=== PATIENT | male | born 1955 | race Caucasian/White ===

== ENCOUNTER 2020-09-12 15:51 | Inpatient (IN) | payer MEDICARE, MEDICAID, SELFPAY ==
[2020-09-12 15:53] VITALS: BP 122/75; PULSE 89; RESP 16; TEMP 36.1; BMI 25.0
--- NOTE | 2020-09-12 16:20 | CT_ITS ---
STUDY: CT ABDOMEN AND PELVIS WITHOUT CONTRAST REASON FOR EXAM: Male, 65 years old. ABD MASS RADIATION DOSAGE (If Supplied By Facility): CTDIvol = ( 10.78 ) mGy, DLP = ( 562.64 ) mGycm TECHNIQUE: Transaxial images were obtained from the dome of the diaphragm to the symphysis pubis without oral contrast, and without intravenous contrast. Sagittal and coronal images were reconstructed. Individualized dose optimization techniques were used for this CT. COMPARISON: None. FINDINGS: There is a partially imaged anterior pleural or chest wall mass within the right hemithorax. Bilateral infiltrates at the lung bases. The visualized portions of the heart are within normal limits. Normal liver. Possible cholelithiasis. No significant dilatation of the extrahepatic biliary system. Normal spleen. Normal pancreas. Mild ascites. Normal bilateral adrenal glands. 2.6 cm cyst in the right kidney with a ureteral stent in place. Cysts in the left kidney. Left hydronephrosis and hydroureter. Possible small calcifications within the distal left ureter. Normal visualized stomach. Normal small intestine. Normal colon. The appendix is not visualized. Normal abdominal aorta. Normal inferior vena cava. Mild adenopathy in the retroperitoneum. Large abdominal mass is noted estimated at 16.5 cm in size extending into an umbilical hernia. The mass likely encasing bowel loops. There is soft tissue density extending along the lateral aspect of the liver and along the right paracolic gutter. There is omental thickening and nodularity. Left paracolic gutter soft tissue density and fluid. 2 mm obstructive stone at the left UVJ of the urinary bladder. Mild wall thickening of the bladder. Bilateral inguinal adenopathy, right significantly more than left. There is fluid in the pelvis. Normal osseous structures. CT/Abdomen/Pelvis without Cont IMPRESSION: Partially imaged right anterior chest wall/pleural based mass. Large abdominal mass with omental thickening and nodularity. Soft tissue densities along the paracolic gutters is noted. Bilateral renal cysts. Obstructive calculi within the distal left ureter and left UVJ. Free fluid in the pelvis. Retroperitoneal and inguinal adenopathy. Mild ascites. Mild wall thickening of the bladder. Electronically Signed: Lebron Ibarra DO at 18:51 EDT Tel [phone], Service support ,
--- NOTE | 2020-09-12 16:20 | EKG12_ITS ---
Test Reason : Blood Pressure : / mmHG Vent. Rate : 080 BPM Atrial Rate : 080 BPM P-R Int : 146 ms QRS Dur : 102 ms QT Int : 414 ms P-R-T Axes : 030 -01 020 degrees QTc Int : 477 ms Normal sinus rhythm Normal ECG Confirmed by MARTHA AGUIRRE, LIZ ([id number]), supervising film or videotape editor LAURENCE BHANDARI ([id number]) on 09/23/2020 9:35:12 A M Referred By: ION Confirmed By:NADIA THOMAS MD
--- NOTE | 2020-09-12 16:22 | ED.VIS.GEN ---
History of Present Illness Chief Complaint: Complaint Narrative: This patient is a 65-year-old male who presents with multiple complaints. He was diagnosed with lymphoma 2 years ago. He has not followed up. He has no family physician. He otherwise has no known medical history and takes no daily medications. He complains of constipation for months. He has had diarrhea for about 1 to 2 weeks. He had a small bowel movement this morning which was normal. He complains of difficulty urinary and urinary retention. He complains of dark urine and burning with urination. He also noticed a mass on the front of his abdomen also for a couple of months. He complains of shortness of breath and cough as well. No fevers. No vomiting. Past Medical History - Allergies and Home Meds Allergies/Adverse Reactions: Allergies No Known Allergies Allergy (Verified 09/12/20 15:57) Past Medical History: - - Lymphoma Review of Systems All systems negative except as indicated General: Denies: Fever Eyes: Denies: Visual changes - bilaterally ENT: Denies: Bilateral ear pain Cardiovascular: Denies: Chest pain Respiratory: Reports: Dyspnea, Cough. Denies: Sputum Gastrointestinal: Reports: Abdominal pain, Diarrhea, Constipation. Denies: Nausea, Vomiting Genitourinary: Reports: Dysuria Musculoskeletal: Denies: Myalgias, Arthralgias Skin: Denies: Rash Neurological: Denies: Headache Hematologic: Denies: Easy bruising Allergy: Denies: Uticaria Physical Exam Vital Signs/Narrative: Vital Signs Temp Pulse Resp BP 09/12/20 15:53 96.9 F L 89 16 122/75 H Inital Vital Signs reviewed: Yes General: Well nourished, Well developed Head: Normocephalic Eyes: EOMI ENT: Moist mucous membranes Neck: Supple Cardiovascular: Regular rate, Regular rhythm Respiratory: - - Patient appears tachypneic and is speaking in short sentences he has good air exchange without rales or wheezing Abdomen: Soft, Nontender, Nondistended, - - There is a 6 x 5 cm anterior abdominal wall mass that appears well-circumscribed with some overlying superficial skin breakdown Skin: Normal color Neurological: Alert Psychological: Normal affect Diagnostic/Tx/Re-eval Impressions Abdomen/Pelvis CT 09/12/20 16:20 IMPRESSION: Partially imaged right anterior chest wall/pleural based mass. Large abdominal mass with omental thickening and nodularity. Soft tissue densities along the paracolic gutters is noted. Bilateral renal cysts. Obstructive calculi within the distal left ureter and left UVJ. Free fluid in the pelvis. Retroperitoneal and inguinal adenopathy. Mild ascites. Mild wall thickening of the bladder. Electronically Signed: Lebron Ibarra at 18:51 EDT Tel [phone], Service support , Chest X-Ray 09/12/20 18:00 IMPRESSION: Bilateral interstitial densities with possible bilateral perihilar infiltrates. Pulmonary vascular prominence. Electronically Signed: Lebronrayna Ibarra DO at 18:29 EDT Tel [phone], Service support , 09/12/20 16:20 Abdomen/Pelvis without Cont [CT] Stat 09/12/20 18:00 Chest 1 View (Portable) [RAD] Stat Laboratory Results 09/12/20 09/12/20 09/12/20 16:27 16:49 17:05 WBC 18.6 H RBC 3.54 L Hgb 9.1 L Hct 29.2 L MCV 82.5 MCH 25.7 L MCHC 31.2 L RDW Std Deviation 46.5 H RDW Coeff of Ashok 15.4 H Plt Count 469 H MPV 10.5 Immature Gran % (Auto) 1.100 H Neut % (Auto) 89.9 H Lymph % (Auto) 5.5 L [place] % (Auto) 3.0 Eos % (Auto) 0.2 Baso % (Auto) 0.3 Absolute Neuts (auto) 16.7 H Absolute Lymphs (auto) 1.02 Nucleated RBC % 0 Sodium Potassium Chloride Carbon Dioxide Anion Gap BUN Creatinine Estim Creat Clear Calc Est GFR (MDRD) Af Amer Est GFR (MDRD) Non-Af BUN/Creatinine Ratio Glucose Calcium Total Bilirubin AST ALT Alkaline Phosphatase Troponin I Total Protein Albumin Globulin Albumin/Globulin Ratio Urine Color Brown Urine Clarity Cloudy Urine pH 5.0 Ur Specific [place] 1.020 Urine Protein 100 H Urine Glucose (UA) Normal Urine Ketones 15 H Urine Occult Blood 250 H Urine Nitrite Positive H Urine Bilirubin Negative Urine Urobilinogen Normal Ur Leukocyte Esterase 500 H Urine RBC > 100 SEEN Urine WBC >100 SEEN Ur Squamous Epith Cells 0-5 SEEN Amorphous Sediment 1+ URATE Urine Bacteria 1+ Urine Mucus 0 SEEN COVID-19 (DANAY) Detected 09/12/20 17:05 WBC RBC Hgb Hct MCV MCH MCHC RDW Std Deviation RDW Coeff of Ashok Plt Count MPV Immature Gran % (Auto) Neut % (Auto) Lymph % (Auto) [place] % (Auto) Eos % (Auto) Baso % (Auto) Absolute Neuts (auto) Absolute Lymphs (auto) Nucleated RBC % Sodium 132 L Potassium 4.4 Chloride 103 Carbon Dioxide 14.0 L Anion Gap 15 BUN 77 H Creatinine 3.16 H Estim Creat Clear Calc 22.25 Est GFR (MDRD) Af Amer 26 L Est GFR (MDRD) Non-Af 21 L BUN/Creatinine Ratio 24.4 H Glucose 81 Calcium 7.9 L Total Bilirubin 0.30 AST 44 H ALT 25 Alkaline Phosphatase 77 Troponin I < 0.015 Total Protein 7.6 Albumin 2.5 L Globulin 5.1 H Albumin/Globulin Ratio 0.5 L Urine Color Urine Clarity Urine pH Ur Specific [place] Urine Protein Urine Glucose (UA) Urine Ketones Urine Occult Blood Urine Nitrite Urine Bilirubin Urine Urobilinogen Ur Leukocyte Esterase Urine RBC Urine WBC Ur Squamous Epith Cells Amorphous Sediment Urine Bacteria Urine Mucus COVID-19 (DANAY) - Medical Decision Making Patient underwent the above diagnostic evaluation. Multiple abnormalities noted. Patient has a significant leukocytosis he has renal failure no old labs to compare to. BUN is 77 with a creatinine of 3.1. CT of the abdomen and pelvis shows an omental mass as well as a left-sided obstructive ureteral calculus. His chest x-ray shows bilateral interstitial infiltrates and COVID-19 was positive. Patient was treated with IV fluids IV Rocephin and azithromycin. He was given morphine and Zofran. Patient will be admitted for further evaluation. ED Disposition - Plan for ED Patient: Disposition: Acute Care Hospital [facility] Diagnosis: Renal failure, Ureteral calculus, Pyelonephritis, Pneumonia due to COVID-19 virus, Omental mass
--- NOTE | 2020-09-12 16:26 | NURSING ---
NO OLD EKGS
[2020-09-12 16:33] LABS: Color, Urine Brown (Yellow); Glucose, Dipstick Normal (Normal); Ketone-Dipstick 15 mg/dl (Negative); Leukocyte Esterase-Dipstick 500 /ul (Negative); Mucous, Urine 0 SEEN /hpf (<or=2+); Nitrite-Dipstick Positive (Negative); Occult Blood-Urine 250 /ul (Negative); Protein-Dipstick 100 mg/dl (Negative); Urine Bilirubin Dipstick Negative (Negative); Urine Clarity Cloudy (Clear); Urine Urobilinogen Normal (Normal)
[2020-09-12] MEDS: 0.9% Normal Saline 1,000 ML 1000 ML IV (17:03)
[2020-09-12 17:23] LABS: Absolute Lymphocyte Count 1.02 X10^3/uL (0.83-4.51); Absolute Neutrophil Count 16.7 X10^3/uL (2.0-7.7); Basophil# 0.05 X10^3/uL; Basophil% 0.3 % (0-1); Eosinophil# 0.04 X10^3/uL; Eosinophils% 0.2 % (0-5); Hematocrit 29.2 % (40-54); Hemoglobin 9.1 g/dL (13.0-16.5); Lymphocyte # 1.02 X10^3/ul (4.0); Lymphocyte % 5.5 % (19-41); Mean Corp Hgb Conc 31.2 g/dL (32-36); Mean Corpuscular Hgb 25.7 pg (27.0-32.0); Mean Corpuscular Volume 82.5 fL (80-94); Mean Platelet Vol. 10.5 fl (6.2-12.0); Monocyte# 0.55 X10^3/uL; NRBC Flagged by Analyzer 0 % (0-5); Neutrophil # 16.69 X10^3/uL (2.7-7.7); Neutrophil % 89.9 % (47-70); Platelet Count 469 K/mm3 (150-450); RBC Distribution Width CV 15.4 % (11.6-14.6); RBC Distribution Width SD 46.5 fl (35.1-43.9); Red Blood Count 3.54 M/mm3 (4.6-6.2); White Blood Count 18.6 K/mm3 (4.4-11.0)
[2020-09-12 17:45] LABS: ALB/GLOB Ratio 0.5 RATIO (0.9-2.4); AST(SGOT) 44 U/L (15-37); Alanine Aminotransfer ALT/SGPT 25 U/L (16-61); Albumin, Serum 2.5 g/dL (3.2-5.0); Alkaline Phosphatase 77 U/L (45-117); Anion Gap 15 (5-15); BUN 77 mg/dL (7-18); BUN/Creat Ratio 24.4 RATIO (10-20); Calcium,Total 7.9 mg/dL (8.5-10.1); Chloride 103 mmol/L (98-107); Creatinine, Serum 3.16 mg/dL (0.70-1.30); EST Glomerular Filtration Rate 21 mL/min (>60); Est Glom Filt Rate - Afr Amer 26 mL/min (>60); Estimated Creatinine Clearance 22.25 ml/min; Globulin 5.1 g/dL (2.2-4.2); Glucose 81 mg/dL (74-106); Potassium 4.4 mmol/L (3.5-5.1); Protein, Total 7.6 g/dL (6.4-8.2); Sodium Level 132 mmol/L (136-145)
--- NOTE | 2020-09-12 18:00 | RAD_ITS ---
STUDY: X-RAY CHEST REASON FOR EXAM: Male, 65 years old. INTERMITTENT GENERAL DISCOMFORT. SOME URINARY RETENTION. CONSTIPATED. DX WITH LYMPHOMA 2 YEARS. TECHNIQUE: Frontal view COMPARISON: None. FINDINGS: The lungs are expanded. Bilateral interstitial densities with possible bilateral perihilar infiltrates. Normal size heart. Normal mediastinum and niko. Prominence of the pulmonary arteries. Normal visualized aortic arch and descending thoracic aorta. Normal visualized thoracic spine. Normal visualized ribs, clavicles, and shoulders. There is no demonstrated abnormality of the visualized soft tissue structures of the upper abdomen. RAD/Chest 1 View (Portable) IMPRESSION: Bilateral interstitial densities with possible bilateral perihilar infiltrates. Pulmonary vascular prominence. Electronically Signed: Lebron Ibarra DO at 18:29 EDT Tel [phone], Service support ,
[2020-09-12 18:04] LABS: Amorphous Sediment 1+ URATE; Bacteria 1+ /hpf (None Seen); Red Blood Cells-Urine > 100 SEEN /hpf (0-5); Squamous Epithelial Cells - UA 0-5 SEEN /hpf (0-5); White Blood Cells >100 SEEN /hpf (0-5)
[2020-09-12] MEDS: Ceftriaxone 1 GM/50 ML BAG IV (18:51)
[2020-09-12 18:52] VITALS: BP 104/71; PULSE 83; RESP 20; O2SAT 94
[2020-09-12 19:26] VITALS: BP 99/68; PULSE 78; RESP 19; TEMP 37; O2SAT 93
[2020-09-12 19:42] LABS: Lactic Acid 0.8 mmol/L (0.4-1.9)
--- NOTE | 2020-09-12 20:31 | HP.PCM_ITS ---
Problem List (1) Renal failure Status: Acute Qualifiers: Renal failure chronicity: acute (2) Ureteral calculus Status: Acute (3) Pyelonephritis Status: Acute (4) Pneumonia due to COVID-19 virus Status: Acute (5) Omental mass Status: Acute History of Present Illness Date of Admission: 09/12/20 Chief Complaint: dysuria The patient is a 65 year old M presents with difficulty urinating today. Patient said that his urine was dark and was also having pain with urination. Patient is also been an issue with his bowels for constipation to diarrhea. Also complaining of abdominal pain and increased abdominal girth. Patient denies any respiratory complaints and denies any contact with anyone with COVID- 19. Patient presented to the emergency room and was found to have what is suspect to be acute kidney injury with a creatinine of 3.16, urinalysis concer jerzy for a UTI with 500 leuk esterase, greater than 100 white blood cells and greater than 100 red blood cells. Patient received ceftriaxone and azithromycin in the emergency room. Patient had a CAT scan that showed a large omental mass approximately 16 cm plus a obstructive calculi within the distal left ureter and left UVJ. Patient has a known history of lymphoma and had received just 2 treat ments of chemotherapy for the lymphoma but patient states that he did not have adequate follow-up and said he reached out the oncology office and never contacted him back. [] Past Medical History Medical History: Medical History (Last Updated 09/12/20 @ 20:[address] Hector De Santiago, DO) Lymphoma C85.90 Allergies No Known Allergies Allergy (Verified 09/12/20 15:57) Home Medications: Ambulatory Orders Medication Instructions Recorded NK 09/12/20 Smoking Status: Never smoker - *Family History Sibling History Items: - - Identical twin with bone cancer. Since . Review of Systems Constitutional: Denies: Anorexia, Chills, Fever, Night Sweats Eyes: Denies: Blurred vision, Double vision HEENT: Reports: - - No anosmia no dysgeusia Cardiovascular: Denies: Chest Pain, Palpitations Respiratory: Denies: Cough, Shortness of breath at rest, Sputum production Gastrointestinal: Reports: Abdominal Pain, Constipation, Diarrhea. Denies: Nausea, Vomiting Genitourinary: Reports: Dysuria Musculoskeletal: Denies: Joint Pain, Joint Tenderness Skin: Denies: Rash, Wounds Neurological: Denies: Numbness, Tingling, Focal weakness Psychiatric: Denies: Anxiety, Depression Endocrine: Reports: Change in Body Habitus - Lost weight Hematologic/ Lymphatic: Denies: Easy Bruising, Easy Bleeding, Hx of blood clot Comment: All review of systems were negative except as mentioned above in the history of present illness and the other review of systems. VTE Information - Inpt Only VTE Present on Admission: No VTE Mechan Device Prophylaxis: None VTE Pharm Prophylaxis ordered?: Yes Patient Problems: Active and Suspected Problems (Last Updated 09/12/20 @ 20:[address] Hector De Santiago, DO) Renal failure (Acute) Ureteral calculus (Acute) Pyelonephritis (Acute) Pneumonia due to COVID-19 virus (Acute) Omental mass (Acute) - Physical Exam Vitals/I&O's: Vital Signs Temp Pulse Resp BP Pulse Ox 37.0 C 78 19 H 99/68 93 09/12/20 19:26 09/12/20 19:26 09/12/20 19:26 09/12/20 19:26 09/12/20 19:26 Oxygen Delivery Method Room Air Weight: 74.843 kg Body Mass Index (BMI) 25.0 Intake and Output for Last 24 Hours 09/10/20 09/11/20 09/12/20 23:59 23:59 23:59 Intake Total 1050 / 1050 Balance 1050 / 1050 General: Alert, Cooperative, No apparent distress, Well developed, Well nourished HEENT: Atraumatic, PERRLA, EOMI, Normocephalic Oral: Moist Mucosa, No Gingival or Mucosal Lesions/ Ulcerations Neck: No Nodes, Thyroid Normal Size and Texture Lungs: Clear to auscultation, Normal air movement, No rhonchi, No wheeze, No rales Cardiovascular: Regular rate, Regular Rhythm, Normal S1, Normal S2, No murmurs Abdomen: Bowel Sounds Present, Non Tender, Distended, - - Umbilical hernia with erythema involving the hernia circumferentially. The hernia is also very firm. Below that is a abdominal mass. Extremities: No clubbing, No edema, Capillary Refill Less than 3 Seconds Skin: No rashes, No breakdown Neurological: Motor Exam 5/5 strength throughout, - - No clonus Psych/Mental Status: Normal Affect, Appropriate Laboratory Results 09/12/20 16:27: Urine Color Brown, Urine Clarity Cloudy, Urine pH 5.0, Ur Specific [place] 1.020, Urine Protein 100 H, Urine Glucose (UA) Normal, Urine Ketones 15 H, Urine Occult Blood 250 H, Urine Nitrite Positive H, Urine Bilirubin Negative, Urine Urobilinogen Normal, Ur Leukocyte Esterase 500 H, Urine RBC > 100 SEEN, Urine WBC >100 SEEN, Ur Squamous Epith Cells 0-5 SEEN, Amorphous Sediment 1+ URATE, Urine Bacteria 1+, Urine Mucus 0 SEEN 09/12/20 16:49: COVID-19 (DANAY) Detected 09/12/20 17:05: WBC 18.6 H, RBC 3.54 L, Hgb 9.1 L, Hct 29.2 L, MCV 82.5, MCH 25.7 L, MCHC 31.2 L, RDW Std Deviation 46.5 H, RDW Coeff of Ashok 15.4 H, Plt Count 469 H, MPV 10.5, Immature Gran % (Auto) 1.100 H, Neut % (Auto) 89.9 H, Lymph % (Auto) 5.5 L, [place] % (Auto) 3.0, Eos % (Auto) 0.2, Baso % (Auto) 0.3, Absolute Neuts (auto) 16.7 H, Absolute Lymphs (auto) 1.02, Nucleated RBC % 0 09/12/20 17:05: Sodium 132 L, Potassium 4.4, Chloride 103, Carbon Dioxide 14.0 L , Anion Gap 15, BUN 77 H, Creatinine 3.16 H, Estim Creat Clear Calc 22.25, Est GFR (MDRD) Af Amer 26 L, Est GFR (MDRD) Non-Af 21 L, BUN/Creatinine Ratio 24.4 H , Glucose 81, Calcium 7.9 L, Total Bilirubin 0.30, AST 44 H, ALT 25, Alkaline Phosphatase 77, Troponin I < 0.015, Total Protein 7.6, Albumin 2.5 L, Globulin 5.1 H, Albumin/Globulin Ratio 0.5 L 09/12/20 18:40: Lactic Acid 0.8 Clinical Impression(s) from Imaging Studies Abdomen/Pelvis CT 09/12/20 16:20 IMPRESSION: Partially imaged right anterior chest wall/pleural based mass. Large abdominal mass with omental thickening and nodularity. Soft tissue densities along the paracolic gutters is noted. Bilateral renal cysts. Obstructive calculi within the distal left ureter and left UVJ. Free fluid in the pelvis. Retroperitoneal and inguinal adenopathy. Mild ascites. Mild wall thickening of the bladder. Electronically Signed: Lebron Ibarra DO at 18:51 EDT Tel [phone], Service support , Chest X-Ray 09/12/20 18:00 IMPRESSION: Bilateral interstitial densities with possible bilateral perihilar infiltrates. Pulmonary vascular prominence. Electronically Signed: Lebron Ibarra DO at 18:29 EDT Tel [phone], Service support , Current Medications Iopamidol (Contrast Allergy Safety Check) 0 ml IV X1 VITO Assessment/Plan All Active Problems (Last Updated 09/12/20 @ 20:[address] Hector De Santiago, ) Renal failure (Acute) Ureteral calculus (Acute) Pyelonephritis (Acute) Pneumonia due to COVID-19 virus (Acute) Omental mass (Acute) 1. Acute kidney injury: Suspect postobstructive due to the ureteral stone: Ston es measuring only 2 mm so we will start patient on tamsulosin and hopefully will pass spontaneously. If not then may consider consultation to urology. 2. COVID-19: Patient denies any symptoms he is unaware of any contacts. He states that he has not attended any Anab[employer]ist gatherings and that he is no longer Anabaptist but former Anabaptist. Being that he seems to be stable at this time will hold off on treatments. Particularly with his abdominal mass if that needs to get biopsied then would want to hold off on steroids. 3. Abdominal mass: Suspect this is the lymphoma that he has. Unclear type. Request records from [facility] oncology. Consult oncology here. Patient is interested in following up with the oncologist at this institution as it is closer to his home. Patient stated that he only received 2 rounds of chemotherapy so did not sound like he had completed his course. 4. Ureteral stone: As above. Tamsulosin. Consider urology consultation if failure to progress. 5. Possible UTI: Start the patient on ceftriaxone. Follow-up urine culture. 6. VTE prophylaxis: Low molecular weight heparin. 7. Advanced care planning: Discussed with the patient. Patient is unsure at this time. Discussed with the patient about CPR. Still unsure. I told him that I would leave him a full CODE STATUS but encouraged him to talk further with his family at a later time and does not necessarily have to be done during this hospitalization. Inpatient E&M: 83788 Init Hosp L3
[2020-09-12 20:43] VITALS: BP 103/66; PULSE 83; RESP 18; O2SAT 92
[2020-09-12 21:00] VITALS: BMI 23.8
[2020-09-12] MEDS: 0.9% Normal Saline 1,000 ML 150 ML IV (21:33)
[2020-09-12 21:36] VITALS: BP 102/59; PULSE 77; RESP 20; TEMP 36.8; O2SAT 92
[2020-09-12] MEDS: Tamsulosin HCl 0.4 MG Capsule PO (22:13)
[2020-09-13] MEDS: 0.9% Normal Saline 1,000 ML 150 ML IV ×4 (01:40→23:07)
[2020-09-13 03:24] VITALS: BP 107/62; PULSE 79; RESP 20; TEMP 37; O2SAT 94
[2020-09-13 06:28] LABS: Absolute Lymphocyte Count 1.44 X10^3/uL (0.83-4.51); Absolute Neutrophil Count 15.1 X10^3/uL (2.0-7.7); Basophil# 0.02 X10^3/uL; Basophil% 0.1 % (0-1); Hematocrit 27.7 % (40-54); Hemoglobin 8.4 g/dL (13.0-16.5); Lymphocyte # 1.44 X10^3/ul (4.0); Lymphocyte % 8.4 % (19-41); Mean Corp Hgb Conc 30.3 g/dL (32-36); Mean Corpuscular Hgb 25.3 pg (27.0-32.0); Mean Corpuscular Volume 83.4 fL (80-94); Mean Platelet Vol. 10.4 fl (6.2-12.0); Monocyte# 0.42 X10^3/uL; Monocyte% 2.4 % (0-10); NRBC Flagged by Analyzer 0 % (0-5); Neutrophil # 15.12 X10^3/uL (2.7-7.7); Neutrophil % 88.1 % (47-70); Platelet Count 440 K/mm3 (150-450); RBC Distribution Width CV 15.6 % (11.6-14.6); RBC Distribution Width SD 47.5 fl (35.1-43.9); Red Blood Count 3.32 M/mm3 (4.6-6.2); White Blood Count 17.2 K/mm3 (4.4-11.0)
[2020-09-13 07:01] LABS: Anion Gap 17 (5-15); BUN 73 mg/dL (7-18); Calcium,Total 7.5 mg/dL (8.5-10.1); Chloride 103 mmol/L (98-107); Creatinine, Serum 2.61 mg/dL (0.70-1.30); EST Glomerular Filtration Rate 26 mL/min (>60); Est Glom Filt Rate - Afr Amer 32 mL/min (>60); Estimated Creatinine Clearance 26.93 ml/min; Glucose 78 mg/dL (74-106); Potassium 4.1 mmol/L (3.5-5.1); Sodium Level 134 mmol/L (136-145)
--- NOTE | 2020-09-13 07:38 | PCM.PN.HOSP ---
Patient Problems: Active and Suspected Problems (Last Updated 09/12/20 @ 20:[address] Hector De Santiago, DO) Renal failure (Acute) Ureteral calculus (Acute) Pyelonephritis (Acute) Pneumonia due to COVID-19 virus (Acute) Omental mass (Acute) Reason for Visit: Lymphoma COVID-19 pneumonia Subjective: Patient is a 65-year-old gentleman with previous history of lymphoma who apparently did not complete treatment presented with lower abdominal discomfort as well as dysuria. Part of his his evaluation in the ED included chest x-ray which demonstrated bilateral interstitial infiltrate. His COVID-19 assay came back positive admitted to regular nursing floor for subsequent management Objective: GENERAL: cooperative but frail looking HEENT: Atraumatic; EYES; Anicteric, Normal Conjunctiva NECK; supple, normal thyroid, RESPIRATORY: Diminished to auscultation CARDIOVASCULAR: Regular S1 S2, GI: soft, normoactive bowel sounds, : No Renal angle tenderness; EXTREMITIES: No edema, no clubbing, MUSCULOSKELETAL: no muscle waisting NEURO: Awake; no lateralizing signs. SKIN: No Rash PSYCH; Flat affect Vitals/I&O's: Vital Signs Temp Pulse Resp BP Pulse Ox 98.6 F 79 20 H 107/62 94 09/13/20 03:24 09/13/20 03:24 09/13/20 03:24 09/13/20 03:24 09/13/20 03:24 Oxygen Flow Rate (L/min) 2 Oxygen Delivery Method Nasal Cannula Weight: 71.123 kg Body Mass Index (BMI) 23.8 Intake and Output for Last 24 Hours 09/11/20 09/12/20 09/13/20 23:59 23:59 23:59 Intake Total 1785 / 1785 740 / 740 Output Total 200 / 200 200 / 200 Balance 1585 / 1585 540 / 540 Laboratory Results 09/12/20 16:27: Urine Color Brown, Urine Clarity Cloudy, Urine pH 5.0, Ur Specific [place] 1.020, Urine Protein 100 H, Urine Glucose (UA) Normal, Urine Ketones 15 H, Urine Occult Blood 250 H, Urine Nitrite Positive H, Urine Bilirubin Negative, Urine Urobilinogen Normal, Ur Leukocyte Esterase 500 H, Urine RBC > 100 SEEN, Urine WBC >100 SEEN, Ur Squamous Epith Cells 0-5 SEEN, Amorphous Sediment 1+ URATE, Urine Bacteria 1+, Urine Mucus 0 SEEN 09/12/20 16:49: COVID-19 (DANAY) Pending 09/12/20 17:05: WBC 18.6 H, RBC 3.54 L, Hgb 9.1 L, Hct 29.2 L, MCV 82.5, MCH 25.7 L, MCHC 31.2 L, RDW Std Deviation 46.5 H, RDW Coeff of Ashok 15.4 H, Plt Count 469 H, MPV 10.5, Immature Gran % (Auto) 1.100 H, Neut % (Auto) 89.9 H, Lymph % (Auto) 5.5 L, Bledsoe % (Auto) 3.0, Eos % (Auto) 0.2, Baso % (Auto) 0.3, Absolute Neuts (auto) 16.7 H, Absolute Lymphs (auto) 1.02, Nucleated RBC % 0 09/12/20 17:05: Sodium 132 L, Potassium 4.4, Chloride 103, Carbon Dioxide 14.0 L, Anion Gap 15, BUN 77 H, Creatinine 3.16 H, Estim Creat Clear Calc 22.25, Est GFR (MDRD) Af Amer 26 L, Est GFR (MDRD) Non-Af 21 L, BUN/Creatinine Ratio 24.4 H, Glucose 81, Calcium 7.9 L, Total Bilirubin 0.30, AST 44 H, ALT 25, Alkaline Phosphatase 77, Troponin I < 0.015, Total Protein 7.6, Albumin 2.5 L, Globulin 5.1 H, Albumin/Globulin Ratio 0.5 L 09/12/20 18:40: Lactic Acid 0.8 09/13/20 06:04: WBC 17.2 H, RBC 3.32 L, Hgb 8.4 L, Hct 27.7 L, MCV 83.4, MCH 25.3 L, MCHC 30.3 L, RDW Std Deviation 47.5 H, RDW Coeff of Ashok 15.6 H, Plt Count 440, MPV 10.4, Immature Gran % (Auto) 1.000 H, Neut % (Auto) 88.1 H, Lymph % (Auto) 8.4 L, Bledsoe % (Auto) 2.4, Eos % (Auto) 0.0, Baso % (Auto) 0.1, Absolute Neuts (auto) 15.1 H, Absolute Lymphs (auto) 1.44, Nucleated RBC % 0 09/13/20 06:04: Sodium 134 L, Potassium 4.1, Chloride 103, Carbon Dioxide 14.0 L, Anion Gap 17 H, BUN 73 H, Creatinine 2.61 H, Estim Creat Clear Calc 26.93, Est GFR (MDRD) Af Amer 32 L, Est GFR (MDRD) Non-Af 26 L, BUN/Creatinine Ratio 28.0 H, Glucose 78, Calcium 7.5 L Current Medications Acetaminophen (Acetaminophen 325 Mg Tablet) 650 mg PO Q6H PRN PRN PRN Reason: Pain Score 1-10/Temp > 100.7 F Enoxaparin Sodium (Enoxaparin 30 Mg/0.3 Ml Syringe) 30 mg SC DAILY [facility] Sodium Chloride () 1,000 mls @ 150 mls/hr IV .Q6H40M [facility] Last Admin: 09/13/20 01:40 Dose: 150 mls/hr Documented by: Ceftriaxone Sodium (Rocephin) 1 gm in 50 mls @ 100 mls/hr IV Q24@2200 [facility] Ibuprofen (Ibuprofen 400 Mg Tablet) 400 mg PO Q4H PRN PRN PRN Reason: Pain Score 1-10/Temp > 100.7 F Nutritional Formula (Lactose Free) (Ensure Clear 120 Ml Liquid) 120 ml PO TIDCM [facility] Ondansetron HCl (Ondansetron 4 Mg/2 Ml Vial) 4 mg IV Q8H PRN PRN PRN Reason: NAUSEA/VOMITING Oxycodone HCl (Oxycodone 5 Mg Tablet) 5 mg PO Q4H PRN PRN PRN Reason: Pain Score 4-5 Oxycodone HCl (Oxycodone 5 Mg Tablet) 10 mg PO Q4H PRN PRN PRN Reason: Pain Score 6-10 Tamsulosin HCl (Tamsulosin Hcl 0.4 Mg Capsule) 0.4 mg PO DAILY@1730 [facility] Last Admin: 09/12/20 22:13 Dose: 0.4 mg Documented by: Medical Necessity - Tobacco Use Smoking Status: Never smoker Assessment/Plan All Active Problems (Last Updated 09/12/20 @ 20:[address] Hector De Santiago, DO) Renal failure (Acute) Ureteral calculus (Acute) Pyelonephritis (Acute) Pneumonia due to COVID-19 virus (Acute) Omental mass (Acute) Patient is a 65-year-old gentleman with previous history of lymphoma who apparently did not complete treatment presented with lower abdominal discomfort as well as dysuria. Part of his his evaluation in the ED included chest x-ray which demonstrated bilateral interstitial infiltrate. His COVID-19 assay came back positive admitted to regular nursing floor for subsequent management 1. Acute kidney injury ?Secondary to obstructive uropathy imaging studies obtained on admission demonstrated Obstructive calculi within the distal left ureter and left UVJ patient was started on Flomax admitted to regular nursing floor with subsequent monitoring of his kidney function 2. COVID-19 pneumonia Chest x-ray demonstrated Bilateral interstitial densities with possible bilateral perihilar infiltrates. Admitted to [facility] floor placed on the contact and droplet precautions. Patient also placed on supplemental oxygen titrated to keep saturation greater than 94. Consult placed to pulmonary medicine 3. History of lymphoma ?Patient apparently did not complete treatment requisition was sent to [facility] for patient's old records. Imaging studies obtained on admission demonstrated Partially imaged right anterior chest wall/pleural based mass. Large abdominal mass with omental thickening and nodularity. Soft tissue densities along the paracolic gutters is noted. Consult placed to oncology 4. Acute cystitis ?Patient started on Rocephin blood and urine culture sent plan is to adjust antibiotic therapy based on culture result 5. DVT prophylaxis ?Lovenox Advance planning; did discuss with the patient and family regarding advanced directives as well as CODE STATUS. Did explain the various scenarios involved ( FULL CODE, DNR CCA, DNR CCA with no intubation, and DNR CC and what each meant) patient elected to be DNR CCA no intubation. Order was placed. Time spent on discussion 18 minutes. Active Medications Acetaminophen (Acetaminophen 325 Mg Tablet) 650 mg PO Q6H PRN PRN PRN Reason: Pain Score 1-10/Temp > 100.7 F Enoxaparin Sodium (Enoxaparin 30 Mg/0.3 Ml Syringe) 30 mg SC DAILY [facility] Sodium Chloride () 1,000 mls @ 150 mls/hr IV .Q6H40M [facility] Last Admin: 09/13/20 01:40 Dose: 150 mls/hr Documented by: Ceftriaxone Sodium (Rocephin) 1 gm in 50 mls @ 100 mls/hr IV Q24@2200 [facility] Ibuprofen (Ibuprofen 400 Mg Tablet) 400 mg PO Q4H PRN PRN PRN Reason: Pain Score 1-10/Temp > 100.7 F Nutritional Formula (Lactose Free) (Ensure Clear 120 Ml Liquid) 120 ml PO TIDCM [facility] Ondansetron HCl (Ondansetron 4 Mg/2 Ml Vial) 4 mg IV Q8H PRN PRN PRN Reason: NAUSEA/VOMITING Oxycodone HCl (Oxycodone 5 Mg Tablet) 5 mg PO Q4H PRN PRN PRN Reason: Pain Score 4-5 Oxycodone HCl (Oxycodone 5 Mg Tablet) 10 mg PO Q4H PRN PRN PRN Reason: Pain Score 6-10 Tamsulosin HCl (Tamsulosin Hcl 0.4 Mg Capsule) 0.4 mg PO DAILY@1730 [facility] Last Admin: 09/12/20 22:13 Dose: 0.4 mg Documented by: Clinical Impression(s) from Imaging Studies Abdomen/Pelvis CT 09/12/20 16:20 IMPRESSION: Partially imaged right anterior chest wall/pleural based mass. Large abdominal mass with omental thickening and nodularity. Soft tissue densities along the paracolic gutters is noted. Bilateral renal cysts. Obstructive calculi within the distal left ureter and left UVJ. Free fluid in the pelvis. Retroperitoneal and inguinal adenopathy. Mild ascites. Mild wall thickening of the bladder. Electronically Signed: Lebron Ibarra DO at 18:51 EDT Tel [phone], Service support , Chest X-Ray 09/12/20 18:00 IMPRESSION: Bilateral interstitial densities with possible bilateral perihilar infiltrates. Pulmonary vascular prominence. Electronically Signed: Lebron Ibarra DO at 18:29 EDT Tel [phone], Service support , Inpatient E&M: 78409 Subs Hosp L3 Procedures: 84602 Advncd Care Plan 30 Min
[2020-09-13 08:20] VITALS: BP 106/61; PULSE 84; RESP 20; TEMP 36.6; O2SAT 92
[2020-09-13] MEDS: Enoxaparin 30 MG/0.3 ML Syringe SC (09:48)
--- NOTE | 2020-09-13 11:59 | CON.PCM_ITS ---
Reason for Consult Date of Consultation: 09/13/20 Reason for Consultation: Acute Hypoxemic Respiratory Insufficiency History of Present Illness: The patient is a 65-year-old male, with a history as outlined below, who presented to the emergency department on September 12 with a myriad of different complaints including constipation, abdominal discomfort, painful urination and shortness of breath. The patient does apparently have a history of non- Hodgkin's lymphoma, diagnosed several years ago through [facility]. On presentation to the emergency department, the patient was noted to be afebrile hemodynamically stable. He was initially documented to be saturating 94% on room air. Laboratory evaluation revealed an elevated white blood cell count to 19,000. Normocytic anemia was also noted. Chemistry profile was notable for a sodium of 132, bicarbonate of 14 and creatinine of 3.16. Lactate was within normal limits. Urine analysis was positive for nitrites and leukocyte esterase. Coronavirus PCR was positive. The patient was placed on antimicrobials and received supplemental IV fluid hydration. He was then admitted to the medical surgical floor for further management. Past Medical History Past Medical History (Chronic Problems): Chronic Problems (Last Updated 09/12/20 @ 20:[address] Hector De Santiago DO) History of non-Hodgkin's lymphoma (Chronic) Medical History: Medical History (Last Updated 09/12/20 @ 20:[address] Hector De Santiago DO) Lymphoma C85.90 Allergies No Known Allergies Allergy (Verified 09/12/20 15:57) Home Medications: Ambulatory Orders Medication Instructions Recorded NK 09/12/20 Smoking Status: Never smoker - *Family History Maternal History Items: - - no cancer Sibling History Items: - - Identical twin with bone cancer. Since . Review of Systems Constitutional: Reports: Malaise, Weakness, Fatigue Eyes: Denies: Blurred vision, Double vision HEENT: Denies: Head Aches, Sinus Congestion, Sinus Drainage Cardiovascular: Denies: Chest Pain, Palpitations Respiratory: Reports: Cough, Shortness of Breath Gastrointestinal: Reports: Abdominal Pain, Constipation Genitourinary: Reports: Dysuria Musculoskeletal: Denies: Joint Pain, Joint Tenderness Skin: Denies: Rash, Wounds Neurological: Denies: Numbness, Tingling, Focal weakness Psychiatric: Denies: Anxiety, Depression, Homicidal Ideations, Suicidal Ideations Hematologic/ Lymphatic: Reports: Anemia Patient Problems: Active and Suspected Problems (Last Updated 09/12/20 @ 20:[address] Hector De Santiago, DO) Renal failure (Acute) Ureteral calculus (Acute) Pyelonephritis (Acute) Pneumonia due to COVID-19 virus (Acute) Omental mass (Acute) Objective: The patient's most recent lab work, culture data and imaging studies have all been personally reviewed. - Physical Exam Vitals/I&O's: Vital Signs Temp Pulse Resp BP Pulse Ox 97.8 F 84 20 H 106/61 92 09/13/20 08:20 09/13/20 08:20 09/13/20 08:20 09/13/20 08:20 09/13/20 08:20 Oxygen Flow Rate (L/min) 2 Oxygen Delivery Method Nasal Cannula Weight: 156 lb 12.8 oz Body Mass Index (BMI) 23.8 Intake and Output for Last 24 Hours 09/11/20 09/12/20 09/13/20 23:59 23:59 23:59 Intake Total 1785 / 1785 1740 / 1740 Output Total 200 / 200 200 / 200 Balance 1585 / 1585 1540 / 1540 General: Alert, Cooperative, No apparent distress HEENT: Atraumatic, Normocephalic Oral: No Gingival or Mucosal Lesions/ Ulcerations Neck: Supple, No Nodes, Trachea Midline Lungs: Diminished Cardiovascular: Regular rate, Regular Rhythm Abdomen: Bowel Sounds Present, Soft, Non Tender Extremities: No clubbing, No cyanosis, No edema Skin: No breakdown Musculoskeletal: No Tenderness to Palpation of Joints or Extremities Neurological: Cranial nerves II-XII grossly intact, Neuro grossly intact Psych/Mental Status: Normal Affect, Appropriate Labs (Last 48 Hours) 09/12/20 09/12/20 09/12/20 16:27 16:49 17:05 WBC 18.6 H RBC 3.54 L Hgb 9.1 L Hct 29.2 L MCV 82.5 MCH 25.7 L MCHC 31.2 L RDW Std Deviation 46.5 H RDW Coeff of Ashok 15.4 H Plt Count 469 H MPV 10.5 Immature Gran % (Auto) 1.100 H Neut % (Auto) 89.9 H Lymph % (Auto) 5.5 L [place] % (Auto) 3.0 Eos % (Auto) 0.2 Baso % (Auto) 0.3 Absolute Neuts (auto) 16.7 H Absolute Lymphs (auto) 1.02 Nucleated RBC % 0 Sodium Potassium Chloride Carbon Dioxide Anion Gap BUN Creatinine Estim Creat Clear Calc Est GFR (MDRD) Af Amer Est GFR (MDRD) Non-Af BUN/Creatinine Ratio Glucose Lactic Acid Calcium Total Bilirubin AST ALT Alkaline Phosphatase Troponin I Total Protein Albumin Globulin Albumin/Globulin Ratio Urine Color Brown Urine Clarity Cloudy Urine pH 5.0 Ur Specific [place] 1.020 Urine Protein 100 H Urine Glucose (UA) Normal Urine Ketones 15 H Urine Occult Blood 250 H Urine Nitrite Positive H Urine Bilirubin Negative Urine Urobilinogen Normal Ur Leukocyte Esterase 500 H Urine RBC > 100 SEEN Urine WBC >100 SEEN Ur Squamous Epith Cells 0-5 SEEN Amorphous Sediment 1+ URATE Urine Bacteria 1+ Urine Mucus 0 SEEN COVID-19 (DANAY) Pending 09/12/20 09/12/20 09/13/20 17:05 18:40 06:04 WBC 17.2 H RBC 3.32 L Hgb 8.4 L Hct 27.7 L MCV 83.4 MCH 25.3 L MCHC 30.3 L RDW Std Deviation 47.5 H RDW Coeff of Ashok 15.6 H Plt Count 440 MPV 10.4 Immature Gran % (Auto) 1.000 H Neut % (Auto) 88.1 H Lymph % (Auto) 8.4 L [place] % (Auto) 2.4 Eos % (Auto) 0.0 Baso % (Auto) 0.1 Absolute Neuts (auto) 15.1 H Absolute Lymphs (auto) 1.44 Nucleated RBC % 0 Sodium 132 L Potassium 4.4 Chloride 103 Carbon Dioxide 14.0 L Anion Gap 15 BUN 77 H Creatinine 3.16 H Estim Creat Clear Calc 22.25 Est GFR (MDRD) Af Amer 26 L Est GFR (MDRD) Non-Af 21 L BUN/Creatinine Ratio 24.4 H Glucose 81 Lactic Acid 0.8 Calcium 7.9 L Total Bilirubin 0.30 AST 44 H ALT 25 Alkaline Phosphatase 77 Troponin I < 0.015 Total Protein 7.6 Albumin 2.5 L Globulin 5.1 H Albumin/Globulin Ratio 0.5 L Urine Color Urine Clarity Urine pH Ur Specific [place] Urine Protein Urine Glucose (UA) Urine Ketones Urine Occult Blood Urine Nitrite Urine Bilirubin Urine Urobilinogen Ur Leukocyte Esterase Urine RBC Urine WBC Ur Squamous Epith Cells Amorphous Sediment Urine Bacteria Urine Mucus COVID-19 (DANAY) 09/13/20 06:04 WBC RBC Hgb Hct MCV MCH MCHC RDW Std Deviation RDW Coeff of Ashok Plt Count MPV Immature Gran % (Auto) Neut % (Auto) Lymph % (Auto) [place] % (Auto) Eos % (Auto) Baso % (Auto) Absolute Neuts (auto) Absolute Lymphs (auto) Nucleated RBC % Sodium 134 L Potassium 4.1 Chloride 103 Carbon Dioxide 14.0 L Anion Gap 17 H BUN 73 H Creatinine 2.61 H Estim Creat Clear Calc 26.93 Est GFR (MDRD) Af Amer 32 L Est GFR (MDRD) Non-Af 26 L BUN/Creatinine Ratio 28.0 H Glucose 78 Lactic Acid Calcium 7.5 L Total Bilirubin AST ALT Alkaline Phosphatase Troponin I Total Protein Albumin Globulin Albumin/Globulin Ratio Urine Color Urine Clarity Urine pH Ur Specific [place] Urine Protein Urine Glucose (UA) Urine Ketones Urine Occult Blood Urine Nitrite Urine Bilirubin Urine Urobilinogen Ur Leukocyte Esterase Urine RBC Urine WBC Ur Squamous Epith Cells Amorphous Sediment Urine Bacteria Urine Mucus COVID-19 (DANAY) Clinical Impression(s) from Imaging Studies Abdomen/Pelvis CT 09/12/20 16:20 IMPRESSION: Partially imaged right anterior chest wall/pleural based mass. Large abdominal mass with omental thickening and nodularity. Soft tissue densities along the paracolic gutters is noted. Bilateral renal cysts. Obstructive calculi within the distal left ureter and left UVJ. Free fluid in the pelvis. Retroperitoneal and inguinal adenopathy. Mild ascites. Mild wall thickening of the bladder. Electronically Signed: Lebron Ibarra DO at 18:51 EDT Tel [phone], Service support , Chest X-Ray 09/12/20 18:00 IMPRESSION: Bilateral interstitial densities with possible bilateral perihilar infiltrates. Pulmonary vascular prominence. Electronically Signed: Lebron Ibarra DO at 18:29 EDT Tel [phone], Service support , Current Medications Acetaminophen (Acetaminophen 325 Mg Tablet) 650 mg PO Q6H PRN PRN PRN Reason: Pain Score 1-10/Temp > 100.7 F Enoxaparin Sodium (Enoxaparin 30 Mg/0.3 Ml Syringe) 30 mg SC DAILY [facility] Last Admin: 09/13/20 09:48 Dose: 30 mg Documented by: Sodium Chloride () 1,000 mls @ 150 mls/hr IV .Q6H40M [facility] Last Admin: 09/13/20 08:34 Dose: 150 mls/hr Documented by: Ceftriaxone Sodium (Rocephin) 1 gm in 50 mls @ 100 mls/hr IV Q24@2200 [facility] Ibuprofen (Ibuprofen 400 Mg Tablet) 400 mg PO Q4H PRN PRN PRN Reason: Pain Score 1-10/Temp > 100.7 F Nutritional Formula (Lactose Free) (Ensure Clear 120 Ml Liquid) 120 ml PO TIDCM [facility] Last Admin: 09/13/20 11:20 Dose: Not Given Documented by: Ondansetron HCl (Ondansetron 4 Mg/2 Ml Vial) 4 mg IV Q8H PRN PRN PRN Reason: NAUSEA/VOMITING Oxycodone HCl (Oxycodone 5 Mg Tablet) 5 mg PO Q4H PRN PRN PRN Reason: Pain Score 4-5 Oxycodone HCl (Oxycodone 5 Mg Tablet) 10 mg PO Q4H PRN PRN PRN Reason: Pain Score 6-10 Sodium Chloride (0.9% Saline Lock 10 Ml Syringe) 10 - 40 ml IV UD PRN PRN Reason: SALINE FLUSH Sodium Chloride (0.9% Saline Lock 10 Ml Syringe) 10 - 40 ml IV UD PRN PRN Reason: Midline Flush Sodium Chloride (0.9 % Nacl (Sterile) Posiflush 10 Ml) 10 - 40 ml IV UD PRN PRN Reason: Port access or dressing change Tamsulosin HCl (Tamsulosin Hcl 0.4 Mg Capsule) 0.4 mg PO DAILY@1730 [facility] Last Admin: 09/12/20 22:13 Dose: 0.4 mg Documented by: Assessment/Plan All Active Problems (Last Updated 09/12/20 @ 20:[address] Hector De Santiago DO) Renal failure (Acute) Ureteral calculus (Acute) Pyelonephritis (Acute) Pneumonia due to COVID-19 virus (Acute) Omental mass (Acute) RECOMMENDATIONS: 1. Continue supplemental oxygen to maintain saturations at or above 90%. 2. Check D-dimer level, and if elevated, begin systemic anticoagulation. 3. Start patient on Decadron 6 mg daily. 4. Will defer need for convalescent plasma and/or remdesivir to infectious diseases. 5. Continue empiric antimicrobials. IMPRESSIONS: 1. Acute hypoxemic respiratory failure secondary to Covid pneumonia Plan to continue current supportive measures including supplemental oxygen to maintain saturations at or above 90%. Obtain D-dimer level, and if elevated, start empiric systemic anticoagulation. Recommend starting the patient on Decadron 6 mg daily. Infectious diseases has been consulted. Therefore, will defer need for convalescent plasma and/or remdesivir to ID. Continue empiric antimicrobials over concerns for urinary tract source of infection. 2. Acute kidney injury Likely multifactorial with prerenal and obstructive uropathy contributing. Plan to continue supplemental IV fluid hydration as tolerated. The patient may eventually require urology consultation. 3. Acute cystitis Agree with continuing empiric antimicrobials, while awaiting culture results. 4. History of non-Hodgkin's lymphoma Complicates care, management, recovery and prognosis. Oncology consultation has been obtained. This note was generated with [employer] dictation software. It may contain incorrect words, spelling, and punctuation that were not noted in checking the note before signing. Inpatient E&M: 44286 Init Hosp L3
[2020-09-13] MEDS: Ensure Clear 120 ML Liquid PO ×2 (12:32→17:07)
--- NOTE | 2020-09-13 13:15 | CON.PCM_ITS ---
Consult Referring Physician: Dr. Jakob De Santiago Consult Results: H/o NHL, did not complete therapy at [facility]. Subjective Date of Service:: 09/13/20 Chief Complaint: Abd. discomfort, H/O NHL. History of Present Illness: 65-year-old man was diagnosed with non-Hodgkin's lymphoma about 2 years ago at [facility] in [place]. He had abdominal masses, so right ureteric stent was placed. He reports receiving 2 cycles of chemotherapy and was lost to follow- up. He presented to [facility] with general weakness and abdominal pain. CT on 09/12/2020 shows large abdominal mass with omental thickening and nodularity, retroperitoneal and inguinal lymph adenopathy, mild ascites and bladder wall thickening. He has also been diagnosed with Covid-19. Asked to see for further management. Past Medical History: Chronic Problems (Last Updated 09/12/20 @ 20:[address] Hector De Santiago, DO) History of non-Hodgkin's lymphoma (Chronic) Past Medical/Surgical History: Past Medical History - Most Recent Inpatient Visit Past Medical History Start: 09/12/20 21:00 Text: Status: Complete Freq: ONCE Protocol: Document 09/12/20 21:00 KK (Rec: 09/12/20 22:04 KK [id number]) BMI Required to complete PMH What is Patient's BMI 23.8 Past Medical History Unable History Recalled Yes Query Text:Pt Unable/Family Not Present Neurologic Medical History Hx Stroke/TIA No Hx Dementia/Alzheimer's No Hx Parkinson's Disease No Hx Seizures No Hx Multiple Sclerosis No Hx Migraines No Cardiac Medical History VTE Present on Admission No Hx of Deep Vein Thrombosis/VTE/PE No Hx Hypertension No Hx Chest Pain/Angina No Hx Heart Attack No Hx Cardiac Surgery/Stents/Etc. No Hx Heart Failure No Hx Pacemaker/AICD No Hx Irregular Heartbeat and/or Afib No Hx Anticoagulant Therapy Yes: ASA Query Text:(Coumadin, Aspirin, Plavix, Xarelto, etc.) Hx Pain in Legs when Walking/Leg Cramps No Respiratory Medical History Hx COPD No Hx Emphysema No Hx Smoking No Smoking Status Never smoker Hx Tobacco Use in last 12 months Yes Sent to [facility] Yes Hx Sleep Apnea No Do you snore loudly (louder than talking No or can be heard through closed doors)? Do you often feel tired/ fatigued/ No sleepy during daytime? Has anyone observed you stop breathing No during sleep? STOP Results Negative GI Medical History Hx Ulcer Yes Hx Hepatitis No Hx Cirrhosis No Hx GI Bleed No Hx Unplanned Weight Loss No Genitourinary Medical History Indwelling Catheter in Place on Arrival/ No Admission Hx Renal Disease Yes Hx Dialysis No Musculoskeletal History Hx Arthritis No Hx Rheumatoid Arthritis No Endocrine Medical History Hx Diabetes No Hx Thyroid Disease No Hematologic Medical History Hx of Blood Transfusion Yes Hx of Transfusion in last 3 Months No Ever experience any problems with No transfusion(s)? Hx of Preganancy in last 3 Months N/A Nurse Filling Out Transfusion & [id number] Questions: Date: 09/12/20 Time: 22:04 Psycho/Social Medical History Hx Depression No Hx Anxiety No Hx Behavior Disorder No Hx Alcohol Use No Hx Substance Use No Other Medical History Hx Blood Disorders No Hx Anemia No Hx Cancer Yes: Lymphoma Hx Drug Resistant Organism No Wound/Pressure Injury Present on Arrival No /Admission Query Text:If yes, chart assessment in Shift/Clinical Findings Central Line/PICC/VAD Present on Arrival No /Admission Antibiotics within last 7 days? No Methicillin Resistant Staphylococcus aureus Screening Active MRSA No Risk for Readmission Number of Risk Factors 4 At Risk for Readmission Patient is At Risk For Readmission Patient is eligible for Call Back Y Past Medical History (Last Updated 09/12/20 @ 20:[address] Hector De Santiago, DO) Lymphoma (Acute) Maternal Family History: - - no cancer Sibling Family History: - - Identical twin with bone cancer. Since . - Social History Smoking Status: Never smoker Allergies/Adverse Reactions: Allergy/AdvReac Type Severity Reaction Status Date / Time No Known Allergies Allergy Verified 09/12/20 15:57 Review of Systems Constitutional:: Reports: Weakness, Fatigue. Denies: Fever, Sweats Cardiovascular:: Denies: Chest pain, Palpitations, Dyspnea on exertion, Orthopnea, PND, Shortness of breath Respiratory: Denies: Cough, Hemoptysis, Shortness of Breath, Wheezing Gastrointestinal:: Reports: Abdominal pain, Diarrhea Genitourinary: Denies: Dysuria, Hematuria, 15, Flank pain Musculoskeletal:: Denies: Back pain, Myalgia, Arthralgia Skin: Denies: Rash, Skin Changes, Wounds Neurological:: Denies: Headache, Dizziness, Visual changes, Tinnitus, Hearing loss Psychiatric: Denies: Anxiety, Depression, Homicidal Ideations, Suicidal Ideations Vital Signs Temperature 97.8 F 09/13/20 08:20 Temperature Source Oral 09/13/20 08:20 Pulse Rate 84 09/13/20 08:20 Pulse Strength Normal (2+) 09/12/20 22:13 Respiratory Rate 20 H 09/13/20 08:20 Respiratory Effort Non-Labored 09/13/20 03:00 Respiratory Depth Shallow 09/13/20 03:00 Respiratory Pattern Tachypnea 09/13/20 03:00 Blood Pressure 106/61 09/13/20 08:20 Blood Pressure Mean 76 09/13/20 08:20 Blood Pressure Source Monitor 09/13/20 08:20 Blood Pressure Position Semi-Fowlers 09/13/20 08:20 Blood Pressure Location Left Arm 09/13/20 08:20 Pulse Ox 92 09/13/20 08:20 Oxygen Delivery Method Nasal Cannula 09/13/20 08:25 Oxygen Flow Rate (L/min) 2 09/13/20 08:25 - Physical Exam General: Alert, Oriented x3, No apparent distress HEENT: Atraumatic, PERRLA, EOMI, Normocephalic Oropharynx:: Poor dentition Neck:: Supple, Trachea midline. Negative for: JVD, bilateral Cardiac:: Regular rate, Regular rhythm, Normal S1, Normal S2. Negative for: Murmur Lungs: Diminished Abdomen:: Distended Extremities:: Negative for: Cyanosis, Edema Neurological: Cranial nerves II-XII grossly intact Skin:: Negative for: Lesions, Rash, Petechiae, Ecchymosis Psychiatric:: Appropriate affect, Euthymic Lymphatics:: Negative for: Cervical lymphadenopathy, Supraclavicular lymphadenopathy, Axillary lymphadenopathy Laboratory Data: Laboratory Tests 09/13/20 09/13/20 09/12/20 Range/Units 06:04 06:04 18:40 WBC 17.2 H (4.4-11.0) K/mm3 RBC 3.32 L (4.6-6.2) M/mm3 Hgb 8.4 L (13.0-16.5) g/dL Hct 27.7 L (40-54) % MCV 83.4 (80-94) fL MCH 25.3 L (27.0-32.0) pg MCHC 30.3 L (32-36) g/dL RDW Std Deviation 47.5 H (35.1-43.9) fl RDW Coeff of Ashok 15.6 H (11.6-14.6) % Plt Count 440 (150-450) K/mm3 MPV 10.4 (6.2-12.0) fl Immature Gran % (Auto) 1.000 H (0.0-0.9) % Neut % (Auto) 88.1 H (47-70) % Lymph % (Auto) 8.4 L (19-41) % Griggs % (Auto) 2.4 (0-10) % Eos % (Auto) 0.0 (0-5) % Baso % (Auto) 0.1 (0-1) % Absolute Neuts (auto) 15.1 H (2.0-7.7) X10^3/uL Absolute Lymphs (auto) 1.44 (0.83-4.51) X10^3/uL Nucleated RBC % 0 (0-5) % Sodium 134 L (136-145) mmol/L Potassium 4.1 (3.5-5.1) mmol/L Chloride 103 (98-107) mmol/L Carbon Dioxide 14.0 L (21.0-32.0) mmol/L Anion Gap 17 H (5-15) BUN 73 H (7-18) mg/dL Creatinine 2.61 H (0.70-1.30) mg/dL Estim Creat Clear Calc 26.93 ml/min Est GFR (MDRD) Af Amer 32 L (>60) mL/min Est GFR (MDRD) Non-Af 26 L (>60) mL/min BUN/Creatinine Ratio 28.0 H (10-20) RATIO Glucose 78 (74-106) mg/dL Lactic Acid 0.8 (0.4-1.9) mmol/L Calcium 7.5 L (8.5-10.1) mg/dL Total Bilirubin (0.20-1.00) mg/dL AST (15-37) U/L ALT (16-61) U/L Alkaline Phosphatase (45-117) U/L Troponin I (<0.045) ng/mL Total Protein (6.4-8.2) g/dL Albumin (3.2-5.0) g/dL Globulin (2.2-4.2) g/dL Albumin/Globulin Ratio (0.9-2.4) RATIO Urine Color (Yellow) Urine Clarity (Clear) Urine pH (5.0 - 8.0) Ur Specific [place] (1.002-1.030) Urine Protein (Negative) mg/dl Urine Glucose (UA) (Normal) mg/dl Urine Ketones (Negative) mg/dl Urine Occult Blood (Negative) /ul Urine Nitrite (Negative) Urine Bilirubin (Negative) mg/dL Urine Urobilinogen (Normal) mg/dl Ur Leukocyte Esterase (Negative) /ul Urine RBC (0-5) /hpf Urine WBC (0-5) /hpf Ur Squamous Epith Cells (0-5) /hpf Amorphous Sediment Urine Bacteria (None Seen) /hpf Urine Mucus (<or=2+) /hpf 09/12/20 09/12/20 09/12/20 Range/Units 17:05 17:05 16:27 WBC 18.6 H (4.4-11.0) K/mm3 RBC 3.54 L (4.6-6.2) M/mm3 Hgb 9.1 L (13.0-16.5) g/dL Hct 29.2 L (40-54) % MCV 82.5 (80-94) fL MCH 25.7 L (27.0-32.0) pg MCHC 31.2 L (32-36) g/dL RDW Std Deviation 46.5 H (35.1-43.9) fl RDW Coeff of Ashok 15.4 H (11.6-14.6) % Plt Count 469 H (150-450) K/mm3 MPV 10.5 (6.2-12.0) fl Immature Gran % (Auto) 1.100 H (0.0-0.9) % Neut % (Auto) 89.9 H (47-70) % Lymph % (Auto) 5.5 L (19-41) % Griggs % (Auto) 3.0 (0-10) % Eos % (Auto) 0.2 (0-5) % Baso % (Auto) 0.3 (0-1) % Absolute Neuts (auto) 16.7 H (2.0-7.7) X10^3/uL Absolute Lymphs (auto) 1.02 (0.83-4.51) X10^3/uL Nucleated RBC % 0 (0-5) % Sodium 132 L (136-145) mmol/L Potassium 4.4 (3.5-5.1) mmol/L Chloride 103 (98-107) mmol/L Carbon Dioxide 14.0 L (21.0-32.0) mmol/L Anion Gap 15 (5-15) BUN 77 H (7-18) mg/dL Creatinine 3.16 H (0.70-1.30) mg/dL Estim Creat Clear Calc 22.25 ml/min Est GFR (MDRD) Af Amer 26 L (>60) mL/min Est GFR (MDRD) Non-Af 21 L (>60) mL/min BUN/Creatinine Ratio 24.4 H (10-20) RATIO Glucose 81 (74-106) mg/dL Lactic Acid (0.4-1.9) mmol/L Calcium 7.9 L (8.5-10.1) mg/dL Total Bilirubin 0.30 (0.20-1.00) mg/dL AST 44 H (15-37) U/L ALT 25 (16-61) U/L Alkaline Phosphatase 77 (45-117) U/L Troponin I < 0.015 (<0.045) ng/mL Total Protein 7.6 (6.4-8.2) g/dL Albumin 2.5 L (3.2-5.0) g/dL Globulin 5.1 H (2.2-4.2) g/dL Albumin/Globulin Ratio 0.5 L (0.9-2.4) RATIO Urine Color Brown (Yellow) Urine Clarity Cloudy (Clear) Urine pH 5.0 (5.0 - 8.0) Ur Specific [place] 1.020 (1.002-1.030) Urine Protein 100 H (Negative) mg/dl Urine Glucose (UA) Normal (Normal) mg/dl Urine Ketones 15 H (Negative) mg/dl Urine Occult Blood 250 H (Negative) /ul Urine Nitrite Positive H (Negative) Urine Bilirubin Negative (Negative) mg/dL Urine Urobilinogen Normal (Normal) mg/dl Ur Leukocyte Esterase 500 H (Negative) /ul Urine RBC > 100 SEEN (0-5) /hpf Urine WBC >100 SEEN (0-5) /hpf Ur Squamous Epith Cells 0-5 SEEN (0-5) /hpf Amorphous Sediment 1+ URATE Urine Bacteria 1+ (None Seen) /hpf Urine Mucus 0 SEEN (<or=2+) /hpf Diagnostic Data: Diagnostic Data Abdomen/Pelvis CT 09/12/20 16:20 IMPRESSION: Partially imaged right anterior chest wall/pleural based mass. Large abdominal mass with omental thickening and nodularity. Soft tissue densities along the paracolic gutters is noted. Bilateral renal cysts. Obstructive calculi within the distal left ureter and left UVJ. Free fluid in the pelvis. Retroperitoneal and inguinal adenopathy. Mild ascites. Mild wall thickening of the bladder. Electronically Signed: Lebron Ibarra DO at 18:51 EDT Tel [phone], Service support , Chest X-Ray 09/12/20 18:00 IMPRESSION: Bilateral interstitial densities with possible bilateral perihilar infiltrates. Pulmonary vascular prominence. Electronically Signed: Lebron Ibarra DO at 18:29 EDT Tel [phone], Service support , Assessment and Plan Abdominal mass, Renal failure S/P R ureteric stent. History of NHL s/P 2 cycles of chemotherapy at [facility]. Covid-19. Discussed further management with Pt, need old records to determine further management. Plan is to continue management for Covid-19. Follow in [facility] on discharge. Will not follow further on this admission. Thanks. Medications: Prescriptions This Visit Medication Instructions Recorded NK 09/12/20 Medications Added to Medication List This Visit Category Date Time Status 0.9 % NaCl (Sterile) Posiflush [0.9% NaCl (Sterile) Med 09/13/20 10:52 Active Posiflush] 10 - 40 ml IV UD PRN 0.9% Saline Lock Med 09/13/20 10:52 Active 10 - 40 ml IV UD PRN 0.9% Saline Lock Med 09/13/20 10:52 Active 10 - 40 ml IV UD PRN Ceftriaxone [Rocephin] Med 09/13/20 22:00 Active 1 gm in 50 ml IV Q24@2200 Enoxaparin [Lovenox] Med 09/13/20 10:00 Active 30 mg SC DAILY Ensure Clear Med 09/13/20 08:00 Active 120 ml PO TIDCM Primary Care Provider: No Primary Care Phys Referring Provider: - Problem List (1) History of non-Hodgkin's lymphoma Status: Chronic Office Visits / Consults: 89580 OP Consult L4
[2020-09-13 15:03] VITALS: BP 126/73; PULSE 101; RESP 18; TEMP 36.6; O2SAT 92
--- NOTE | 2020-09-13 15:25 | CASEMGMT ---
RN CM attempted to call patient in room to complete assessment. No answer, CM will attempt again at a later time.
[2020-09-13] MEDS: Tamsulosin HCl 0.4 MG Capsule PO (17:07)
[2020-09-13 20:57] VITALS: BP 127/72; PULSE 95; RESP 19; TEMP 37.2; O2SAT 94
[2020-09-13] MEDS: Ceftriaxone 1 GM/50 ML BAG IV (21:09)
[2020-09-13 23:13] VITALS: O2SAT 94
[2020-09-13 23:15] VITALS: O2SAT 94
[2020-09-14] VITALS (7 sets, daily range): BP systolic 107–114; BP diastolic 63–67; PULSE 83–88; RESP 18; TEMP 36.6–37.4; O2SAT 93–95
[2020-09-14] MEDS: 0.9% Normal Saline 1,000 ML 150 ML IV ×3 (05:29→19:19)
[2020-09-14 07:31] LABS: Hematocrit 26.4 % (40-54); Hemoglobin 8.1 g/dL (13.0-16.5); Mean Corp Hgb Conc 30.7 g/dL (32-36); Mean Corpuscular Hgb 25.6 pg (27.0-32.0); Mean Corpuscular Volume 83.3 fL (80-94); Mean Platelet Vol. 10.2 fl (6.2-12.0); Platelet Count 414 K/mm3 (150-450); RBC Distribution Width CV 15.8 % (11.6-14.6); RBC Distribution Width SD 48.5 fl (35.1-43.9); Red Blood Count 3.17 M/mm3 (4.6-6.2); White Blood Count 15.3 K/mm3 (4.4-11.0)
--- NOTE | 2020-09-14 07:38 | PN_ITS ---
Patient Problems: Active and Suspected Problems (Last Updated 09/12/20 @ 20:[address] Hector De Santiago, DO) Renal failure (Acute) Ureteral calculus (Acute) Pyelonephritis (Acute) Pneumonia due to COVID-19 virus (Acute) Omental mass (Acute) Reason for Visit: COVID-19 infection Acute cystitis with E. coli Acute kidney injury Subjective: Patient seen complains of lower abdominal discomfort. Urine culture so far positive for E. coli. Final sensitivities pending. Had a discussion with oncology regarding patient's care. Plan will be for patient to follow-up with oncology once he is medically stable. Objective: GENERAL: cooperative but frail looking HEENT: Atraumatic; EYES; Anicteric, Normal Conjunctiva NECK; supple, normal thyroid, RESPIRATORY: Diminished to auscultation CARDIOVASCULAR: Regular S1 S2, GI: soft, normoactive bowel sounds, : No Renal angle tenderness; EXTREMITIES: No edema, no clubbing, MUSCULOSKELETAL: no muscle waisting NEURO: Awake; no lateralizing signs. SKIN: No Rash PSYCH; Flat affect Vitals/I&O's: Vital Signs Temp Pulse Resp BP Pulse Ox 98.0 F 84 18 114/64 94 09/14/20 02:19 09/14/20 02:19 09/14/20 02:19 09/14/20 02:19 09/14/20 02:21 Oxygen Flow Rate (L/min) 7 Oxygen Delivery Method Nasal Cannula Weight: 71.123 kg Body Mass Index (BMI) 23.8 Intake and Output for Last 24 Hours 09/12/20 09/13/20 09/14/20 23:59 23:59 23:59 Intake Total 1785 / 1785 3772.5 / 3772.5 955 / 955 Output Total 200 / 200 775 / 775 Balance 1585 / 1585 2997.5 / 2997.5 955 / 955 Laboratory Results 09/12/20 16:49: COVID-19 (DANAY) Detected 09/14/20 06:46: WBC 15.3 H, RBC 3.17 L, Hgb 8.1 L, Hct 26.4 L, MCV 83.3, MCH 25.6 L, MCHC 30.7 L, RDW Std Deviation 48.5 H, RDW Coeff of Ashok 15.8 H, Plt Count 414, MPV 10.2 09/14/20 06:46: Sodium Pending, Potassium Pending, Chloride Pending, Carbon Dioxide Pending, Anion Gap Pending, BUN Pending, Creatinine Pending, Est GFR (MDRD) Af Amer Pending, Est GFR (MDRD) Non-Af Pending, BUN/Creatinine Ratio Pending, Glucose Pending, Calcium Pending, Magnesium Pending Current Medications Acetaminophen (Acetaminophen 325 Mg Tablet) 650 mg PO Q6H PRN PRN PRN Reason: Pain Score 1-10/Temp > 100.7 F Albuterol Sulfate (Albuterol Sulfate Hfa 6.7 Gm Inhaler (200 Puffs)) 2 puff IH Q4H PRN PRN PRN Reason: COUGH Last Admin: 09/14/20 00:08 Dose: 2 puff Documented by: Enoxaparin Sodium (Enoxaparin 30 Mg/0.3 Ml Syringe) 30 mg SC DAILY [facility] Last Admin: 09/13/20 09:48 Dose: 30 mg Documented by: Sodium Chloride () 1,000 mls @ 150 mls/hr IV .Q6H40M [facility] Last Admin: 09/14/20 05:29 Dose: 150 mls/hr Documented by: Ceftriaxone Sodium (Rocephin) 1 gm in 50 mls @ 100 mls/hr IV Q24@2200 [facility] Last Infusion: 09/13/20 21:39 Dose: Infused Documented by: Ibuprofen (Ibuprofen 400 Mg Tablet) 400 mg PO Q4H PRN PRN PRN Reason: Pain Score 1-10/Temp > 100.7 F Miscellaneous Information (Inhaler, Assist Devices 1 Each Spacer) 1 each INHALATION PRN PRN PRN Reason: WITH ALBUTEROL MDI Nutritional Formula (Lactose Free) (Ensure Clear 120 Ml Liquid) 120 ml PO TIDCM [facility] Last Admin: 09/13/20 17:07 Dose: 120 ml Documented by: Ondansetron HCl (Ondansetron 4 Mg/2 Ml Vial) 4 mg IV Q8H PRN PRN PRN Reason: NAUSEA/VOMITING Oxycodone HCl (Oxycodone 5 Mg Tablet) 5 mg PO Q4H PRN PRN PRN Reason: Pain Score 4-5 Oxycodone HCl (Oxycodone 5 Mg Tablet) 10 mg PO Q4H PRN PRN PRN Reason: Pain Score 6-10 Sodium Chloride (0.9% Saline Lock 10 Ml Syringe) 10 - 40 ml IV UD PRN PRN Reason: SALINE FLUSH Sodium Chloride (0.9% Saline Lock 10 Ml Syringe) 10 - 40 ml IV UD PRN PRN Reason: Midline Flush Sodium Chloride (0.9 % Nacl (Sterile) Posiflush 10 Ml) 10 - 40 ml IV UD PRN PRN Reason: Port access or dressing change Tamsulosin HCl (Tamsulosin Hcl 0.4 Mg Capsule) 0.4 mg PO DAILY@1730 [facility] Last Admin: 09/13/20 17:07 Dose: 0.4 mg Documented by: Medical Necessity - Tobacco Use Smoking Status: Never smoker Assessment/Plan All Active Problems (Last Updated 09/12/20 @ 20:[address] Hector De Santiago, DO) Renal failure (Acute) Ureteral calculus (Acute) Pyelonephritis (Acute) Pneumonia due to COVID-19 virus (Acute) Omental mass (Acute) Patient is a 65-year-old gentleman with previous history of lymphoma who apparently did not complete treatment presented with lower abdominal discomfort as well as dysuria. Part of his his evaluation in the ED included chest x-ray which demonstrated bilateral interstitial infiltrate. His COVID-19 assay came b ack positive admitted to regular nursing floor for subsequent management 1. Acute kidney injury ?Secondary to obstructive uropathy imaging studies obtained on admission demonstrated Obstructive calculi within the distal left ureter and left UVJ patient was started on Flomax admitted to regular nursing floor with subsequent monitoring of his kidney function -09/04/2020 creatinine down to 2.15 from admission level of 3.16 2. COVID-19 pneumonia Chest x-ray demonstrated Bilateral interstitial densities with possible bilateral perihilar infiltrates. Admitted to MedSurg floor placed on the con tact and droplet precautions. Patient also placed on supplemental oxygen titrated to keep saturation greater than 94. Consult placed to pulmonary medicine 3. History of lymphoma ?Patient apparently did not complete treatment requisition was sent to [facility] for patient's old records. Imaging studies obtained on admission demonstrated Partially imaged right anterior chest wall/pleural based mass. Large abdominal mass with omental thickening and nodularity. Soft tissue densities along the paracolic gutters is noted. Consult placed to oncology -09/04/2020; patient was seen in consultation by oncology Dr. Mnechaca, the day prior is for patient to follow-up with oncology as outpatient once medically stable 4. Acute cystitis ?Patient started on Rocephin blood and urine culture sent plan is to adjust antibiotic therapy based on culture result -09/04/2020; urine cultures positive for E. coli final sensitivities and identification is pending 5. DVT [facility] 11711 Subs Hosp L2
[2020-09-14 07:51] LABS: Anion Gap 10 (5-15); BUN 58 mg/dL (7-18); Calcium,Total 7.3 mg/dL (8.5-10.1); Chloride 111 mmol/L (98-107); Creatinine, Serum 2.15 mg/dL (0.70-1.30); EST Glomerular Filtration Rate 33 mL/min (>60); Est Glom Filt Rate - Afr Amer 40 mL/min (>60); Glucose 105 mg/dL (74-106); Magnesium 2.5 mg/dL (1.6-2.6); Potassium 3.8 mmol/L (3.5-5.1); Sodium Level 138 mmol/L (136-145)
[2020-09-14] MEDS: Enoxaparin 30 MG/0.3 ML Syringe SC (09:37)
[2020-09-14] MEDS: oxyCODONE 5 MG Tablet PO (09:56)
[2020-09-14] MEDS: Ensure Clear 120 ML Liquid PO ×3 (09:56→17:24)
--- NOTE | 2020-09-14 10:17 | CASEMGMT ---
DAO PRINGLE Assessment Note Attempted to contact patient in room, however he is on 7L NC but cannot participate at this time. Call to sisterLiliana who states she is also the DPOA. She states the patient is generally independent, does not use home oxygen and no ambulatory DME. -patient will have mask to wear at home. -sister can assist with any meals, shopping that is needed -[facility] will deliver medications if needed -patient can self isolate as he is home alone. -family can provide transportation home per his sister Presentation: difficulty with urination, shortness of breath Diagnosis: Positive SARS COVID-19 PCP: will need to verify with patient- not listed. Insurance: [facility] Preferred Pharmacy: [facility] in [place] Prescription Benefit: unknown LNOK: sisterLiliana, DPOA Living Arrangements: patient lives alone, is generally independent. Per sister, pt has a few steps into home, and has first floor set up. Tranportation: patient drives, and sister states family can pick patient up on discharge. DME: none. HHC: none SNF: none Patient DC Goals: home DC Plan: anticipate home on discharge. RN CM will contact patient re: dc needs once he is able. Will need to follow for home oxygen. CM available for discharge planning coordination. Contact CM for any concerns/needs that may arise. Justice REBOLLAR RN ACM
[2020-09-14 10:31] LABS: LDH 369 U/L (87-241)
[2020-09-14 10:54] LABS: D-Dimer Quantitative (DVT/PE) 1.54 FEU/ug/m (0.27-0.49)
--- NOTE | 2020-09-14 13:29 | PCM.PN.PUL ---
Patient Problems: Active and Suspected Problems (Last Updated 09/12/20 @ 20:[address] Hector De Santiago, DO) Renal failure (Acute) Ureteral calculus (Acute) Pyelonephritis (Acute) Pneumonia due to COVID-19 virus (Acute) Omental mass (Acute) Subjective: The patient was seen and examined at the bedside this morning. Events from the last 24 hours have been reviewed. The patient is currently afebrile, hemodynamically stable and maintaining appropriate oxygen saturations on 7 L/min via nasal cannula. The patient did have an elevated D-dimer this morning noted at 1.54. Creatinine is improving. Objective: The patient's most recent lab work, culture data and imaging studies have all been personally reviewed. Coronavirus PCR was positive on September 12. Preliminary urine culture is positive for E. coli. - Physical Exam Vitals/I&O's: Vital Signs Temp Pulse Resp BP Pulse Ox 97.9 F 83 18 107/63 95 09/14/20 09:40 09/14/20 09:40 09/14/20 09:40 09/14/20 09:40 09/14/20 09:40 Oxygen Flow Rate (L/min) 7 Oxygen Delivery Method Nasal Cannula Weight: 156 lb 12.8 oz Body Mass Index (BMI) 23.8 Intake and Output for Last 24 Hours 09/12/20 09/13/20 09/14/20 23:59 23:59 23:59 Intake Total 1785 / 1785 3772.5 / 3772.5 1954 Output Total 200 / 200 775 / 775 Balance 1585 / 1585 2997.5 / 2997.5 1954 General: Alert, Cooperative HEENT: Atraumatic, Normocephalic Oral: Moist Mucosa Neck: Supple, No Nodes, Trachea Midline Lungs: Diminished Cardiovascular: Regular rate, Regular Rhythm Abdomen: Bowel Sounds Present, Soft, Non Tender Extremities: No clubbing, No cyanosis, No edema Skin: No breakdown Musculoskeletal: No Tenderness to Palpation of Joints or Extremities Neurological: Cranial nerves II-XII grossly intact, Neuro grossly intact Psych/Mental Status: Normal Affect, Appropriate Labs (Last 48 Hours) 09/12/20 09/12/20 09/12/20 16:27 16:49 17:05 WBC 18.6 H RBC 3.54 L Hgb 9.1 L Hct 29.2 L MCV 82.5 MCH 25.7 L MCHC 31.2 L RDW Std Deviation 46.5 H RDW Coeff of Ashok 15.4 H Plt Count 469 H MPV 10.5 Immature Gran % (Auto) 1.100 H Neut % (Auto) 89.9 H Lymph % (Auto) 5.5 L [place] % (Auto) 3.0 Eos % (Auto) 0.2 Baso % (Auto) 0.3 Absolute Neuts (auto) 16.7 H Absolute Lymphs (auto) 1.02 Nucleated RBC % 0 D-Dimer Quant (PE/DVT) Sodium Potassium Chloride Carbon Dioxide Anion Gap BUN Creatinine Estim Creat Clear Calc Est GFR (MDRD) Af Amer Est GFR (MDRD) Non-Af BUN/Creatinine Ratio Glucose Lactic Acid Calcium Magnesium Total Bilirubin AST ALT Alkaline Phosphatase Lactate Dehydrogenase Troponin I Total Protein Albumin Globulin Albumin/Globulin Ratio Urine Color Brown Urine Clarity Cloudy Urine pH 5.0 Ur Specific Epsom 1.020 Urine Protein 100 H Urine Glucose (UA) Normal Urine Ketones 15 H Urine Occult Blood 250 H Urine Nitrite Positive H Urine Bilirubin Negative Urine Urobilinogen Normal Ur Leukocyte Esterase 500 H Urine RBC > 100 SEEN Urine WBC >100 SEEN Ur Squamous Epith Cells 0-5 SEEN Amorphous Sediment 1+ URATE Urine Bacteria 1+ Urine Mucus 0 SEEN COVID-19 (DANAY) Detected Blood Type 09/12/20 09/12/20 09/13/20 17:05 18:40 06:04 WBC 17.2 H RBC 3.32 L Hgb 8.4 L Hct 27.7 L MCV 83.4 MCH 25.3 L MCHC 30.3 L RDW Std Deviation 47.5 H RDW Coeff of Ashok 15.6 H Plt Count 440 MPV 10.4 Immature Gran % (Auto) 1.000 H Neut % (Auto) 88.1 H Lymph % (Auto) 8.4 L [place] % (Auto) 2.4 Eos % (Auto) 0.0 Baso % (Auto) 0.1 Absolute Neuts (auto) 15.1 H Absolute Lymphs (auto) 1.44 Nucleated RBC % 0 D-Dimer Quant (PE/DVT) Sodium 132 L Potassium 4.4 Chloride 103 Carbon Dioxide 14.0 L Anion Gap 15 BUN 77 H Creatinine 3.16 H Estim Creat Clear Calc 22.25 Est GFR (MDRD) Af Amer 26 L Est GFR (MDRD) Non-Af 21 L BUN/Creatinine Ratio 24.4 H Glucose 81 Lactic Acid 0.8 Calcium 7.9 L Magnesium Total Bilirubin 0.30 AST 44 H ALT 25 Alkaline Phosphatase 77 Lactate Dehydrogenase Troponin I < 0.015 Total Protein 7.6 Albumin 2.5 L Globulin 5.1 H Albumin/Globulin Ratio 0.5 L Urine Color Urine Clarity Urine pH Ur Specific [place] Urine Protein Urine Glucose (UA) Urine Ketones Urine Occult Blood Urine Nitrite Urine Bilirubin Urine Urobilinogen Ur Leukocyte Esterase Urine RBC Urine WBC Ur Squamous Epith Cells Amorphous Sediment Urine Bacteria Urine Mucus COVID-19 (DANAY) Blood Type 09/13/20 09/14/20 09/14/20 06:04 06:46 06:46 WBC 15.3 H RBC 3.17 L Hgb 8.1 L Hct 26.4 L MCV 83.3 MCH 25.6 L MCHC 30.7 L RDW Std Deviation 48.5 H RDW Coeff of Ashok 15.8 H Plt Count 414 MPV 10.2 Immature Gran % (Auto) Neut % (Auto) Lymph % (Auto) D[place] % (Auto) Eos % (Auto) Baso % (Auto) Absolute Neuts (auto) Absolute Lymphs (auto) Nucleated RBC % D-Dimer Quant (PE/DVT) Sodium 134 L 138 Potassium 4.1 3.8 Chloride 103 111 H Carbon Dioxide 14.0 L 17.0 L Anion Gap 17 H 10 BUN 73 H 58 H Creatinine 2.61 H 2.15 H Estim Creat Clear Calc 26.93 32.70 Est GFR (MDRD) Af Amer 32 L 40 L Est GFR (MDRD) Non-Af 26 L 33 L BUN/Creatinine Ratio 28.0 H 27.0 H Glucose 78 105 Lactic Acid Calcium 7.5 L 7.3 L Magnesium 2.5 Total Bilirubin AST ALT Alkaline Phosphatase Lactate Dehydrogenase Troponin I Total Protein Albumin Globulin Albumin/Globulin Ratio Urine Color Urine Clarity Urine pH Ur Specific [place]om Urine Protein Urine Glucose (UA) Urine Ketones Urine Occult Blood Urine Nitrite Urine Bilirubin Urine Urobilinogen Ur Leukocyte Esterase Urine RBC Urine WBC Ur Squamous Epith Cells Amorphous Sediment Urine Bacteria Urine Mucus COVID-19 (DANAY) Blood Type 09/14/20 09/14/20 09/14/20 06:46 10:30 10:30 WBC RBC Hgb Hct MCV MCH MCHC RDW Std Deviation RDW Coeff of Ashok Plt Count MPV Immature Gran % (Auto) Neut % (Auto) Lymph % (Auto) [place]enton % (Auto) Eos % (Auto) Baso % (Auto) Absolute Neuts (auto) Absolute Lymphs (auto) Nucleated RBC % D-Dimer Quant (PE/DVT) 1.54 H* Sodium Potassium Chloride Carbon Dioxide Anion Gap BUN Creatinine Estim Creat Clear Calc Est GFR (MDRD) Af Amer Est GFR (MDRD) Non-Af BUN/Creatinine Ratio Glucose Lactic Acid Calcium Magnesium Total Bilirubin AST ALT Alkaline Phosphatase Lactate Dehydrogenase 369 H Troponin I Total Protein Albumin Globulin Albumin/Globulin Ratio Urine Color Urine Clarity Urine pH Ur Specific [place]om Urine Protein Urine Glucose (UA) Urine Ketones Urine Occult Blood Urine Nitrite Urine Bilirubin Urine Urobilinogen Ur Leukocyte Esterase Urine RBC Urine WBC Ur Squamous Epith Cells Amorphous Sediment Urine Bacteria Urine Mucus COVID-19 (DANAY) Blood Type A POSITIVE Microbiology 09/12/20 16:27 Urine, Clean Catch Urine Cultu Clinical Impression(s) from Imaging Studies Abdomen/Pelvis CT 09/12/20 16:20 IMPRESSION: Partially imaged right anterior chest wall/pleural based mass. Large abdominal mass with omental thickening and nodularity. Soft tissue densities along the paracolic gutters is noted. Bilateral renal cysts. Obstructive calculi within the distal left ureter and left UVJ. Free fluid in the pelvis. Retroperitoneal and inguinal adenopathy. Mild ascites. Mild wall thickening of the bladder. Electronically Signed: Lebron Ibarra DO at 18:51 EDT Tel [phone], Service support , Chest X-Ray 09/12/20 18:00 IMPRESSION: Bilateral interstitial densities with possible bilateral perihilar infiltrates. Pulmonary vascular prominence. Electronically Signed: Lebron Ibarra DO at 18:29 EDT Tel [phone], Service support , Current Medications Acetaminophen (Acetaminophen 325 Mg Tablet) 650 mg PO Q6H PRN PRN PRN Reason: Pain Score 1-10/Temp > 100.7 F Albuterol Sulfate (Albuterol Sulfate Hfa 6.7 Gm Inhaler (200 Puffs)) 2 puff IH Q4H PRN PRN PRN Reason: COUGH Last Admin: 09/14/20 00:08 Dose: 2 puff Documented by: Enoxaparin Sodium (Enoxaparin 30 Mg/0.3 Ml Syringe) 30 mg SC DAILY [facility] Last Admin: 09/14/20 09:37 Dose: 30 mg Documented by: Sodium Chloride () 1,000 mls @ 150 mls/hr IV .Q6H40M [facility] Last Admin: 09/14/20 12:59 Dose: 150 mls/hr Documented by: Ceftriaxone Sodium (Rocephin) 1 gm in 50 mls @ 100 mls/hr IV Q24@2200 [facility] Last Infusion: 09/13/20 21:39 Dose: Infused Documented by: Ibuprofen (Ibuprofen 400 Mg Tablet) 400 mg PO Q4H PRN PRN PRN Reason: Pain Score 1-10/Temp > 100.7 F Miscellaneous Information (Inhaler, Assist Devices 1 Each Spacer) 1 each INHALATION PRN PRN PRN Reason: WITH ALBUTEROL MDI Nutritional Formula (Lactose Free) (Ensure Clear 120 Ml Liquid) 120 ml PO TIDCM [facility] Last Admin: 09/14/20 12:59 Dose: 120 ml Documented by: Ondansetron HCl (Ondansetron 4 Mg/2 Ml Vial) 4 mg IV Q8H PRN PRN PRN Reason: NAUSEA/VOMITING Oxycodone HCl (Oxycodone 5 Mg Tablet) 5 mg PO Q4H PRN PRN PRN Reason: Pain Score 4-5 Last Admin: 09/14/20 09:56 Dose: 5 mg Documented by: Oxycodone HCl (Oxycodone 5 Mg Tablet) 10 mg PO Q4H PRN PRN PRN Reason: Pain Score 6-10 Sodium Chloride (0.9% Saline Lock 10 Ml Syringe) 10 - 40 ml IV UD PRN PRN Reason: SALINE FLUSH Sodium Chloride (0.9% Saline Lock 10 Ml Syringe) 10 - 40 ml IV UD PRN PRN Reason: Midline Flush Sodium Chloride (0.9 % Nacl (Sterile) Posiflush 10 Ml) 10 - 40 ml IV UD PRN PRN Reason: Port access or dressing change Tamsulosin HCl (Tamsulosin Hcl 0.4 Mg Capsule) 0.4 mg PO DAILY@1730 [facility] Last Admin: 09/13/20 17:07 Dose: 0.4 mg Documented by: Medical Necessity - Tobacco Use Smoking Status: Never smoker Assessment/Plan All Active Problems (Last Updated 09/12/20 @ 20:[address] Hector De Santiago, DO) Renal failure (Acute) Ureteral calculus (Acute) Pyelonephritis (Acute) Pneumonia due to COVID-19 virus (Acute) Omental mass (Acute) RECOMMENDATIONS: 1. Continue supplemental oxygen to maintain saturations at or above 90%. 2. Check D-dimer level, and if elevated, begin systemic anticoagulation. 3. Start patient on Decadron 6 mg daily. 4. Will defer need for convalescent plasma and/or remdesivir to infectious diseases. 5. Continue antimicrobials. 6. Obtain CT chest to further evaluate chest wall mass noted on CT abdomen. IMPRESSIONS: 1. Acute hypoxemic respiratory failure secondary to Covid pneumonia Plan to continue current supportive measures including supplemental oxygen to maintain saturations at or above 90%. Obtain D-dimer level, and if elevated, start empiric systemic anticoagulation. Recommend starting the patient on Decadron 6 mg daily. Infectious diseases has been consulted. Therefore, will defer need for convalescent plasma and/or remdesivir to ID. Continue empiric antimicrobials over concerns for urinary tract source of infection. 2. Acute kidney injury Improving. Likely multifactorial with prerenal and obstructive uropathy contributing. Plan to continue supplemental IV fluid hydration as tolerated. 3. E. coli cystitis Agree with continuing empiric antimicrobials as ordered. 4. History of non-Hodgkin's lymphoma Complicates care, management, recovery and prognosis. Oncology does not have any additional plans for further inpatient work-up. This note was generated with [employer] dictation software. It may contain incorrect words, spelling, and punctuation that were not noted in checking the note before signing. Inpatient E&M: 95989 Subs Hosp L2
--- NOTE | 2020-09-14 13:30 | CT_ITS ---
STUDY: CT CHEST WITHOUT CONTRAST REASON FOR EXAM: Male, 65 years old. MEDIASTINAL MASS SEEN ON CT ABD, +COVED, HX-LYMPHOMA WITH 2 CHEMO TX''S, HAS URETERAL STENT RADIATION DOSAGE (If Supplied By Facility): CTDIvol = ( 17.44 ) mGy, DLP = ( 502.53 ) mGycm TECHNIQUE: Transaxial imaging was performed without the administration of intravenous contrast material. Individualized dose optimization techniques were used for this CT. COMPARISON: None. FINDINGS: There is a 4.6 cm x 2.3 cm x 5.2 cm soft tissue mass in the anterior medial aspect of the right chest wall. This causes destruction of the rib. This is seen just distal to the right sternomanubrial junction and extends caudally. A similar appearing mass lesion is seen in the right cardiophrenic border measuring 5.47 x 2.3 cm. Consolidation in the left upper lobe. Peripheral infiltrates in the right upper lobe. Infiltration in the right middle lobe as well as in both lower lobes. There is mild cardiac enlargement. There are calcifications of the coronary arteries. Mildly enlarged mediastinal lymph nodes. Normal hilar regions. Normal unenhanced pulmonary arteries. Normal aorta arch and descending thoracic aorta. There are multi-level degenerative changes of the thoracic spine. Perihepatic fluid. Hepatomegaly. CT/Chest without Contrast IMPRESSION: Dense infiltrates in both lungs as described. Anterior chest wall mass as described. Soft tissue mass in the anterior aspect of the lower thorax at the right cardiophrenic junction. Electronically Signed: Ok Solis, at 15:51 EDT , Service support ,
--- NOTE | 2020-09-14 15:18 | CON.PCM_ITS ---
Problem List (1) Pneumonia due to COVID-19 virus Status: Acute Reason for Consult: covid Consulted by: Dr. Kelly History of Present Illness: The patient is a 65 year old M with h/o stage IV mantle cell lymphoma with retroperitoneal lymphadenopathy and obstructive uropathy due to malignancy requiring stent placement 11/29/18 at [facility]. Prior oncologist was Dr. Pacheco. Lymphoma was dx based on RP mass biopsy 10/2018, given one cycle of rituximab and bendamustine 11/29/18, complicated by tumor lysis requiring admit. He was lost to followup after that. Now presented to the hospital in [place] with several months of abd pain, difficulty urinating, fever, mild cough, and dyspnea. No change in taste or smell. No sick contacts. Covid (+). UA with heavy pyuria. Started on ceftriaxone. Feeling better, abd feels improved. Full ROS Performed and neg except as noted above. - Medical History Past Medical History (Chronic Problems): Chronic Problems (Last Updated 09/12/20 @ 20:[address] Hector De Santiago, DO) History of non-Hodgkin's lymphoma (Chronic) Allergies/Adverse Reactions: Allergies No Known Allergies Allergy (Verified 09/12/20 15:57) Home Medications: Ambulatory Orders Medication Instructions Recorded NK 09/12/20 - Social History Tobacco Use: non-smoker Vital Signs Temp Pulse Resp BP Pulse Ox 98.1 F 83 18 114/67 95 09/14/20 14:17 09/14/20 14:17 09/14/20 14:17 09/14/20 14:17 09/14/20 14:17 Oxygen Flow Rate (L/min) 6 Oxygen Delivery Method Nasal Cannula Weight: 71.123 kg Body Mass Index (BMI) 23.8 Microbiology Past 72 Hours 09/12/20 16:27 Urine Culture - Preliminary Urine, Clean Catch Presumptive E. coli Laboratory Tests Past 24 Hrs 09/12/20 09/14/20 09/14/20 16:49 06:46 06:46 WBC 15.3 H RBC 3.17 L Hgb 8.1 L Hct 26.4 L MCV 83.3 MCH 25.6 L MCHC 30.7 L RDW Std Deviation 48.5 H RDW Coeff of Ashok 15.8 H Plt Count 414 MPV 10.2 D-Dimer Quant (PE/DVT) Sodium 138 Potassium 3.8 Chloride 111 H Carbon Dioxide 17.0 L Anion Gap 10 BUN 58 H Creatinine 2.15 H Estim Creat Clear Calc 32.70 Est GFR (MDRD) Af Amer 40 L Est GFR (MDRD) Non-Af 33 L BUN/Creatinine Ratio 27.0 H Glucose 105 Calcium 7.3 L Magnesium 2.5 Lactate Dehydrogenase COVID-19 (DANAY) Detected Blood Type 09/14/20 09/14/20 09/14/20 06:46 10:30 10:30 WBC RBC Hgb Hct MCV MCH MCHC RDW Std Deviation RDW Coeff of Ashok Plt Count MPV D-Dimer Quant (PE/DVT) 1.54 H* Sodium Potassium Chloride Carbon Dioxide Anion Gap BUN Creatinine Estim Creat Clear Calc Est GFR (MDRD) Af Amer Est GFR (MDRD) Non-Af BUN/Creatinine Ratio Glucose Calcium Magnesium Lactate Dehydrogenase 369 H COVID-19 (DANAY) Blood Type A POSITIVE - Other Studies Radiology: [] reviewed Other Studies: [] Route of nutrition/ use of supplements: [] Nutritional Intake: [] IV Site: [] Peoples Catheter: [] - Physical Exam General: Alert, Cooperative, No apparent distress, - - ill appearing HEENT: Atraumatic, PERRLA, EOMI Neck: Supple, No Nodes Lungs: Diminished Cardiovascular: Regular rate, Regular Rhythm Abdomen: Soft, Distended, Hernia, - - mass present Extremities: No edema Skin: No rashes IV Site: Peripheral, without redness Musculoskeletal: No Tenderness to Palpation of Joints or Extremities Neurological: Cranial nerves II-XII grossly intact - Assessment/Plan Antibiotics: [] Assessment/Plan: [] Active and Suspected Problems (Last Updated 09/12/20 @ 20:[address] Hector De Santiago, DO) Renal failure (Acute) Ureteral calculus (Acute) Pyelonephritis (Acute) Pneumonia due to COVID-19 virus (Acute) Omental mass (Acute) covid with hypoxic resp failure - Not candidate for remdesivir due to BELEM. Checking ABO in case he will need plasma. Recommend starting dex, but that will make heme work-up more difficult. Reviewed [facility] records. Will check peripheral flow cytometry, LDH, and chest CT. Recommend biopsy to better identify suspected lymphoma. complicated uti with h/o ureteral stent due to malignancy causing obstructive uropathy - ordered ucx, now showing ecoli, cont ceftriaxone. Will follow, thank you, d/w Dr. Ross.
[2020-09-14] MEDS: Tamsulosin HCl 0.4 MG Capsule PO (17:24)
[2020-09-14] MEDS: Ceftriaxone 1 GM/50 ML BAG IV (21:53)
[2020-09-14] MEDS: INHALER, ASSIST DEVICES 1 EACH SPACER INHALATION (21:58)
[2020-09-15] VITALS (7 sets, daily range): BP systolic 110–120; BP diastolic 63–69; PULSE 67–90; RESP 18–26; TEMP 36.6–36.7; O2SAT 88–96
[2020-09-15] MEDS: 0.9% Normal Saline 1,000 ML 150 ML IV ×2 (02:28→09:22)
[2020-09-15 06:46] LABS: Hematocrit 25.5 % (40-54); Hemoglobin 7.7 g/dL (13.0-16.5); Mean Corp Hgb Conc 30.2 g/dL (32-36); Mean Corpuscular Hgb 25.6 pg (27.0-32.0); Mean Corpuscular Volume 84.7 fL (80-94); Mean Platelet Vol. 10.7 fl (6.2-12.0); Platelet Count 400 K/mm3 (150-450); RBC Distribution Width SD 49.1 fl (35.1-43.9); Red Blood Count 3.01 M/mm3 (4.6-6.2); White Blood Count 14.7 K/mm3 (4.4-11.0)
[2020-09-15 07:05] LABS: Anion Gap 10 (5-15); BUN 52 mg/dL (7-18); BUN/Creat Ratio 26.9 RATIO (10-20); Calcium,Total 7.6 mg/dL (8.5-10.1); Chloride 116 mmol/L (98-107); Creatinine, Serum 1.93 mg/dL (0.70-1.30); EST Glomerular Filtration Rate 37 mL/min (>60); Est Glom Filt Rate - Afr Amer 45 mL/min (>60); Estimated Creatinine Clearance 36.42 ml/min; Glucose 109 mg/dL (74-106); Potassium 3.9 mmol/L (3.5-5.1); Sodium Level 142 mmol/L (136-145)
[2020-09-15] MEDS: Ensure Clear 120 ML Liquid PO ×3 (09:22→15:04)
[2020-09-15] MEDS: Enoxaparin 30 MG/0.3 ML Syringe SC (09:23)
[2020-09-15] MEDS: dexAMETHasone 4 MG Tablet 6 MG PO (10:19)
--- NOTE | 2020-09-15 10:56 | PCM.PN.HOSP ---
Patient Problems: Active and Suspected Problems (Last Updated 09/12/20 @ 20:[address] Hector De Santiago, DO) Renal failure (Acute) Ureteral calculus (Acute) Pyelonephritis (Acute) Pneumonia due to COVID-19 virus (Acute) Omental mass (Acute) Reason for Visit: Covid 19 infection Acute cystitis Subjective: Patient seen. Appears ill looking requiring high flow oxygen as high as 7 L. Urine cultures came back positive for E. coli ESBL negative pansensitive. Objective: GENERAL: cooperative but frail looking HEENT: Atraumatic; EYES; Anicteric, Normal Conjunctiva NECK; supple, normal thyroid, RESPIRATORY: Diminished to auscultation CARDIOVASCULAR: Regular S1 S2, GI: soft, normoactive bowel sounds, : No Renal angle tenderness; EXTREMITIES: No edema, no clubbing, MUSCULOSKELETAL: no muscle waisting NEURO: Awake; no lateralizing signs. SKIN: No Rash PSYCH; Flat affect Vitals/I&O's: Vital Signs Temp Pulse Resp BP Pulse Ox 98.1 F 90 18 112/68 96 09/15/20 10:30 09/15/20 10:30 09/15/20 10:30 09/15/20 10:30 09/15/20 10:30 Oxygen Flow Rate (L/min) 7 Oxygen Delivery Method Nasal Cannula Weight: 71.123 kg Body Mass Index (BMI) 23.8 Intake and Output for Last 24 Hours 09/13/20 09/14/20 09/15/20 23:59 23:59 23:59 Intake Total 3772.5 / 3772.5 3387.5 / 3387.5 1612.5 / 1612.5 Output Total 775 / 775 Balance 2997.5 / 2997.5 3387.5 / 3387.5 1612.5 / 1612.5 Microbiology Past 72 Hours 09/12/20 18:47 Blood Culture (Wb) - Left Hand Blood Culture - Preliminary No growth in 48 hours. 09/12/20 18:40 Blood Culture (Wb) - Anticubital Right Blood Culture - Preliminary No growth in 48 hours. 09/12/20 16:27 Urine, Clean Catch Urine Culture - Final Presumptive E. coli Laboratory Results 09/14/20 10:30: Blood Type A POSITIVE 09/15/20 06:14: WBC 14.7 H, RBC 3.01 L, Hgb 7.7 L, Hct 25.5 L, MCV 84.7, MCH 25.6 L, MCHC 30.2 L, RDW Std Deviation 49.1 H, RDW Coeff of Ashok 16.0 H, Plt Count 400, MPV 10.7 09/15/20 06:14: Sodium 142, Potassium 3.9, Chloride 116 H, Carbon Dioxide 16.0 L, Anion Gap 10, BUN 52 H, Creatinine 1.93 H, Estim Creat Clear Calc 36.42, Est GFR (MDRD) Af Amer 45 L, Est GFR (MDRD) Non-Af 37 L, BUN/Creatinine Ratio 26.9 H, Glucose 109 H, Calcium 7.6 L Current Medications Acetaminophen (Acetaminophen 325 Mg Tablet) 650 mg PO Q6H PRN PRN PRN Reason: Pain Score 1-10/Temp > 100.7 F Albuterol Sulfate (Albuterol Sulfate Hfa 6.7 Gm Inhaler (200 Puffs)) 2 puff IH Q4H PRN PRN PRN Reason: COUGH Last Admin: 09/14/20 21:58 Dose: 2 puff Documented by: Dexamethasone (Dexamethasone 4 Mg Tablet) 6 mg PO DAILY@0800 [facility] Last Admin: 09/15/20 10:19 Dose: 6 mg Documented by: Enoxaparin Sodium (Enoxaparin 30 Mg/0.3 Ml Syringe) 30 mg SC DAILY [facility] Last Admin: 09/15/20 09:23 Dose: 30 mg Documented by: Sodium Chloride () 1,000 mls @ 150 mls/hr IV .Q6H40M [facility] Last Admin: 09/15/20 09:22 Dose: 150 mls/hr Documented by: Ceftriaxone Sodium (Rocephin) 1 gm in 50 mls @ 100 mls/hr IV Q24@2200 [facility] Last Infusion: 09/14/20 22:23 Dose: Infused Documented by: Ibuprofen (Ibuprofen 400 Mg Tablet) 400 mg PO Q4H PRN PRN PRN Reason: Pain Score 1-10/Temp > 100.7 F Miscellaneous Information (Inhaler, Assist Devices 1 Each Spacer) 1 each INHALATION PRN PRN PRN Reason: WITH ALBUTEROL MDI Last Admin: 09/14/20 21:58 Dose: 1 each Documented by: Nutritional Formula (Lactose Free) (Ensure Clear 120 Ml Liquid) 120 ml PO TIDCM [facility] Last Admin: 09/15/20 09:22 Dose: 120 ml Documented by: Ondansetron HCl (Ondansetron 4 Mg/2 Ml Vial) 4 mg IV Q8H PRN PRN PRN Reason: NAUSEA/VOMITING Oxycodone HCl (Oxycodone 5 Mg Tablet) 5 mg PO Q4H PRN PRN PRN Reason: Pain Score 4-5 Last Admin: 09/14/20 09:56 Dose: 5 mg Documented by: Oxycodone HCl (Oxycodone 5 Mg Tablet) 10 mg PO Q4H PRN PRN PRN Reason: Pain Score 6-10 Sodium Chloride (0.9% Saline Lock 10 Ml Syringe) 10 - 40 ml IV UD PRN PRN Reason: SALINE FLUSH Sodium Chloride (0.9% Saline Lock 10 Ml Syringe) 10 - 40 ml IV UD PRN PRN Reason: Midline Flush Sodium Chloride (0.9 % Nacl (Sterile) Posiflush 10 Ml) 10 - 40 ml IV UD PRN PRN Reason: Port access or dressing change Tamsulosin HCl (Tamsulosin Hcl 0.4 Mg Capsule) 0.4 mg PO DAILY@1730 [facility] Last Admin: 09/14/20 17:24 Dose: 0.4 mg Documented by: STROKE Vital Signs/Narrative: Vital Signs Temp Pulse Resp BP Pulse Ox 09/15/20 10:30 98.1 F 90 18 112/68 96 Medical Necessity - Tobacco Use Smoking Status: Never smoker Assessment/Plan All Active Problems (Last Updated 09/12/20 @ 20:[address] Hector De Santiago, DO) Renal failure (Acute) Ureteral calculus (Acute) Pyelonephritis (Acute) Pneumonia due to COVID-19 virus (Acute) Omental mass (Acute) Patient is a 65-year-old gentleman with previous history of lymphoma who apparently did not complete treatment presented with lower abdominal discomfort as well as dysuria. Part of his his evaluation in the ED included chest x-ray which demonstrated bilateral interstitial infiltrate. His COVID-19 assay came back positive admitted to regular nursing floor for subsequent management 1. Acute kidney injury ?Secondary to obstructive uropathy imaging studies obtained on admission demonstrated Obstructive calculi within the distal left ureter and left UVJ patient was started on Flomax admitted to regular nursing floor with subsequent monitoring of his kidney function -09/14/2020 creatinine down to 2.15 from admission level of 3.16 -09/15/2021: Patient kidney function continues to improve. 2. COVID-19 pneumonia Chest x-ray demonstrated Bilateral interstitial densities with possible bilateral perihilar infiltrates. [facility] placed on the contact and droplet precautions. Patient also placed on supplemental oxygen titrated to keep saturation greater than 94. Consult placed to pulmonary medicine -09/15/2020: Patient was started on Decadron 6 mg daily. Still requires high flow oxygen -CT of the chest obtained on 09/14/2020 demonstrated Dense infiltrates in both lungs ;Anterior chest wall mass as described. Soft tissue mass in the anterior aspect of the lower thorax at the right cardiophrenic junction 3. History of lymphoma ?Patient apparently did not complete treatment requisition was sent to [facility] for patient's old records. Imaging studies obtained on admission demonstrated Partially imaged right anterior chest wall/pleural based mass. Large abdominal mass with omental thickening and nodularity. Soft tissue densities along the paracolic gutters is noted. Consult placed to oncology -09/04/2020; patient was seen in consultation by oncology Dr. Menchaca, the day prior is for patient to follow-up with oncology as outpatient once medically stable 4. Acute cystitis E. coli. ?Patient started on Rocephin blood and urine culture sent plan is to adjust antibiotic therapy based on culture result -09/14/2020; urine cultures positive for E. coli final sensitivities and identification is pending ?09/14/2021: Final sensitivities and identification reviewed patient on appropriate antibiotic therapy at this point 5. DVT prophylaxis ?Karynanox Clinical Impression(s) from Imaging Studies Chest CT 09/14/20 13:30 IMPRESSION: Dense infiltrates in both lungs as described. Anterior chest wall mass as described. Soft tissue mass in the anterior aspect of the lower thorax at the right cardiophrenic junction. Electronically Signed: Ok Solis, at 15:51 EDT , Service support , Inpatient E&M: [id number] [facility] Hosp L2
--- NOTE | 2020-09-15 13:26 | PN_ITS ---
Patient Problems: Active and Suspected Problems (Last Updated 09/12/20 @ 20:[address] Hector De Santiago, DO) Renal failure (Acute) Ureteral calculus (Acute) Pyelonephritis (Acute) Pneumonia due to COVID-19 virus (Acute) Omental mass (Acute) Subjective: The patient was seen and examined at the bedside this morning. Events from the last 24 hours have been reviewed. The patient is currently afebrile, hemodynamically stable and maintaining appropriate oxygen saturations on 7 L/min via nasal cannula. The patient remains on Decadron and ceftriaxone. Objective: The patient's most recent lab work, culture data and imaging studies have all been personally reviewed. Coronavirus PCR was positive on September 12. Preliminary urine culture is positive for E. coli. - Physical Exam Vitals/I&O's: Vital Signs Temp Pulse Resp BP Pulse Ox 98.1 F 90 18 112/68 96 09/15/20 10:30 09/15/20 10:30 09/15/20 10:30 09/15/20 10:30 09/15/20 10:30 Oxygen Flow Rate (L/min) 7 Oxygen Delivery Method Nasal Cannula Weight: 156 lb 12.8 oz Body Mass Index (BMI) 23.8 Intake and Output for Last 24 Hours 09/13/20 09/14/20 09/15/20 23:59 23:59 23:59 Intake Total 3772.5 / 3772.5 3387.5 / 3387.5 1612.5 / 1612.5 Output Total 775 / 775 Balance 2997.5 / 2997.5 3387.5 / 3387.5 1612.5 / 1612.5 General: Alert, Cooperative HEENT: Atraumatic, Normocephalic Oral: No Gingival or Mucosal Lesions/ Ulcerations Neck: Supple, No Nodes, Trachea Midline Lungs: No rhonchi, No wheeze, No rales, Diminished Cardiovascular: Regular rate, Regular Rhythm Abdomen: Bowel Sounds Present, Soft, Non Tender Extremities: No clubbing, No cyanosis Skin: No breakdown Musculoskeletal: No Tenderness to Palpation of Joints or Extremities Lymphatic: No Cervical, Supraclavicular, or Inguinal Adenopathy Neurological: Cranial nerves II-XII grossly intact, Neuro grossly intact Psych/Mental Status: Normal Affect, Appropriate Labs (Last 48 Hours) 09/12/20 09/14/20 09/14/20 16:49 06:46 06:46 WBC 15.3 H RBC 3.17 L Hgb 8.1 L Hct 26.4 L MCV 83.3 MCH 25.6 L MCHC 30.7 L RDW Std Deviation 48.5 H RDW Coeff of Ashok 15.8 H Plt Count 414 MPV 10.2 D-Dimer Quant (PE/DVT) Sodium 138 Potassium 3.8 Chloride 111 H Carbon Dioxide 17.0 L Anion Gap 10 BUN 58 H Creatinine 2.15 H Estim Creat Clear Calc 32.70 Est GFR (MDRD) Af Amer 40 L Est GFR (MDRD) Non-Af 33 L BUN/Creatinine Ratio 27.0 H Glucose 105 Calcium 7.3 L Magnesium 2.5 Lactate Dehydrogenase COVID-19 (DANAY) Detected Blood Type 09/14/20 09/14/20 09/14/20 06:46 10:30 10:30 WBC RBC Hgb Hct MCV MCH MCHC RDW Std Deviation RDW Coeff of Ashok Plt Count MPV D-Dimer Quant (PE/DVT) 1.54 H* Sodium Potassium Chloride Carbon Dioxide Anion Gap BUN Creatinine Estim Creat Clear Calc Est GFR (MDRD) Af Amer Est GFR (MDRD) Non-Af BUN/Creatinine Ratio Glucose Calcium Magnesium Lactate Dehydrogenase 369 H COVID-19 (DANAY) Blood Type A POSITIVE 09/15/20 09/15/20 06:14 06:14 WBC 14.7 H RBC 3.01 L Hgb 7.7 L Hct 25.5 L MCV 84.7 MCH 25.6 L MCHC 30.2 L RDW Std Deviation 49.1 H RDW Coeff of Ashok 16.0 H Plt Count 400 MPV 10.7 D-Dimer Quant (PE/DVT) Sodium 142 Potassium 3.9 Chloride 116 H Carbon Dioxide 16.0 L Anion Gap 10 BUN 52 H Creatinine 1.93 H Estim Creat Clear Calc 36.42 Est GFR (MDRD) Af Amer 45 L Est GFR (MDRD) Non-Af 37 L BUN/Creatinine Ratio 26.9 H Glucose 109 H Calcium 7.6 L Magnesium Lactate Dehydrogenase COVID-19 (DANAY) Blood Type Microbiology 09/12/20 18:47 Blood Culture (Wb) - Left Hand Blood Culture - Preliminary No growth in 48 hours. 09/12/20 18:40 Blood Culture (Wb) - Anticubital Right Blood Culture - Preliminary No growth in 48 hours. 09/12/20 16:27 Urine, Clean Catch Urine Culture - Final Presumptive E. coli Clinical Impression(s) from Imaging Studies Abdomen/Pelvis CT 09/12/20 16:20 IMPRESSION: Partially imaged right anterior chest wall/pleural based mass. Large abdominal mass with omental thickening and nodularity. Soft tissue densities along the paracolic gutters is noted. Bilateral renal cysts. Obstructive calculi within the distal left ureter and left UVJ. Free fluid in the pelvis. Retroperitoneal and inguinal adenopathy. Mild ascites. Mild wall thickening of the bladder. Electronically Signed: Lebron Ibarra DO at 18:51 EDT Tel [phone], Service support , Chest X-Ray 09/12/20 18:00 IMPRESSION: Bilateral interstitial densities with possible bilateral perihilar infiltrates. Pulmonary vascular prominence. Electronically Signed: Lebron Ibarra DO at 18:29 EDT Tel [phone], Service support , Chest CT 09/14/20 13:30 IMPRESSION: Dense infiltrates in both lungs as described. Anterior chest wall mass as described. Soft tissue mass in the anterior aspect of the lower thorax at the right cardiophrenic junction. Electronically Signed: Ok Solis, at 15:51 EDT , Service support , ADDENDUM: 09/14/20 1559 Current Medications Acetaminophen (Acetaminophen 325 Mg Tablet) 650 mg PO Q6H PRN PRN PRN Reason: Pain Score 1-10/Temp > 100.7 F Albuterol Sulfate (Albuterol Sulfate Hfa 6.7 Gm Inhaler (200 Puffs)) 2 puff IH Q4H PRN PRN PRN Reason: COUGH Last Admin: 09/14/20 21:58 Dose: 2 puff Documented by: Dexamethasone (Dexamethasone 4 Mg Tablet) 6 mg PO DAILY@0800 [facility] Last Admin: 09/15/20 10:19 Dose: 6 mg Documented by: Enoxaparin Sodium (Enoxaparin 30 Mg/0.3 Ml Syringe) 30 mg SC DAILY [facility] Last Admin: 09/15/20 09:23 Dose: 30 mg Documented by: Sodium Chloride () 1,000 mls @ 150 mls/hr IV .Q6H40M [facility] Last Admin: 09/15/20 09:22 Dose: 150 mls/hr Documented by: Ceftriaxone Sodium (Rocephin) 1 gm in 50 mls @ 100 mls/hr IV Q24@2200 [facility] Last Infusion: 09/14/20 22:23 Dose: Infused Documented by: Ibuprofen (Ibuprofen 400 Mg Tablet) 400 mg PO Q4H PRN PRN PRN Reason: Pain Score 1-10/Temp > 100.7 F Miscellaneous Information (Inhaler, Assist Devices 1 Each Spacer) 1 each INHALATION PRN PRN PRN Reason: WITH ALBUTEROL MDI Last Admin: 09/14/20 21:58 Dose: 1 each Documented by: Nutritional Formula (Lactose Free) (Ensure Clear 120 Ml Liquid) 120 ml PO TIDCM [facility] Last Admin: 09/15/20 09:22 Dose: 120 ml Documented by: Ondansetron HCl (Ondansetron 4 Mg/2 Ml Vial) 4 mg IV Q8H PRN PRN PRN Reason: NAUSEA/VOMITING Oxycodone HCl (Oxycodone 5 Mg Tablet) 5 mg PO Q4H PRN PRN PRN Reason: Pain Score 4-5 Last Admin: 09/14/20 09:56 Dose: 5 mg Documented by: Oxycodone HCl (Oxycodone 5 Mg Tablet) 10 mg PO Q4H PRN PRN PRN Reason: Pain Score 6-10 Sodium Chloride (0.9% Saline Lock 10 Ml Syringe) 10 - 40 ml IV UD PRN PRN Reason: SALINE FLUSH Sodium Chloride (0.9% Saline Lock 10 Ml Syringe) 10 - 40 ml IV UD PRN PRN Reason: Midline Flush Sodium Chloride (0.9 % Nacl (Sterile) Posiflush 10 Ml) 10 - 40 ml IV UD PRN PRN Reason: Port access or dressing change Tamsulosin HCl (Tamsulosin Hcl 0.4 Mg Capsule) 0.4 mg PO DAILY@1730 [facility] Last Admin: 10/20/20 17:24 Dose: 0.4 mg Documented by: Medical Necessity - Tobacco Use Smoking Status: Never smoker Assessment/Plan All Active Problems (Last Updated 09/12/20 @ 20:[address] Hector De Santiago, DO) Renal failure (Acute) Ureteral calculus (Acute) Pyelonephritis (Acute) Pneumonia due to COVID-19 virus (Acute) Omental mass (Acute) RECOMMENDATIONS: 1. Continue supplemental oxygen to maintain saturations at or above 90%. 2. Continue patient on Decadron 6 mg daily. 3. Continue antimicrobials. 4. Stop continuous supplemental IV fluids. 5. The patient will require further outpatient work-up of the mass noted on CT chest along with the findings noted on CT abdomen/pelvis. IMPRESSIONS: 1. Acute hypoxemic respiratory failure secondary to Covid pneumonia Plan to continue current supportive measures including supplemental oxygen to maintain saturations at or above 90%. Continue the patient on Decadron 6 mg daily. Infectious diseases has been consulted. Therefore, will defer need for convalescent plasma and/or remdesivir to ID. Continue empiric antimicrobials. 2. Acute kidney injury Improving. Likely multifactorial with prerenal and obstructive uropathy contributing. Continue to monitor urine output. No current indication for renal replacement therapy. 3. E. coli cystitis Agree with continuing empiric antimicrobials as ordered. 4. History of non-Hodgkin's lymphoma Complicates care, management, recovery and prognosis. Oncology does not have any additional plans for further inpatient work-up. This note was generated with [employer] dictation software. It may contain incorrect words, spelling, and punctuation that were not noted in checking the note before signing. Inpatient E&M: [id number] [facility] Hosp L2
[2020-09-15] MEDS: Tamsulosin HCl 0.4 MG Capsule PO (15:05)
--- NOTE | 2020-09-15 17:07 | PN.ID_ITS ---
Patient Problems: Active and Suspected Problems (Last Updated 09/12/20 @ 20:[address] Hector De Santiago, DO) Renal failure (Acute) Ureteral calculus (Acute) Pyelonephritis (Acute) Pneumonia due to COVID-19 virus (Acute) Omental mass (Acute) Subjective: Feeling about the same, no fever - Physical Exam Vitals/I&O's: Vital Signs Temp Pulse Resp BP Pulse Ox 97.9 F 74 18 112/63 91 09/15/20 15:00 09/15/20 15:00 09/15/20 15:00 09/15/20 15:00 09/15/20 16:21 Oxygen Flow Rate (L/min) 7 Oxygen Delivery Method Nasal Cannula Weight: 71.123 kg Body Mass Index (BMI) 23.8 Intake and Output for Last 24 Hours 09/13/20 09/14/20 09/15/20 23:59 23:59 23:59 Intake Total 3772.5 / 3772.5 3387.5 / 3387.5 2612.5 / 2612.5 Output Total 775 / 775 Balance 2997.5 / 2997.5 3387.5 / 3387.5 2612.5 / 2612.5 General: Alert, Cooperative, No apparent distress Lungs: Diminished Cardiovascular: Regular rate, Regular Rhythm Abdomen: Soft, Non Tender, Distended Skin: No rashes Microbiology Past 72 Hours 09/12/20 18:47 Blood Culture (Wb) - Left Hand Blood Culture - Preliminary No growth in 48 hours. 09/12/20 18:40 Blood Culture (Wb) - Anticubital Right Blood Culture - Preliminary No growth in 48 hours. 09/12/20 16:27 Urine, Clean Catch Urine Culture - Final Presumptive E. coli Laboratory Results 09/15/20 06:14: WBC 14.7 H, RBC 3.01 L, Hgb 7.7 L, Hct 25.5 L, MCV 84.7, MCH 25.6 L, MCHC 30.2 L, RDW Std Deviation 49.1 H, RDW Coeff of Ashok 16.0 H, Plt Count 400, MPV 10.7 09/15/20 06:14: Sodium 142, Potassium 3.9, Chloride 116 H, Carbon Dioxide 16.0 L , Anion Gap 10, BUN 52 H, Creatinine 1.93 H, Estim Creat Clear Calc 36.42, Est GFR (MDRD) Af Amer 45 L, Est GFR (MDRD) Non-Af 37 L, BUN/Creatinine Ratio 26.9 H , Glucose 109 H, Calcium 7.6 L 09/15/20 06:14: Miscellaneous Test Pending Current Medications Acetaminophen (Acetaminophen 325 Mg Tablet) 650 mg PO Q6H PRN PRN PRN Reason: Pain Score 1-10/Temp > 100.7 F Albuterol Sulfate (Albuterol Sulfate Hfa 6.7 Gm Inhaler (200 Puffs)) 2 puff IH Q4H PRN PRN PRN Reason: COUGH Last Admin: 09/14/20 21:58 Dose: 2 puff Documented by: Dexamethasone (Dexamethasone 4 Mg Tablet) 6 mg PO DAILY@0800 [facility] Last Admin: 09/15/20 10:19 Dose: 6 mg Documented by: Enoxaparin Sodium (Enoxaparin 30 Mg/0.3 Ml Syringe) 30 mg SC DAILY [facility] Last Admin: 09/15/20 09:23 Dose: 30 mg Documented by: Ceftriaxone Sodium (Rocephin) 1 gm in 50 mls @ 100 mls/hr IV Q24@2200 [facility] Last Infusion: 09/14/20 22:23 Dose: Infused Documented by: Ibuprofen (Ibuprofen 400 Mg Tablet) 400 mg PO Q4H PRN PRN PRN Reason: Pain Score 1-10/Temp > 100.7 F Miscellaneous Information (Inhaler, Assist Devices 1 Each Spacer) 1 each INHALATION PRN PRN PRN Reason: WITH ALBUTEROL MDI Last Admin: 09/14/20 21:58 Dose: 1 each Documented by: Nutritional Formula (Lactose Free) (Ensure Clear 120 Ml Liquid) 120 ml PO TIDCM [facility] Last Admin: 09/15/20 15:04 Dose: 120 ml Documented by: Ondansetron HCl (Ondansetron 4 Mg/2 Ml Vial) 4 mg IV Q8H PRN PRN PRN Reason: NAUSEA/VOMITING Oxycodone HCl (Oxycodone 5 Mg Tablet) 5 mg PO Q4H PRN PRN PRN Reason: Pain Score 4-5 Last Admin: 09/14/20 09:56 Dose: 5 mg Documented by: Oxycodone HCl (Oxycodone 5 Mg Tablet) 10 mg PO Q4H PRN PRN PRN Reason: Pain Score 6-10 Sodium Chloride (0.9% Saline Lock 10 Ml Syringe) 10 - 40 ml IV UD PRN PRN Reason: SALINE FLUSH Sodium Chloride (0.9% Saline Lock 10 Ml Syringe) 10 - 40 ml IV UD PRN PRN Reason: Midline Flush Sodium Chloride (0.9 % Nacl (Sterile) Posiflush 10 Ml) 10 - 40 ml IV UD PRN PRN Reason: Port access or dressing change Tamsulosin HCl (Tamsulosin Hcl 0.4 Mg Capsule) 0.4 mg PO DAILY@1730 [facility] Last Admin: 09/15/20 15:05 Dose: 0.4 mg Documented by: Medical Necessity - Tobacco Use Smoking Status: Never smoker Route of nutrition/ use of supplements: [] Nutritional Intake: [] IV Site: [] Peoples Catheter: [] - Assessment/Plan Antibiotics: [] Assessment/Plan: [] Active and Suspected Problems (Last Updated 09/12/20 @ 20:[address] Hector De Santiago, DO) Renal failure (Acute) Ureteral calculus (Acute) Pyelonephritis (Acute) Pneumonia due to COVID-19 virus (Acute) Omental mass (Acute) covid with hypoxic resp failure - Not candidate for remdesivir due to BELEM. On dex. Remains on 7L. Pulm following. 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 Will follow
[2020-09-15] MEDS: Ceftriaxone 1 GM/50 ML BAG IV (22:53)
[2020-09-16] VITALS (9 sets, daily range): BP systolic 111–139; BP diastolic 60–76; PULSE 62–74; RESP 18–28; TEMP 36.4–37.1; O2SAT 90–95
[2020-09-16 06:48] LABS: Hematocrit 26.7 % (40-54); Hemoglobin 8.1 g/dL (13.0-16.5); Mean Corp Hgb Conc 30.3 g/dL (32-36); Mean Corpuscular Hgb 25.5 pg (27.0-32.0); Mean Platelet Vol. 10.7 fl (6.2-12.0); Platelet Count 416 K/mm3 (150-450); RBC Distribution Width CV 16.1 % (11.6-14.6); RBC Distribution Width SD 49.7 fl (35.1-43.9); Red Blood Count 3.18 M/mm3 (4.6-6.2); White Blood Count 15.7 K/mm3 (4.4-11.0)
[2020-09-16 07:05] LABS: Anion Gap 10 (5-15); BUN 49 mg/dL (7-18); BUN/Creat Ratio 30.2 RATIO (10-20); Calcium,Total 7.6 mg/dL (8.5-10.1); Chloride 115 mmol/L (98-107); Creatinine, Serum 1.62 mg/dL (0.70-1.30); EST Glomerular Filtration Rate 46 mL/min (>60); Est Glom Filt Rate - Afr Amer 55 mL/min (>60); Glucose 113 mg/dL (74-106); Potassium 4.1 mmol/L (3.5-5.1); Sodium Level 141 mmol/L (136-145)
--- NOTE | 2020-09-16 07:33 | PN_ITS ---
Patient Problems: Active and Suspected Problems (Last Updated 09/12/20 @ 20:[address] Hector De Santiago, DO) Renal failure (Acute) Ureteral calculus (Acute) Pyelonephritis (Acute) Pneumonia due to COVID-19 virus (Acute) Omental mass (Acute) Reason for Visit: COVID-19 infection Subjective: Patient seen clinical condition continues to deteriorate. Patient currently requiring 10 L of oxygen. Kidney function has however improved do suspect fluid overload playing a component in patient high oxygen requirement Objective: GENERAL: cooperative but frail looking and dyspneic at rest HEENT: Atraumatic; EYES; Anicteric, Normal Conjunctiva NECK; supple, normal thyroid, RESPIRATORY: Diminished to auscultation CARDIOVASCULAR: Regular S1 S2, GI: soft, normoactive bowel sounds, : No Renal angle tenderness; EXTREMITIES: No edema, no clubbing, MUSCULOSKELETAL: no muscle waisting NEURO: Awake; no lateralizing signs. SKIN: No Rash PSYCH; Flat affect Vitals/I&O's: Vital Signs Temp Pulse Resp BP Pulse Ox 97.5 F L 73 28 H 122/72 H 91 09/16/20 04:55 09/16/20 04:55 09/16/20 04:55 09/16/20 04:55 09/16/20 04:55 Oxygen Flow Rate (L/min) 10 Oxygen Delivery Method Nasal Cannula Weight: 71.123 kg Body Mass Index (BMI) 23.8 Intake and Output for Last 24 Hours 09/14/20 09/15/20 09/16/20 23:59 23:59 23:59 Intake Total 3387.5 / 3387.5 2624.17 / 3124.17 500 / 500 Balance 3387.5 / 3387.5 2624.17 / 3124.17 500 / 500 Microbiology Past 72 Hours 09/12/20 18:47 Blood Culture (Wb) - Left Hand Blood Culture - Preliminary No growth in 48 hours. 09/12/20 18:40 Blood Culture (Wb) - Anticubital Right Blood Culture - Preliminary No growth in 48 hours. 09/12/20 16:27 Urine, Clean Catch Urine Culture - Final Presumptive E. coli Laboratory Results 09/15/20 06:14: Miscellaneous Test Pending 09/16/20 06:10: WBC 15.7 H, RBC 3.18 L, Hgb 8.1 L, Hct 26.7 L, MCV 84.0, MCH 25.5 L, MCHC 30.3 L, RDW Std Deviation 49.7 H, RDW Coeff of Ashok 16.1 H, Plt Count 416, MPV 10.7 09/16/20 06:10: Sodium 141, Potassium 4.1, Chloride 115 H, Carbon Dioxide 16.0 L , Anion Gap 10, BUN 49 H, Creatinine 1.62 H, Estim Creat Clear Calc 43.40, Est GFR (MDRD) Af Amer 55 L, Est GFR (MDRD) Non-Af 46 L, BUN/Creatinine Ratio 30.2 H , Glucose 113 H, Calcium 7.6 L Current Medications Acetaminophen (Acetaminophen 325 Mg Tablet) 650 mg PO Q6H PRN PRN PRN Reason: Pain Score 1-10/Temp > 100.7 F Albuterol Sulfate (Albuterol Sulfate Hfa 6.7 Gm Inhaler (200 Puffs)) 2 puff IH Q4H PRN PRN PRN Reason: COUGH Last Admin: 09/14/20 21:58 Dose: 2 puff Documented by: Dexamethasone (Dexamethasone 4 Mg Tablet) 6 mg PO DAILY@0800 [facility] Last Admin: 09/15/20 10:19 Dose: 6 mg Documented by: Enoxaparin Sodium (Enoxaparin 30 Mg/0.3 Ml Syringe) 30 mg SC DAILY [facility] Last Admin: 09/15/20 09:23 Dose: 30 mg Documented by: Ceftriaxone Sodium (Rocephin) 1 gm in 50 mls @ 100 mls/hr IV Q24@2200 [facility] Last Infusion: 09/15/20 23:00 Dose: 0 mls/hr Documented by: Ibuprofen (Ibuprofen 400 Mg Tablet) 400 mg PO Q4H PRN PRN PRN Reason: Pain Score 1-10/Temp > 100.7 F Miscellaneous Information (Inhaler, Assist Devices 1 Each Spacer) 1 each INHALATION PRN PRN PRN Reason: WITH ALBUTEROL MDI Last Admin: 09/14/20 21:58 Dose: 1 each Documented by: Nutritional Formula (Lactose Free) (Ensure Clear 120 Ml Liquid) 120 ml PO TIDCM [facility] Last Admin: 09/15/20 15:04 Dose: 120 ml Documented by: Ondansetron HCl (Ondansetron 4 Mg/2 Ml Vial) 4 mg IV Q8H PRN PRN PRN Reason: NAUSEA/VOMITING Oxycodone HCl (Oxycodone 5 Mg Tablet) 5 mg PO Q4H PRN PRN PRN Reason: Pain Score 4-5 Last Admin: 09/14/20 09:56 Dose: 5 mg Documented by: Oxycodone HCl (Oxycodone 5 Mg Tablet) 10 mg PO Q4H PRN PRN PRN Reason: Pain Score 6-10 Sodium Chloride (0.9% Saline Lock 10 Ml Syringe) 10 - 40 ml IV UD PRN PRN Reason: SALINE FLUSH Sodium Chloride (0.9% Saline Lock 10 Ml Syringe) 10 - 40 ml IV UD PRN PRN Reason: Midline Flush Sodium Chloride (0.9 % Nacl (Sterile) Posiflush 10 Ml) 10 - 40 ml IV UD PRN PRN Reason: Port access or dressing change Tamsulosin HCl (Tamsulosin Hcl 0.4 Mg Capsule) 0.4 mg PO DAILY@1730 [facility] Last Admin: 09/15/20 15:05 Dose: 0.4 mg Documented by: STROKE Vital Signs/Narrative: Vital Signs Temp Pulse Resp BP Pulse Ox 09/16/20 04:55 97.5 F L 73 28 H 122/72 H 91 Medical Necessity - Tobacco Use Smoking Status: Never smoker Assessment/Plan All Active Problems (Last Updated 09/12/20 @ 20:[address] Hector De Santiago, DO) Renal failure (Acute) Ureteral calculus (Acute) Pyelonephritis (Acute) Pneumonia due to COVID-19 virus (Acute) Omental mass (Acute) Patient is a 65-year-old gentleman with previous history of lymphoma who appa rently did not complete treatment presented with lower abdominal discomfort as well as dysuria. Part of his his evaluation in the ED included chest x-ray which demonstrated bilateral interstitial infiltrate. His COVID-19 assay came back positive admitted to regular nursing floor for subsequent management 1. Acute kidney injury ?Secondary to obstructive uropathy imaging studies obtained on admission demonstrated Obstructive calculi within the distal left ureter and left UVJ patient was started on Flomax admitted to regular nursing floor with subsequent monitoring of his kidney function -09/14/2020 creatinine down to 2.15 from admission level of 3.16 -09/15/2021: Patient kidney function continues to improve. 2. Acute hypoxic respiratory failure secondary to COVID-19 pneumonia Chest x-ray demonstrated Bilateral interstitial densities with possible bilateral perihilar infiltrates. Admitted to [facility] floor placed on the contact and droplet precautions. Patient also placed on supplemental oxygen titrated to keep saturation greater than 94. Consult placed to pulmonary medicine -09/15/2020: Patient was started on Decadron 6 mg daily. Still requires high flow oxygen -CT of the chest obtained on 09/14/2020 demonstrated Dense infiltrates in both lungs ;Anterior chest wall mass as described. Soft tissue mass in the anterior aspect of the lower thorax at the right cardiophrenic junction -09/16/2020; Patient seen clinical condition continues to deteriorate. Patient currently requiring 10 L of oxygen. Kidney function has however improved do suspect fluid overload playing a component in patient high oxygen requirement 3. History of lymphoma ?Patient apparently did not complete treatment requisition was sent to [facility] for patient's old records. Imaging studies obtained on admission demonstrated Partially imaged right anterior chest wall/pleural based mass. Large abdominal mass with omental thickening and nodularity. Soft tissue d ensities along the paracolic gutters is noted. Consult placed to oncology -09/04/2020; patient was seen in consultation by oncology Dr. Menchaca, the day prior is for patient to follow-up with oncology as outpatient once medically stable 4. Acute cystitis E. coli. ?Patient started on Rocephin blood and urine culture sent plan is to adjust antibiotic therapy based on culture result -09/14/2020; urine cultures positive for E. coli final sensitivities and identification is pending ?09/14/2021: Final sensitivities and identification reviewed patient on appropriate antibiotic therapy at this point 5. DVT prophylaxis ?Lovenox Inpatient E&M: [id number] [facility] Hosp L3
[2020-09-16] MEDS: Ensure Clear 120 ML Liquid PO (08:34)
[2020-09-16] MEDS: Enoxaparin 30 MG/0.3 ML Syringe SC (08:35)
[2020-09-16] MEDS: 0.9% Saline Lock 10 ML Syringe IV ×2 (08:37→22:04)
[2020-09-16] MEDS: dexAMETHasone 4 MG Tablet 6 MG PO (08:49)
--- NOTE | 2020-09-16 11:41 | CASEMGMT ---
RN CM Note: attempted to call into room x 2 to discuss home oxygen DME needs. No answer. Requested nurse ask if patient has a preference and DME list given to nurse to take to patient. Justice REBOLLAR RN ACM
--- NOTE | 2020-09-16 14:52 | PCM.PN.ID ---
Patient Problems: Active and Suspected Problems (Last Updated 09/12/20 @ 20:[address] Hector De Santiago, DO) Renal failure (Acute) Ureteral calculus (Acute) Pyelonephritis (Acute) Pneumonia due to COVID-19 virus (Acute) Omental mass (Acute) Subjective: Feeling about the same today, O2 increased, no fever - Physical Exam Vitals/I&O's: Vital Signs Temp Pulse Resp BP Pulse Ox 97.6 F L 71 20 H 111/70 93 09/16/20 08:30 09/16/20 08:30 09/16/20 08:30 09/16/20 08:30 09/16/20 13:57 Oxygen Flow Rate (L/min) 10 Oxygen Delivery Method Nasal Cannula Weight: 71.123 kg Body Mass Index (BMI) 23.8 Intake and Output for Last 24 Hours 09/14/20 09/15/20 09/16/20 23:59 23:59 23:59 Intake Total 3387.5 / 3387.5 2624.17 / 3124.17 620 / 620 Balance 3387.5 / 3387.5 2624.17 / 3124.17 620 / 620 General: Alert, Cooperative, No apparent distress Lungs: Diminished Cardiovascular: Regular rate, Regular Rhythm Abdomen: Distended Extremities: Edema Skin: No rashes Microbiology Past 72 Hours 09/12/20 18:47 Blood Culture (Wb) - Left Hand Blood Culture - Preliminary No growth in 48 hours. 09/12/20 18:40 Blood Culture (Wb) - Anticubital Right Blood Culture - Preliminary No growth in 48 hours. 09/12/20 16:27 Urine, Clean Catch Urine Culture - Final Presumptive E. coli Laboratory Results 09/15/20 06:14: Miscellaneous Test Pending 09/16/20 06:10: WBC 15.7 H, RBC 3.18 L, Hgb 8.1 L, Hct 26.7 L, MCV 84.0, MCH 25.5 L, MCHC 30.3 L, RDW Std Deviation 49.7 H, RDW Coeff of Ashok 16.1 H, Plt Count 416, MPV 10.7 09/16/20 06:10: Sodium 141, Potassium 4.1, Chloride 115 H, Carbon Dioxide 16.0 L, Anion Gap 10, BUN 49 H, Creatinine 1.62 H, Estim Creat Clear Calc 43.40, Est GFR (MDRD) Af Amer 55 L, Est GFR (MDRD) Non-Af 46 L, BUN/Creatinine Ratio 30.2 H, Glucose 113 H, Calcium 7.6 L Current Medications Acetaminophen (Acetaminophen 325 Mg Tablet) 650 mg PO Q6H PRN PRN PRN Reason: Pain Score 1-10/Temp > 100.7 F Albuterol Sulfate (Albuterol Sulfate Hfa 6.7 Gm Inhaler (200 Puffs)) 2 puff IH Q4H PRN PRN PRN Reason: COUGH Last Admin: 09/14/20 21:58 Dose: 2 puff Documented by: Dexamethasone (Dexamethasone 4 Mg Tablet) 6 mg PO DAILY@0800 [facility] Last Admin: 09/16/20 08:49 Dose: 6 mg Documented by: Enoxaparin Sodium (Enoxaparin 30 Mg/0.3 Ml Syringe) 30 mg SC DAILY [facility] Last Admin: 09/16/20 08:35 Dose: 30 mg Documented by: Ceftriaxone Sodium (Rocephin) 1 gm in 50 mls @ 100 mls/hr IV Q24@2200 [facility] Last Infusion: 09/15/20 23:00 Dose: 0 mls/hr Documented by: Ibuprofen (Ibuprofen 400 Mg Tablet) 400 mg PO Q4H PRN PRN PRN Reason: Pain Score 1-10/Temp > 100.7 F Miscellaneous Information (Inhaler, Assist Devices 1 Each Spacer) 1 each INHALATION PRN PRN PRN Reason: WITH ALBUTEROL MDI Last Admin: 09/14/20 21:58 Dose: 1 each Documented by: Nutritional Formula (Lactose Free) (Ensure Clear 120 Ml Liquid) 120 ml PO TIDCM [facility] Last Admin: 09/16/20 11:39 Dose: Not Given Documented by: Ondansetron HCl (Ondansetron 4 Mg/2 Ml Vial) 4 mg IV Q8H PRN PRN PRN Reason: NAUSEA/VOMITING Oxycodone HCl (Oxycodone 5 Mg Tablet) 5 mg PO Q4H PRN PRN PRN Reason: Pain Score 4-5 Last Admin: 09/14/20 09:56 Dose: 5 mg Documented by: Oxycodone HCl (Oxycodone 5 Mg Tablet) 10 mg PO Q4H PRN PRN PRN Reason: Pain Score 6-10 Sodium Chloride (0.9% Saline Lock 10 Ml Syringe) 10 - 40 ml IV UD PRN PRN Reason: SALINE FLUSH Last Admin: 09/16/20 08:37 Dose: 10 ml Documented by: Sodium Chloride (0.9% Saline Lock 10 Ml Syringe) 10 - 40 ml IV UD PRN PRN Reason: Midline Flush Sodium Chloride (0.9 % Nacl (Sterile) Posiflush 10 Ml) 10 - 40 ml IV UD PRN PRN Reason: Port access or dressing change Tamsulosin HCl (Tamsulosin Hcl 0.4 Mg Capsule) 0.4 mg PO DAILY@1730 [facility] Last Admin: 09/15/20 15:05 Dose: 0.4 mg Documented by: Medical Necessity - Tobacco Use Smoking Status: Never smoker Route of nutrition/ use of supplements: [] Nutritional Intake: [] IV Site: [] Peoples Catheter: [] - Assessment/Plan Antibiotics: [] Assessment/Plan: [] Active and Suspected Problems (Last Updated 09/12/20 @ 20:[address] Hector De Santiago, DO) Renal failure (Acute) Ureteral calculus (Acute) Pyelonephritis (Acute) Pneumonia due to COVID-19 virus (Acute) Omental mass (Acute) covid with hypoxic resp failure - Not candidate for remdesivir due to BELEM. On dex. Worsened O2 today. Pulm following. May benefit from bigger dose of steroids as lymphoma likely playing a role in overall illness and lung function. 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 Will follow
[2020-09-16] MEDS: Tamsulosin HCl 0.4 MG Capsule PO (16:57)
[2020-09-16] MEDS: Ceftriaxone 1 GM/50 ML BAG IV (22:04)
[2020-09-17] VITALS (7 sets, daily range): BP systolic 120–137; BP diastolic 60–84; PULSE 64–87; RESP 19–22; TEMP 36.3–36.7; O2SAT 88–94
--- NOTE | 2020-09-17 07:28 | PCM.PN.HOSP ---
Patient Problems: Active and Suspected Problems (Last Updated 09/12/20 @ 20:[address] Hector De Santiago, DO) Renal failure (Acute) Ureteral calculus (Acute) Pyelonephritis (Acute) Pneumonia due to COVID-19 virus (Acute) Omental mass (Acute) Reason for Visit: Covid 19 pneumonia Complicated UTI Subjective: Patient is a 65-year-old gentleman with previous history of lymphoma who apparently did not complete treatment presented with lower abdominal discomfort as well as dysuria. Part of his his evaluation in the ED included chest x-ray which demonstrated bilateral interstitial infiltrate. His COVID-19 assay came back positive. Patient was also found to have acute kidney injury, complicated UTI urine cultures and blood cultures ordered and patient subsequently admitted to regular nursing floor for subsequent management Patient seen no significant change in clinical condition. Still appears significantly dyspneic at rest. Requested for portable chest x-ray and patient administered with 1 dose of Lasix. Objective: GENERAL: cooperative but frail looking and dyspneic at rest HEENT: Atraumatic; EYES; Anicteric, Normal Conjunctiva NECK; supple, normal thyroid, RESPIRATORY: Diminished to auscultation CARDIOVASCULAR: Regular S1 S2, GI: soft, normoactive bowel sounds, : No Renal angle tenderness; EXTREMITIES: No edema, no clubbing, MUSCULOSKELETAL: no muscle waisting NEURO: Awake; no lateralizing signs. SKIN: No Rash PSYCH; Flat affect Vitals/I&O's: Vital Signs Temp Pulse Resp BP Pulse Ox 97.8 F 64 20 H 134/60 H 92 09/17/20 02:00 09/17/20 02:00 09/17/20 02:00 09/17/20 02:00 09/17/20 02:00 Oxygen Flow Rate (L/min) 10.5 Oxygen Delivery Method Nasal Cannula Weight: 71.123 kg Body Mass Index (BMI) 23.8 Intake and Output for Last 24 Hours 09/15/20 09/16/20 09/17/20 23:59 23:59 23:59 Intake Total 2624.17 / 3124.17 1030 / 1030 Balance 2624.17 / 3124.17 1030 / 1030 Microbiology Past 72 Hours 09/12/20 18:47 Blood Culture (Wb) - Left Hand Blood Culture - Preliminary No growth in 48 hours. 09/12/20 18:40 Blood Culture (Wb) - Anticubital Right Blood Culture - Preliminary No growth in 48 hours. 09/12/20 16:27 Urine, Clean Catch Urine Culture - Final Presumptive E. coli Current Medications Acetaminophen (Acetaminophen 325 Mg Tablet) 650 mg PO Q6H PRN PRN PRN Reason: Pain Score 1-10/Temp > 100.7 F Albuterol Sulfate (Albuterol Sulfate Hfa 6.7 Gm Inhaler (200 Puffs)) 2 puff IH Q4H PRN PRN PRN Reason: COUGH Last Admin: 09/14/20 21:58 Dose: 2 puff Documented by: Dexamethasone (Dexamethasone 4 Mg Tablet) 6 mg PO DAILY@0800 [facility] Last Admin: 09/16/20 08:49 Dose: 6 mg Documented by: Enoxaparin Sodium (Enoxaparin 30 Mg/0.3 Ml Syringe) 30 mg SC DAILY [facility] Last Admin: 09/16/20 08:35 Dose: 30 mg Documented by: Ceftriaxone Sodium (Rocephin) 1 gm in 50 mls @ 100 mls/hr IV Q24@2200 [facility] Last Infusion: 09/16/20 22:34 Dose: Infused Documented by: Ibuprofen (Ibuprofen 400 Mg Tablet) 400 mg PO Q4H PRN PRN PRN Reason: Pain Score 1-10/Temp > 100.7 F Miscellaneous Information (Inhaler, Assist Devices 1 Each Spacer) 1 each INHALATION PRN PRN PRN Reason: WITH ALBUTEROL MDI Last Admin: 09/14/20 21:58 Dose: 1 each Documented by: Nutritional Formula (Lactose Free) (Ensure Clear 120 Ml Liquid) 120 ml PO TIDCM [facility] Last Admin: 09/16/20 16:01 Dose: Not Given Documented by: Ondansetron HCl (Ondansetron 4 Mg/2 Ml Vial) 4 mg IV Q8H PRN PRN PRN Reason: NAUSEA/VOMITING Oxycodone HCl (Oxycodone 5 Mg Tablet) 5 mg PO Q4H PRN PRN PRN Reason: Pain Score 4-5 Last Admin: 09/14/20 09:56 Dose: 5 mg Documented by: Oxycodone HCl (Oxycodone 5 Mg Tablet) 10 mg PO Q4H PRN PRN PRN Reason: Pain Score 6-10 Sodium Chloride (0.9% Saline Lock 10 Ml Syringe) 10 - 40 ml IV UD PRN PRN Reason: SALINE FLUSH Last Admin: 09/16/20 22:04 Dose: 10 ml Documented by: Sodium Chloride (0.9% Saline Lock 10 Ml Syringe) 10 - 40 ml IV UD PRN PRN Reason: Midline Flush Sodium Chloride (0.9 % Nacl (Sterile) Posiflush 10 Ml) 10 - 40 ml IV UD PRN PRN Reason: Port access or dressing change Tamsulosin HCl (Tamsulosin Hcl 0.4 Mg Capsule) 0.4 mg PO DAILY@1730 [facility] Last Admin: 09/16/20 16:57 Dose: 0.4 mg Documented by: Medical Necessity - Tobacco Use Smoking Status: Never smoker Assessment/Plan All Active Problems (Last Updated 09/12/20 @ 20:[address] Hector De Santiago, DO) Renal failure (Acute) Ureteral calculus (Acute) Pyelonephritis (Acute) Pneumonia due to COVID-19 virus (Acute) Omental mass (Acute) Patient is a 65-year-old gentleman with previous history of lymphoma who apparently did not complete treatment presented with lower abdominal discomfort as well as dysuria. Part of his his evaluation in the ED included chest x-ray which demonstrated bilateral interstitial infiltrate. His COVID-19 assay came back positive admitted to regular nursing floor for subsequent management 1. Acute kidney injury ?Secondary to obstructive uropathy imaging studies obtained on admission demonstrated Obstructive calculi within the distal left ureter and left UVJ patient was started on Flomax admitted to regular nursing floor with subsequent monitoring of his kidney function -09/14/2020 creatinine down to 2.15 from admission level of 3.16 -09/15/2020: Patient kidney function continues to improve. ? 09/17/2020; patient kidney function is improved from an admitting level of 3.16-1.45 2. Acute hypoxic respiratory failure secondary to COVID-19 pneumonia Chest x-ray demonstrated Bilateral interstitial densities with possible bilateral perihilar infiltrates. Admitted to [facility] floor placed on the contact and droplet precautions. Patient also placed on supplemental oxygen titrated to keep saturation greater than 94. Consult placed to pulmonary medicine -09/15/2020: Patient was started on Decadron 6 mg daily. Still requires high flow oxygen -CT of the chest obtained on 09/14/2020 demonstrated Dense infiltrates in both lungs ;Anterior chest wall mass as described. Soft tissue mass in the anterior aspect of the lower thorax at the right cardiophrenic junction -09/16/2020; Patient seen clinical condition continues to deteriorate. Patient currently requiring 10 L of oxygen. Kidney function has however improved do suspect fluid overload playing a component in patient high oxygen requirement ?09/17/2020; ordered portable checks x-ray patient administered with 60 mg of IV Lasix x1. Patient not deemed to be a candidate for remdesivir in view of his impaired kidney function 3. History of lymphoma ?Patient apparently did not complete treatment requisition was sent to [facility] for patient's old records. Imaging studies obtained on admission demonstrated Partially imaged right anterior chest wall/pleural based mass. Large abdominal mass with omental thickening and nodularity. Soft tissue densities along the paracolic gutters is noted. Consult placed to oncology -09/04/2020; patient was seen in consultation by oncology Dr. Menchaca, the day prior is for patient to follow-up with oncology as outpatient once medically stable 4. Acute cystitis E. coli. ?Patient started on Rocephin blood and urine culture sent plan is to adjust antibiotic therapy based on culture result -09/14/2020; urine cultures positive for E. coli final sensitivities and identification is pending ?09/14/2021: Final sensitivities and identification reviewed patient on appropriate antibiotic therapy at this point 5. DVT prophylaxis ?[facility] E[facility]M: [id number] H[facility] L2
[2020-09-17 08:27] LABS: Hematocrit 29.2 % (40-54); Hemoglobin 8.9 g/dL (13.0-16.5); Mean Corp Hgb Conc 30.5 g/dL (32-36); Mean Platelet Vol. 10.6 fl (6.2-12.0); Platelet Count 491 K/mm3 (150-450); RBC Distribution Width CV 16.2 % (11.6-14.6); RBC Distribution Width SD 49.1 fl (35.1-43.9); Red Blood Count 3.56 M/mm3 (4.6-6.2); White Blood Count 24.5 K/mm3 (4.4-11.0)
[2020-09-17 08:57] LABS: Anion Gap 9 (5-15); BUN 47 mg/dL (7-18); BUN/Creat Ratio 32.4 RATIO (10-20); Calcium,Total 8.4 mg/dL (8.5-10.1); Chloride 118 mmol/L (98-107); Creatinine, Serum 1.45 mg/dL (0.70-1.30); EST Glomerular Filtration Rate 52 mL/min (>60); Est Glom Filt Rate - Afr Amer 63 mL/min (>60); Estimated Creatinine Clearance 48.48 ml/min; Glucose 97 mg/dL (74-106); Magnesium 2.2 mg/dL (1.6-2.6); Potassium 4.4 mmol/L (3.5-5.1); Sodium Level 143 mmol/L (136-145)
[2020-09-17] MEDS: Enoxaparin 30 MG/0.3 ML Syringe SC (10:02)
[2020-09-17] MEDS: dexAMETHasone 4 MG Tablet 6 MG PO (10:02)
--- NOTE | 2020-09-17 10:15 | RAD_ITS ---
STUDY: X-RAY CHEST REASON FOR EXAM: Male, 65 years old. DYSPNEA TECHNIQUE: Single AP portable view of the chest. COMPARISON: Comparison is made with prior study dated 09/12/2020. FINDINGS: Since prior study, there has been progressive patchy infiltrates in both lungs worse in the left lower lobe. There is no demonstrated pleural abnormality. There is mild cardiac enlargement. Normal mediastinum and niko. Normal visualized pulmonary arteries. There is atherosclerotic tortuosity of the aortic arch and descending thoracic aorta. Normal visualized thoracic spine. Normal visualized ribs, clavicles, and shoulders. There is no demonstrated abnormality of the visualized soft tissue structures of the upper abdomen. RAD/Chest 1 View (Portable) IMPRESSION: Progressive bilateral patchy infiltrates worse in the left lower lobe. Electronically Signed: Ok Solis, at 15:13 EDT , Service support ,
[2020-09-17] MEDS: Furosemide 100 MG/10 ML Vial 60 MG IV (10:38)
[2020-09-17] MEDS: 0.9% Saline Lock 10 ML Syringe IV ×2 (10:38→22:56)
--- NOTE | 2020-09-17 15:36 | PCM.PN.ID ---
Patient Problems: Active and Suspected Problems (Last Updated 09/12/20 @ 20:[address] Hector De Santiago, DO) Renal failure (Acute) Ureteral calculus (Acute) Pyelonephritis (Acute) Pneumonia due to COVID-19 virus (Acute) Omental mass (Acute) Subjective: Feeling about the same, no fever - Physical Exam Vitals/I&O's: Vital Signs Temp Pulse Resp BP Pulse Ox 98.1 F 87 20 H 125/72 H 94 09/17/20 12:00 09/17/20 12:00 09/17/20 12:00 09/17/20 12:00 09/17/20 12:00 Oxygen Flow Rate (L/min) 10 Oxygen Delivery Method Nasal Cannula Weight: 71.123 kg Body Mass Index (BMI) 23.8 Intake and Output for Last 24 Hours 09/15/20 09/16/20 09/17/20 23:59 23:59 23:59 Intake Total 2624.17 / 3124.17 1030 / 1030 360 / 360 Output Total 525 / 525 Balance 2624.17 / 3124.17 1030 / 1030 -165 / -165 General: Alert, Cooperative, No apparent distress Lungs: Diminished Cardiovascular: Regular rate, Regular Rhythm Abdomen: Soft, Non Tender, Non-Distended Extremities: Edema Skin: No rashes Microbiology Past 72 Hours 09/12/20 18:47 Blood Culture (Wb) - Left Hand Blood Culture - Preliminary No growth in 48 hours. 09/12/20 18:40 Blood Culture (Wb) - Anticubital Right Blood Culture - Preliminary No growth in 48 hours. 09/12/20 16:27 Urine, Clean Catch Urine Culture - Final Presumptive E. coli Laboratory Results 09/17/20 08:10: WBC 24.5 H, RBC 3.56 L, Hgb 8.9 L, Hct 29.2 L, MCV 82.0, MCH 25.0 L, MCHC 30.5 L, RDW Std Deviation 49.1 H, RDW Coeff of Ashok 16.2 H, Plt Count 491 H, MPV 10.6 09/17/20 08:10: Sodium 143, Potassium 4.4, Chloride 118 H, Carbon Dioxide 16.0 L, Anion Gap 9, BUN 47 H, Creatinine 1.45 H, Estim Creat Clear Calc 48.48, Est GFR (MDRD) Af Amer 63, Est GFR (MDRD) Non-Af 52 L, BUN/Creatinine Ratio 32.4 H, Glucose 97, Calcium 8.4 L, Magnesium 2.2 Current Medications Acetaminophen (Acetaminophen 325 Mg Tablet) 650 mg PO Q6H PRN PRN PRN Reason: Pain Score 1-10/Temp > 100.7 F Albuterol Sulfate (Albuterol Sulfate Hfa 6.7 Gm Inhaler (200 Puffs)) 2 puff IH Q4H PRN PRN PRN Reason: COUGH Last Admin: 09/14/20 21:58 Dose: 2 puff Documented by: Dexamethasone (Dexamethasone 4 Mg Tablet) 6 mg PO DAILY@0800 [facility] Last Admin: 09/17/20 10:02 Dose: 6 mg Documented by: Enoxaparin Sodium (Enoxaparin 30 Mg/0.3 Ml Syringe) 30 mg SC DAILY [facility] Last Admin: 09/17/20 10:02 Dose: 30 mg Documented by: Ceftriaxone Sodium (Rocephin) 1 gm in 50 mls @ 100 mls/hr IV Q24@2200 [facility] Last Infusion: 09/16/20 22:34 Dose: Infused Documented by: Ibuprofen (Ibuprofen 400 Mg Tablet) 400 mg PO Q4H PRN PRN PRN Reason: Pain Score 1-10/Temp > 100.7 F Miscellaneous Information (Inhaler, Assist Devices 1 Each Spacer) 1 each INHALATION PRN PRN PRN Reason: WITH ALBUTEROL MDI Last Admin: 09/14/20 21:58 Dose: 1 each Documented by: Nutritional Formula (Lactose Free) (Ensure Clear 120 Ml Liquid) 120 ml PO TIDCM [facility] Last Admin: 09/17/20 11:55 Dose: Not Given Documented by: Ondansetron HCl (Ondansetron 4 Mg/2 Ml Vial) 4 mg IV Q8H PRN PRN PRN Reason: NAUSEA/VOMITING Oxycodone HCl (Oxycodone 5 Mg Tablet) 5 mg PO Q4H PRN PRN PRN Reason: Pain Score 4-5 Last Admin: 09/14/20 09:56 Dose: 5 mg Documented by: Oxycodone HCl (Oxycodone 5 Mg Tablet) 10 mg PO Q4H PRN PRN PRN Reason: Pain Score 6-10 Sodium Chloride (0.9% Saline Lock 10 Ml Syringe) 10 - 40 ml IV UD PRN PRN Reason: SALINE FLUSH Last Admin: 09/17/20 10:38 Dose: 10 ml Documented by: Sodium Chloride (0.9% Saline Lock 10 Ml Syringe) 10 - 40 ml IV UD PRN PRN Reason: Midline Flush Sodium Chloride (0.9 % Nacl (Sterile) Posiflush 10 Ml) 10 - 40 ml IV UD PRN PRN Reason: Port access or dressing change Tamsulosin HCl (Tamsulosin Hcl 0.4 Mg Capsule) 0.4 mg PO DAILY@1730 [facility] Last Admin: 09/16/20 16:57 Dose: 0.4 mg Documented by: Medical Necessity - Tobacco Use Smoking Status: Never smoker Route of nutrition/ use of supplements: [] Nutritional Intake: [] IV Site: [] Peoples Catheter: [] - Assessment/Plan Antibiotics: [] Assessment/Plan: [] Active and Suspected Problems (Last Updated 09/12/20 @ 20:[address] Hector De Santiago, DO) Renal failure (Acute) Ureteral calculus (Acute) Pyelonephritis (Acute) Pneumonia due to COVID-19 virus (Acute) Omental mass (Acute) covid with hypoxic resp failure - Not candidate for remdesivir due to BELEM. On dex. Stable O2 today. Pulm following. May benefit from bigger dose of steroids as lymphoma likely playing a role in overall illness and lung function. 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 Stop after dose tonight. Will follow
[2020-09-17] MEDS: Tamsulosin HCl 0.4 MG Capsule PO (16:31)
[2020-09-17] MEDS: Ceftriaxone 1 GM/50 ML BAG IV (22:56)
[2020-09-18] VITALS (8 sets, daily range): BP systolic 114–133; BP diastolic 70–81; PULSE 74–82; RESP 20–22; TEMP 36.5–36.9; O2SAT 87–97
[2020-09-18] MEDS: 0.9% Saline Lock 10 ML Syringe IV (02:48)
--- NOTE | 2020-09-18 03:51 | NURSING ---
O2 increased to 11 NC.
[2020-09-18 07:22] LABS: Hematocrit 28.7 % (40-54); Hemoglobin 8.7 g/dL (13.0-16.5); Mean Corp Hgb Conc 30.3 g/dL (32-36); Mean Corpuscular Hgb 25.2 pg (27.0-32.0); Mean Corpuscular Volume 83.2 fL (80-94); Platelet Count 400 K/mm3 (150-450); RBC Distribution Width CV 15.9 % (11.6-14.6); RBC Distribution Width SD 48.3 fl (35.1-43.9); Red Blood Count 3.45 M/mm3 (4.6-6.2); White Blood Count 21.9 K/mm3 (4.4-11.0)
[2020-09-18 07:54] LABS: Anion Gap 8 (5-15); BUN 52 mg/dL (7-18); BUN/Creat Ratio 34.9 RATIO (10-20); Calcium,Total 8.3 mg/dL (8.5-10.1); Chloride 112 mmol/L (98-107); Creatinine, Serum 1.49 mg/dL (0.70-1.30); EST Glomerular Filtration Rate 50 mL/min (>60); Est Glom Filt Rate - Afr Amer 61 mL/min (>60); Estimated Creatinine Clearance 47.18 ml/min; Glucose 97 mg/dL (74-106); Potassium 4.2 mmol/L (3.5-5.1); Sodium Level 141 mmol/L (136-145)
[2020-09-18] MEDS: dexAMETHasone 4 MG Tablet 6 MG PO (09:47)
[2020-09-18] MEDS: Enoxaparin 30 MG/0.3 ML Syringe SC (09:47)
--- NOTE | 2020-09-18 10:09 | PN_ITS ---
Patient Problems: Active and Suspected Problems (Last Updated 09/12/20 @ 20:[address] Hector De Santiago, DO) Renal failure (Acute) Ureteral calculus (Acute) Pyelonephritis (Acute) Pneumonia due to COVID-19 virus (Acute) Omental mass (Acute) Subjective: The patient was seen and examined at the bedside this morning. Events from the last 24 hours have been reviewed. The patient is currently afebrile, hemodynamically stable and maintaining appropriate oxygen saturations on 10 L/min via nasal cannula. The patient remains on Decadron and completed his ceftriaxone antibiotic course yesterday. He is currently documented to be overall net +11.6 L for the hospital admission. Objective: The patient's most recent lab work, culture data and imaging studies have all been personally reviewed. Coronavirus PCR was positive on September 12. Preliminary urine culture is positive for E. coli. - Physical Exam Vitals/I&O's: Vital Signs Temp Pulse Resp BP Pulse Ox 98.4 F 82 20 H 114/70 94 09/18/20 09:43 09/18/20 09:43 09/18/20 09:43 09/18/20 09:43 09/18/20 09:43 Oxygen Flow Rate (L/min) 11 Oxygen Delivery Method Nasal Cannula Weight: 156 lb 12.79 oz Body Mass Index (BMI) 23.8 Intake and Output for Last 24 Hours 09/16/20 09/17/20 09/18/20 23:59 23:59 23:59 Intake Total 1030 / 1030 650 / 650 760 / 760 Output Total 1225 / 1225 200 / 200 Balance 1030 / 1030 -575 / -575 560 / 560 General: Alert, Cooperative HEENT: Atraumatic, Normocephalic Oral: No Gingival or Mucosal Lesions/ Ulcerations Neck: Supple, No Nodes, Trachea Midline Lungs: Diminished Cardiovascular: Regular rate, Regular Rhythm Abdomen: Bowel Sounds Present, Soft Extremities: No clubbing, No cyanosis, No edema Musculoskeletal: No Muscle Wasting Neurological: Neuro grossly intact Psych/Mental Status: Normal Affect Labs (Last 48 Hours) 09/17/20 09/17/20 09/18/20 08:10 08:10 07:00 WBC 24.5 H 21.9 H RBC 3.56 L 3.45 L Hgb 8.9 L 8.7 L Hct 29.2 L 28.7 L MCV 82.0 83.2 MCH 25.0 L 25.2 L MCHC 30.5 L 30.3 L RDW Std Deviation 49.1 H 48.3 H RDW Coeff of Ashok 16.2 H 15.9 H Plt Count 491 H 400 MPV 10.6 11.0 Sodium 143 Potassium 4.4 Chloride 118 H Carbon Dioxide 16.0 L Anion Gap 9 BUN 47 H Creatinine 1.45 H Estim Creat Clear Calc 48.48 Est GFR (MDRD) Af Amer 63 Est GFR (MDRD) Non-Af 52 L BUN/Creatinine Ratio 32.4 H Glucose 97 Calcium 8.4 L Magnesium 2.2 09/18/20 07:00 WBC RBC Hgb Hct MCV MCH MCHC RDW Std Deviation RDW Coeff of Ashok Plt Count MPV Sodium 141 Potassium 4.2 Chloride 112 H Carbon Dioxide 21.0 Anion Gap 8 BUN 52 H Creatinine 1.49 H Estim Creat Clear Calc 47.18 Est GFR (MDRD) Af Amer 61 Est GFR (MDRD) Non-Af 50 L BUN/Creatinine Ratio 34.9 H Glucose 97 Calcium 8.3 L Magnesium 2.0 Microbiology 09/12/20 18:47 Blood Culture (Wb) - Left Hand Blood Culture - Preliminary No growth in 5 days. 09/12/20 18:40 Blood Culture (Wb) - Anticubital Right Blood Culture - Preliminary No growth in 5 days. Clinical Impression(s) from Imaging Studies Abdomen/Pelvis CT 09/12/20 16:20 IMPRESSION: Partially imaged right anterior chest wall/pleural based mass. Large abdominal mass with omental thickening and nodularity. Soft tissue densities along the paracolic gutters is noted. Bilateral renal cysts. Obstructive calculi within the distal left ureter and left UVJ. Free fluid in the pelvis. Retroperitoneal and inguinal adenopathy. Mild ascites. Mild wall thickening of the bladder. Electronically Signed: Lebron Ibarra DO at 18:51 EDT Tel [phone], Service support , Chest X-Ray 09/12/20 18:00 IMPRESSION: Bilateral interstitial densities with possible bilateral perihilar infiltrates. Pulmonary vascular prominence. Electronically Signed: Lebron Ibarra DO at 18:29 EDT Tel [phone], Service support , Chest CT 09/14/20 13:30 IMPRESSION: Dense infiltrates in both lungs as described. Anterior chest wall mass as described. Soft tissue mass in the anterior aspect of the lower thorax at the right cardiophrenic junction. Electronically Signed: Ok Will, at 15:51 EDT , Service support , ADDENDUM: 09/14/20 1559 Chest X-Ray 09/17/20 10:15 IMPRESSION: Progressive bilateral patchy infiltrates worse in the left lower lobe. Electronically Signed: Ok Will, at 15:13 EDT , Service support , Current Medications Acetaminophen (Acetaminophen 325 Mg Tablet) 650 mg PO Q6H PRN PRN PRN Reason: Pain Score 1-10/Temp > 100.7 F Albuterol Sulfate (Albuterol Sulfate Hfa 6.7 Gm Inhaler (200 Puffs)) 2 puff IH Q4H PRN PRN PRN Reason: COUGH Last Admin: 09/14/20 21:58 Dose: 2 puff Documented by: Dexamethasone (Dexamethasone 4 Mg Tablet) 6 mg PO DAILY@0800 [facility] Last Admin: 09/18/20 09:47 Dose: 6 mg Documented by: Enoxaparin Sodium (Enoxaparin 30 Mg/0.3 Ml Syringe) 30 mg SC DAILY [facility] Last Admin: 09/18/20 09:47 Dose: 30 mg Documented by: Furosemide (Furosemide 40 Mg/4 Ml Vial) 40 mg IV DAILY [facility] Ibuprofen (Ibuprofen 400 Mg Tablet) 400 mg PO Q4H PRN PRN PRN Reason: Pain Score 1-10/Temp > 100.7 F Miscellaneous Information (Inhaler, Assist Devices 1 Each Spacer) 1 each INHALATION PRN PRN PRN Reason: WITH ALBUTEROL MDI Last Admin: 09/14/20 21:58 Dose: 1 each Documented by: Nutritional Formula (Lactose Free) (Ensure Clear 120 Ml Liquid) 120 ml PO TIDCM [facility] Last Admin: 09/18/20 08:04 Dose: Not Given Documented by: Ondansetron HCl (Ondansetron 4 Mg/2 Ml Vial) 4 mg IV Q8H PRN PRN PRN Reason: NAUSEA/VOMITING Oxycodone HCl (Oxycodone 5 Mg Tablet) 5 mg PO Q4H PRN PRN PRN Reason: Pain Score 4-5 Last Admin: 09/14/20 09:56 Dose: 5 mg Documented by: Oxycodone HCl (Oxycodone 5 Mg Tablet) 10 mg PO Q4H PRN PRN PRN Reason: Pain Score 6-10 Sodium Chloride (0.9% Saline Lock 10 Ml Syringe) 10 - 40 ml IV UD PRN PRN Reason: SALINE FLUSH Last Admin: 09/18/20 02:48 Dose: 10 ml Documented by: Sodium Chloride (0.9% Saline Lock 10 Ml Syringe) 10 - 40 ml IV UD PRN PRN Reason: Midline Flush Sodium Chloride (0.9 % Nacl (Sterile) Posiflush 10 Ml) 10 - 40 ml IV UD PRN PRN Reason: Port access or dressing change Tamsulosin HCl (Tamsulosin Hcl 0.4 Mg Capsule) 0.4 mg PO DAILY@1730 [facility] Last Admin: 09/17/20 16:31 Dose: 0.4 mg Documented by: Medical Necessity - Tobacco Use Smoking Status: Never smoker Assessment/Plan All Active Problems (Last Updated 09/12/20 @ 20:[address] Hector De Santiago, DO) Renal failure (Acute) Ureteral calculus (Acute) Pyelonephritis (Acute) Pneumonia due to COVID-19 virus (Acute) Omental mass (Acute) RECOMMENDATIONS: 1. Continue supplemental oxygen to maintain saturations at or above 90%. 2. Continue patient on Decadron 6 mg daily. 3. Attempt gentle diuresis as tolerated by hemodynamics and renal function. 4. The patient will require further outpatient work-up of the mass noted on CT chest along with the findings noted on CT abdomen/pelvis. IMPRESSIONS: 1. Acute hypoxemic respiratory failure secondary to Covid pneumonia Plan to continue current supportive measures including supplemental oxygen to maintain saturations at or above 90%. Continue the patient on Decadron 6 mg daily. Infectious diseases is following. Given that the patient is overall net positive for the hospital course, will start him on Lasix today. 2. Acute kidney injury Improving. Likely multifactorial with prerenal and obstructive uropathy contributing. Continue to monitor urine output. No current indication for renal replacement therapy. 3. E. 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 The patient has completed his antibiotic treatment course per the discretion of infectious diseases. 4. History of non-Hodgkin's lymphoma Complicates care, management, recovery and prognosis. Oncology does not have any additional plans for further inpatient work-up. This note was generated with [employer] dictation software. It may contain incorrect words, spelling, and punctuation that were not noted in checking the note before signing. Inpatient E&M: 30681 Subs Hosp L2
--- NOTE | 2020-09-18 11:53 | CM.UR ---
Attempted to call into room to talk to patient however no answer. Tyson Cooney RN, CCM
--- NOTE | 2020-09-18 16:57 | PN_ITS ---
Patient Problems: Active and Suspected Problems (Last Updated 09/12/20 @ 20:[address] Hector De Santiago, DO) Renal failure (Acute) Ureteral calculus (Acute) Pyelonephritis (Acute) Pneumonia due to COVID-19 virus (Acute) Omental mass (Acute) Subjective: Feels a little bit better. No issues overnight still on high flow nasal cannula Vitals/I&O's: Vital Signs Temp Pulse Resp BP Pulse Ox 97.7 F L 82 22 H 130/81 H 87 09/18/20 16:01 09/18/20 16:01 09/18/20 16:01 09/18/20 16:01 09/18/20 16:44 Oxygen Flow Rate (L/min) 11 Oxygen Delivery Method Nasal Cannula Weight: 156 lb 12.79 oz Body Mass Index (BMI) 23.8 Intake and Output for Last 24 Hours 09/16/20 09/17/20 09/18/20 23:59 23:59 23:59 Intake Total 1030 / 1030 650 / 650 760 / 760 Output Total 1225 / 1225 200 / 200 Balance 1030 / 1030 -575 / -575 560 / 560 General: Alert, Oriented x3, Cooperative, No apparent distress HEENT: Atraumatic, PERRLA, EOMI, Normocephalic Oral: Moist Mucosa Neck: Supple, No JVD Lungs: Clear to auscultation, Normal air movement, No rhonchi, No wheeze, No rales, Diminished Cardiovascular: Regular rate, Regular Rhythm, Normal S1, Normal S2 Abdomen: Soft, Non Tender, Non-Distended, No Hepato-splenomegaly Extremities: No edema, Capillary Refill Less than 3 Seconds Skin: No rashes, No breakdown Neurological: Neuro grossly intact, Sensory exam intact to light touch and pain Psych/Mental Status: Normal Affect, Appropriate Microbiology Past 72 Hours 09/12/20 18:47 Blood Culture (Wb) - Left Hand Blood Culture - Final No growth in 5 days. 09/12/20 18:40 Blood Culture (Wb) - Anticubital Right Blood Culture - Final No growth in 5 days. Laboratory Results 09/18/20 07:00: WBC 21.9 H, RBC 3.45 L, Hgb 8.7 L, Hct 28.7 L, MCV 83.2, MCH 25.2 L, MCHC 30.3 L, RDW Std Deviation 48.3 H, RDW Coeff of Ashok 15.9 H, Plt Count 400, MPV 11.0 09/18/20 07:00: Sodium 141, Potassium 4.2, Chloride 112 H, Carbon Dioxide 21.0, Anion Gap 8, BUN 52 H, Creatinine 1.49 H, Estim Creat Clear Calc 47.18, Est GFR (MDRD) Af Amer 61, Est GFR (MDRD) Non-Af 50 L, BUN/Creatinine Ratio 34.9 H, Glucose 97, Calcium 8.3 L, Magnesium 2.0 Current Medications Acetaminophen (Acetaminophen 325 Mg Tablet) 650 mg PO Q6H PRN PRN PRN Reason: Pain Score 1-10/Temp > 100.7 F Albuterol Sulfate (Albuterol Sulfate Hfa 6.7 Gm Inhaler (200 Puffs)) 2 puff IH Q4H PRN PRN PRN Reason: COUGH Last Admin: 09/14/20 21:58 Dose: 2 puff Documented by: Dexamethasone (Dexamethasone 4 Mg Tablet) 6 mg PO DAILY@0800 [facility] Last Admin: 09/18/20 09:47 Dose: 6 mg Documented by: Enoxaparin Sodium (Enoxaparin 30 Mg/0.3 Ml Syringe) 30 mg SC DAILY [facility] Last Admin: 09/18/20 09:47 Dose: 30 mg Documented by: Furosemide (Furosemide 40 Mg/4 Ml Vial) 40 mg IV DAILY [facility] Ibuprofen (Ibuprofen 400 Mg Tablet) 400 mg PO Q4H PRN PRN PRN Reason: Pain Score 1-10/Temp > 100.7 F Miscellaneous Information (Inhaler, Assist Devices 1 Each Spacer) 1 each IN HALATION PRN PRN PRN Reason: WITH ALBUTEROL MDI Last Admin: 09/14/20 21:58 Dose: 1 each Documented by: Nutritional Formula (Lactose Free) (Ensure Clear 120 Ml Liquid) 120 ml PO TIDCM [facility] Last Admin: 09/18/20 15:37 Dose: Not Given Documented by: Ondansetron HCl (Ondansetron 4 Mg/2 Ml Vial) 4 mg IV Q8H PRN PRN PRN Reason: NAUSEA/VOMITING Oxycodone HCl (Oxycodone 5 Mg Tablet) 5 mg PO Q4H PRN PRN PRN Reason: Pain Score 4-5 Last Admin: 09/14/20 09:56 Dose: 5 mg Documented by: Oxycodone HCl (Oxycodone 5 Mg Tablet) 10 mg PO Q4H PRN PRN PRN Reason: Pain Score 6-10 Sodium Chloride (0.9% Saline Lock 10 Ml Syringe) 10 - 40 ml IV UD PRN PRN Reason: SALINE FLUSH Last Admin: 09/18/20 02:48 Dose: 10 ml Documented by: Sodium Chloride (0.9% Saline Lock 10 Ml Syringe) 10 - 40 ml IV UD PRN PRN Reason: Midline Flush Sodium Chloride (0.9 % Nacl (Sterile) Posiflush 10 Ml) 10 - 40 ml IV UD PRN PRN Reason: Port access or dressing change Tamsulosin HCl (Tamsulosin Hcl 0.4 Mg Capsule) 0.4 mg PO DAILY@1730 [facility] Last Admin: 09/17/20 16:31 Dose: 0.4 mg Documented by: STROKE Vital Signs/Narrative: Vital Signs Temp Pulse Resp BP Pulse Ox 09/18/20 16:44 87 09/18/20 16:01 97.7 F L 82 22 H 130/81 H 96 Medical Necessity - Tobacco Use Smoking Status: Never smoker Assessment/Plan All Active Problems (Last Updated 09/12/20 @ 20:[address] Hector De Santiago, DO) Renal failure (Acute) Ureteral calculus (Acute) Pyelonephritis (Acute) Pneumonia due to COVID-19 virus (Acute) Omental mass (Acute) 1. Acute hypoxic respiratory failure secondary to COVID-19 pneumonia/BELEM -He is still high flow nasal cannula though he is tolerating this well. -CT of the chest on 09/14/2020 demonstrated just infiltrates in both lungs, with an anterior chest wall mass. There is a soft tissue mass in the anterior aspect of the lower thorax at the right cardiophrenic junction -He did appear to have some fluid overload and was given a dose of 60 mg of IV Lasix and then transition to 40 mg daily he is about 11 L positive -Continue with Decadron, because of his renal failure he cannot tolerate remdesivir 2. A history of lymphoma -Apparently he did not complete treatment for his lymphoma. Imaging studies on admission demonstrated large abdominal mass with omental thickening and nodularity as well as soft tissue densities along the pericolic gutters as well as the chest masses previously described -Oncology was consulted they recommended having him follow-up as an outpatient 3. Acute UTI -Found to have a pansensitive E. coli, completed 5 days of Rocephin, this was complicated secondary to his obstructive calculi in the distal left ureter and left UVJ -He has had a history of a ureteral stent due to a malignancy causing obstruction DVT: [facility] Inpatient E&M: 94398 Subs Hosp L2
--- NOTE | 2020-09-18 17:46 | NURSING ---
1720 PER CPS SPO2 CHECK PER THEM WAS 91% ON HIGH FLOW 11Lnc
--- NOTE | 2020-09-18 17:55 | NURSING ---
Addendum entered by Trista Marmolejo 09/18/20 18:00: Correction, Pt is only on 11L. Tiffany CARRASCO went in and woke pt up and then he was fine and spo2 on monitor at nursing station is wnl at 97% on 11L. CPS aware and so is Lali CARRASCO' Original Note: Pt sleeping and spo2 dropped to 78% on 11 L of [place]. Tiffany Carrasco went in to see pt and increase him to 15 L per CPS recommendation. Pt Sp02 came up to 93% then. Dr. Estes came to the floor and is aware of this and states that at night keep him at 15L [place] and at 10L when he is awake. If he drops again on 15L, then we need to bipap him.
[2020-09-18] MEDS: Tamsulosin HCl 0.4 MG Capsule PO ×2 (18:04→23:32)
[2020-09-19] VITALS (18 sets, daily range): BP systolic 110–136; BP diastolic 74–89; PULSE 78–113; RESP 12–30; TEMP 36.4–36.9; O2SAT 82–96
--- NOTE | 2020-09-19 06:01 | PN_ITS ---
Patient Problems: Active and Suspected Problems (Last Updated 09/12/20 @ 20:[address] Hector De Santiago, DO) Renal failure (Acute) Ureteral calculus (Acute) Pyelonephritis (Acute) Pneumonia due to COVID-19 virus (Acute) Omental mass (Acute) Subjective: The patient was seen and examined at the bedside this morning. Events from the last 24 hours have been reviewed. The patient is currently afebrile, hemodynamically stable and maintaining appropriate oxygen saturations on BIPAP. The patient remains overall net positive for the hospitalization. The patient has completed his antibiotic treatment course and remains on scheduled Decadron. The patient was previously not felt to be a candidate for remdesivir or convalescent plasma. The patient reports that he does not like to wear the BiPAP and is requesting that it be taken off. Objective: The patient's most recent lab work, culture data and imaging studies have all been personally reviewed. Coronavirus PCR was positive on September 12. Preliminary urine culture is positive for E. coli. - Physical Exam Vitals/I&O's: Vital Signs Temp Pulse Resp BP Pulse Ox 98.3 F 78 18 130/78 H 92 09/19/20 01:48 09/19/20 01:48 09/19/20 01:48 09/19/20 01:48 09/19/20 01:48 Oxygen Flow Rate (L/min) 15 Oxygen Delivery Method Nasal Cannula Weight: 156 lb 12.79 oz Body Mass Index (BMI) 23.8 Intake and Output for Last 24 Hours 09/17/20 09/18/20 09/19/20 23:59 23:59 23:59 Intake Total 650 / 650 960 / 960 600 / 600 Output Total 1225 / 1225 200 / 200 700 / 700 Balance -575 / -575 760 / 760 -100 / -100 General: Alert, Cooperative, No apparent distress HEENT: Atraumatic, Normocephalic Oral: No Gingival or Mucosal Lesions/ Ulcerations Neck: Supple, No Nodes, Trachea Midline Lungs: No rhonchi, No wheeze, No rales, Diminished, Tachypneic Cardiovascular: Regular rate, Regular Rhythm Abdomen: Bowel Sounds Present, Soft, Non Tender Extremities: No clubbing, No cyanosis, No edema Skin: No breakdown Musculoskeletal: No Muscle Wasting Neurological: Cranial nerves II-XII grossly intact, Neuro grossly intact Psych/Mental Status: Normal Affect Labs (Last 48 Hours) 09/17/20 09/17/20 09/18/20 08:10 08:10 07:00 WBC 24.5 H 21.9 H RBC 3.56 L 3.45 L Hgb 8.9 L 8.7 L Hct 29.2 L 28.7 L MCV 82.0 83.2 MCH 25.0 L 25.2 L MCHC 30.5 L 30.3 L RDW Std Deviation 49.1 H 48.3 H RDW Coeff of Ashok 16.2 H 15.9 H Plt Count 491 H 400 MPV 10.6 11.0 Sodium 143 Potassium 4.4 Chloride 118 H Carbon Dioxide 16.0 L Anion Gap 9 BUN 47 H Creatinine 1.45 H Estim Creat Clear Calc 48.48 Est GFR (MDRD) Af Amer 63 Est GFR (MDRD) Non-Af 52 L BUN/Creatinine Ratio 32.4 H Glucose 97 Calcium 8.4 L Magnesium 2.2 09/18/20 07:00 WBC RBC Hgb Hct MCV MCH MCHC RDW Std Deviation RDW Coeff of Ashok Plt Count MPV Sodium 141 Potassium 4.2 Chloride 112 H Carbon Dioxide 21.0 Anion Gap 8 BUN 52 H Creatinine 1.49 H Estim Creat Clear Calc 47.18 Est GFR (MDRD) Af Amer 61 Est GFR (MDRD) Non-Af 50 L BUN/Creatinine Ratio 34.9 H Glucose 97 Calcium 8.3 L Magnesium 2.0 Microbiology 09/12/20 18:47 Blood Culture (Wb) - Left Hand Blood Culture - Final No growth in 5 days. 09/12/20 18:40 Blood Culture (Wb) - Anticubital Right Blood Culture - Final No growth in 5 days. Clinical Impression(s) from Imaging Studies Abdomen/Pelvis CT 09/12/20 16:20 IMPRESSION: Partially imaged right anterior chest wall/pleural based mass. Large abdominal mass with omental thickening and nodularity. Soft tissue densities along the paracolic gutters is noted. Bilateral renal cysts. Obstructive calculi within the distal left ureter and left UVJ. Free fluid in the pelvis. Retroperitoneal and inguinal adenopathy. Mild ascites. Mild wall thickening of the bladder. Electronically Signed: Lebron Ibarra DO at 18:51 EDT Tel [phone], Service support , Chest X-Ray 09/12/20 18:00 IMPRESSION: Bilateral interstitial densities with possible bilateral perihilar infiltrates. Pulmonary vascular prominence. Electronically Signed: Lebron Ibarra DO at 18:29 EDT Tel [phone], Service support , Chest CT 09/14/20 13:30 IMPRESSION: Dense infiltrates in both lungs as described. Anterior chest wall mass as described. Soft tissue mass in the anterior aspect of the lower thorax at the right cardiophrenic junction. Electronically Signed: Ok Solis, at 15:51 EDT , Service support , ADDENDUM: 09/14/20 1559 Chest X-Ray 09/17/20 10:15 IMPRESSION: Progressive bilateral patchy infiltrates worse in the left lower lobe. Electronically Signed: Ok Solis, at 15:13 EDT , Service support , Current Medications Acetaminophen (Acetaminophen 325 Mg Tablet) 650 mg PO Q6H PRN PRN PRN Reason: Pain Score 1-10/Temp > 100.7 F Albuterol Sulfate (Albuterol Sulfate Hfa 6.7 Gm Inhaler (200 Puffs)) 2 puff IH Q4H PRN PRN PRN Reason: COUGH Last Admin: 09/14/20 21:58 Dose: 2 puff Documented by: Dexamethasone (Dexamethasone 4 Mg Tablet) 6 mg PO DAILY VITO Enoxaparin Sodium (Enoxaparin 30 Mg/0.3 Ml Syringe) 30 mg SC DAILY VITO Last Admin: 09/18/20 09:47 Dose: 30 mg Documented by: Furosemide (Furosemide 40 Mg/4 Ml Vial) 40 mg IV DAILY VITO Ibuprofen (Ibuprofen 400 Mg Tablet) 400 mg PO Q4H PRN PRN PRN Reason: Pain Score 1-10/Temp > 100.7 F Miscellaneous Information (Inhaler, Assist Devices 1 Each Spacer) 1 each I NHALATION PRN PRN PRN Reason: WITH ALBUTEROL MDI Last Admin: 09/14/20 21:58 Dose: 1 each Documented by: Nutritional Formula (Lactose Free) (Ensure Clear 120 Ml Liquid) 120 ml PO TIDCM [facility] Last Admin: 09/18/20 15:37 Dose: Not Given Documented by: Ondansetron HCl (Ondansetron 4 Mg/2 Ml Vial) 4 mg IV Q8H PRN PRN PRN Reason: NAUSEA/VOMITING Oxycodone HCl (Oxycodone 5 Mg Tablet) 5 mg PO Q4H PRN PRN PRN Reason: Pain Score 4-5 Last Admin: 09/14/20 09:56 Dose: 5 mg Documented by: Oxycodone HCl (Oxycodone 5 Mg Tablet) 10 mg PO Q4H PRN PRN PRN Reason: Pain Score 6-10 Sodium Chloride (0.9% Saline Lock 10 Ml Syringe) 10 - 40 ml IV UD PRN PRN Reason: SALINE FLUSH Last Admin: 09/18/20 02:48 Dose: 10 ml Documented by: Sodium Chloride (0.9% Saline Lock 10 Ml Syringe) 10 - 40 ml IV UD PRN PRN Reason: Midline Flush Sodium Chloride (0.9 % Nacl (Sterile) Posiflush 10 Ml) 10 - 40 ml IV UD PRN PRN Reason: Port access or dressing change Tamsulosin HCl (Tamsulosin Hcl 0.4 Mg Capsule) 0.4 mg PO QHS [facility] Last Admin: 09/18/20 23:32 Dose: 0.4 mg Documented by: Medical Necessity - Tobacco Use Smoking Status: Never smoker Assessment/Plan All Active Problems (Last Updated 09/12/20 @ 20:[address] Hector De Santiago, DO) Renal failure (Acute) Ureteral calculus (Acute) Pyelonephritis (Acute) Pneumonia due to COVID-19 virus (Acute) Omental mass (Acute) RECOMMENDATIONS: 1. Continue BiPAP therapy and wean FiO2 to maintain oxygen saturations at or above 90%. 2. Continue patient on Decadron 6 mg daily. 3. Attempt gentle diuresis as tolerated by hemodynamics and renal function. 4. The patient will require further outpatient work-up of the mass noted on CT chest along with the findings noted on CT abdomen/pelvis. IMPRESSIONS: 1. Acute hypoxemic respiratory failure secondary to Covid pneumonia Plan to continue current supportive measures including noninvasive positive pressure ventilatory support with a goal to maintain saturations at or above 90%. Continue the patient on Decadron 6 mg daily. Infectious diseases is following. Given that the patient is overall net positive for the hospital course, will start him on Lasix today. 2. Acute kidney injury Improving. Likely multifactorial with prerenal and obstructive uropathy contributing. Continue to monitor urine output. No current indication for renal replacement therapy. 3. E. 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 The patient has completed his antibiotic treatment course per the discretion of infectious diseases. 4. History of non-Hodgkin's lymphoma Complicates care, management, recovery and prognosis. Oncology does not have any additional plans for further inpatient work-up. This note was generated with [employer] dictation software. It may contain incorrect words, spelling, and punctuation that were not noted in checking the note before signing. Inpatient E&M: 146[address] [facility] L3
[2020-09-19] MEDS: HEPARIN/D5w 25,000 UNITS 25,000 UNITS/250 ML IV.SOLN. 11 UNITS IV (07:00)
[2020-09-19 07:02] LABS: Absolute Lymphocyte Count 1.09 X10^3/uL (0.83-4.51); Absolute Neutrophil Count 22.7 X10^3/uL (2.0-7.7); Basophil# 0.05 X10^3/uL; Basophil% 0.2 % (0-1); Eosinophil# 0.01 X10^3/uL; Hematocrit 27.1 % (40-54); Hemoglobin 8.6 g/dL (13.0-16.5); Lymphocyte # 1.09 X10^3/ul (4.0); Lymphocyte % 4.4 % (19-41); Mean Corp Hgb Conc 31.7 g/dL (32-36); Mean Corpuscular Hgb 25.7 pg (27.0-32.0); Mean Corpuscular Volume 80.9 fL (80-94); Mean Platelet Vol. 11.6 fl (6.2-12.0); Monocyte# 0.31 X10^3/uL; Monocyte% 1.3 % (0-10); NRBC Flagged by Analyzer 0.2 % (0-5); Neutrophil # 22.73 X10^3/uL (2.7-7.7); Neutrophil % 92.1 % (47-70); POSITIVE DIFFERENTIAL YES; Platelet Count 380 K/mm3 (150-450); RBC Distribution Width CV 15.7 % (11.6-14.6); RBC Distribution Width SD 45.6 fl (35.1-43.9); Red Blood Count 3.35 M/mm3 (4.6-6.2); White Blood Count 24.7 K/mm3 (4.4-11.0)
[2020-09-19] MEDS: Heparin Injection (Vial) 5,000 UNIT/ML VIAL 5000 UNIT IV (07:03)
[2020-09-19 07:20] LABS: International Normalized Ratio 1.2; Prothrombin Time (Protime)PT. 14.8 SECONDS (11.7-14.9)
[2020-09-19 07:21] LABS: Anion Gap 9 (5-15); BUN 48 mg/dL (7-18); BUN/Creat Ratio 33.6 RATIO (10-20); Calcium,Total 8.7 mg/dL (8.5-10.1); Chloride 113 mmol/L (98-107); Creatinine, Serum 1.43 mg/dL (0.70-1.30); EST Glomerular Filtration Rate 53 mL/min (>60); Est Glom Filt Rate - Afr Amer 64 mL/min (>60); Estimated Creatinine Clearance 49.16 ml/min; Glucose 96 mg/dL (74-106); Partial Thromboplast Time 31.6 Seconds (24.1-36.2); Potassium 4.6 mmol/L (3.5-5.1); Sodium Level 143 mmol/L (136-145)
[2020-09-19 08:02] LABS: Differential Indicated SCAN CRITERIA MET
[2020-09-19] MEDS: dexAMETHasone 4 MG Tablet 6 MG PO (08:24)
[2020-09-19] MEDS: Furosemide 40 MG/4 ML Vial IV ×2 (08:36→18:28)
[2020-09-19] MEDS: 0.9% Saline Lock 10 ML Syringe IV ×3 (08:36→18:28)
[2020-09-19] MEDS: Ondansetron 4 MG/2 ML Vial IV (08:36)
[2020-09-19 09:03] LABS: Differential Comment SCANNED
--- NOTE | 2020-09-19 09:24 | PN_ITS ---
Patient Problems: Active and Suspected Problems (Last Updated 09/12/20 @ 20:[address] Hector De Santiago, DO) Renal failure (Acute) Ureteral calculus (Acute) Pyelonephritis (Acute) Pneumonia due to COVID-19 virus (Acute) Omental mass (Acute) Subjective: Yesterday his high flow nasal cannula was increased to 15 and this morning he had a drop in his oxygen saturation and was placed on BiPAP. He continues to be a DNR CCA with no intubation and he clarified that he still wants to have that CODE STATUS. Vitals/I&O's: Vital Signs Temp Pulse Resp BP Pulse Ox 97.5 F L 98 27 H 136/89 H 92 09/19/20 08:16 09/19/20 09:02 09/19/20 09:02 09/19/20 09:02 09/19/20 09:02 Oxygen Flow Rate (L/min) 15 Oxygen Delivery Method Bi-pap Weight: 156 lb 12.79 oz Body Mass Index (BMI) 23.8 Intake and Output for Last 24 Hours 09/17/20 09/18/20 09/19/20 23:59 23:59 23:59 Intake Total 650 / 650 960 / 960 600 / 600 Output Total 1225 / 1225 200 / 200 700 / 700 Balance -575 / -575 760 / 760 -100 / -100 General: Alert, Oriented x3, Cooperative, No apparent distress HEENT: Atraumatic, PERRLA, EOMI, Normocephalic Oral: Moist Mucosa Neck: Supple, No JVD Lungs: Clear to auscultation, Normal air movement, No rhonchi, No wheeze, No rales, Diminished Cardiovascular: Regular rate, Regular Rhythm, Normal S1, Normal S2 Abdomen: Soft, Non Tender, Non-Distended, No Hepato-splenomegaly Extremities: No edema, Capillary Refill Less than 3 Seconds Skin: No rashes, No breakdown Neurological: Neuro grossly intact, Sensory exam intact to light touch and pain Psych/Mental Status: Normal Affect, Appropriate Microbiology Past 72 Hours 09/12/20 18:47 Blood Culture (Wb) - Left Hand Blood Culture - Final No growth in 5 days. 09/12/20 18:40 Blood Culture (Wb) - Anticubital Right Blood Culture - Final No growth in 5 days. Laboratory Results 09/19/20 06:46: WBC 24.7 H, RBC 3.35 L, Hgb 8.6 L, Hct 27.1 L, MCV 80.9, MCH 25.7 L, MCHC 31.7 L, RDW Std Deviation 45.6 H, RDW Coeff of Ashok 15.7 H, Plt Count 380, MPV 11.6, Immature Gran % (Auto) 2.000 H, Neut % (Auto) 92.1 H, Lymph % (Auto) 4.4 L, [place] % (Auto) 1.3, Eos % (Auto) 0.0, Baso % (Auto) 0.2, Absolute Neuts (auto) 22.7 H, Absolute Lymphs (auto) 1.09, Nucleated RBC % 0.2, Differential Comment SCANNED 09/19/20 06:46: Sodium 143, Potassium 4.6, Chloride 113 H, Carbon Dioxide 21.0, Anion Gap 9, BUN 48 H, Creatinine 1.43 H, Estim Creat Clear Calc 49.16, Est GFR (MDRD) Af Amer 64, Est GFR (MDRD) Non-Af 53 L, BUN/Creatinine Ratio 33.6 H, Glucose 96, Calcium 8.7 09/19/20 06:46: PT 14.8, INR 1.2, APTT 31.6 Current Medications Acetaminophen (Acetaminophen 325 Mg Tablet) 650 mg PO Q6H PRN PRN PRN Reason: Pain Score 1-10/Temp > 100.7 F Albuterol Sulfate (Albuterol Sulfate Hfa 6.7 Gm Inhaler (200 Puffs)) 2 puff IH Q4H PRN PRN PRN Reason: COUGH Last Admin: 09/14/20 21:58 Dose: 2 puff Documented by: Dexamethasone (Dexamethasone 4 Mg Tablet) 6 mg PO DAILY VITO Last Admin: 09/19/20 08:24 Dose: 6 mg Documented by: Furosemide (Furosemide 40 Mg/4 Ml Vial) 40 mg IV DAILY [facility] Last Admin: 09/19/20 08:36 Dose: 40 mg Documented by: Heparin Sodium (Porcine) (Heparin Injection (Vial) 5,000 Unit/Ml Vial) 0 unit IV UD PRN; Protocol PRN Reason: dose adjustment Heparin Sodium/Dextrose () 25,000 units in 250 mls @ 11 mls/hr IV .[id number] [facility]; Protocol Last Admin: 09/19/20 07:00 Dose: 1,100 units/hr, 11 mls/hr Documented by: Ibuprofen (Ibuprofen 400 Mg Tablet) 400 mg PO Q4H PRN PRN PRN Reason: Pain Score 1-10/Temp > 100.7 F Miscellaneous Information (Inhaler, Assist Devices 1 Each Spacer) 1 each INHALATION PRN PRN PRN Reason: WITH ALBUTEROL MDI Last Admin: 09/14/20 21:58 Dose: 1 each Documented by: Ondansetron HCl (Ondansetron 4 Mg/2 Ml Vial) 4 mg IV Q8H PRN PRN PRN Reason: NAUSEA/VOMITING Last Admin: 09/19/20 08:36 Dose: 4 mg Documented by: Oxycodone HCl (Oxycodone 5 Mg Tablet) 5 mg PO Q4H PRN PRN PRN Reason: Pain Score 4-5 Last Admin: 09/14/20 09:56 Dose: 5 mg Documented by: Oxycodone HCl (Oxycodone 5 Mg Tablet) 10 mg PO Q4H PRN PRN PRN Reason: Pain Score 6-10 Sodium Chloride (0.9% Saline Lock 10 Ml Syringe) 10 - 40 ml IV UD PRN PRN Reason: SALINE FLUSH Last Admin: 09/19/20 08:36 Dose: 10 ml Documented by: Sodium Chloride (0.9% Saline Lock 10 Ml Syringe) 10 - 40 ml IV UD PRN PRN Reason: Midline Flush Sodium Chloride (0.9 % Nacl (Sterile) Posiflush 10 Ml) 10 - 40 ml IV UD PRN PRN Reason: Port access or dressing change Tamsulosin HCl (Tamsulosin Hcl 0.4 Mg Capsule) [facility] Last Admin: 09/18/20 23:32 Dose: 0.4 mg Documented by: STROKE Vital Signs/Narrative: Vital Signs Temp Pulse Resp BP BP Pulse Ox 09/19/20 09:02 98 27 H 136/89 H 92 09/19/20 08:28 82 25 H 94 09/19/20 08:16 97.5 F L 92 30 H 122/78 H 82 Medical Necessity - Tobacco Use Smoking Status: Never smoker Assessment/Plan All Active Problems (Last Updated 09/12/20 @ 20:[address] Hector De Santiago, DO) Renal failure (Acute) Ureteral calculus (Acute) Pyelonephritis (Acute) Pneumonia due to COVID-19 virus (Acute) Omental mass (Acute) 1. Acute hypoxic respiratory failure secondary to COVID-19 pneumonia/BELEM -He is still high flow nasal cannula though he is tolerating this well. -CT of the chest on 09/14/2020 demonstrated just infiltrates in both lungs, with an anterior chest wall mass. There is a soft tissue mass in the anterior aspect of the lower thorax at the right cardiophrenic junction -He did appear to have some fluid overload and was given a dose of 60 mg of IV Lasix and then transition to 40 mg daily he is about 11 L positive, therefore will increase his Lasix to twice daily dosing as his creatinine is improving sl owly -Continue with Decadron, because of his renal failure he cannot tolerate remdesivir -Unfortunately he has had a decline in his respiratory status and transition from 11 L high flow nasal cannula to 15 yesterday and is now on BiPAP. We could not obtain a CTA of his chest to rule out a PE secondary to his poor renal function therefore we will go ahead and empirically anticoagulate him with hep gerhard drip 2. A history of lymphoma -Apparently he did not complete treatment for his lymphoma. Imaging studies on admission demonstrated large abdominal mass with omental thickening and nodularity as well as soft tissue densities along the pericolic gutters as well as the chest masses previously described -Oncology was consulted they recommended having him follow-up as an outpatient 3. Acute UTI -Found to have a pansensitive E. 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
[2020-09-19 13:31] LABS: International Normalized Ratio 1.3; Prothrombin Time (Protime)PT. 15.8 SECONDS (11.7-14.9)
[2020-09-19 13:32] LABS: Partial Thromboplast Time 38.2 Seconds (24.1-36.2)
[2020-09-19] MEDS: Heparin Injection (Vial) 5,000 UNIT/ML VIAL IV ×2 (15:00→22:39)
[2020-09-19] MEDS: Acetaminophen 325 MG Tablet 650 MG PO (15:02)
[2020-09-19] MEDS: Tamsulosin HCl 0.4 MG Capsule PO (20:24)
[2020-09-19 22:03] LABS: Partial Thromboplast Time 53.8 Seconds (24.1-36.2)
[2020-09-20] VITALS (24 sets, daily range): BP systolic 93–121; BP diastolic 57–84; PULSE 70–103; RESP 12–29; TEMP 36.6–37.1; O2SAT 89–98
--- NOTE | 2020-09-20 01:42 | CPS ---
Pt.'s FiO2 increased to 50%; meet oxygenation demands while asleep
[2020-09-20] MEDS: HEPARIN/D5w 25,000 UNITS 25,000 UNITS/250 ML IV.SOLN. 14 UNITS IV (03:38)
[2020-09-20 05:00] LABS: Hematocrit 28.1 % (40-54); Hemoglobin 8.6 g/dL (13.0-16.5); Mean Corp Hgb Conc 30.6 g/dL (32-36); Mean Corpuscular Hgb 25.1 pg (27.0-32.0); Mean Corpuscular Volume 82.2 fL (80-94); Mean Platelet Vol. 11.3 fl (6.2-12.0); Platelet Count 376 K/mm3 (150-450); RBC Distribution Width CV 15.8 % (11.6-14.6); Red Blood Count 3.42 M/mm3 (4.6-6.2); White Blood Count 28.6 K/mm3 (4.4-11.0)
[2020-09-20 05:10] LABS: Partial Thromboplast Time 55.6 Seconds (24.1-36.2)
[2020-09-20 05:39] LABS: Anion Gap 9 (5-15); BUN 53 mg/dL (7-18); BUN/Creat Ratio 34.6 RATIO (10-20); Calcium,Total 8.6 mg/dL (8.5-10.1); Chloride 109 mmol/L (98-107); Creatinine, Serum 1.53 mg/dL (0.70-1.30); EST Glomerular Filtration Rate 49 mL/min (>60); Est Glom Filt Rate - Afr Amer 59 mL/min (>60); Estimated Creatinine Clearance 45.95 ml/min; Glucose 101 mg/dL (74-106); Sodium Level 140 mmol/L (136-145)
[2020-09-20] MEDS: dexAMETHasone 4 MG Tablet 6 MG PO (09:21)
[2020-09-20] MEDS: 0.9% Saline Lock 10 ML Syringe IV ×2 (09:23→17:41)
[2020-09-20] MEDS: Furosemide 40 MG/4 ML Vial IV ×2 (09:23→17:42)
--- NOTE | 2020-09-20 09:40 | PCM.PN.HOSP ---
Patient Problems: Active and Suspected Problems (Last Updated 09/12/20 @ 20:[address] Hector De Santiago, DO) Renal failure (Acute) Ureteral calculus (Acute) Pyelonephritis (Acute) Pneumonia due to COVID-19 virus (Acute) Omental mass (Acute) Subjective: Off of BiPAP and currently back on 15 L high flow nasal cannula. He says that he is feeling comfortable at the moment and maintaining his saturations. Vitals/I&O's: Vital Signs Temp Pulse Resp BP Pulse Ox 98.2 F 92 18 108/69 92 09/20/20 08:00 09/20/20 08:00 09/20/20 08:00 09/20/20 08:00 09/20/20 08:00 Oxygen Flow Rate (L/min) 15 Oxygen Delivery Method Nasal Cannula Weight: 156 lb 12.79 oz Body Mass Index (BMI) 23.8 Intake and Output for Last 24 Hours 09/18/20 09/19/20 09/20/20 23:59 23:59 23:59 Intake Total 960 / 960 1266.84 / 1266.84 336.29 / 336.29 Output Total 200 / 200 4000 / 4000 600 / 600 Balance 760 / 760 -2733.16 / -2733.16 -263.71 / -263.71 General: Alert, Oriented x3, Cooperative, No apparent distress HEENT: Atraumatic, PERRLA, EOMI, Normocephalic Oral: Moist Mucosa Neck: Supple, No JVD Lungs: Clear to auscultation, Normal air movement, No rhonchi, No wheeze, No rales, Diminished Cardiovascular: Regular rate, Regular Rhythm, Normal S1, Normal S2 Abdomen: Soft, Non Tender, Non-Distended, No Hepato-splenomegaly Extremities: No edema, Capillary Refill Less than 3 Seconds Skin: No rashes, No breakdown Neurological: Neuro grossly intact, Sensory exam intact to light touch and pain Psych/Mental Status: Normal Affect, Appropriate Microbiology Past 72 Hours 09/12/20 18:47 Blood Culture (Wb) - Left Hand Blood Culture - Final No growth in 5 days. 09/12/20 18:40 Blood Culture (Wb) - Anticubital Right Blood Culture - Final No growth in 5 days. Laboratory Results 09/19/20 12:35: PT 15.8 H, INR 1.3, APTT 38.2 H 09/19/20 20:50: APTT 53.8 H 09/20/20 04:54: WBC 28.6 H, RBC 3.42 L, Hgb 8.6 L, Hct 28.1 L, MCV 82.2, MCH 25.1 L, MCHC 30.6 L, RDW Std Deviation 47.0 H, RDW Coeff of Ashok 15.8 H, Plt Count 376, MPV 11.3 09/20/20 04:54: Sodium 140, Potassium 4.0, Chloride 109 H, Carbon Dioxide 22.0, Anion Gap 9, BUN 53 H, Creatinine 1.53 H, Estim Creat Clear Calc 45.95, Est GFR (MDRD) Af Amer 59 L, Est GFR (MDRD) Non-Af 49 L, BUN/Creatinine Ratio 34.6 H, Glucose 101, Calcium 8.6 09/20/20 04:54: APTT 55.6 H Current Medications Acetaminophen (Acetaminophen 325 Mg Tablet) 650 mg PO Q6H PRN PRN PRN Reason: Pain Score 1-10/Temp > 100.7 F Last Admin: 09/19/20 15:02 Dose: 650 mg Documented by: Albuterol Sulfate (Albuterol Sulfate Hfa 6.7 Gm Inhaler (200 Puffs)) 2 puff IH Q4H PRN PRN PRN Reason: COUGH Last Admin: 09/14/20 21:58 Dose: 2 puff Documented by: Dexamethasone (Dexamethasone 4 Mg Tablet) 6 mg PO DAILY [facility] Last Admin: 09/20/20 09:21 Dose: 6 mg Documented by: Furosemide (Furosemide 40 Mg/4 Ml Vial) 40 mg IV BID@1000,1800 [facility] Last Admin: 09/20/20 09:23 Dose: 40 mg Documented by: Heparin Sodium (Porcine) (Heparin Injection (Vial) 5,000 Unit/Ml Vial) 0 unit IV UD PRN; Protocol PRN Reason: dose adjustment Last Admin: 09/19/20 22:39 Dose: 1,000 unit Documented by: Heparin Sodium/Dextrose () 25,000 units in 250 mls @ 11 mls/hr IV .[id number] [facility]; Protocol Last Titration: 09/20/20 06:00 Dose: 1,400 units/hr, 14 mls/hr Documented by: Ibuprofen (Ibuprofen 400 Mg Tablet) 400 mg PO Q4H PRN PRN PRN Reason: Pain Score 1-10/Temp > 100.7 F Miscellaneous Information (Inhaler, Assist Devices 1 Each Spacer) 1 each INHALATION PRN PRN PRN Reason: WITH ALBUTEROL MDI Last Admin: 09/14/20 21:58 Dose: 1 each Documented by: Ondansetron HCl (Ondansetron 4 Mg/2 Ml Vial) 4 mg IV Q8H PRN PRN PRN Reason: NAUSEA/VOMITING Last Admin: 09/19/20 08:36 Dose: 4 mg Documented by: Oxycodone HCl (Oxycodone 5 Mg Tablet) 5 mg PO Q4H PRN PRN PRN Reason: Pain Score 4-5 Last Admin: 09/14/20 09:56 Dose: 5 mg Documented by: Oxycodone HCl (Oxycodone 5 Mg Tablet) 10 mg PO Q4H PRN PRN PRN Reason: Pain Score 6-10 Sodium Chloride (0.9% Saline Lock 10 Ml Syringe) 10 - 40 ml IV UD PRN PRN Reason: SALINE FLUSH Last Admin: 09/20/20 09:23 Dose: 10 ml Documented by: Sodium Chloride (0.9% Saline Lock 10 Ml Syringe) 10 - 40 ml IV UD PRN PRN Reason: Midline Flush Sodium Chloride (0.9 % Nacl (Sterile) Posiflush 10 Ml) 10 - 40 ml IV UD PRN PRN Reason: Port access or dressing change Tamsulosin HCl (Tamsulosin Hcl 0.4 Mg Capsule) 0.4 mg PO QHS [facility] Last Admin: 09/19/20 20:24 Dose: 0.4 mg Documented by: STROKE Vital Signs/Narrative: Vital Signs Temp Pulse Resp BP Pulse Ox 09/20/20 08:00 98.2 F 92 18 108/69 92 09/20/20 07:53 92 09/20/20 07:00 97.8 F 84 26 H 97/68 95 09/20/20 06:00 97.9 F 92 24 H 115/68 93 Medical Necessity - Tobacco Use Smoking Status: Never smoker Assessment/Plan All Active Problems (Last Updated 09/12/20 @ 20:[address] Hector De Santiago DO) Renal failure (Acute) Ureteral calculus (Acute) Pyelonephritis (Acute) Pneumonia due to COVID-19 virus (Acute) Omental mass (Acute) 1. Acute hypoxic respiratory failure secondary to COVID-19 pneumonia/BELEM -CT of the chest on 09/14/2020 demonstrated just infiltrates in both lungs, with an anterior chest wall mass. There is a soft tissue mass in the anterior aspect of the lower thorax at the right cardiophrenic junction -He did appear to have some fluid overload and was given a dose of 60 mg of IV Lasix and then transition to 40 mg daily he was about 11 L positive, therefore his Lasix was increased to twice daily dosing we will continue to monitor his renal function. Currently 8.8 L positive, Peoples in place -Continue with Decadron, because of his renal failure he cannot tolerate remdesivir -Unfortunately he has had a decline in his respiratory status and transition from 11 L high flow nasal cannula to 15 and had to be transitioned to BiPAP. This morning he is back on 215 L high flow nasal cannula, he will likely need BiPAP whenever he sleeps. We could not obtain a CTA of his chest to rule out a PE secondary to his poor renal function therefore we will go ahead and empirically anticoagulate him with heparin drip 2. A history of lymphoma -Apparently he did not complete treatment for his lymphoma. Imaging studies on admission demonstrated large abdominal mass with omental thickening and nodularity as well as soft tissue densities along the pericolic gutters as well as the chest masses previously described -Oncology was consulted they recommended having him follow-up as an outpatient 3. Acute UTI -Found to have a pansensitive E. 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
--- NOTE | 2020-09-20 13:58 | PCM.PN.PUL ---
Patient Problems: Active and Suspected Problems (Last Updated 09/12/20 @ 20:[address] Hector De Santiago, DO) Renal failure (Acute) Ureteral calculus (Acute) Pyelonephritis (Acute) Pneumonia due to COVID-19 virus (Acute) Omental mass (Acute) Subjective: Patient did okay overnight. Patient has been able to be weaned to high flow nasal cannula oxygen. Patient reports subjective improvement compared to yesterday. Patient is not reporting any chest pain, but reports very little ability to move around the bed. No fevers been noted overnight. - Physical Exam Vitals/I&O's: Vital Signs Temp Pulse Resp BP Pulse Ox 36.6 C 90 24 H 106/68 93 09/20/20 13:00 09/20/20 13:00 09/20/20 13:00 09/20/20 13:00 09/20/20 13:00 Oxygen Flow Rate (L/min) 12 Oxygen Delivery Method Nasal Cannula Weight: 71.123 kg Body Mass Index (BMI) 23.8 Intake and Output for Last 24 Hours 09/18/20 09/19/20 09/20/20 23:59 23:59 23:59 Intake Total 960 / 960 1266.84 / 1266.84 816.29 / 816.29 Output Total 200 / 200 4000 / 4000 1250 / 1250 Balance 760 / 760 -2733.16 / -2733.16 -433.71 / -433.71 General: Alert, Cooperative, No apparent distress, - - Slow to respond, but little conversational dyspnea noted. HEENT: Atraumatic, PERRLA, EOMI, Normocephalic, - - Slight scleral injection without icterus Oral: Moist Mucosa, No Gingival or Mucosal Lesions/ Ulcerations Neck: Supple, No JVD, No Nodes, Trachea Midline Lungs: No rhonchi, No wheeze, No rales, Diminished, - - Symmetric expansion. No dullness to percussion. Cardiovascular: Regular rate, Regular Rhythm, Normal S1, Normal S2, No murmurs, No rub noted, No Gallop Abdomen: Bowel Sounds Present, Soft, Non Tender, Non-Distended Extremities: No clubbing, No cyanosis, No edema, Capillary Refill Less than 3 Seconds Skin: No rashes, No breakdown Musculoskeletal: No Tenderness to Palpation of Joints or Extremities Lymphatic: No Cervical, Supraclavicular, or Inguinal Adenopathy Neurological: Cranial nerves II-XII grossly intact, Neuro grossly intact Psych/Mental Status: Flat Affect Microbiology Past 72 Hours 09/12/20 18:47 Blood Culture (Wb) - Left Hand Blood Culture - Final No growth in 5 days. 09/12/20 18:40 Blood Culture (Wb) - Anticubital Right Blood Culture - Final No growth in 5 days. Laboratory Results 09/19/20 20:50: APTT 53.8 H 09/20/20 04:54: WBC 28.6 H, RBC 3.42 L, Hgb 8.6 L, Hct 28.1 L, MCV 82.2, MCH 25.1 L, MCHC 30.6 L, RDW Std Deviation 47.0 H, RDW Coeff of Ashok 15.8 H, Plt Count 376, MPV 11.3 09/20/20 04:54: Sodium 140, Potassium 4.0, Chloride 109 H, Carbon Dioxide 22.0, Anion Gap 9, BUN 53 H, Creatinine 1.53 H, Estim Creat Clear Calc 45.95, Est GFR (MDRD) Af Amer 59 L, Est GFR (MDRD) Non-Af 49 L, BUN/Creatinine Ratio 34.6 H, Glucose 101, Calcium 8.6 09/20/20 04:54: APTT 55.6 H 09/20/20 12:11: APTT 43.0 H Current Medications Acetaminophen (Acetaminophen 325 Mg Tablet) 650 mg PO Q6H PRN PRN PRN Reason: Pain Score 1-10/Temp > 100.7 F Last Admin: 09/19/20 15:02 Dose: 650 mg Documented by: Albuterol Sulfate (Albuterol Sulfate Hfa 6.7 Gm Inhaler (200 Puffs)) 2 puff IH Q4H PRN PRN PRN Reason: COUGH Last Admin: 09/14/20 21:58 Dose: 2 puff Documented by: Dexamethasone (Dexamethasone 4 Mg Tablet) 6 mg PO DAILY [facility] Last Admin: 09/20/20 09:21 Dose: 6 mg Documented by: Furosemide (Furosemide 40 Mg/4 Ml Vial) 40 mg IV BID@1000,1800 [facility] Last Admin: 09/20/20 09:23 Dose: 40 mg Documented by: Heparin Sodium (Porcine) (Heparin Injection (Vial) 5,000 Unit/Ml Vial) 0 unit IV UD PRN; Protocol PRN Reason: dose adjustment Last Admin: 09/19/20 22:39 Dose: 1,000 unit Documented by: Heparin Sodium/Dextrose () 25,000 units in 250 mls @ 11 mls/hr IV .[id number] [facility]; Protocol Last Titration: 09/20/20 06:00 Dose: 1,400 units/hr, 14 mls/hr Documented by: Ibuprofen (Ibuprofen 400 Mg Tablet) 400 mg PO Q4H PRN PRN PRN Reason: Pain Score 1-10/Temp > 100.7 F Miscellaneous Information (Inhaler, Assist Devices 1 Each Spacer) 1 each INHALATION PRN PRN PRN Reason: WITH ALBUTEROL MDI Last Admin: 09/14/20 21:58 Dose: 1 each Documented by: Ondansetron HCl (Ondansetron 4 Mg/2 Ml Vial) 4 mg IV Q8H PRN PRN PRN Reason: NAUSEA/VOMITING Last Admin: 09/19/20 08:36 Dose: 4 mg Documented by: Oxycodone HCl (Oxycodone 5 Mg Tablet) 5 mg PO Q4H PRN PRN PRN Reason: Pain Score 4-5 Last Admin: 09/14/20 09:56 Dose: 5 mg Documented by: Oxycodone HCl (Oxycodone 5 Mg Tablet) 10 mg PO Q4H PRN PRN PRN Reason: Pain Score 6-10 Sodium Chloride (0.9% Saline Lock 10 Ml Syringe) 10 - 40 ml IV UD PRN PRN Reason: SALINE FLUSH Last Admin: 09/20/20 09:23 Dose: 10 ml Documented by: Sodium Chloride (0.9% Saline Lock 10 Ml Syringe) 10 - 40 ml IV UD PRN PRN Reason: Midline Flush Sodium Chloride (0.9 % Nacl (Sterile) Posiflush 10 Ml) 10 - 40 ml IV UD PRN PRN Reason: Port access or dressing change Tamsulosin HCl (Tamsulosin Hcl 0.4 Mg Capsule) 0.4 mg PO QHS [facility] Last Admin: 09/19/20 20:24 Dose: 0.4 mg Documented by: Medical Necessity - Tobacco Use Smoking Status: Never smoker Assessment/Plan All Active Problems (Last Updated 09/12/20 @ 20:[address] Hector De Santiago, DO) Renal failure (Acute) Ureteral calculus (Acute) Pyelonephritis (Acute) Pneumonia due to COVID-19 virus (Acute) Omental mass (Acute) RECOMMENDATIONS: 1. Continue Airvo therapy and wean FiO2 to maintain oxygen saturations at or above 90%. May require BiPAP rescue overnight 2. Continue patient on Decadron 6 mg daily. 3. Attempt gentle diuresis as tolerated by hemodynamics and renal function. 4. The patient will require further outpatient work-up of the mass noted on CT chest along with the findings noted on CT abdomen/pelvis. 5. Would not recommend pursuing biopsy at this time as this is likely not the etiology of his acute hypoxic respiratory failure IMPRESSIONS: 1. Acute hypoxemic respiratory failure secondary to Covid pneumonia Plan to continue current supportive measures including high flow nasal cannula support with a goal to maintain saturations at or above 90%. Continue the patient on Decadron 6 mg daily. Infectious diseases is following. Given that the patient is overall net positive for the hospital course, will continue him on Lasix today. Continue to monitor renal function 2. Acute kidney injury Stable. Likely multifactorial with prerenal and obstructive uropathy contributing. Continue to monitor urine output. No current indication for renal replacement therapy. 3. E. 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 The patient has completed his antibiotic treatment course per the discretion of infectious diseases. 4. History of non-Hodgkin's lymphoma Complicates care, management, recovery and prognosis. Oncology does not have any additional plans for further inpatient work-up. Clinical concern for recurrence of lymphoma leading to the anterior mediastinal mass. Inpatient E&M: 99000 Subs Hosp L3
[2020-09-20] MEDS: Heparin Injection (Vial) 5,000 UNIT/ML VIAL IV ×2 (14:00→22:15)
--- NOTE | 2020-09-20 16:42 | PCM.PN.ID ---
Patient Problems: Active and Suspected Problems (Last Updated 09/12/20 @ 20:[address] Hector De Santiago, DO) Renal failure (Acute) Ureteral calculus (Acute) Pyelonephritis (Acute) Pneumonia due to COVID-19 virus (Acute) Omental mass (Acute) Subjective: Feeling better, less SOB, no fever - Physical Exam Vitals/I&O's: Vital Signs Temp Pulse Resp BP Pulse Ox 98.2 F 88 26 H 102/84 H 92 09/20/20 16:00 09/20/20 16:00 09/20/20 16:00 09/20/20 16:00 09/20/20 16:00 Oxygen Flow Rate (L/min) 11 Oxygen Delivery Method Nasal Cannula Weight: 71.123 kg Body Mass Index (BMI) 23.8 Intake and Output for Last 24 Hours 09/18/20 09/19/20 09/20/20 23:59 23:59 23:59 Intake Total 960 / 960 1266.84 / 1266.84 928.99 / 928.99 Output Total 200 / 200 4000 / 4000 1250 / 1250 Balance 760 / 760 -2733.16 / -2733.16 -321.01 / -321.01 General: Alert, Cooperative, No apparent distress Lungs: Clear to auscultation, Normal air movement Cardiovascular: Regular rate, Regular Rhythm Abdomen: Distended Skin: No rashes Microbiology Past 72 Hours 09/12/20 18:47 Blood Culture (Wb) - Left Hand Blood Culture - Final No growth in 5 days. 09/12/20 18:40 Blood Culture (Wb) - Anticubital Right Blood Culture - Final No growth in 5 days. Laboratory Results 09/19/20 20:50: APTT 53.8 H 09/20/20 04:54: WBC 28.6 H, RBC 3.42 L, Hgb 8.6 L, Hct 28.1 L, MCV 82.2, MCH 25.1 L, MCHC 30.6 L, RDW Std Deviation 47.0 H, RDW Coeff of Ashok 15.8 H, Plt Count 376, MPV 11.3 09/20/20 04:54: Sodium 140, Potassium 4.0, Chloride 109 H, Carbon Dioxide 22.0, Anion Gap 9, BUN 53 H, Creatinine 1.53 H, Estim Creat Clear Calc 45.95, Est GFR (MDRD) Af Amer 59 L, Est GFR (MDRD) Non-Af 49 L, BUN/Creatinine Ratio 34.6 H, Glucose 101, Calcium 8.6 09/20/20 04:54: APTT 55.6 H 09/20/20 12:11: APTT 43.0 H Current Medications Acetaminophen (Acetaminophen 325 Mg Tablet) 650 mg PO Q6H PRN PRN PRN Reason: Pain Score 1-10/Temp > 100.7 F Last Admin: 09/19/20 15:02 Dose: 650 mg Documented by: Albuterol Sulfate (Albuterol Sulfate Hfa 6.7 Gm Inhaler (200 Puffs)) 2 puff IH Q4H PRN PRN PRN Reason: COUGH Last Admin: 09/14/20 21:58 Dose: 2 puff Documented by: Dexamethasone (Dexamethasone 4 Mg Tablet) 6 mg PO DAILY [facility] Last Admin: 09/20/20 09:21 Dose: 6 mg Documented by: Furosemide (Furosemide 40 Mg/4 Ml Vial) 40 mg IV BID@1000,1800 [facility] Last Admin: 09/20/20 09:23 Dose: 40 mg Documented by: Heparin Sodium (Porcine) (Heparin Injection (Vial) 5,000 Unit/Ml Vial) 0 unit IV UD PRN; Protocol PRN Reason: dose adjustment Last Admin: 09/20/20 14:00 Dose: 1,000 unit Documented by: Heparin Sodium/Dextrose () 25,000 units in 250 mls @ 11 mls/hr IV .[id number] [facility]; Protocol Last Titration: 09/20/20 14:03 Dose: 1,500 units/hr, 15 mls/hr Documented by: Ibuprofen (Ibuprofen 400 Mg Tablet) 400 mg PO Q4H PRN PRN PRN Reason: Pain Score 1-10/Temp > 100.7 F Miscellaneous Information (Inhaler, Assist Devices 1 Each Spacer) 1 each INHALATION PRN PRN PRN Reason: WITH ALBUTEROL MDI Last Admin: 09/14/20 21:58 Dose: 1 each Documented by: Ondansetron HCl (Ondansetron 4 Mg/2 Ml Vial) 4 mg IV Q8H PRN PRN PRN Reason: NAUSEA/VOMITING Last Admin: 09/19/20 08:36 Dose: 4 mg Documented by: Oxycodone HCl (Oxycodone 5 Mg Tablet) 5 mg PO Q4H PRN PRN PRN Reason: Pain Score 4-5 Last Admin: 09/14/20 09:56 Dose: 5 mg Documented by: Oxycodone HCl (Oxycodone 5 Mg Tablet) 10 mg PO Q4H PRN PRN PRN Reason: Pain Score 6-10 Sodium Chloride (0.9% Saline Lock 10 Ml Syringe) 10 - 40 ml IV UD PRN PRN Reason: SALINE FLUSH Last Admin: 09/20/20 09:23 Dose: 10 ml Documented by: Sodium Chloride (0.9% Saline Lock 10 Ml Syringe) 10 - 40 ml IV UD PRN PRN Reason: Midline Flush Sodium Chloride (0.9 % Nacl (Sterile) Posiflush 10 Ml) 10 - 40 ml IV UD PRN PRN Reason: Port access or dressing change Tamsulosin HCl (Tamsulosin Hcl 0.4 Mg Capsule) 0.4 mg PO QHS [facility] Last Admin: 09/19/20 20:24 Dose: 0.4 mg Documented by: Medical Necessity - Tobacco Use Smoking Status: Never smoker Route of nutrition/ use of supplements: [] Nutritional Intake: [] IV Site: [] Peoples Catheter: [] - Assessment/Plan Antibiotics: [] Assessment/Plan: [] Active and Suspected Problems (Last Updated 09/12/20 @ 20:[address] Hector De Santiago, DO) Renal failure (Acute) Ureteral calculus (Acute) Pyelonephritis (Acute) Pneumonia due to COVID-19 virus (Acute) Omental mass (Acute) covid with hypoxic resp failure - Not candidate for remdesivir due to BELEM. On dex. Improving O2 today. Pulm following. May benefit from bigger dose of steroids as lymphoma likely playing a role in overall illness and lung function. 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 Will follow
[2020-09-20] MEDS: Tamsulosin HCl 0.4 MG Capsule PO (21:07)
[2020-09-20 21:33] LABS: Partial Thromboplast Time 50.5 Seconds (24.1-36.2)
[2020-09-20] MEDS: HEPARIN/D5w 25,000 UNITS 25,000 UNITS/250 ML IV.SOLN. 16 UNITS IV (22:15)
[2020-09-21] VITALS (26 sets, daily range): BP systolic 91–130; BP diastolic 57–75; PULSE 74–102; RESP 12–27; TEMP 36.2–36.8; O2SAT 89–98
[2020-09-21 05:23] LABS: Anion Gap 9 (5-15); BUN 65 mg/dL (7-18); BUN/Creat Ratio 38.9 RATIO (10-20); Calcium,Total 8.1 mg/dL (8.5-10.1); Chloride 104 mmol/L (98-107); Creatinine, Serum 1.67 mg/dL (0.70-1.30); EST Glomerular Filtration Rate 44 mL/min (>60); Est Glom Filt Rate - Afr Amer 53 mL/min (>60); Glucose 98 mg/dL (74-106); Potassium 3.7 mmol/L (3.5-5.1); Sodium Level 138 mmol/L (136-145)
[2020-09-21 05:42] LABS: Partial Thromboplast Time 63.2 Seconds (24.1-36.2)
[2020-09-21] MEDS: Furosemide 40 MG/4 ML Vial IV (09:03)
[2020-09-21] MEDS: 0.9% Saline Lock 10 ML Syringe IV (09:03)
[2020-09-21] MEDS: dexAMETHasone 4 MG Tablet 6 MG PO (09:03)
--- NOTE | 2020-09-21 09:46 | CPS ---
patient cannot be off bipap right now, incentive in room.
--- NOTE | 2020-09-21 09:56 | PN_ITS ---
Patient Problems: Active and Suspected Problems (Last Updated 09/12/20 @ 20:[address] Hector De Santiago, DO) Renal failure (Acute) Ureteral calculus (Acute) Pyelonephritis (Acute) Pneumonia due to COVID-19 virus (Acute) Omental mass (Acute) Subjective: On BiPAP, and says that he breathes better with it on though his throat is dry. No issues overnight Vitals/I&O's: Vital Signs Temp Pulse Resp BP Pulse Ox 97.6 F L 102 H 19 H 106/67 92 09/21/20 09:00 09/21/20 09:00 09/21/20 09:00 09/21/20 09:00 09/21/20 09:00 Oxygen Flow Rate (L/min) 15 Oxygen Delivery Method Bi-pap Weight: 156 lb 12.79 oz Body Mass Index (BMI) 23.8 Intake and Output for Last 24 Hours 09/19/20 09/20/20 09/21/20 23:59 23:59 23:59 Intake Total 1266.84 / 1266.84 1753.16 / 1753.16 360 / 360 Output Total 4000 / 4000 1900 / 1900 650 / 650 Balance -2733.16 / -2733.16 -146.84 / -146.84 -290 / -290 General: Alert, Oriented x3, Cooperative, No apparent distress HEENT: Atraumatic, PERRLA, EOMI, Normocephalic Oral: Dry mucosa Neck: Supple, No JVD Lungs: Clear to auscultation, Normal air movement, No rhonchi, No wheeze, No rales, Diminished Cardiovascular: Regular rate, Regular Rhythm, Normal S1, Normal S2 Abdomen: Soft, Non Tender, Non-Distended, No Hepato-splenomegaly Extremities: No edema, Capillary Refill Less than 3 Seconds Skin: No rashes, No breakdown Neurological: Neuro grossly intact, Sensory exam intact to light touch and pain Psych/Mental Status: Normal Affect, Appropriate Microbiology Past 72 Hours 09/12/20 18:47 Blood Culture (Wb) - Left Hand Blood Culture - Final No growth in 5 days. 09/12/20 18:40 Blood Culture (Wb) - Anticubital Right Blood Culture - Final No growth in 5 days. Laboratory Results 09/20/20 12:11: APTT 43.0 H 09/20/20 21:00: APTT 50.5 H 09/21/20 04:45: Sodium 138, Potassium 3.7, Chloride 104, Carbon Dioxide 25.0, Anion Gap 9, BUN 65 H, Creatinine 1.67 H, Estim Creat Clear Calc 42.10, Est GFR (MDRD) Af Amer 53 L, Est GFR (MDRD) Non-Af 44 L, BUN/Creatinine Ratio 38.9 H, Glucose 98, Calcium 8.1 L 09/21/20 04:45: APTT 63.2 H Current Medications Acetaminophen (Acetaminophen 325 Mg Tablet) 650 mg PO Q6H PRN PRN PRN Reason: Pain Score 1-10/Temp > 100.7 F Last Admin: 09/19/20 15:02 Dose: 650 mg Documented by: Albuterol Sulfate (Albuterol Sulfate Hfa 6.7 Gm Inhaler (200 Puffs)) 2 puff IH Q4H PRN PRN PRN Reason: COUGH Last Admin: 09/14/20 21:58 Dose: 2 puff Documented by: Dexamethasone (Dexamethasone 4 Mg Tablet) 6 mg PO DAILY [facility] Last Admin: 09/21/20 09:03 Dose: 6 mg Documented by: Furosemide (Furosemide 40 Mg/4 Ml Vial) 40 mg IV BID@1000,1800 [facility] Last Admin: 09/21/20 09:03 Dose: 40 mg Documented by: Heparin Sodium (Porcine) (Heparin Injection (Vial) 5,000 Unit/Ml Vial) 0 unit IV UD PRN; Protocol PRN Reason: dose adjustment Last Admin: 09/20/20 22:15 Dose: 1,000 unit Documented by: Heparin Sodium/Dextrose () 25,000 units in 250 mls @ 11 mls/hr IV .[id number] [facility]; Protocol Last Titration: 09/21/20 05:45 Dose: 1,600 units/hr, 16 mls/hr Documented by: Ibuprofen (Ibuprofen 400 Mg Tablet) 400 mg PO Q4H PRN PRN PRN Reason: Pain Score 1-10/Temp > 100.7 F Miscellaneous Information (Inhaler, Assist Devices 1 Each Spacer) 1 each INHALATION PRN PRN PRN Reason: WITH ALBUTEROL MDI Last Admin: 09/14/20 21:58 Dose: 1 each Documented by: Ondansetron HCl (Ondansetron 4 Mg/2 Ml Vial) 4 mg IV Q8H PRN PRN PRN Reason: NAUSEA/VOMITING Last Admin: 09/19/20 08:36 Dose: 4 mg Documented by: Oxycodone HCl (Oxycodone 5 Mg Tablet) 5 mg PO Q4H PRN PRN PRN Reason: Pain Score 4-5 Last Admin: 09/14/20 09:56 Dose: 5 mg Documented by: Oxycodone HCl (Oxycodone 5 Mg Tablet) 10 mg PO Q4H PRN PRN PRN Reason: Pain Score 6-10 Sodium Chloride (0.9% Saline Lock 10 Ml Syringe) 10 - 40 ml IV UD PRN PRN Reason: SALINE FLUSH Last Admin: 09/21/20 09:03 Dose: 10 ml Documented by: Sodium Chloride (0.9% Saline Lock 10 Ml Syringe) 10 - 40 ml IV UD PRN PRN Reason: Midline Flush Sodium Chloride (0.9 % Nacl (Sterile) Posiflush 10 Ml) 10 - 40 ml IV UD PRN PRN Reason: Port access or dressing change Tamsulosin HCl (Tamsulosin Hcl 0.4 Mg Capsule) 0.4 mg PO QHS [facility] Last Admin: 09/20/20 21:07 Dose: 0.4 mg Documented by: STROKE Vital Signs/Narrative: Vital Signs Temp Pulse Resp BP Pulse Ox 09/21/20 09:00 97.6 F L 102 H 19 H 106/67 92 09/21/20 07:48 88 20 H 94 09/21/20 07:00 97.9 F 89 24 H 109/75 95 09/21/20 06:00 97.9 F 86 20 H 106/65 94 Medical Necessity - Tobacco Use Smoking Status: Never smoker Assessment/Plan All Active Problems (Last Updated 09/12/20 @ 20:[address] Hector De Santiago, DO) Renal failure (Acute) Ureteral calculus (Acute) Pyelonephritis (Acute) Pneumonia due to COVID-19 virus (Acute) Omental mass (Acute) 1. Acute hypoxic respiratory failure secondary to COVID-19 pneumonia/BELEM -CT of the chest on 09/14/2020 demonstrated just infiltrates in both lungs, with an anterior chest wall mass. There is a soft tissue mass in the anterior aspect of the lower thorax at the right cardiophrenic junction -He did appear to have some fluid overload and was given a dose of 60 mg of IV Lasix and then transition to 40 mg daily he was about 11 L positive, therefore his Lasix was increased to twice daily dosing we will continue to monitor his renal function and adjust dosing as necessary. Currently 8.6 L positive, Peoples in place -Continue with Decadron, because of his renal failure he cannot tolerate remdesivir -Currently on BiPAP we will continue to monitor and transition between BiPAP and high flow nasal cannula as necessary. We could not obtain a CTA of his chest to rule out a PE secondary to his poor renal function therefore we will go ahead and empirically anticoagulate him with heparin drip 2. A history of lymphoma -Apparently he did not complete treatment for his lymphoma. Imaging studies on admission demonstrated large abdominal mass with omental thickening and nodularity as well as soft tissue densities along the pericolic gutters as well as the chest masses previously described -Oncology was consulted they recommended having him follow-up as an outpatient 3. Acute UTI -Found to have a pansensitive E. coli, completed 5 days of Rocephin, this was complicated secondary to his obstructive calculi in the distal left ureter and left UVJ -He has had a history of a ureteral stent due to a malignancy causing obstruction DVT: Heparin drip Inpatient E&M: 71933 Subs Hosp L2
--- NOTE | 2020-09-21 12:36 | PCM.PN.PUL ---
Patient Problems: Active and Suspected Problems (Last Updated 09/12/20 @ 20:[address] Hector De Santiago, DO) Renal failure (Acute) Ureteral calculus (Acute) Pyelonephritis (Acute) Pneumonia due to COVID-19 virus (Acute) Omental mass (Acute) Subjective: Patient did okay overnight, patient is still requiring significant oxygen to maintain saturations. Patient overall feels subjectively unchanged compared to previous. Patient is having a dry throat. Nursing reports periodic desaturations, but overall has been doing okay on higher nasal cannula with intermittent BiPAP rescue - Physical Exam Vitals/I&O's: Vital Signs Temp Pulse Resp BP Pulse Ox 36.6 C 89 23 H 104/64 95 09/21/20 11:00 09/21/20 11:12 09/21/20 11:12 09/21/20 11:00 09/21/20 11:12 Oxygen Flow Rate (L/min) 15 Oxygen Delivery Method Bi-pap Weight: 71.123 kg Body Mass Index (BMI) 23.8 Intake and Output for Last 24 Hours 09/19/20 09/20/20 09/21/20 23:59 23:59 23:59 Intake Total 1266.84 / 1266.84 1753.16 / 1753.16 360 / 360 Output Total 4000 / 4000 1900 / 1900 650 / 650 Balance -2733.16 / -2733.16 -146.84 / -146.84 -290 / -290 General: Alert, Oriented x3, Cooperative, - - Mild to moderate conversational dyspnea. Appears older than stated age. HEENT: Atraumatic, PERRLA, EOMI, Normocephalic, - - No scleral icterus or injection noted Oral: No Gingival or Mucosal Lesions/ Ulcerations, Dry Mucosa Neck: Supple, No JVD, No Nodes, Trachea Midline Lungs: No rhonchi, No wheeze, No rales, Diminished, - - Symmetric expansion. Cardiovascular: Regular rate, Regular Rhythm, Normal S1, Normal S2, No murmurs, No rub noted, No Gallop Abdomen: Bowel Sounds Present, Soft, Non Tender, Non-Distended Extremities: No clubbing, No cyanosis, No edema Skin: - - No change from previous Musculoskeletal: No Tenderness to Palpation of Joints or Extremities Lymphatic: No Cervical, Supraclavicular, or Inguinal Adenopathy Neurological: Cranial nerves II-XII grossly intact Psych/Mental Status: Flat Affect Microbiology Past 72 Hours 09/12/20 18:47 Blood Culture (Wb) - Left Hand Blood Culture - Final No growth in 5 days. 09/12/20 18:40 Blood Culture (Wb) - Anticubital Right Blood Culture - Final No growth in 5 days. Laboratory Results 09/20/20 12:11: APTT 43.0 H 09/20/20 21:00: APTT 50.5 H 09/21/20 04:45: Sodium 138, Potassium 3.7, Chloride 104, Carbon Dioxide 25.0, Anion Gap 9, BUN 65 H, Creatinine 1.67 H, Estim Creat Clear Calc 42.10, Est GFR (MDRD) Af Amer 53 L, Est GFR (MDRD) Non-Af 44 L, BUN/Creatinine Ratio 38.9 H, Glucose 98, Calcium 8.1 L 09/21/20 04:45: APTT 63.2 H 09/21/20 12:00: APTT Pending Current Medications Acetaminophen (Acetaminophen 325 Mg Tablet) 650 mg PO Q6H PRN PRN PRN Reason: Pain Score 1-10/Temp > 100.7 F Last Admin: 09/19/20 15:02 Dose: 650 mg Documented by: Albuterol Sulfate (Albuterol Sulfate Hfa 6.7 Gm Inhaler (200 Puffs)) 2 puff IH Q4H PRN PRN PRN Reason: COUGH Last Admin: 09/14/20 21:58 Dose: 2 puff Documented by: Dexamethasone (Dexamethasone 4 Mg Tablet) 6 mg PO DAILY [facility] Last Admin: 09/21/20 09:03 Dose: 6 mg Documented by: Furosemide (Furosemide 40 Mg/4 Ml Vial) 40 mg IV DAILY [facility] Heparin Sodium (Porcine) (Heparin Injection (Vial) 5,000 Unit/Ml Vial) 0 unit IV UD PRN; Protocol PRN Reason: dose adjustment Last Admin: 09/20/20 22:15 Dose: 1,000 unit Documented by: Heparin Sodium/Dextrose () 25,000 units in 250 mls @ 11 mls/hr IV .[id number] [facility]; Protocol Last Titration: 09/21/20 05:45 Dose: 1,600 units/hr, 16 mls/hr Documented by: Ibuprofen (Ibuprofen 400 Mg Tablet) 400 mg PO Q4H PRN PRN PRN Reason: Pain Score 1-10/Temp > 100.7 F Miscellaneous Information (Inhaler, Assist Devices 1 Each Spacer) 1 each INHALATION PRN PRN PRN Reason: WITH ALBUTEROL MDI Last Admin: 09/14/20 21:58 Dose: 1 each Documented by: Ondansetron HCl (Ondansetron 4 Mg/2 Ml Vial) 4 mg IV Q8H PRN PRN PRN Reason: NAUSEA/VOMITING Last Admin: 09/19/20 08:36 Dose: 4 mg Documented by: Oxycodone HCl (Oxycodone 5 Mg Tablet) 5 mg PO Q4H PRN PRN PRN Reason: Pain Score 4-5 Last Admin: 09/14/20 09:56 Dose: 5 mg Documented by: Oxycodone HCl (Oxycodone 5 Mg Tablet) 10 mg PO Q4H PRN PRN PRN Reason: Pain Score 6-10 Sodium Chloride (0.9% Saline Lock 10 Ml Syringe) 10 - 40 ml IV UD PRN PRN Reason: SALINE FLUSH Last Admin: 09/21/20 09:03 Dose: 10 ml Documented by: Sodium Chloride (0.9% Saline Lock 10 Ml Syringe) 10 - 40 ml IV UD PRN PRN Reason: Midline Flush Sodium Chloride (0.9 % Nacl (Sterile) Posiflush 10 Ml) 10 - 40 ml IV UD PRN PRN Reason: Port access or dressing change Tamsulosin HCl (Tamsulosin Hcl 0.4 Mg Capsule) 0.4 mg PO QHS VITO Last Admin: 09/20/20 21:07 Dose: 0.4 mg Documented by: Medical Necessity - Tobacco Use Smoking Status: Never smoker Assessment/Plan All Active Problems (Last Updated 09/12/20 @ 20:[address] Hector De Santiago, DO) Renal failure (Acute) Ureteral calculus (Acute) Pyelonephritis (Acute) Pneumonia due to COVID-19 virus (Acute) Omental mass (Acute) RECOMMENDATIONS: 1. Continue high flow nasal cannula. May require BiPAP rescue overnight 2. Continue patient on Decadron 6 mg daily. 3. Attempt gentle diuresis as tolerated by hemodynamics and renal function. 4. The patient will require further outpatient work-up of the mass noted on CT chest along with the findings noted on CT abdomen/pelvis. 5. Would not recommend pursuing biopsy at this time as this is likely not the etiology of his acute hypoxic respiratory failure 6. Poor long-term prognosis given probable underlying malignancy with COVID-19 IMPRESSIONS: 1. Acute hypoxemic respiratory failure secondary to Covid pneumonia Plan to continue current supportive measures including high flow nasal cannula support with a goal to maintain saturations at or above 90%. Continue the patient on Decadron 6 mg daily. Infectious diseases is following. Patient appears to be tolerating diuretic therapy. Very guarded prognosis overall. Continue to monitor renal function 2. Acute kidney injury Stable. Likely multifactorial with prerenal and obstructive uropathy contributing. Continue to monitor urine output. No current indication for renal replacement therapy. 3. E. 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 The patient has completed his antibiotic treatment course per the discretion of infectious diseases. Patient with no fever overnight. 4. History of non-Hodgkin's lymphoma Complicates care, management, recovery and prognosis. Oncology does not have any additional plans for further inpatient work-up. Clinical concern for recurrence of lymphoma leading to the anterior mediastinal mass. Patient would likely benefit from oncology input as an inpatient to help with prognosis and goals of therapy. Defer to hospitalist. Patient is very clear that he does not want to have any intubation performed. Inpatient E&M: [id number] [facility] L3
[2020-09-21 12:43] LABS: Partial Thromboplast Time 46.2 Seconds (24.1-36.2)
[2020-09-21] MEDS: Heparin Injection (Vial) 5,000 UNIT/ML VIAL IV ×2 (13:54→20:46)
[2020-09-21] MEDS: HEPARIN/D5w 25,000 UNITS 25,000 UNITS/250 ML IV.SOLN. 17 UNITS IV (14:14)
[2020-09-21 20:36] LABS: Partial Thromboplast Time 45.4 Seconds (24.1-36.2)
[2020-09-21] MEDS: Tamsulosin HCl 0.4 MG Capsule PO (20:46)
[2020-09-22] VITALS (23 sets, daily range): BP systolic 90–110; BP diastolic 62–73; PULSE 70–94; RESP 12–27; TEMP 36.4–36.8; O2SAT 92–100
[2020-09-22 03:20] LABS: Partial Thromboplast Time 68.4 Seconds (24.1-36.2)
[2020-09-22 03:22] LABS: Anion Gap 12 (5-15); BUN 82 mg/dL (7-18); BUN/Creat Ratio 49.4 RATIO (10-20); Calcium,Total 8.2 mg/dL (8.5-10.1); Chloride 101 mmol/L (98-107); Creatinine, Serum 1.66 mg/dL (0.70-1.30); EST Glomerular Filtration Rate 44 mL/min (>60); Est Glom Filt Rate - Afr Amer 54 mL/min (>60); Estimated Creatinine Clearance 42.35 ml/min; Glucose 121 mg/dL (74-106); Potassium 3.7 mmol/L (3.5-5.1); Sodium Level 136 mmol/L (136-145)
[2020-09-22] MEDS: HEPARIN/D5w 25,000 UNITS 25,000 UNITS/250 ML IV.SOLN. 18 UNITS IV ×2 (05:53→20:46)
[2020-09-22] MEDS: dexAMETHasone 4 MG Tablet 6 MG PO (09:06)
[2020-09-22] MEDS: Furosemide 40 MG/4 ML Vial IV (09:06)
[2020-09-22] MEDS: 0.9% Saline Lock 10 ML Syringe IV (09:07)
[2020-09-22 09:50] LABS: Partial Thromboplast Time 71.1 Seconds (24.1-36.2)
--- NOTE | 2020-09-22 10:00 | CPS ---
Patient was on 15L HFNC
--- NOTE | 2020-09-22 10:25 | CPS ---
Patient was found on HFNC at 15L with a O2 sat of 83%. Patient was then placed back on his bipap and his saturation came to a steady 93%
--- NOTE | 2020-09-22 11:28 | PN_ITS ---
Patient Problems: Active and Suspected Problems (Last Updated 09/12/20 @ 20:[address] Hector De Santiago, DO) Renal failure (Acute) Ureteral calculus (Acute) Pyelonephritis (Acute) Pneumonia due to COVID-19 virus (Acute) Omental mass (Acute) Subjective: Hypoxic into the 80s on high flow nasal cannula. This is occurs when he eats and when he is placed back on BiPAP he responds appropriately Vitals/I&O's: Vital Signs Temp Pulse Resp BP Pulse Ox 97.9 F 88 20 H 90/62 92 09/22/20 10:00 09/22/20 11:00 09/22/20 10:00 09/22/20 10:00 09/22/20 10:00 Oxygen Flow Rate (L/min) 12 Oxygen Delivery Method Nasal Cannula Weight: 156 lb 12.79 oz Body Mass Index (BMI) 23.8 Intake and Output for Last 24 Hours 09/20/20 09/21/20 09/22/20 23:59 23:59 23:59 Intake Total 1753.16 / 1753.16 1440.78 / 1640.78 339.22 / 339.22 Output Total 1900 / 1900 2050 / 2650 1075 / 1075 Balance -146.84 / -146.84 -609.22 / -1009.22 -735.78 / -735.78 General: Alert, Oriented x3, Cooperative, No apparent distress HEENT: Atraumatic, PERRLA, EOMI, Normocephalic Oral: Dry mucosa Neck: Supple, No JVD Lungs: Clear to auscultation, Normal air movement, No rhonchi, No wheeze, No rales, Diminished Cardiovascular: Regular rate, Regular Rhythm, Normal S1, Normal S2 Abdomen: Soft, Non Tender, Non-Distended, No Hepato-splenomegaly Extremities: No edema, Capillary Refill Less than 3 Seconds Skin: No rashes, No breakdown Neurological: Neuro grossly intact, Sensory exam intact to light touch and pain Psych/Mental Status: Normal Affect, Appropriate Laboratory Results 09/15/20 06:14: Miscellaneous Test 09/21/20 12:00: APTT 46.2 H 09/21/20 20:00: APTT 45.4 H 09/22/20 02:43: Sodium 136, Potassium 3.7, Chloride 101, Carbon Dioxide 23.0, Anion Gap 12, BUN 82 H, Creatinine 1.66 H, Estim Creat Clear Calc 42.35, Est GFR (MDRD) Af Amer 54 L, Est GFR (MDRD) Non-Af 44 L, BUN/Creatinine Ratio 49.4 H, Glucose 121 H, Calcium 8.2 L 09/22/20 02:43: APTT 68.4 H 09/22/20 08:44: APTT 71.1 H Current Medications Acetaminophen (Acetaminophen 325 Mg Tablet) 650 mg PO Q6H PRN PRN PRN Reason: Pain Score 1-10/Temp > 100.7 F Last Admin: 09/19/20 15:02 Dose: 650 mg Documented by: Albuterol Sulfate (Albuterol Sulfate Hfa 6.7 Gm Inhaler (200 Puffs)) 2 puff IH Q4H PRN PRN PRN Reason: COUGH Last Admin: 09/14/20 21:58 Dose: 2 puff Documented by: Dexamethasone (Dexamethasone 4 Mg Tablet) 6 mg PO DAILY [facility] Last Admin: 09/22/20 09:06 Dose: 6 mg Documented by: Furosemide (Furosemide 40 Mg/4 Ml Vial) 40 mg IV DAILY [facility] Last Admin: 09/22/20 09:06 Dose: 40 mg Documented by: Heparin Sodium (Porcine) (Heparin Injection (Vial) 5,000 Unit/Ml Vial) 0 unit IV UD PRN; Protocol PRN Reason: dose adjustment Last Admin: 09/21/20 20:46 Dose: 1,000 unit Documented by: Heparin Sodium/Dextrose () 25,000 units in 250 mls @ 11 mls/hr IV .[id number] [facility]; Protocol Last Admin: 09/22/20 05:53 Dose: 1,800 units/hr, 18 mls/hr Documented by: Ibuprofen (Ibuprofen 400 Mg Tablet) 400 mg PO Q4H PRN PRN PRN Reason: Pain Score 1-10/Temp > 100.7 F Miscellaneous Information (Inhaler, Assist Devices 1 Each Spacer) 1 each INHALATION PRN PRN PRN Reason: WITH ALBUTEROL MDI Last Admin: 09/14/20 21:58 Dose: 1 each Documented by: Ondansetron HCl (Ondansetron 4 Mg/2 Ml Vial) 4 mg IV Q8H PRN PRN PRN Reason: NAUSEA/VOMITING Last Admin: 09/19/20 08:36 Dose: 4 mg Documented by: Oxycodone HCl (Oxycodone 5 Mg Tablet) 5 mg PO Q4H PRN PRN PRN Reason: Pain Score 4-5 Last Admin: 09/14/20 09:56 Dose: 5 mg Documented by: Oxycodone HCl (Oxycodone 5 Mg Tablet) 10 mg PO Q4H PRN PRN PRN Reason: Pain Score 6-10 Sodium Chloride (0.9% Saline Lock 10 Ml Syringe) 10 - 40 ml IV UD PRN PRN Reason: SALINE FLUSH Last Admin: 09/22/20 09:07 Dose: 10 ml Documented by: Sodium Chloride (0.9% Saline Lock 10 Ml Syringe) 10 - 40 ml IV UD PRN PRN Reason: Midline Flush Sodium Chloride (0.9 % Nacl (Sterile) Posiflush 10 Ml) 10 - 40 ml IV UD PRN PRN Reason: Port access or dressing change Tamsulosin HCl (Tamsulosin Hcl 0.4 Mg Capsule) 0.4 mg PO QHS VITO Last Admin: 09/21/20 20:46 Dose: 0.4 mg Documented by: STROKE Vital Signs/Narrative: Vital Signs Temp Pulse Resp BP Pulse Ox 09/22/20 11:00 88 09/22/20 10:00 97.9 F 87 20 H 90/62 92 09/22/20 08:00 97.6 F L 74 22 H 105/65 94 Medical Necessity - Tobacco Use Smoking Status: Never smoker Assessment/Plan All Active Problems (Last Updated 09/12/20 @ 20:[address] Hector De Santiago, DO) Renal failure (Acute) Ureteral calculus (Acute) Pyelonephritis (Acute) Pneumonia due to COVID-19 virus (Acute) Omental mass (Acute) 1. Acute hypoxic respiratory failure secondary to COVID-19 pneumonia/BELEM -CT of the chest on 09/14/2020 demonstrated just infiltrates in both lungs, with an anterior chest wall mass. There is a soft tissue mass in the anterior aspect of the lower thorax at the right cardiophrenic junction -He did appear to have some fluid overload and was given a dose of 60 mg of IV Lasix and then transition to 40 mg daily he was about 11 L positive, therefore his Lasix was increased to twice daily dosing, he was decreased to daily dosing today given renal function. -Continue with Decadron, because of his renal failure he cannot tolerate remdesivir -Currently on BiPAP we will continue to monitor and transition between BiPAP and high flow nasal cannula as necessary. We could not obtain a CTA of his chest to rule out a PE secondary to his poor renal function therefore we will go ahead and empirically anticoagulate him with heparin drip 2. A history of lymphoma -Apparently he did not complete treatment for his lymphoma. Imaging studies on admission demonstrated large abdominal mass with omental thickening and nodularity as well as soft tissue densities along the pericolic gutters as well as the chest masses previously described -Oncology was consulted they recommended having him follow-up as an outpatient -He would like to continue treatment for his lymphoma once he leaves the hospital 3. Acute UTI -Found to have a pansensitive E. 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
--- NOTE | 2020-09-22 13:45 | CPS ---
AT 145 patient was found with HFNC on and was saturating at 82%. Patient was put back on Bipap and sats came back up to 94%
--- NOTE | 2020-09-22 16:09 | PN_ITS ---
Patient Problems: Active and Suspected Problems (Last Updated 09/12/20 @ 20:[address] Hector De Santiago, DO) Renal failure (Acute) Ureteral calculus (Acute) Pyelonephritis (Acute) Pneumonia due to COVID-19 virus (Acute) Omental mass (Acute) Subjective: Patient did okay overnight. Patient overall feels subjectively improved compared to previous. Patient feels he is able to take a deeper breath compared to previous. Patient remains on BiPAP [id number] versus 15 L nasal cannula. Patient has been able to be weaned to 60% FiO2 and is starting to get my appetite back. - Physical Exam Vitals/I&O's: Vital Signs Temp Pulse Resp BP Pulse Ox 36.6 C 91 27 H 101/72 99 09/22/20 14:00 09/22/20 15:00 09/22/20 14:00 09/22/20 14:00 09/22/20 14:00 Oxygen Flow Rate (L/min) 12 Oxygen Delivery Method Bi-pap Weight: 71.123 kg Body Mass Index (BMI) 23.8 Intake and Output for Last 24 Hours 09/20/20 09/21/20 09/22/20 23:59 23:59 23:59 Intake Total 1753.16 / 1753.16 1440.78 / 1640.78 819.22 / 819.22 Output Total 1900 / 1900 2050 / 2650 1974 / 1974 Balance -146.84 / -146.84 -609.22 / -1009.22 -1155.78 / -1155.78 General: Alert, Oriented x3, Cooperative, No apparent distress - On BiPAP HEENT: Atraumatic, PERRLA, EOMI, Normocephalic, - - No scleral icterus or injection noted Oral: No Gingival or Mucosal Lesions/ Ulcerations, Dry Mucosa Neck: Supple, No JVD, No Nodes, Trachea Midline Lungs: No rhonchi, No wheeze, No rales, Diminished, - - Symmetric expansion. Cardiovascular: Regular rate, Regular Rhythm, Normal S1, Normal S2, No murmurs, No rub noted, No Gallop Abdomen: Bowel Sounds Present, Soft, Non Tender, Non-Distended Extremities: No clubbing, No cyanosis Skin: - - No change from previous Musculoskeletal: No Tenderness to Palpation of Joints or Extremities Lymphatic: No Cervical, Supraclavicular, or Inguinal Adenopathy Neurological: Cranial nerves II-XII grossly intact, Neuro grossly intact - No change from previous Psych/Mental Status: Alert and oriented to time, place, person, mood and affect Laboratory Results 09/15/20 06:14: Miscellaneous Test 09/21/20 20:00: APTT 45.4 H 09/22/20 02:43: Sodium 136, Potassium 3.7, Chloride 101, Carbon Dioxide 23.0, Anion Gap 12, BUN 82 H, Creatinine 1.66 H, Estim Creat Clear Calc 42.35, Est GFR (MDRD) Af Amer 54 L, Est GFR (MDRD) Non-Af 44 L, BUN/Creatinine Ratio 49.4 H, Glucose 121 H, Calcium 8.2 L 09/22/20 02:43: APTT 68.4 H 09/22/20 08:44: APTT 71.1 H Current Medications Acetaminophen (Acetaminophen 325 Mg Tablet) 650 mg PO Q6H PRN PRN PRN Reason: Pain Score 1-10/Temp > 100.7 F Last Admin: 09/19/20 15:02 Dose: 650 mg Documented by: Albuterol Sulfate (Albuterol Sulfate Hfa 6.7 Gm Inhaler (200 Puffs)) 2 puff IH Q4H PRN PRN PRN Reason: COUGH Last Admin: 09/14/20 21:58 Dose: 2 puff Documented by: Dexamethasone (Dexamethasone 4 Mg Tablet) 6 mg PO DAILY [facility] Last Admin: 09/22/20 09:06 Dose: 6 mg Documented by: Furosemide (Furosemide 40 Mg/4 Ml Vial) 40 mg IV DAILY [facility] Last Admin: 09/22/20 09:06 Dose: 40 mg Documented by: Heparin Sodium (Porcine) (Heparin Injection (Vial) 5,000 Unit/Ml Vial) 0 unit IV UD PRN; Protocol PRN Reason: dose adjustment Last Admin: 09/21/20 20:46 Dose: 1,000 unit Documented by: Heparin Sodium/Dextrose () 25,000 units in 250 mls @ 11 mls/hr IV .[id number] [facility]; Protocol Last Admin: 09/22/20 05:53 Dose: 1,800 units/hr, 18 mls/hr Documented by: Ibuprofen (Ibuprofen 400 Mg Tablet) 400 mg PO Q4H PRN PRN PRN Reason: Pain Score 1-10/Temp > 100.7 F Miscellaneous Information (Inhaler, Assist Devices 1 Each Spacer) 1 each INHALATION PRN PRN PRN Reason: WITH ALBUTEROL MDI Last Admin: 09/14/20 21:58 Dose: 1 each Documented by: Ondansetron HCl (Ondansetron 4 Mg/2 Ml Vial) 4 mg IV Q8H PRN PRN PRN Reason: NAUSEA/VOMITING Last Admin: 09/19/20 08:36 Dose: 4 mg Documented by: Oxycodone HCl (Oxycodone 5 Mg Tablet) 5 mg PO Q4H PRN PRN PRN Reason: Pain Score 4-5 Last Admin: 09/14/20 09:56 Dose: 5 mg Documented by: Oxycodone HCl (Oxycodone 5 Mg Tablet) 10 mg PO Q4H PRN PRN PRN Reason: Pain Score 6-10 Sodium Chloride (0.9% Saline Lock 10 Ml Syringe) 10 - 40 ml IV UD PRN PRN Reason: SALINE FLUSH Last Admin: 09/22/20 09:07 Dose: 10 ml Documented by: Sodium Chloride (0.9% Saline Lock 10 Ml Syringe) 10 - 40 ml IV UD PRN PRN Reason: Midline Flush Sodium Chloride (0.9 % Nacl (Sterile) Posiflush 10 Ml) 10 - 40 ml IV UD PRN PRN Reason: Port access or dressing change Tamsulosin HCl (Tamsulosin Hcl 0.4 Mg Capsule) 0.4 mg PO QHS VITO Last Admin: 09/21/20 20:46 Dose: 0.4 mg Documented by: Medical Necessity - Tobacco Use Smoking Status: Never smoker Assessment/Plan All Active Problems (Last Updated 09/12/20 @ 20:[address] Hector De Santiago, DO) Renal failure (Acute) Ureteral calculus (Acute) Pyelonephritis (Acute) Pneumonia due to COVID-19 virus (Acute) Omental mass (Acute) RECOMMENDATIONS: 1. Continue high flow nasal cannula versus BiPAP rescue. May require BiPAP rescue overnight 2. Continue patient on Decadron 6 mg daily complete 10 days. 3. Attempt gentle diuresis as tolerated by hemodynamics and renal function. 4. The patient will require further outpatient work-up of the mass noted on CT chest along with the findings noted on CT abdomen/pelvis. 5. Would not recommend pursuing biopsy at this time as this is likely not the etiology of his acute hypoxic respiratory failure 6. Poor long-term prognosis given probable underlying malignancy with COVID- 19 IMPRESSIONS: 1. Acute hypoxemic respiratory failure secondary to Covid pneumonia Plan to continue current supportive measures including high flow nasal cannula support with a goal to maintain saturations at or above 90%. Continue the patient on Decadron 6 mg daily to complete a 10-day course. Infectious diseases is following. Patient appears to be tolerating diuretic therapy. Very guarded prognosis overall. Continue to monitor renal function. Anticipate slow recovery given poor metabolic reserve. We will continue to monitor closely. Did verify patient is not interested in being intubated. 2. Acute kidney injury Stable. Likely multifactorial with prerenal and obstructive uropathy contributing. Continue to monitor urine output. No current indication for renal replacement therapy. 3. E. 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 The patient has completed his antibiotic treatment course per the discretion of infectious diseases. Patient with no fever overnight. 4. History of non-Hodgkin's lymphoma Complicates care, management, recovery and prognosis. Oncology does not have any additional plans for further inpatient work-up. Clinical concern for recurrence of lymphoma leading to the anterior mediastinal mass. Patient would likely benefit from oncology input as an inpatient to help with prognosis and goals of therapy. Defer to hospitalist. Patient is very clear that he does not want to have any intubation performed. Patient was asking when chemotherapy will be started. Inpatient E&M: [id number] [facility] L3
[2020-09-22 17:23] LABS: Partial Thromboplast Time 60.6 Seconds (24.1-36.2)
[2020-09-22] MEDS: Tamsulosin HCl 0.4 MG Capsule PO (20:44)
[2020-09-23] VITALS (22 sets, daily range): BP systolic 101–117; BP diastolic 63–80; PULSE 69–102; RESP 12–26; TEMP 36.6–36.8; O2SAT 92–99
[2020-09-23 06:32] LABS: Partial Thromboplast Time 77.4 Seconds (24.1-36.2)
[2020-09-23 07:44] LABS: Anion Gap 10 (5-15); BUN 80 mg/dL (7-18); BUN/Creat Ratio 53.7 RATIO (10-20); Calcium,Total 8.1 mg/dL (8.5-10.1); Chloride 104 mmol/L (98-107); Creatinine, Serum 1.49 mg/dL (0.70-1.30); EST Glomerular Filtration Rate 50 mL/min (>60); Est Glom Filt Rate - Afr Amer 61 mL/min (>60); Estimated Creatinine Clearance 47.18 ml/min; Glucose 102 mg/dL (74-106); Sodium Level 136 mmol/L (136-145)
[2020-09-23] MEDS: dexAMETHasone 4 MG Tablet 6 MG PO (08:17)
[2020-09-23] MEDS: Furosemide 40 MG/4 ML Vial IV (08:19)
[2020-09-23] MEDS: 0.9% Saline Lock 10 ML Syringe IV (08:20)
--- NOTE | 2020-09-23 11:29 | PCM.PN.ID ---
Patient Problems: Active and Suspected Problems (Last Updated 09/12/20 @ 20:[address] Hector De Santiago, DO) Renal failure (Acute) Ureteral calculus (Acute) Pyelonephritis (Acute) Pneumonia due to COVID-19 virus (Acute) Omental mass (Acute) Subjective: Feeling better slowly. Dyspnea and energy/appetite better. No fever. - Physical Exam Vitals/I&O's: Vital Signs Temp Pulse Resp BP Pulse Ox 98 F 102 H 26 H 103/69 94 09/23/20 08:15 09/23/20 10:00 09/23/20 10:00 09/23/20 10:00 09/23/20 10:00 Oxygen Flow Rate (L/min) 15 Oxygen Delivery Method Nasal Cannula Weight: 71.123 kg Body Mass Index (BMI) 23.8 Intake and Output for Last 24 Hours 09/21/20 09/22/20 09/23/20 23:59 23:59 23:59 Intake Total 1440.78 / 1640.78 1909.22 / 1909.22 Output Total 2050 / 2650 3025 / 3025 750 / 750 Balance -609.22 / -1009.22 -1115.78 / -1115.78 -750 / -750 General: Alert, Cooperative, No apparent distress Lungs: Diminished Cardiovascular: Regular rate, Regular Rhythm Abdomen: Soft, Non Tender, Distended Skin: No rashes Laboratory Results 09/22/20 16:35: APTT 60.6 H 09/23/20 05:02: Sodium 136, Potassium 4.0, Chloride 104, Carbon Dioxide 22.0, Anion Gap 10, BUN 80 H, Creatinine 1.49 H, Estim Creat Clear Calc 47.18, Est GFR (MDRD) Af Amer 61, Est GFR (MDRD) Non-Af 50 L, BUN/Creatinine Ratio 53.7 H, Glucose 102, Calcium 8.1 L 09/23/20 05:50: APTT 77.4 H Current Medications Acetaminophen (Acetaminophen 325 Mg Tablet) 650 mg PO Q6H PRN PRN PRN Reason: Pain Score 1-10/Temp > 100.7 F Last Admin: 09/19/20 15:02 Dose: 650 mg Documented by: Albuterol Sulfate (Albuterol Sulfate Hfa 6.7 Gm Inhaler (200 Puffs)) 2 puff IH Q4H PRN PRN PRN Reason: COUGH Last Admin: 09/14/20 21:58 Dose: 2 puff Documented by: Dexamethasone (Dexamethasone 4 Mg Tablet) 6 mg PO DAILY [facility] Last Admin: 09/23/20 08:17 Dose: 6 mg Documented by: Furosemide (Furosemide 40 Mg/4 Ml Vial) 40 mg IV DAILY [facility] Last Admin: 09/23/20 08:19 Dose: 40 mg Documented by: Heparin Sodium (Porcine) (Heparin Injection (Vial) 5,000 Unit/Ml Vial) 0 unit IV UD PRN; Protocol PRN Reason: dose adjustment Last Admin: 09/21/20 20:46 Dose: 1,000 unit Documented by: Heparin Sodium/Dextrose () 25,000 units in 250 mls @ 11 mls/hr IV .[id number] [facility]; Protocol Last Admin: 09/22/20 20:46 Dose: 1,800 units/hr, 18 mls/hr Documented by: Ibuprofen (Ibuprofen 400 Mg Tablet) 400 mg PO Q4H PRN PRN PRN Reason: Pain Score 1-10/Temp > 100.7 F Miscellaneous Information (Inhaler, Assist Devices 1 Each Spacer) 1 each INHALATION PRN PRN PRN Reason: WITH ALBUTEROL MDI Last Admin: 09/14/20 21:58 Dose: 1 each Documented by: Ondansetron HCl (Ondansetron 4 Mg/2 Ml Vial) 4 mg IV Q8H PRN PRN PRN Reason: NAUSEA/VOMITING Last Admin: 09/19/20 08:36 Dose: 4 mg Documented by: Oxycodone HCl (Oxycodone 5 Mg Tablet) 5 mg PO Q4H PRN PRN PRN Reason: Pain Score 4-5 Last Admin: 09/14/20 09:56 Dose: 5 mg Documented by: Oxycodone HCl (Oxycodone 5 Mg Tablet) 10 mg PO Q4H PRN PRN PRN Reason: Pain Score 6-10 Sodium Chloride (0.9% Saline Lock 10 Ml Syringe) 10 - 40 ml IV UD PRN PRN Reason: SALINE FLUSH Last Admin: 09/23/20 08:20 Dose: 10 ml Documented by: Sodium Chloride (0.9% Saline Lock 10 Ml Syringe) 10 - 40 ml IV UD PRN PRN Reason: Midline Flush Sodium Chloride (0.9 % Nacl (Sterile) Posiflush 10 Ml) 10 - 40 ml IV UD PRN PRN Reason: Port access or dressing change Tamsulosin HCl (Tamsulosin Hcl 0.4 Mg Capsule) 0.4 mg PO QHS VITO Last Admin: 09/22/20 20:44 Dose: 0.4 mg Documented by: Medical Necessity - Tobacco Use Smoking Status: Never smoker Route of nutrition/ use of supplements: [] Nutritional Intake: [] IV Site: [] Peoples Catheter: [] - Assessment/Plan Antibiotics: [] Assessment/Plan: [] Active and Suspected Problems (Last Updated 09/12/20 @ 20:[address] Hector De Santiago, DO) Renal failure (Acute) Ureteral calculus (Acute) Pyelonephritis (Acute) Pneumonia due to COVID-19 virus (Acute) Omental mass (Acute) covid with hypoxic resp failure - On dex. Still high O2. Pulm following. May benefit from bigger dose of steroids as lymphoma likely playing a role in overall illness and lung function. 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 Will follow
--- NOTE | 2020-09-23 11:41 | PCM.PN.HOSP ---
Patient Problems: Active and Suspected Problems (Last Updated 09/12/20 @ 20:[address] Hector De Santiago, DO) Renal failure (Acute) Ureteral calculus (Acute) Pyelonephritis (Acute) Pneumonia due to COVID-19 virus (Acute) Omental mass (Acute) Subjective: No change in his condition, no issues overnight. Still requiring high flow oxygen and BiPAP. Vitals/I&O's: Vital Signs Temp Pulse Resp BP Pulse Ox 98 F 102 H 26 H 103/69 94 09/23/20 08:15 09/23/20 10:00 09/23/20 10:00 09/23/20 10:00 09/23/20 10:00 Oxygen Flow Rate (L/min) 15 Oxygen Delivery Method Nasal Cannula Weight: 156 lb 12.79 oz Body Mass Index (BMI) 23.8 Intake and Output for Last 24 Hours 09/21/20 09/22/20 09/23/20 23:59 23:59 23:59 Intake Total 1440.78 / 1640.78 1909.22 / 1909.22 Output Total 2050 / 2650 3025 / 3025 750 / 750 Balance -609.22 / -1009.22 -1115.78 / -1115.78 -750 / -750 General: Alert, Oriented x3, Cooperative, No apparent distress HEENT: Atraumatic, PERRLA, EOMI, Normocephalic Oral: Dry mucosa Neck: Supple, No JVD Lungs: Clear to auscultation, Normal air movement, No rhonchi, No wheeze, No rales, Diminished Cardiovascular: Regular rate, Regular Rhythm, Normal S1, Normal S2 Abdomen: Soft, Non Tender, Non-Distended, No Hepato-splenomegaly Extremities: No edema, Capillary Refill Less than 3 Seconds Skin: No rashes, No breakdown Neurological: Neuro grossly intact, Sensory exam intact to light touch and pain Psych/Mental Status: Normal Affect, Appropriate Laboratory Results 09/22/20 16:35: APTT 60.6 H 09/23/20 05:02: Sodium 136, Potassium 4.0, Chloride 104, Carbon Dioxide 22.0, Anion Gap 10, BUN 80 H, Creatinine 1.49 H, Estim Creat Clear Calc 47.18, Est GFR (MDRD) Af Amer 61, Est GFR (MDRD) Non-Af 50 L, BUN/Creatinine Ratio 53.7 H, Glucose 102, Calcium 8.1 L 09/23/20 05:50: APTT 77.4 H Current Medications Acetaminophen (Acetaminophen 325 Mg Tablet) 650 mg PO Q6H PRN PRN PRN Reason: Pain Score 1-10/Temp > 100.7 F Last Admin: 09/19/20 15:02 Dose: 650 mg Documented by: Albuterol Sulfate (Albuterol Sulfate Hfa 6.7 Gm Inhaler (200 Puffs)) 2 puff IH Q4H PRN PRN PRN Reason: COUGH Last Admin: 09/14/20 21:58 Dose: 2 puff Documented by: Dexamethasone (Dexamethasone 4 Mg Tablet) 6 mg PO DAILY [facility] Last Admin: 09/23/20 08:17 Dose: 6 mg Documented by: Furosemide (Furosemide 40 Mg/4 Ml Vial) 40 mg IV DAILY [facility] Last Admin: 09/23/20 08:19 Dose: 40 mg Documented by: Heparin Sodium (Porcine) (Heparin Injection (Vial) 5,000 Unit/Ml Vial) 0 unit IV UD PRN; Protocol PRN Reason: dose adjustment Last Admin: 09/21/20 20:46 Dose: 1,000 unit Documented by: Heparin Sodium/Dextrose () 25,000 units in 250 mls @ 11 mls/hr IV .[id number] [facility]; Protocol Last Admin: 09/22/20 20:46 Dose: 1,800 units/hr, 18 mls/hr Documented by: Ibuprofen (Ibuprofen 400 Mg Tablet) 400 mg PO Q4H PRN PRN PRN Reason: Pain Score 1-10/Temp > 100.7 F Miscellaneous Information (Inhaler, Assist Devices 1 Each Spacer) 1 each INHALATION PRN PRN PRN Reason: WITH ALBUTEROL MDI Last Admin: 09/14/20 21:58 Dose: 1 each Documented by: Ondansetron HCl (Ondansetron 4 Mg/2 Ml Vial) 4 mg IV Q8H PRN PRN PRN Reason: NAUSEA/VOMITING Last Admin: 09/19/20 08:36 Dose: 4 mg Documented by: Oxycodone HCl (Oxycodone 5 Mg Tablet) 5 mg PO Q4H PRN PRN PRN Reason: Pain Score 4-5 Last Admin: 09/14/20 09:56 Dose: 5 mg Documented by: Oxycodone HCl (Oxycodone 5 Mg Tablet) 10 mg PO Q4H PRN PRN PRN Reason: Pain Score 6-10 Sodium Chloride (0.9% Saline Lock 10 Ml Syringe) 10 - 40 ml IV UD PRN PRN Reason: SALINE FLUSH Last Admin: 09/23/20 08:20 Dose: 10 ml Documented by: Sodium Chloride (0.9% Saline Lock 10 Ml Syringe) 10 - 40 ml IV UD PRN PRN Reason: Midline Flush Sodium Chloride (0.9 % Nacl (Sterile) Posiflush 10 Ml) 10 - 40 ml IV UD PRN PRN Reason: Port access or dressing change Tamsulosin HCl (Tamsulosin Hcl 0.4 Mg Capsule) 0.4 mg PO QHS [facility] Last Admin: 09/22/20 20:44 Dose: 0.4 mg Documented by: STROKE Vital Signs/Narrative: Vital Signs Temp Pulse Resp BP BP Pulse Ox 09/23/20 10:00 102 H 26 H 103/69 94 09/23/20 08:15 98 F 84 19 H 101/65 94 Medical Necessity - Tobacco Use Smoking Status: Never smoker Assessment/Plan All Active Problems (Last Updated 09/12/20 @ 20:[address] Hector De Santiago, DO) Renal failure (Acute) Ureteral calculus (Acute) Pyelonephritis (Acute) Pneumonia due to COVID-19 virus (Acute) Omental mass (Acute) 1. Acute hypoxic respiratory failure secondary to COVID-19 pneumonia/BELEM -CT of the chest on 09/14/2020 demonstrated just infiltrates in both lungs, with an anterior chest wall mass. There is a soft tissue mass in the anterior aspect of the lower thorax at the right cardiophrenic junction -He did appear to have some fluid overload and was given a dose of 60 mg of IV Lasix and then transition to 40 mg daily he was about 11 L positive, therefore his Lasix was increased to twice daily dosing, he was decreased to daily dosing today given renal function. -Continue with Decadron, because of his renal failure he cannot tolerate remdesivir -Currently on BiPAP we will continue to monitor and transition between BiPAP and high flow nasal cannula as necessary. We could not obtain a CTA of his chest to rule out a PE secondary to his poor renal function therefore we will go ahead and empirically anticoagulate him with heparin drip 2. A history of lymphoma -Apparently he did not complete treatment for his lymphoma. Imaging studies on admission demonstrated large abdominal mass with omental thickening and nodularity as well as soft tissue densities along the pericolic gutters as well as the chest masses previously described -Oncology was consulted they recommended having him follow-up as an outpatient -He would like to continue treatment for his lymphoma once he leaves the hospital 3. Acute UTI -Found to have a pansensitive E. 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
[2020-09-23] MEDS: HEPARIN/D5w 25,000 UNITS 25,000 UNITS/250 ML IV.SOLN. 18 UNITS IV (12:15)
--- NOTE | 2020-09-23 14:28 | PN_ITS ---
Patient Problems: Active and Suspected Problems (Last Updated 09/12/20 @ 20:[address] Hector De Santiago, DO) Renal failure (Acute) Ureteral calculus (Acute) Pyelonephritis (Acute) Pneumonia due to COVID-19 virus (Acute) Omental mass (Acute) Subjective: Patient did okay overnight. Patient continues to require high dose nasal cannula oxygen to maintain saturations. No bleeding has been reported. Patient overall feels subjectively improved compared to yesterday. Patient believes his appetite is improving. - Physical Exam Vitals/I&O's: Vital Signs Temp Pulse Resp BP Pulse Ox 36.6 C 89 18 105/68 95 09/23/20 14:00 09/23/20 14:00 09/23/20 14:00 09/23/20 14:00 09/23/20 14:00 Oxygen Flow Rate (L/min) 10 Oxygen Delivery Method Nasal Cannula Weight: 71.123 kg Body Mass Index (BMI) 23.8 Intake and Output for Last 24 Hours 09/21/20 09/22/20 09/23/20 23:59 23:59 23:59 Intake Total 1440.78 / 1640.78 1909.22 / 1909.22 610 / 610 Output Total 2050 / 2650 3025 / 3025 1750 / 1750 Balance -609.22 / -1009.22 -1115.78 / -1115.78 -1140 / -1140 General: Alert, Oriented x3, Cooperative, - - Moderate conversational dyspnea HEENT: Atraumatic, PERRLA, EOMI, Normocephalic, - - Some temporal wasting noted Oral: Moist Mucosa, No Gingival or Mucosal Lesions/ Ulcerations Neck: Supple, No JVD, No Nodes, Trachea Midline Lungs: No rhonchi, No wheeze, No rales, Diminished - Improving air exchange Cardiovascular: Regular rate, Regular Rhythm, Normal S1, Normal S2, No murmurs, No rub noted, No Gallop Abdomen: Bowel Sounds Present, Soft, Non Tender, Non-Distended Extremities: No cyanosis, No edema, Capillary Refill Less than 3 Seconds Skin: - - No change compared to previous Musculoskeletal: No Tenderness to Palpation of Joints or Extremities Lymphatic: No Cervical, Supraclavicular, or Inguinal Adenopathy Neurological: Neuro grossly intact - No change from baseline. Slightly increased strength compared to yesterday Psych/Mental Status: Normal Affect, Appropriate Laboratory Results 09/22/20 16:35: APTT 60.6 H 09/23/20 05:02: Sodium 136, Potassium 4.0, Chloride 104, Carbon Dioxide 22.0, Anion Gap 10, BUN 80 H, Creatinine 1.49 H, Estim Creat Clear Calc 47.18, Est GFR (MDRD) Af Amer 61, Est GFR (MDRD) Non-Af 50 L, BUN/Creatinine Ratio 53.7 H, Glucose 102, Calcium 8.1 L 09/23/20 05:50: APTT 77.4 H Current Medications Acetaminophen (Acetaminophen 325 Mg Tablet) 650 mg PO Q6H PRN PRN PRN Reason: Pain Score 1-10/Temp > 100.7 F Last Admin: 09/19/20 15:02 Dose: 650 mg Documented by: Albuterol Sulfate (Albuterol Sulfate Hfa 6.7 Gm Inhaler (200 Puffs)) 2 puff IH Q4H PRN PRN PRN Reason: COUGH Last Admin: 09/14/20 21:58 Dose: 2 puff Documented by: Dexamethasone (Dexamethasone 4 Mg Tablet) 6 mg PO DAILY [facility] Last Admin: 09/23/20 08:17 Dose: 6 mg Documented by: Furosemide (Furosemide 40 Mg/4 Ml Vial) 40 mg IV DAILY [facility] Last Admin: 09/23/20 08:19 Dose: 40 mg Documented by: Heparin Sodium (Porcine) (Heparin Injection (Vial) 5,000 Unit/Ml Vial) 0 unit IV UD PRN; Protocol PRN Reason: dose adjustment Last Admin: 09/21/20 20:46 Dose: 1,000 unit Documented by: Heparin Sodium/Dextrose () 25,000 units in 250 mls @ 11 mls/hr IV .[id number] [facility]; Protocol Last Admin: 09/23/20 12:15 Dose: 1,800 units/hr, 18 mls/hr Documented by: Ibuprofen (Ibuprofen 400 Mg Tablet) 400 mg PO Q4H PRN PRN PRN Reason: Pain Score 1-10/Temp > 100.7 F Miscellaneous Information (Inhaler, Assist Devices 1 Each Spacer) 1 each INHALATION PRN PRN PRN Reason: WITH ALBUTEROL MDI Last Admin: 09/14/20 21:58 Dose: 1 each Documented by: Ondansetron HCl (Ondansetron 4 Mg/2 Ml Vial) 4 mg IV Q8H PRN PRN PRN Reason: NAUSEA/VOMITING Last Admin: 09/19/20 08:36 Dose: 4 mg Documented by: Oxycodone HCl (Oxycodone 5 Mg Tablet) 5 mg PO Q4H PRN PRN PRN Reason: Pain Score 4-5 Last Admin: 09/14/20 09:56 Dose: 5 mg Documented by: Oxycodone HCl (Oxycodone 5 Mg Tablet) 10 mg PO Q4H PRN PRN PRN Reason: Pain Score 6-10 Sodium Chloride (0.9% Saline Lock 10 Ml Syringe) 10 - 40 ml IV UD PRN PRN Reason: SALINE FLUSH Last Admin: 09/23/20 08:20 Dose: 10 ml Documented by: Sodium Chloride (0.9% Saline Lock 10 Ml Syringe) 10 - 40 ml IV UD PRN PRN Reason: Midline Flush Sodium Chloride (0.9 % Nacl (Sterile) Posiflush 10 Ml) 10 - 40 ml IV UD PRN PRN Reason: Port access or dressing change Tamsulosin HCl (Tamsulosin Hcl 0.4 Mg Capsule) 0.4 mg PO QHS VITO Last Admin: 09/22/20 20:44 Dose: 0.4 mg Documented by: Medical Necessity - Tobacco Use Smoking Status: Never smoker Assessment/Plan All Active Problems (Last Updated 09/12/20 @ 20:[address] Hector De Santiago, DO) Renal failure (Acute) Ureteral calculus (Acute) Pyelonephritis (Acute) Pneumonia due to COVID-19 virus (Acute) Omental mass (Acute) RECOMMENDATIONS: 1. Continue high flow nasal cannula versus BiPAP rescue. May require BiPAP rescue overnight 2. Continue patient on Decadron 6 mg daily complete 10 days. 3. Attempt gentle diuresis as tolerated by hemodynamics and renal function. 4. The patient will require further outpatient work-up of the mass noted on CT chest along with the findings noted on CT abdomen/pelvis. 5. Would not recommend pursuing biopsy at this time as this is likely not the etiology of his acute hypoxic respiratory failure 6. Poor long-term prognosis given probable underlying malignancy with COVID- 19 IMPRESSIONS: 1. Acute hypoxemic respiratory failure secondary to Covid pneumonia Plan to continue current supportive measures including high flow nasal cannula support with a goal to maintain saturations at or above 90%. Continue the patient on Decadron 6 mg daily to complete a 10-day course. Infectious diseases is following. Patient appears to be tolerating diuretic therapy. Very guarded prognosis overall. Continue to monitor renal function. We will continue to monitor closely. Did verify patient is not interested in being intubated. Patient does appear to be turning the corner with improved appetite and better stability on high flow nasal cannula. However, patient may have a protracted course given malignancy and poor metabolic reserve. 2. Acute kidney injury Stable. Likely multifactorial with prerenal and obstructive uropathy contributing. Continue to monitor urine output. No current indication for renal replacement therapy. 3. E. 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 The patient has completed his antibiotic treatment course per the discretion of infectious diseases. Patient with no fever overnight. 4. History of non-Hodgkin's lymphoma Complicates care, management, recovery and prognosis. Oncology does not have any additional plans for further inpatient work-up. Clinical concern for recurrence of lymphoma leading to the anterior mediastinal mass. Patient would likely benefit from oncology input as an inpatient to help with prognosis and goals of therapy. Defer to hospitalist. Patient is very clear that he does not want to have any intubation performed. Patient was asking when chemotherapy will be started. Inpatient E&M: [id number] [facility] L3
[2020-09-23] MEDS: Acetaminophen 325 MG Tablet 650 MG PO (20:45)
[2020-09-23] MEDS: Tamsulosin HCl 0.4 MG Capsule PO (20:45)
[2020-09-24] VITALS (17 sets, daily range): BP systolic 95–111; BP diastolic 60–72; PULSE 75–99; RESP 16–24; TEMP 36.4–36.8; O2SAT 91–96
[2020-09-24] MEDS: HEPARIN/D5w 25,000 UNITS 25,000 UNITS/250 ML IV.SOLN. 18 UNITS IV (04:38)
[2020-09-24] MEDS: dexAMETHasone 4 MG Tablet 6 MG PO (09:41)
[2020-09-24] MEDS: Furosemide 40 MG/4 ML Vial IV (09:42)
[2020-09-24] MEDS: 0.9% Saline Lock 10 ML Syringe IV (09:42)
--- NOTE | 2020-09-24 11:07 | PN_ITS ---
Patient Problems: Active and Suspected Problems (Last Updated 09/12/20 @ 20:[address] Hector De Santiago, DO) Renal failure (Acute) Ureteral calculus (Acute) Pyelonephritis (Acute) Pneumonia due to COVID-19 virus (Acute) Omental mass (Acute) Subjective: He is feeling good, he has been off of BiPAP since yesterday morning and maintaining his oxygen saturations Vitals/I&O's: Vital Signs Temp Pulse Resp BP Pulse Ox 97.5 F L 95 24 H 95/60 92 09/24/20 09:37 09/24/20 09:37 09/24/20 09:37 09/24/20 09:37 09/24/20 09:37 Oxygen Flow Rate (L/min) 12 Oxygen Delivery Method Nasal Cannula Weight: 156 lb 12.79 oz Body Mass Index (BMI) 23.8 Intake and Output for Last 24 Hours 09/22/20 09/23/20 09/24/20 23:59 23:59 23:59 Intake Total 1909.22 / 1909.22 970 / 970 250 / 250 Output Total 3025 / 3025 1750 / 2250 500 / 500 Balance -1115.78 / -1115.78 -780 / -1280 -250 / -250 General: Alert, Oriented x3, Cooperative, No apparent distress HEENT: Atraumatic, PERRLA, EOMI, Normocephalic Oral: Dry mucosa Neck: Supple, No JVD Lungs: Clear to auscultation, Normal air movement, No rhonchi, No wheeze, No rales, Diminished Cardiovascular: Regular rate, Regular Rhythm, Normal S1, Normal S2 Abdomen: Soft, Non Tender, Non-Distended, No Hepato-splenomegaly Extremities: No edema, Capillary Refill Less than 3 Seconds Skin: No rashes, No breakdown Neurological: Neuro grossly intact, Sensory exam intact to light touch and pain Psych/Mental Status: Normal Affect, Appropriate Current Medications Acetaminophen (Acetaminophen 325 Mg Tablet) 650 mg PO Q6H PRN PRN PRN Reason: Pain Score 1-10/Temp > 100.7 F Last Admin: 09/23/20 20:45 Dose: 650 mg Documented by: Albuterol Sulfate (Albuterol Sulfate Hfa 6.7 Gm Inhaler (200 Puffs)) 2 puff IH Q4H PRN PRN PRN Reason: COUGH Last Admin: 09/24/20 09:42 Dose: 2 puff Documented by: Dexamethasone (Dexamethasone 4 Mg Tablet) 6 mg PO DAILY [facility] Last Admin: 09/24/20 09:41 Dose: 6 mg Documented by: Furosemide (Furosemide 40 Mg/4 Ml Vial) 40 mg IV DAILY [facility] Last Admin: 09/24/20 09:42 Dose: 40 mg Documented by: Heparin Sodium (Porcine) (Heparin Injection (Vial) 5,000 Unit/Ml Vial) 0 unit IV UD PRN; Protocol PRN Reason: dose adjustment Last Admin: 09/21/20 20:46 Dose: 1,000 unit Documented by: Heparin Sodium/Dextrose () 25,000 units in 250 mls @ 11 mls/hr IV .[id number] [facility]; Protocol Last Admin: 09/24/20 04:38 Dose: 1,800 units/hr, 18 mls/hr Documented by: Ibuprofen (Ibuprofen 400 Mg Tablet) 400 mg PO Q4H PRN PRN PRN Reason: Pain Score 1-10/Temp > 100.7 F Miscellaneous Information (Inhaler, Assist Devices 1 Each Spacer) 1 each INHALATION PRN PRN PRN Reason: WITH ALBUTEROL MDI Last Admin: 09/14/20 21:58 Dose: 1 each Documented by: Ondansetron HCl (Ondansetron 4 Mg/2 Ml Vial) 4 mg IV Q8H PRN PRN PRN Reason: NAUSEA/VOMITING Last Admin: 09/19/20 08:36 Dose: 4 mg Documented by: Oxycodone HCl (Oxycodone 5 Mg Tablet) 5 mg PO Q4H PRN PRN PRN Reason: Pain Score 4-5 Last Admin: 09/14/20 09:56 Dose: 5 mg Documented by: Oxycodone HCl (Oxycodone 5 Mg Tablet) 10 mg PO Q4H PRN PRN PRN Reason: Pain Score 6-10 Sodium Chloride (0.9% Saline Lock 10 Ml Syringe) 10 - 40 ml IV UD PRN PRN Reason: SALINE FLUSH Last Admin: 09/24/20 09:42 Dose: 10 ml Documented by: Sodium Chloride (0.9% Saline Lock 10 Ml Syringe) 10 - 40 ml IV UD PRN PRN Reason: Midline Flush Sodium Chloride (0.9 % Nacl (Sterile) Posiflush 10 Ml) 10 - 40 ml IV UD PRN PRN Reason: Port access or dressing change Tamsulosin HCl (Tamsulosin Hcl 0.4 Mg Capsule) 0.4 mg PO QHS [facility] Last Admin: 09/23/20 20:45 Dose: 0.4 mg Documented by: STROKE Vital Signs/Narrative: Vital Signs Temp Pulse Resp BP Pulse Ox 09/24/20 09:37 97.5 F L 95 24 H 95/60 92 09/24/20 07:30 91 Medical Necessity - Tobacco Use Smoking Status: Never smoker Assessment/Plan All Active Problems (Last Updated 09/12/20 @ 20:[address] Hector De Santiago, DO) Renal failure (Acute) Ureteral calculus (Acute) Pyelonephritis (Acute) Pneumonia due to COVID-19 virus (Acute) Omental mass (Acute) 1. Acute hypoxic respiratory failure secondary to COVID-19 pneumonia/BELEM -CT of the chest on 09/14/2020 demonstrated just infiltrates in both lungs, with an anterior chest wall mass. There is a soft tissue mass in the anterior aspect of the lower thorax at the right cardiophrenic junction -He did appear to have some fluid overload and was given a dose of 60 mg of IV Lasix and then transition to 40 mg daily he was about 11 L positive, therefore his Lasix was increased to twice daily dosing, he was decreased to daily dosing today given renal function. -Continue with Decadron, because of his renal failure he cannot tolerate remdesivir -Currently off of BiPAP and has been maintaining his oxygen saturations for little over 24 hours. We will continue to so we are turning a corner -Transition from heparin drip to Eliquis to decrease fluid 2. A history of lymphoma -Apparently he did not complete treatment for his lymphoma. Imaging studies on admission demonstrated large abdominal mass with omental thickening and nodularity as well as soft tissue densities along the pericolic gutters as well as the chest masses previously described -Oncology was consulted they recommended having him follow-up as an outpatient -He would like to continue treatment for his lymphoma once he leaves the hospital 3. Acute UTI -Found to have a pansensitive E. coli, completed 5 days of Rocephin, this was complicated secondary to his obstructive calculi in the distal left ureter and left UVJ -He has had a history of a ureteral stent due to a malignancy causing obstruction DVT: [facility] Inpatient E&M: 37718 Subs Hosp L2
--- NOTE | 2020-09-24 13:09 | CASEMGMT ---
RN CM Note: Per nursing-patient does no have a PCP. He states years ago he saw a dr @ [place]. Will need to f/u on Sunday re: choices for physician follow up on discharge, or number can be given for [facility] Telehealth or [facility] for a virtual or call f/u. Justice AQUINON RN AC
--- NOTE | 2020-09-24 15:44 | PN_ITS ---
Patient Problems: Active and Suspected Problems (Last Updated 09/12/20 @ 20:[address] Hector De Santiago, DO) Renal failure (Acute) Ureteral calculus (Acute) Pyelonephritis (Acute) Pneumonia due to COVID-19 virus (Acute) Omental mass (Acute) Subjective: Patient states he feels subjectively improved compared to yesterday. Patient is still requiring high nasal cannula oxygen to maintain saturations. Patient has had a cough that is mostly unproductive. Patient denies any new pain. No fevers been reported overnight. - Physical Exam Vitals/I&O's: Vital Signs Temp Pulse Resp BP Pulse Ox 36.4 C L 99 20 H 103/65 92 09/24/20 14:27 09/24/20 14:27 09/24/20 14:27 09/24/20 14:27 09/24/20 14:27 Oxygen Flow Rate (L/min) 12 Oxygen Delivery Method Nasal Cannula Weight: 71.123 kg Body Mass Index (BMI) 23.8 Intake and Output for Last 24 Hours 09/22/20 09/23/20 09/24/20 23:59 23:59 23:59 Intake Total 1909.22 / 1909.22 970 / 970 500 / 500 Output Total 3025 / 3025 1750 / 2250 1100 / 1100 Balance -1115.78 / -1115.78 -780 / -1280 -600 / -600 General: Alert, Oriented x3, Cooperative, - - Appears older than stated age. HEENT: Atraumatic, PERRLA, EOMI, Normocephalic, - - Temporal wasting noted. Oral: Moist Mucosa, No Gingival or Mucosal Lesions/ Ulcerations Neck: Supple, No JVD, No Nodes, Trachea Midline Lungs: No rhonchi, No wheeze, No rales, Diminished, - - Symmetric expansion. Cardiovascular: Regular rate, Regular Rhythm, Normal S1, Normal S2, Murmur - Grade 2 out of 6 systolic ejection murmur at the left sternal border Abdomen: Bowel Sounds Present, Soft, Non Tender, Non-Distended Extremities: No clubbing, No cyanosis, No edema, Capillary Refill Less than 3 Seconds Skin: - Musculoskeletal: No Tenderness to Palpation of Joints or Extremities Lymphatic: No Cervical, Supraclavicular, or Inguinal Adenopathy Neurological: Cranial nerves II-XII grossly intact, Neuro grossly intact, Motor Exam 5/5 strength throughout Psych/Mental Status: Appropriate, Flat Affect Current Medications Acetaminophen (Acetaminophen 325 Mg Tablet) 650 mg PO Q6H PRN PRN PRN Reason: Pain Score 1-10/Temp > 100.7 F Last Admin: 09/23/20 20:45 Dose: 650 mg Documented by: Albuterol Sulfate (Albuterol Sulfate Hfa 6.7 Gm Inhaler (200 Puffs)) 2 puff IH Q4H PRN PRN PRN Reason: COUGH Last Admin: 09/24/20 09:42 Dose: 2 puff Documented by: Apixaban (Apixaban 5 Mg Tablet) 5 mg PO BID [facility] Calamine/Phenol (Menthol/Lanolin/Calamine/Znox 113 Gm Tube) 1 applic TOPICAL BID [facility]; Protocol Dexamethasone (Dexamethasone 4 Mg Tablet) 6 mg PO DAILY [facility] Last Admin: 09/24/20 09:41 Dose: 6 mg Documented by: Furosemide (Furosemide 40 Mg/4 Ml Vial) 40 mg IV DAILY [facility] Last Admin: 09/24/20 09:42 Dose: 40 mg Documented by: Heparin Sodium (Porcine) (Heparin Injection (Vial) 5,000 Unit/Ml Vial) 0 unit IV UD PRN; Protocol PRN Reason: dose adjustment Last Admin: 09/21/20 20:46 Dose: 1,000 unit Documented by: Ibuprofen (Ibuprofen 400 Mg Tablet) 400 mg PO Q4H PRN PRN PRN Reason: Pain Score 1-10/Temp > 100.7 F Miscellaneous Information (Inhaler, Assist Devices 1 Each Spacer) 1 each INHALATION PRN PRN PRN Reason: WITH ALBUTEROL MDI Last Admin: 09/14/20 21:58 Dose: 1 each Documented by: Ondansetron HCl (Ondansetron 4 Mg/2 Ml Vial) 4 mg IV Q8H PRN PRN PRN Reason: NAUSEA/VOMITING Last Admin: 09/19/20 08:36 Dose: 4 mg Documented by: Oxycodone HCl (Oxycodone 5 Mg Tablet) 5 mg PO Q4H PRN PRN PRN Reason: Pain Score 4-5 Last Admin: 09/14/20 09:56 Dose: 5 mg Documented by: Oxycodone HCl (Oxycodone 5 Mg Tablet) 10 mg PO Q4H PRN PRN PRN Reason: Pain Score 6-10 Sodium Chloride (0.9% Saline Lock 10 Ml Syringe) 10 - 40 ml IV UD PRN PRN Reason: SALINE FLUSH Last Admin: 09/24/20 09:42 Dose: 10 ml Documented by: Sodium Chloride (0.9% Saline Lock 10 Ml Syringe) 10 - 40 ml IV UD PRN PRN Reason: Midline Flush Sodium Chloride (0.9 % Nacl (Sterile) Posiflush 10 Ml) 10 - 40 ml IV UD PRN PRN Reason: Port access or dressing change Tamsulosin HCl (Tamsulosin Hcl 0.4 Mg Capsule) 0.4 mg PO QHS [facility] Last Admin: 09/23/20 20:45 Dose: 0.4 mg Documented by: Medical Necessity - Tobacco Use Smoking Status: Never smoker Assessment/Plan All Active Problems (Last Updated 09/12/20 @ 20:[address] Hector De Santiago, DO) Renal failure (Acute) Ureteral calculus (Acute) Pyelonephritis (Acute) Pneumonia due to COVID-19 virus (Acute) Omental mass (Acute) RECOMMENDATIONS: 1. Continue high flow nasal cannula versus BiPAP rescue. May require BiPAP rescue overnight 2. Continue patient on Decadron 6 mg daily complete 10 days. 3. Attempt gentle diuresis as tolerated by hemodynamics and renal function. 4. The patient will require further outpatient work-up of the mass noted on CT chest along with the findings noted on CT abdomen/pelvis. 5. Would not recommend pursuing biopsy at this time as this is likely not the etiology of his acute hypoxic respiratory failure 6. Poor long-term prognosis given probable underlying malignancy with COVID- 19 IMPRESSIONS: 1. Acute hypoxemic respiratory failure secondary to Covid pneumonia Plan to continue current supportive measures including high flow nasal cannula support with a goal to maintain saturations at or above 90%. Continue the patient on Decadron 6 mg daily to complete a 10-day course. Infectious diseases is following. Patient appears to be tolerating diuretic therapy. Very guarded prognosis overall. Continue to monitor renal function. We will continue to monitor closely. Patient has tolerated diuretic therapy thus far, but BUN is elevated. Continue to monitor for contraction alkalosis. Patient is having bowel movements. Stressed to the patient the importance of pulmonary recruitment measures such as incentive spirometer. 2. Acute kidney injury Stable. Likely multifactorial with prerenal and obstructive uropathy contributing. Continue to monitor urine output. No current indication for renal replacement therapy. 3. E. 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 The patient has completed his antibiotic treatment course per the discretion of infectious diseases. Patient with no fever overnight. 4. History of non-Hodgkin's lymphoma Complicates care, management, recovery and prognosis. Oncology does not have any additional plans for further inpatient work-up. Clinical concern for recurrence of lymphoma leading to the anterior mediastinal mass. Patient would likely benefit from oncology input as an inpatient to help with prognosis and goals of therapy. Defer to hospitalist. Patient is very clear that he does not want to have any intubation performed. Patient was asking when chemotherapy will be started. Inpatient E&M: [id number] [facility] L3
[2020-09-24] MEDS: Tamsulosin HCl 0.4 MG Capsule PO (23:17)
[2020-09-24] MEDS: APIXABAN 5 MG TABLET PO (23:17)
[2020-09-24] MEDS: Menthol/Lanolin/Calamine/Znox 113 GM Tube 1 APPLIC TOPICAL (23:18)
[2020-09-25] VITALS (15 sets, daily range): BP systolic 89–126; BP diastolic 52–75; PULSE 75–102; RESP 24–28; TEMP 36.4–36.9; O2SAT 92–98
[2020-09-25] MEDS: Acetaminophen 325 MG Tablet 650 MG PO (02:20)
[2020-09-25 07:48] LABS: Anion Gap 9 (5-15); BUN 84 mg/dL (7-18); BUN/Creat Ratio 52.8 RATIO (10-20); Calcium,Total 8.6 mg/dL (8.5-10.1); Chloride 104 mmol/L (98-107); Creatinine, Serum 1.59 mg/dL (0.70-1.30); EST Glomerular Filtration Rate 47 mL/min (>60); Est Glom Filt Rate - Afr Amer 56 mL/min (>60); Estimated Creatinine Clearance 44.21 ml/min; Glucose 98 mg/dL (74-106); Potassium 3.9 mmol/L (3.5-5.1); Sodium Level 136 mmol/L (136-145)
[2020-09-25 08:06] LABS: Partial Thromboplast Time 35.4 Seconds (24.1-36.2)
[2020-09-25] MEDS: Menthol/Lanolin/Calamine/Znox 113 GM Tube 1 APPLIC TOPICAL ×2 (11:01→21:42)
[2020-09-25] MEDS: dexAMETHasone 4 MG Tablet 6 MG PO (11:02)
[2020-09-25] MEDS: Furosemide 40 MG/4 ML Vial IV (11:03)
[2020-09-25] MEDS: APIXABAN 5 MG TABLET PO ×2 (11:03→21:40)
--- NOTE | 2020-09-25 11:08 | PCM.PN.HOSP ---
Patient Problems: Active and Suspected Problems (Last Updated 09/12/20 @ 20:[address] Hector De Santiago, DO) Renal failure (Acute) Ureteral calculus (Acute) Pyelonephritis (Acute) Pneumonia due to COVID-19 virus (Acute) Omental mass (Acute) Subjective: He is doing well on his high flow nasal cannula and is stable. He is still on 10 to 11 L Vitals/I&O's: Vital Signs Temp Pulse Resp BP Pulse Ox 97.9 F 94 28 H 89/53 L 94 09/25/20 08:52 09/25/20 08:52 09/25/20 08:52 09/25/20 08:52 09/25/20 08:52 Oxygen Flow Rate (L/min) 10 Oxygen Delivery Method Nasal Cannula Weight: 156 lb 12.79 oz Body Mass Index (BMI) 23.8 Intake and Output for Last 24 Hours 09/23/20 09/24/20 09/25/20 23:59 23:59 23:59 Intake Total 970 / 970 1043.9 / 1293.9 250 / 250 Output Total 1750 / 2250 1800 / 2800 1250 / 1250 Balance -780 / -1280 -756.1 / -1506.1 -1000 / -1000 General: Alert, Oriented x3, Cooperative, No apparent distress HEENT: Atraumatic, PERRLA, EOMI, Normocephalic Oral: Dry mucosa Neck: Supple, No JVD Lungs: Normal air movement, No rhonchi, No wheeze, No rales, Diminished Cardiovascular: Regular rate, Regular Rhythm, Normal S1, Normal S2 Abdomen: Soft, Non Tender, Non-Distended, No Hepato-splenomegaly Extremities: No edema, Capillary Refill Less than 3 Seconds Skin: No rashes, No breakdown Neurological: Neuro grossly intact, Sensory exam intact to light touch and pain Psych/Mental Status: Normal Affect, Appropriate Laboratory Results 09/25/20 06:53: APTT 35.4 09/25/20 06:53: Sodium 136, Potassium 3.9, Chloride 104, Carbon Dioxide 23.0, Anion Gap 9, BUN 84 H, Creatinine 1.59 H, Estim Creat Clear Calc 44.21, Est GFR (MDRD) Af Amer 56 L, Est GFR (MDRD) Non-Af 47 L, BUN/Creatinine Ratio 52.8 H, Glucose 98, Calcium 8.6 Current Medications Acetaminophen (Acetaminophen 325 Mg Tablet) 650 mg PO Q6H PRN PRN PRN Reason: Pain Score 1-10/Temp > 100.7 F Last Admin: 09/25/20 02:20 Dose: 650 mg Documented by: Albuterol Sulfate (Albuterol Sulfate Hfa 6.7 Gm Inhaler (200 Puffs)) 2 puff IH Q4H PRN PRN PRN Reason: COUGH Last Admin: 09/24/20 09:42 Dose: 2 puff Documented by: Apixaban (Apixaban 5 Mg Tablet) 5 mg PO BID [facility] Last Admin: 09/25/20 11:03 Dose: 5 mg Documented by: Calamine/Phenol (Menthol/Lanolin/Calamine/Znox 113 Gm Tube) 1 applic TOPICAL BID [facility]; Protocol Last Admin: 09/25/20 11:01 Dose: 1 applicatio Documented by: Dexamethasone (Dexamethasone 4 Mg Tablet) 6 mg PO DAILY [facility] Last Admin: 09/25/20 11:02 Dose: 6 mg Documented by: Furosemide (Furosemide 40 Mg/4 Ml Vial) 40 mg IV DAILY [facility] Last Admin: 09/25/20 11:03 Dose: 40 mg Documented by: Heparin Sodium (Porcine) (Heparin Injection (Vial) 5,000 Unit/Ml Vial) 0 unit IV UD PRN; Protocol PRN Reason: dose adjustment Last Admin: 09/21/20 20:46 Dose: 1,000 unit Documented by: Ibuprofen (Ibuprofen 400 Mg Tablet) 400 mg PO Q4H PRN PRN PRN Reason: Pain Score 1-10/Temp > 100.7 F Miscellaneous Information (Inhaler, Assist Devices 1 Each Spacer) 1 each INHALATION PRN PRN PRN Reason: WITH ALBUTEROL MDI Last Admin: 09/14/20 21:58 Dose: 1 each Documented by: Ondansetron HCl (Ondansetron 4 Mg/2 Ml Vial) 4 mg IV Q8H PRN PRN PRN Reason: NAUSEA/VOMITING Last Admin: 09/19/20 08:36 Dose: 4 mg Documented by: Oxycodone HCl (Oxycodone 5 Mg Tablet) 5 mg PO Q4H PRN PRN PRN Reason: Pain Score 4-5 Last Admin: 09/14/20 09:56 Dose: 5 mg Documented by: Oxycodone HCl (Oxycodone 5 Mg Tablet) 10 mg PO Q4H PRN PRN PRN Reason: Pain Score 6-10 Sodium Chloride (0.9% Saline Lock 10 Ml Syringe) 10 - 40 ml IV UD PRN PRN Reason: SALINE FLUSH Last Admin: 09/24/20 09:42 Dose: 10 ml Documented by: Sodium Chloride (0.9% Saline Lock 10 Ml Syringe) 10 - 40 ml IV UD PRN PRN Reason: Midline Flush Sodium Chloride (0.9 % Nacl (Sterile) Posiflush 10 Ml) 10 - 40 ml IV UD PRN PRN Reason: Port access or dressing change Tamsulosin HCl (Tamsulosin Hcl 0.4 Mg Capsule) 0.4 mg PO QHS [facility] Last Admin: 09/24/20 23:17 Dose: 0.4 mg Documented by: STROKE Vital Signs/Narrative: Vital Signs Temp Pulse Resp BP Pulse Ox 09/25/20 08:52 97.9 F 94 28 H 89/53 L 94 Medical Necessity - Tobacco Use Smoking Status: Never smoker Assessment/Plan All Active Problems (Last Updated 09/12/20 @ 20:[address] Hector De Santiago, DO) Renal failure (Acute) Ureteral calculus (Acute) Pyelonephritis (Acute) Pneumonia due to COVID-19 virus (Acute) Omental mass (Acute) 1. Acute hypoxic respiratory failure secondary to COVID-19 pneumonia/BELEM -CT of the chest on 09/14/2020 demonstrated just infiltrates in both lungs, with an anterior chest wall mass. There is a soft tissue mass in the anterior aspect of the lower thorax at the right cardiophrenic junction -He did appear to have some fluid overload and was given a dose of 60 mg of IV Lasix and then transition to 40 mg daily he was about 11 L positive, therefore his Lasix was increased to twice daily dosing, he was decreased to daily dosing today given renal function. -Continue with Decadron, because of his renal failure he cannot tolerate remdesivir -Transitioned from heparin drip to Eliquis to decrease fluid 2. A history of lymphoma -Apparently he did not complete treatment for his lymphoma. Imaging studies on admission demonstrated large abdominal mass with omental thickening and nodularity as well as soft tissue densities along the pericolic gutters as well as the chest masses previously described -Oncology was consulted they recommended having him follow-up as an outpatient -He would like to continue treatment for his lymphoma once he leaves the hospital 3. Acute UTI -Found to have a pansensitive E. 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
--- NOTE | 2020-09-25 11:08 | PCM.PN.PUL ---
Patient Problems: Active and Suspected Problems (Last Updated 09/12/20 @ 20:[address] Hector De Santiago, DO) Renal failure (Acute) Ureteral calculus (Acute) Pyelonephritis (Acute) Pneumonia due to COVID-19 virus (Acute) Omental mass (Acute) Subjective: Patient continues to do okay, but is still requiring high nasal cannula oxygen to maintain saturations. Patient continues to have a negative fluid balance. Patient is subjectively reporting no real change compared to previous. Patient reports he was able to get to the bedside with therapy - Physical Exam Vitals/I&O's: Vital Signs Temp Pulse Resp BP Pulse Ox 36.6 C 94 28 H 89/53 L 94 09/25/20 08:52 09/25/20 08:52 09/25/20 08:52 09/25/20 08:52 09/25/20 08:52 Oxygen Flow Rate (L/min) 10 Oxygen Delivery Method Nasal Cannula Weight: 71.123 kg Body Mass Index (BMI) 23.8 Intake and Output for Last 24 Hours 09/23/20 09/24/20 09/25/20 23:59 23:59 23:59 Intake Total 970 / 970 1043.9 / 1293.9 490 / 490 Output Total 1750 / 2250 1800 / 2800 1250 / 1250 Balance -780 / -1280 -756.1 / -1506.1 -760 / -760 General: Alert, Oriented x3, Cooperative, - - Mild conversational dyspnea. Appears older than stated age. HEENT: Atraumatic, PERRLA, EOMI, Normocephalic, - - Slight scleral injection without icterus Oral: Moist Mucosa, No Gingival or Mucosal Lesions/ Ulcerations Neck: Supple, No Nodes, Trachea Midline, JVD, Right Lungs: No rhonchi, No wheeze, No rales, Diminished, - - Symmetric expansion. No dullness to percussion. Cardiovascular: Regular rate, Regular Rhythm, Normal S1, Normal S2, No murmurs, No rub noted, No Gallop Abdomen: Bowel Sounds Present, Soft, Non Tender, Non-Distended Extremities: No clubbing, No cyanosis, Edema - Trace lower extremities Skin: - - No change compared to previous Musculoskeletal: No Tenderness to Palpation of Joints or Extremities Lymphatic: No Cervical, Supraclavicular, or Inguinal Adenopathy Neurological: Cranial nerves II-XII grossly intact, Neuro grossly intact, Motor Exam 5/5 strength throughout Psych/Mental Status: Alert and oriented to time, place, person, mood and affect Laboratory Results 09/25/20 06:53: APTT 35.4 09/25/20 06:53: Sodium 136, Potassium 3.9, Chloride 104, Carbon Dioxide 23.0, Anion Gap 9, BUN 84 H, Creatinine 1.59 H, Estim Creat Clear Calc 44.21, Est GFR (MDRD) Af Amer 56 L, Est GFR (MDRD) Non-Af 47 L, BUN/Creatinine Ratio 52.8 H, Glucose 98, Calcium 8.6 Current Medications Acetaminophen (Acetaminophen 325 Mg Tablet) 650 mg PO Q6H PRN PRN PRN Reason: Pain Score 1-10/Temp > 100.7 F Last Admin: 09/25/20 02:20 Dose: 650 mg Documented by: Albuterol Sulfate (Albuterol Sulfate Hfa 6.7 Gm Inhaler (200 Puffs)) 2 puff IH Q4H PRN PRN PRN Reason: COUGH Last Admin: 09/24/20 09:42 Dose: 2 puff Documented by: Apixaban (Apixaban 5 Mg Tablet) 5 mg PO BID [facility] Last Admin: 09/25/20 11:03 Dose: 5 mg Documented by: Calamine/Phenol (Menthol/Lanolin/Calamine/Znox 113 Gm Tube) 1 applic TOPICAL BID [facility]; Protocol Last Admin: 09/25/20 11:01 Dose: 1 applicatio Documented by: Dexamethasone (Dexamethasone 4 Mg Tablet) 6 mg PO DAILY [facility] Last Admin: 09/25/20 11:02 Dose: 6 mg Documented by: Furosemide (Furosemide 40 Mg/4 Ml Vial) 40 mg IV DAILY [facility] Last Admin: 09/25/20 11:03 Dose: 40 mg Documented by: Heparin Sodium (Porcine) (Heparin Injection (Vial) 5,000 Unit/Ml Vial) 0 unit IV UD PRN; Protocol PRN Reason: dose adjustment Last Admin: 09/21/20 20:46 Dose: 1,000 unit Documented by: Ibuprofen (Ibuprofen 400 Mg Tablet) 400 mg PO Q4H PRN PRN PRN Reason: Pain Score 1-10/Temp > 100.7 F Miscellaneous Information (Inhaler, Assist Devices 1 Each Spacer) 1 each INHALATION PRN PRN PRN Reason: WITH ALBUTEROL MDI Last Admin: 09/14/20 21:58 Dose: 1 each Documented by: Ondansetron HCl (Ondansetron 4 Mg/2 Ml Vial) 4 mg IV Q8H PRN PRN PRN Reason: NAUSEA/VOMITING Last Admin: 09/19/20 08:36 Dose: 4 mg Documented by: Oxycodone HCl (Oxycodone 5 Mg Tablet) 5 mg PO Q4H PRN PRN PRN Reason: Pain Score 4-5 Last Admin: 09/14/20 09:56 Dose: 5 mg Documented by: Oxycodone HCl (Oxycodone 5 Mg Tablet) 10 mg PO Q4H PRN PRN PRN Reason: Pain Score 6-10 Sodium Chloride (0.9% Saline Lock 10 Ml Syringe) 10 - 40 ml IV UD PRN PRN Reason: SALINE FLUSH Last Admin: 09/24/20 09:42 Dose: 10 ml Documented by: Sodium Chloride (0.9% Saline Lock 10 Ml Syringe) 10 - 40 ml IV UD PRN PRN Reason: Midline Flush Sodium Chloride (0.9 % Nacl (Sterile) Posiflush 10 Ml) 10 - 40 ml IV UD PRN PRN Reason: Port access or dressing change Tamsulosin HCl (Tamsulosin Hcl 0.4 Mg Capsule) 0.4 mg PO QHS [facility] Last Admin: 09/24/20 23:17 Dose: 0.4 mg Documented by: Medical Necessity - Tobacco Use Smoking Status: Never smoker Assessment/Plan All Active Problems (Last Updated 09/12/20 @ 20:[address] Hector De Santiago, DO) Renal failure (Acute) Ureteral calculus (Acute) Pyelonephritis (Acute) Pneumonia due to COVID-19 virus (Acute) Omental mass (Acute) RECOMMENDATIONS: 1. Continue high flow nasal cannula versus BiPAP rescue. May require BiPAP rescue overnight 2. Continue patient on Decadron 6 mg daily. (On day 7 of 10) 3. Attempt gentle diuresis as tolerated by hemodynamics and renal function. 4. The patient will require further outpatient work-up of the mass noted on CT chest along with the findings noted on CT abdomen/pelvis. 5. Would not recommend pursuing biopsy at this time as this is likely not the etiology of his acute hypoxic respiratory failure 6. Poor long-term prognosis given probable underlying malignancy with COVID-19 7. Some concern for increased metabolic demand of probable underlying malignancy IMPRESSIONS: 1. Acute hypoxemic respiratory failure secondary to Covid pneumonia Plan to continue current supportive measures including high flow nasal cannula support with a goal to maintain saturations at or above 90%. Continue the patient on Decadron 6 mg daily to complete a 10-day course. Infectious diseases is following. Very guarded prognosis overall. Continue to monitor for contraction alkalosis. Patient is having bowel movements. Stressed to the patient the importance of pulmonary recruitment measures such as incentive spirometer. Patient continues to diurese on a daily basis and renal function appears to be tolerating. Continue to monitor every other day for renal complications. 2. Acute kidney injury Stable. Likely multifactorial with prerenal and obstructive uropathy contributing. Continue to monitor urine output. No current indication for renal replacement therapy. Doubt patient would tolerate an extra dose of Lasix at this time, but contraction alkalosis appears to be stable 3. E. 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 The patient has completed his antibiotic treatment course per the discretion of infectious diseases. Patient with no fever overnight. 4. History of non-Hodgkin's lymphoma Complicates care, management, recovery and prognosis. Oncology does not have any additional plans for further inpatient work-up. Clinical concern for recurrence of lymphoma leading to the anterior mediastinal mass. Patient would likely benefit from oncology input as an inpatient to help with prognosis and goals of therapy. Defer to hospitalist. Patient is very clear that he does not want to have any intubation performed. Patient was asking when chemotherapy will be started. Inpatient E&M: [id number] [facility] L3
[2020-09-25] MEDS: 0.9% Saline Lock 10 ML Syringe IV (21:39)
[2020-09-25] MEDS: Tamsulosin HCl 0.4 MG Capsule PO (21:40)
[2020-09-26] VITALS (15 sets, daily range): BP systolic 97–107; BP diastolic 59–71; PULSE 79–100; RESP 22–32; TEMP 36.4–36.6; O2SAT 89–98
[2020-09-26 07:54] LABS: Anion Gap 11 (5-15); BUN 80 mg/dL (7-18); BUN/Creat Ratio 60.6 RATIO (10-20); Calcium,Total 8.6 mg/dL (8.5-10.1); Chloride 98 mmol/L (98-107); Creatinine, Serum 1.32 mg/dL (0.70-1.30); EST Glomerular Filtration Rate 58 mL/min (>60); Est Glom Filt Rate - Afr Amer 70 mL/min (>60); Estimated Creatinine Clearance 53.26 ml/min; Glucose 85 mg/dL (74-106); Potassium 4.2 mmol/L (3.5-5.1); Sodium Level 133 mmol/L (136-145)
[2020-09-26] MEDS: Menthol/Lanolin/Calamine/Znox 113 GM Tube 1 APPLIC TOPICAL ×2 (09:03→21:23)
[2020-09-26] MEDS: dexAMETHasone 4 MG Tablet 6 MG PO (09:04)
[2020-09-26] MEDS: APIXABAN 5 MG TABLET PO ×2 (09:04→21:23)
[2020-09-26] MEDS: Furosemide 40 MG/4 ML Vial IV (09:05)
[2020-09-26] MEDS: 0.9% Saline Lock 10 ML Syringe IV ×2 (09:05→21:22)
--- NOTE | 2020-09-26 09:28 | PN_ITS ---
Patient Problems: Active and Suspected Problems (Last Updated 09/12/20 @ 20:[address] Hector De Santiago, DO) Renal failure (Acute) Ureteral calculus (Acute) Pyelonephritis (Acute) Pneumonia due to COVID-19 virus (Acute) Omental mass (Acute) Subjective: Continues to be stable on high flow nasal cannula between 10 and 12 L Vitals/I&O's: Vital Signs Temp Pulse Resp BP Pulse Ox 97.5 F L 91 32 H 97/59 L 89 09/26/20 08:58 09/26/20 08:58 09/26/20 08:58 09/26/20 08:58 09/26/20 08:58 Oxygen Flow Rate (L/min) 11 Oxygen Delivery Method Nasal Cannula Weight: 156 lb 12.79 oz Body Mass Index (BMI) 23.8 Intake and Output for Last 24 Hours 09/24/20 09/25/20 09/26/20 23:59 23:59 22:59 Intake Total 1043.9 / 1293.9 1790 / 2890 1700 / 1700 Output Total 1800 / 2800 3425 / 3925 950 / 950 Balance -756.1 / -1506.1 -1635 / -1035 750 / 750 General: Alert, Oriented x3, Cooperative, No apparent distress HEENT: Atraumatic, PERRLA, EOMI, Normocephalic Oral: Dry mucosa Neck: Supple, No JVD Lungs: Normal air movement, No rhonchi, No wheeze, No rales, Diminished Cardiovascular: Regular rate, Regular Rhythm, Normal S1, Normal S2 Abdomen: Soft, Non Tender, Non-Distended, No Hepato-splenomegaly Extremities: No edema, Capillary Refill Less than 3 Seconds Skin: No rashes, No breakdown Neurological: Neuro grossly intact, Sensory exam intact to light touch and pain Psych/Mental Status: Normal Affect, Appropriate Laboratory Results 09/26/20 06:59: Sodium 133 L, Potassium 4.2, Chloride 98, Carbon Dioxide 24.0, Anion Gap 11, BUN 80 H, Creatinine 1.32 H, Estim Creat Clear Calc 53.26, Est GFR (MDRD) Af Amer 70, Est GFR (MDRD) Non-Af 58 L, BUN/Creatinine Ratio 60.6 H, Gl ucose 85, Calcium 8.6 Current Medications Acetaminophen (Acetaminophen 325 Mg Tablet) 650 mg PO Q6H PRN PRN PRN Reason: Pain Score 1-10/Temp > 100.7 F Last Admin: 09/25/20 02:20 Dose: 650 mg Documented by: Albuterol Sulfate (Albuterol Sulfate Hfa 6.7 Gm Inhaler (200 Puffs)) 2 puff IH Q4H PRN PRN PRN Reason: COUGH Last Admin: 09/24/20 09:42 Dose: 2 puff Documented by: Apixaban (Apixaban 5 Mg Tablet) 5 mg PO BID [facility] Last Admin: 09/26/20 09:04 Dose: 5 mg Documented by: Calamine/Phenol (Menthol/Lanolin/Calamine/Znox 113 Gm Tube) 1 applic TOPICAL BID [facility]; Protocol Last Admin: 09/26/20 09:03 Dose: 1 applicatio Documented by: Dexamethasone (Dexamethasone 4 Mg Tablet) 6 mg PO DAILY [facility] Last Admin: 09/26/20 09:04 Dose: 6 mg Documented by: Furosemide (Furosemide 40 Mg/4 Ml Vial) 40 mg IV DAILY [facility] Last Admin: 09/26/20 09:05 Dose: 40 mg Documented by: Heparin Sodium (Porcine) (Heparin Injection (Vial) 5,000 Unit/Ml Vial) 0 unit IV UD PRN; Protocol PRN Reason: dose adjustment Last Admin: 09/21/20 20:46 Dose: 1,000 unit Documented by: Ibuprofen (Ibuprofen 400 Mg Tablet) 400 mg PO Q4H PRN PRN PRN Reason: Pain Score 1-10/Temp > 100.7 F Miscellaneous Information (Inhaler, Assist Devices 1 Each Spacer) 1 each INHALATION PRN PRN PRN Reason: WITH ALBUTEROL MDI Last Admin: 09/14/20 21:58 Dose: 1 each Documented by: Ondansetron HCl (Ondansetron 4 Mg/2 Ml Vial) 4 mg IV Q8H PRN PRN PRN Reason: NAUSEA/VOMITING Last Admin: 09/19/20 08:36 Dose: 4 mg Documented by: Oxycodone HCl (Oxycodone 5 Mg Tablet) 5 mg PO Q4H PRN PRN PRN Reason: Pain Score 4-5 Last Admin: 09/14/20 09:56 Dose: 5 mg Documented by: Oxycodone HCl (Oxycodone 5 Mg Tablet) 10 mg PO Q4H PRN PRN PRN Reason: Pain Score 6-10 Sodium Chloride (0.9% Saline Lock 10 Ml Syringe) 10 - 40 ml IV UD PRN PRN Reason: SALINE FLUSH Last Admin: 09/26/20 09:05 Dose: 10 ml Documented by: Sodium Chloride (0.9% Saline Lock 10 Ml Syringe) 10 - 40 ml IV UD PRN PRN Reason: Midline Flush Sodium Chloride (0.9 % Nacl (Sterile) Posiflush 10 Ml) 10 - 40 ml IV UD PRN PRN Reason: Port access or dressing change Tamsulosin HCl (Tamsulosin Hcl 0.4 Mg Capsule) 0.4 mg PO QHS VITO Last Admin: 09/25/20 21:40 Dose: 0.4 mg Documented by: STROKE Vital Signs/Narrative: Vital Signs Temp Pulse Resp BP Pulse Ox 09/26/20 08:58 97.5 F L 91 32 H 97/59 L 89 09/26/20 06:55 92 09/26/20 06:12 97.6 F L 91 26 H 107/65 95 09/26/20 06:00 100 Medical Necessity - Tobacco Use Smoking Status: Never smoker Assessment/Plan All Active Problems (Last Updated 09/12/20 @ 20:[address] Hector De Santiago, DO) Renal failure (Acute) Ureteral calculus (Acute) Pyelonephritis (Acute) Pneumonia due to COVID-19 virus (Acute) Omental mass (Acute) 1. Acute hypoxic respiratory failure secondary to COVID-19 pneumonia/BELEM -CT of the chest on 09/14/2020 demonstrated just infiltrates in both lungs, with an anterior chest wall mass. There is a soft tissue mass in the anterior aspect of the lower thorax at the right cardiophrenic junction -He did appear to have some fluid overload and was given a dose of 60 mg of IV Lasix and then transition to 40 mg daily he was about 11 L positive, therefore his Lasix was increased to twice daily dosing, he was decreased to daily dosing given renal function. -Continue with Decadron, because of his renal failure he cannot tolerate remdesivir -Transitioned from heparin drip to Eliquis to decrease fluid 2. A history of lymphoma -Apparently he did not complete treatment for his lymphoma. Imaging studies on admission demonstrated large abdominal mass with omental thickening and nodularity as well as soft tissue densities along the pericolic gutters as well as the chest masses previously described -Oncology was consulted they recommended having him follow-up as an outpatient -He would like to continue treatment for his lymphoma once he leaves the hospital 3. Acute UTI -Found to have a pansensitive E. 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 Inpatient E&M: 87968 Subs Hosp L2
--- NOTE | 2020-09-26 10:09 | PCM.PN.PUL ---
Patient Problems: Active and Suspected Problems (Last Updated 09/12/20 @ 20:[address] Hector De Santiago, DO) Renal failure (Acute) Ureteral calculus (Acute) Pyelonephritis (Acute) Pneumonia due to COVID-19 virus (Acute) Omental mass (Acute) Subjective: Patient remains in good spirits. Patient states that he feels comfortable on his 11 L nasal cannula oxygen. Patient does report some discomfort of his sacrum that improves with repositioning. Patient continues to have a cough, but denies any production. - Physical Exam Vitals/I&O's: Vital Signs Temp Pulse Resp BP Pulse Ox 36.4 C L 94 32 H 97/59 L 89 09/26/20 08:58 09/26/20 09:30 09/26/20 08:58 09/26/20 08:58 09/26/20 08:58 Oxygen Flow Rate (L/min) 11 Oxygen Delivery Method Nasal Cannula Weight: 71.123 kg Body Mass Index (BMI) 23.8 Intake and Output for Last 24 Hours 09/24/20 09/25/20 09/26/20 23:59 23:59 22:59 Intake Total 1043.9 / 1293.9 1790 / 2890 1700 / 1700 Output Total 1800 / 2800 3425 / 3925 950 / 950 Balance -756.1 / -1506.1 -1635 / -1035 750 / 750 General: Alert, Oriented x3, Cooperative, - - Mild to moderate conversational dyspnea. Appears older than stated age. HEENT: Atraumatic, PERRLA, EOMI, Normocephalic, - - Some temporal wasting noted. Oral: Moist Mucosa, No Gingival or Mucosal Lesions/ Ulcerations Neck: Supple, No JVD, No Nodes, Trachea Midline Lungs: No rhonchi, No wheeze, No rales, Diminished, - - Symmetric expansion. No dullness to percussion. Cardiovascular: Regular rate, Regular Rhythm, Normal S1, Normal S2, No murmurs, No rub noted, No Gallop Abdomen: Bowel Sounds Present, Soft, Non Tender, Non-Distended Extremities: No clubbing, No cyanosis, No edema, Capillary Refill Less than 3 Seconds Skin: - - Coccyx not evaluated. No change compared to previous Musculoskeletal: No Tenderness to Palpation of Joints or Extremities Lymphatic: No Cervical, Supraclavicular, or Inguinal Adenopathy Neurological: Cranial nerves II-XII grossly intact, Neuro grossly intact, Motor Exam 5/5 strength throughout Psych/Mental Status: Normal Affect, Appropriate Laboratory Results 09/26/20 06:59: Sodium 133 L, Potassium 4.2, Chloride 98, Carbon Dioxide 24.0, Anion Gap 11, BUN 80 H, Creatinine 1.32 H, Estim Creat Clear Calc 53.26, Est GFR (MDRD) Af Amer 70, Est GFR (MDRD) Non-Af 58 L, BUN/Creatinine Ratio 60.6 H, Glucose 85, Calcium 8.6 Current Medications Acetaminophen (Acetaminophen 325 Mg Tablet) 650 mg PO Q6H PRN PRN PRN Reason: Pain Score 1-10/Temp > 100.7 F Last Admin: 09/25/20 02:20 Dose: 650 mg Documented by: Albuterol Sulfate (Albuterol Sulfate Hfa 6.7 Gm Inhaler (200 Puffs)) 2 puff IH Q4H PRN PRN PRN Reason: COUGH Last Admin: 09/24/20 09:42 Dose: 2 puff Documented by: Apixaban (Apixaban 5 Mg Tablet) 5 mg PO BID [facility] Last Admin: 09/26/20 09:04 Dose: 5 mg Documented by: Calamine/Phenol (Menthol/Lanolin/Calamine/Znox 113 Gm Tube) 1 applic TOPICAL BID [facility]; Protocol Last Admin: 09/26/20 09:03 Dose: 1 applicatio Documented by: Dexamethasone (Dexamethasone 4 Mg Tablet) 6 mg PO DAILY [facility] Last Admin: 09/26/20 09:04 Dose: 6 mg Documented by: Furosemide (Furosemide 40 Mg/4 Ml Vial) 40 mg IV DAILY [facility] Last Admin: 09/26/20 09:05 Dose: 40 mg Documented by: Heparin Sodium (Porcine) (Heparin Injection (Vial) 5,000 Unit/Ml Vial) 0 unit IV UD PRN; Protocol PRN Reason: dose adjustment Last Admin: 09/21/20 20:46 Dose: 1,000 unit Documented by: Ibuprofen (Ibuprofen 400 Mg Tablet) 400 mg PO Q4H PRN PRN PRN Reason: Pain Score 1-10/Temp > 100.7 F Miscellaneous Information (Inhaler, Assist Devices 1 Each Spacer) 1 each INHALATION PRN PRN PRN Reason: WITH ALBUTEROL MDI Last Admin: 09/14/20 21:58 Dose: 1 each Documented by: Ondansetron HCl (Ondansetron 4 Mg/2 Ml Vial) 4 mg IV Q8H PRN PRN PRN Reason: NAUSEA/VOMITING Last Admin: 09/19/20 08:36 Dose: 4 mg Documented by: Oxycodone HCl (Oxycodone 5 Mg Tablet) 5 mg PO Q4H PRN PRN PRN Reason: Pain Score 4-5 Last Admin: 09/14/20 09:56 Dose: 5 mg Documented by: Oxycodone HCl (Oxycodone 5 Mg Tablet) 10 mg PO Q4H PRN PRN PRN Reason: Pain Score 6-10 Sodium Chloride (0.9% Saline Lock 10 Ml Syringe) 10 - 40 ml IV UD PRN PRN Reason: SALINE FLUSH Last Admin: 09/26/20 09:05 Dose: 10 ml Documented by: Sodium Chloride (0.9% Saline Lock 10 Ml Syringe) 10 - 40 ml IV UD PRN PRN Reason: Midline Flush Sodium Chloride (0.9 % Nacl (Sterile) Posiflush 10 Ml) 10 - 40 ml IV UD PRN PRN Reason: Port access or dressing change Tamsulosin HCl (Tamsulosin Hcl 0.4 Mg Capsule) 0.4 mg PO QHS VITO Last Admin: 09/25/20 21:40 Dose: 0.4 mg Documented by: Medical Necessity - Tobacco Use Smoking Status: Never smoker Assessment/Plan All Active Problems (Last Updated 09/12/20 @ 20:[address] Hecotr De Santiago, DO) Renal failure (Acute) Ureteral calculus (Acute) Pyelonephritis (Acute) Pneumonia due to COVID-19 virus (Acute) Omental mass (Acute) RECOMMENDATIONS: 1. Continue high flow nasal cannula versus BiPAP rescue. May require BiPAP rescue overnight 2. Continue patient on Decadron 6 mg daily. (On day 8 of 10) 3. Attempt gentle diuresis as tolerated by hemodynamics and renal function. 4. The patient will require further outpatient work-up of the mass noted on CT chest along with the findings noted on CT abdomen/pelvis. 5. Would not recommend pursuing biopsy at this time as this is likely not the etiology of his acute hypoxic respiratory failure 6. Poor long-term prognosis given probable underlying malignancy with COVID-19 7. Some concern for increased metabolic demand of probable underlying malignancy adding to delayed recovery IMPRESSIONS: 1. Acute hypoxemic respiratory failure secondary to Covid pneumonia Plan to continue current supportive measures including high flow nasal cannula support with a goal to maintain saturations at or above 90%. Continue the patient on Decadron 6 mg daily to complete a 10-day course. Infectious diseases is following. Very guarded prognosis overall. Continue to monitor for contraction alkalosis. Patient is having bowel movements. Stressed to the patient the importance of pulmonary recruitment measures such as incentive spirometer. Patient continues to diurese on a daily basis and renal function appears to be tolerating. Continue to monitor every other day for renal complications. Patient may benefit from LTAC referral if hopes to remain aggressive 2. Acute kidney injury Stable. Likely multifactorial with prerenal and obstructive uropathy contributing. Continue to monitor urine output. No current indication for renal replacement therapy. Doubt patient would tolerate an extra dose of Lasix at this time, but contraction alkalosis appears to be stable 3. E. 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 The patient has completed his antibiotic treatment course per the discretion of infectious diseases. Patient with no fever overnight. 4. History of non-Hodgkin's lymphoma Complicates care, management, recovery and prognosis. Oncology does not have any additional plans for further inpatient work-up. Clinical concern for recurrence of lymphoma leading to the anterior mediastinal mass. Patient would likely benefit from oncology input as an inpatient to help with prognosis and goals of therapy. Defer to hospitalist. Patient is very clear that he does not want to have any intubation performed. Patient was asking when chemotherapy will be started. Inpatient E&M: [id number] [facility] Hosp L3
[2020-09-26] MEDS: Tamsulosin HCl 0.4 MG Capsule PO (21:22)
[2020-09-26] MEDS: Acetaminophen 325 MG Tablet 650 MG PO (21:28)
[2020-09-27] VITALS (19 sets, daily range): BP systolic 87–106; BP diastolic 52–66; PULSE 72–108; RESP 18–24; TEMP 36.3–36.7; O2SAT 91–98
[2020-09-27] MEDS: Menthol/Lanolin/Calamine/Znox 113 GM Tube 1 APPLIC TOPICAL ×2 (08:35→21:19)
[2020-09-27] MEDS: dexAMETHasone 4 MG Tablet 6 MG PO (08:35)
[2020-09-27] MEDS: APIXABAN 5 MG TABLET PO ×2 (08:36→21:14)
[2020-09-27] MEDS: Furosemide 40 MG/4 ML Vial IV (08:36)
[2020-09-27] MEDS: 0.9% Saline Lock 10 ML Syringe IV ×3 (08:37→18:13)
[2020-09-27 08:39] LABS: Basophil# 0.11 X10^3/uL; Basophil% 0.3 % (0-1); Eosinophil# 0.01 X10^3/uL; Hematocrit 29.1 % (40-54); Lymphocyte % 5.1 % (19-41); Mean Corp Hgb Conc 30.9 g/dL (32-36); Mean Corpuscular Hgb 24.9 pg (27.0-32.0); Mean Corpuscular Volume 80.4 fL (80-94); Monocyte# 0.89 X10^3/uL; Monocyte% 2.8 % (0-10); NRBC Flagged by Analyzer 0 % (0-5); Neutrophil # 28.04 X10^3/uL (2.7-7.7); Neutrophil % 89.1 % (47-70); POSITIVE COUNT YES; POSITIVE DIFFERENTIAL YES; Platelet Count 440 K/mm3 (150-450); RBC Distribution Width CV 15.4 % (11.6-14.6); Red Blood Count 3.62 M/mm3 (4.6-6.2)
[2020-09-27 08:42] LABS: Differential Indicated SCAN CRITERIA MET
[2020-09-27 08:43] LABS: White Blood Count 31.5 K/mm3 (4.4-11.0)
[2020-09-27 09:05] LABS: Anion Gap 10 (5-15); BUN 84 mg/dL (7-18); BUN/Creat Ratio 65.1 RATIO (10-20); Calcium,Total 8.6 mg/dL (8.5-10.1); Chloride 101 mmol/L (98-107); Creatinine, Serum 1.29 mg/dL (0.70-1.30); EST Glomerular Filtration Rate 59 mL/min (>60); Est Glom Filt Rate - Afr Amer 72 mL/min (>60); Glucose 86 mg/dL (74-106); Potassium 4.1 mmol/L (3.5-5.1); Sodium Level 135 mmol/L (136-145)
[2020-09-27 09:07] LABS: Differential Comment SCANNED; Hypochromasia 2+
--- NOTE | 2020-09-27 09:13 | PN_ITS ---
Patient Problems: Active and Suspected Problems (Last Updated 09/12/20 @ 20:[address] Hector De Santiago, DO) Renal failure (Acute) Ureteral calculus (Acute) Pyelonephritis (Acute) Pneumonia due to COVID-19 virus (Acute) Omental mass (Acute) Subjective: The patient was seen and examined at the bedside this morning. Events from the last 24 hours have been reviewed. The patient is currently afebrile, hemodynamically stable and maintaining appropriate oxygen saturations on 9 L/min via nasal cannula. There has been some marginal improvement in the patient's oxygenation status. He otherwise feels about the same. Objective: The patient's most recent lab work, culture data and imaging studies have all been personally reviewed. Coronavirus PCR was positive on September 12. Urine culture was positive for E. coli. - Physical Exam Vitals/I&O's: Vital Signs Temp Pulse Resp BP Pulse Ox 97.9 F 83 20 H 97/56 L 92 09/27/20 08:00 09/27/20 08:00 09/27/20 08:00 09/27/20 08:00 09/27/20 08:00 Oxygen Flow Rate (L/min) 9 Oxygen Delivery Method Nasal Cannula Weight: 156 lb 12.79 oz Body Mass Index (BMI) 23.8 Intake and Output for Last 24 Hours 09/26/20 09/26/20 09/27/20 00:59 23:59 23:59 Intake Total 700 / 700 Output Total 975 / 975 Balance -275 / -275 General: Alert, Cooperative, No apparent distress HEENT: Atraumatic, Normocephalic Oral: No Gingival or Mucosal Lesions/ Ulcerations Neck: Supple, No Nodes, Trachea Midline Lungs: Diminished Cardiovascular: Regular rate, Regular Rhythm Abdomen: Bowel Sounds Present, Soft, Non Tender Extremities: No clubbing, No cyanosis, No edema Skin: No breakdown Musculoskeletal: No Tenderness to Palpation of Joints or Extremities Lymphatic: No Cervical, Supraclavicular, or Inguinal Adenopathy Neurological: Cranial nerves II-XII grossly intact, Neuro grossly intact Psych/Mental Status: Normal Affect Labs (Last 48 Hours) 09/26/20 09/27/20 09/27/20 06:59 08:26 08:26 WBC 31.5 H* RBC 3.62 L Hgb 9.0 L Hct 29.1 L MCV 80.4 MCH 24.9 L MCHC 30.9 L RDW Std Deviation 45.0 H RDW Coeff of Ashok 15.4 H Plt Count 440 MPV 12.0 Immature Gran % (Auto) 2.700 H Neut % (Auto) 89.1 H Lymph % (Auto) 5.1 L [place] % (Auto) 2.8 Eos % (Auto) 0.0 Baso % (Auto) 0.3 Absolute Neuts (auto) 28.0 H Absolute Lymphs (auto) 1.60 Nucleated RBC % 0 Differential Comment SCANNED Diff Path Review May foll Hypochromasia 2+ Sodium 133 L 135 L Potassium 4.2 4.1 Chloride 98 101 Carbon Dioxide 24.0 24.0 Anion Gap 11 10 BUN 80 H 84 H Creatinine 1.32 H 1.29 Estim Creat Clear Calc 53.26 54.50 Est GFR (MDRD) Af Amer 70 72 Est GFR (MDRD) Non-Af 58 L 59 L BUN/Creatinine Ratio 60.6 H 65.1 H Glucose 85 86 Calcium 8.6 8.6 Clinical Impression(s) from Imaging Studies Abdomen/Pelvis CT 09/12/20 16:20 IMPRESSION: Partially imaged right anterior chest wall/pleural based mass. Large abdominal mass with omental thickening and nodularity. Soft tissue densities along the paracolic gutters is noted. Bilateral renal cysts. Obstructive calculi within the distal left ureter and left UVJ. Free fluid in the pelvis. Retroperitoneal and inguinal adenopathy. Mild ascites. Mild wall thickening of the bladder. Electronically Signed: Lebron Ibarra DO at 18:51 EDT Tel [phone], Service support , Chest X-Ray 09/12/20 18:00 IMPRESSION: Bilateral interstitial densities with possible bilateral perihilar infiltrates. Pulmonary vascular prominence. Electronically Signed: Lebron Ibarra DO at 18:29 EDT Tel [phone], Service support , Chest CT 09/14/20 13:30 IMPRESSION: Dense infiltrates in both lungs as described. Anterior chest wall mass as described. Soft tissue mass in the anterior aspect of the lower thorax at the right cardiophrenic junction. Electronically Signed: Ok Solis, at 15:51 EDT , Service support , ADDENDUM: 09/14/20 1559 Chest X-Ray 09/17/20 10:15 IMPRESSION: Progressive bilateral patchy infiltrates worse in the left lower lobe. Electronically Signed: Ok Solis, at 15:13 EDT , Service support , Current Medications Acetaminophen (Acetaminophen 325 Mg Tablet) 650 mg PO Q6H PRN PRN PRN Reason: Pain Score 1-10/Temp > 100.7 F Last Admin: 09/26/20 21:28 Dose: 650 mg Documented by: Albuterol Sulfate (Albuterol Sulfate Hfa 6.7 Gm Inhaler (200 Puffs)) 2 puff IH Q4H PRN PRN PRN Reason: COUGH Last Admin: 09/24/20 09:42 Dose: 2 puff Documented by: Apixaban (Apixaban 5 Mg Tablet) 5 mg PO BID [facility] Last Admin: 09/27/20 08:36 Dose: 5 mg Documented by: Calamine/Phenol (Menthol/Lanolin/Calamine/Znox 113 Gm Tube) 1 applic TOPICAL BID [facility]; Protocol Last Admin: 09/27/20 08:35 Dose: 1 applicatio Documented by: Dexamethasone (Dexamethasone 4 Mg Tablet) 6 mg PO DAILY [facility] Last Admin: 09/27/20 08:35 Dose: 6 mg Documented by: Furosemide (Furosemide 40 Mg/4 Ml Vial) 40 mg IV DAILY [facility] Last Admin: 09/27/20 08:36 Dose: 40 mg Documented by: Heparin Sodium (Porcine) (Heparin Injection (Vial) 5,000 Unit/Ml Vial) 0 unit IV UD PRN; Protocol PRN Reason: dose adjustment Last Admin: 09/21/20 20:46 Dose: 1,000 unit Documented by: Ibuprofen (Ibuprofen 400 Mg Tablet) 400 mg PO Q4H PRN PRN PRN Reason: Pain Score 1-10/Temp > 100.7 F Miscellaneous Information (Inhaler, Assist Devices 1 Each Spacer) 1 each INHALATION PRN PRN PRN Reason: WITH ALBUTEROL MDI Last Admin: 09/14/20 21:58 Dose: 1 each Documented by: Ondansetron HCl (Ondansetron 4 Mg/2 Ml Vial) 4 mg IV Q8H PRN PRN PRN Reason: NAUSEA/VOMITING Last Admin: 09/19/20 08:36 Dose: 4 mg Documented by: Oxycodone HCl (Oxycodone 5 Mg Tablet) 5 mg PO Q4H PRN PRN PRN Reason: Pain Score 4-5 Last Admin: 09/14/20 09:56 Dose: 5 mg Documented by: Oxycodone HCl (Oxycodone 5 Mg Tablet) 10 mg PO Q4H PRN PRN PRN Reason: Pain Score 6-10 Sodium Chloride (0.9% Saline Lock 10 Ml Syringe) 10 - 40 ml IV UD PRN PRN Reason: SALINE FLUSH Last Admin: 09/27/20 08:37 Dose: 10 ml Documented by: Sodium Chloride (0.9% Saline Lock 10 Ml Syringe) 10 - 40 ml IV UD PRN PRN Reason: Midline Flush Sodium Chloride (0.9 % Nacl (Sterile) Posiflush 10 Ml) 10 - 40 ml IV UD PRN PRN Reason: Port access or dressing change Tamsulosin HCl (Tamsulosin Hcl 0.4 Mg Capsule) 0.4 mg PO QHS [facility] Last Admin: 09/26/20 21:22 Dose: 0.4 mg Documented by: Medical Necessity - Tobacco Use Smoking Status: Never smoker Assessment/Plan All Active Problems (Last Updated 09/12/20 @ 20:[address] Hector De Santiago, DO) Renal failure (Acute) Ureteral calculus (Acute) Pyelonephritis (Acute) Pneumonia due to COVID-19 virus (Acute) Omental mass (Acute) RECOMMENDATIONS: 1. Continue high flow nasal cannula versus BiPAP rescue. Wean oxygen to maintain saturations at or above 90%. 2. Continue patient on Decadron 6 mg daily. 3. Attempt gentle diuresis as tolerated by hemodynamics and renal function. 4. The patient will require further outpatient work-up of the mass noted on CT chest along with the findings noted on CT abdomen/pelvis. 5. Would not recommend pursuing biopsy at this time as this is likely not the etiology of his acute hypoxic respiratory failure 6. Poor long-term prognosis given probable underlying malignancy with COVID-19 IMPRESSIONS: 1. Acute hypoxemic respiratory failure secondary to Covid pneumonia Plan to continue current supportive measures including high flow nasal cannula support with a goal to maintain saturations at or above 90%. Continue the patient on Decadron 6 mg daily to complete a 10-day course. Infectious diseases is following. Very guarded prognosis overall. Continue to encourage incentive spirometer use and mobilize patient as tolerated. Patient continues to diurese on a daily basis and renal function appears to be tolerating. Patient may benefit from LTAC referral if hopes to remain aggressive. 2. Acute kidney injury Improving. Likely multifactorial with prerenal and obstructive uropathy contributing. Continue to monitor urine output. No current indication for renal replacement therapy. 3. E. 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 The patient has completed his antibiotic treatment course per the discretion of infectious diseases. 4. History of non-Hodgkin's lymphoma Complicates care, management, recovery and prognosis. Oncology does not have any additional plans for further inpatient work-up. Clinical concern for recurrence of lymphoma leading to the anterior mediastinal mass. Patient would likely benefit from oncology input as an inpatient to help with prognosis and goals of therapy. Defer to hospitalist. This note was generated with [employer] dictation software. It may contain incorrect words, spelling, and punctuation that were not noted in checking the note before signing. Inpatient E&M: [id number] Subs Hosp L2
--- NOTE | 2020-09-27 13:12 | PCM.PN.HOSP ---
Patient Problems: Active and Suspected Problems (Last Updated 09/12/20 @ 20:[address] Hector De Santiago, DO) Renal failure (Acute) Ureteral calculus (Acute) Pyelonephritis (Acute) Pneumonia due to COVID-19 virus (Acute) Omental mass (Acute) Subjective: Patient seen and examined. He had no complaints. he remains short of breath. He is on 10 L of oxygen. Vitals show blood pressure of 89/55 but otherwise hemodynamically stable. WBC is up to 31.5 today. White cell count appears to be chronically elevated though this is the highest it has been since has been here. He does have a history of lymphoma but did not complete his treatment. Oncology is on board and recommend him following up on outpatient basis. Vitals/I&O's: Vital Signs Temp Pulse Resp BP Pulse Ox 98.0 F 96 18 89/55 L 95 09/27/20 13:00 09/27/20 13:00 09/27/20 13:00 09/27/20 13:00 09/27/20 13:00 Oxygen Flow Rate (L/min) 10 Oxygen Delivery Method Nasal Cannula Weight: 156 lb 12.79 oz Body Mass Index (BMI) 23.8 Intake and Output for Last 24 Hours 09/26/20 09/26/20 09/27/20 00:59 23:59 23:59 Intake Total 940 / 940 Output Total 1225 / 1225 Balance -285 / -285 General: Alert, Oriented x3, Cooperative, No apparent distress HEENT: Atraumatic, PERRLA, EOMI, Normocephalic Oral: Moist Mucosa Neck: Supple, No JVD, Negative Carotid Bruits Lungs: - - mildly decreased breath sounds bibasally, no wheezes or crackles. On 10L of oxygen. Cardiovascular: Regular rate, Regular Rhythm, Normal S1, Normal S2, No murmurs Abdomen: Bowel Sounds Present, Soft, Non Tender, - - firm, erythematous umbilical mass, nontender to touch- is chronically present. Extremities: No clubbing, No cyanosis, No edema, Capillary Refill Less than 3 Seconds Skin: No rashes, No breakdown Musculoskeletal: No Tenderness to Palpation of Joints or Extremities Lymphatic: No Cervical, Supraclavicular, or Inguinal Adenopathy Neurological: Cranial nerves II-XII grossly intact, Neuro grossly intact, Motor Exam 5/5 strength throughout Psych/Mental Status: Normal Affect, Appropriate, Alert and oriented to time, place, person, mood and affect Laboratory Results 09/27/20 08:26: WBC 31.5 H*, RBC 3.62 L, Hgb 9.0 L, Hct 29.1 L, MCV 80.4, MCH 24.9 L, MCHC 30.9 L, RDW Std Deviation 45.0 H, RDW Coeff of Ashok 15.4 H, Plt Count 440, MPV 12.0, Immature Gran % (Auto) 2.700 H, Neut % (Auto) 89.1 H, Lymph % (Auto) 5.1 L, Stark % (Auto) 2.8, Eos % (Auto) 0.0, Baso % (Auto) 0.3, Absolute Neuts (auto) 28.0 H, Absolute Lymphs (auto) 1.60, Nucleated RBC % 0, Differential Comment SCANNED, Diff Path Review May foll, Hypochromasia 2+ 09/27/20 08:26: Sodium 135 L, Potassium 4.1, Chloride 101, Carbon Dioxide 24.0, Anion Gap 10, BUN 84 H, Creatinine 1.29, Estim Creat Clear Calc 54.50, Est GFR (MDRD) Af Amer 72, Est GFR (MDRD) Non-Af 59 L, BUN/Creatinine Ratio 65.1 H, Glucose 86, Calcium 8.6 Diagnostic Data Abdomen/Pelvis CT 09/12/20 16:20 IMPRESSION: Partially imaged right anterior chest wall/pleural based mass. Large abdominal mass with omental thickening and nodularity. Soft tissue densities along the paracolic gutters is noted. Bilateral renal cysts. Obstructive calculi within the distal left ureter and left UVJ. Free fluid in the pelvis. Retroperitoneal and inguinal adenopathy. Mild ascites. Mild wall thickening of the bladder. Electronically Signed: Lebron Ibarra DO at 18:51 EDT Tel [phone], Service support , Chest CT 09/14/20 13:30 IMPRESSION: Dense infiltrates in both lungs as described. Anterior chest wall mass as described. Soft tissue mass in the anterior aspect of the lower thorax at the right cardiophrenic junction. Electronically Signed: Ok Solis, at 15:51 EDT , Service support , ADDENDUM: 09/14/20 1559 Chest X-Ray 09/17/20 10:15 IMPRESSION: Progressive bilateral patchy infiltrates worse in the left lower lobe. Electronically Signed: Ok Solis, at 15:13 EDT , Service support , Current Medications Acetaminophen (Acetaminophen 325 Mg Tablet) 650 mg PO Q6H PRN PRN PRN Reason: Pain Score 1-10/Temp > 100.7 F Last Admin: 09/26/20 21:28 Dose: 650 mg Documented by: Albuterol Sulfate (Albuterol Sulfate Hfa 6.7 Gm Inhaler (200 Puffs)) 2 puff IH Q4H PRN PRN PRN Reason: COUGH Last Admin: 09/24/20 09:42 Dose: 2 puff Documented by: Apixaban (Apixaban 5 Mg Tablet) 5 mg PO BID [facility] Last Admin: 09/27/20 08:36 Dose: 5 mg Documented by: Calamine/Phenol (Menthol/Lanolin/Calamine/Znox 113 Gm Tube) 1 applic TOPICAL BID [facility]; Protocol Last Admin: 09/27/20 08:35 Dose: 1 applicatio Documented by: Dexamethasone (Dexamethasone 4 Mg Tablet) 6 mg PO DAILY [facility] Last Admin: 09/27/20 08:35 Dose: 6 mg Documented by: Furosemide (Furosemide 40 Mg/4 Ml Vial) 40 mg IV DAILY [facility] Last Admin: 09/27/20 08:36 Dose: 40 mg Documented by: Heparin Sodium (Porcine) (Heparin Injection (Vial) 5,000 Unit/Ml Vial) 0 unit IV UD PRN; Protocol PRN Reason: dose adjustment Last Admin: 09/21/20 20:46 Dose: 1,000 unit Documented by: Ibuprofen (Ibuprofen 400 Mg Tablet) 400 mg PO Q4H PRN PRN PRN Reason: Pain Score 1-10/Temp > 100.7 F Miscellaneous Information (Inhaler, Assist Devices 1 Each Spacer) 1 each INHALATION PRN PRN PRN Reason: WITH ALBUTEROL MDI Last Admin: 09/14/20 21:58 Dose: 1 each Documented by: Ondansetron HCl (Ondansetron 4 Mg/2 Ml Vial) 4 mg IV Q8H PRN PRN PRN Reason: NAUSEA/VOMITING Last Admin: 09/19/20 08:36 Dose: 4 mg Documented by: Oxycodone HCl (Oxycodone 5 Mg Tablet) 5 mg PO Q4H PRN PRN PRN Reason: Pain Score 4-5 Last Admin: 09/14/20 09:56 Dose: 5 mg Documented by: Oxycodone HCl (Oxycodone 5 Mg Tablet) 10 mg PO Q4H PRN PRN PRN Reason: Pain Score 6-10 Sodium Chloride (0.9% Saline Lock 10 Ml Syringe) 10 - 40 ml IV UD PRN PRN Reason: SALINE FLUSH Last Admin: 09/27/20 08:37 Dose: 10 ml Documented by: Sodium Chloride (0.9% Saline Lock 10 Ml Syringe) 10 - 40 ml IV UD PRN PRN Reason: Midline Flush Sodium Chloride (0.9 % Nacl (Sterile) Posiflush 10 Ml) 10 - 40 ml IV UD PRN PRN Reason: Port access or dressing change Tamsulosin HCl (Tamsulosin Hcl 0.4 Mg Capsule) 0.4 mg PO QHS [facility] Last Admin: 09/26/20 21:22 Dose: 0.4 mg Documented by: STROKE Vital Signs/Narrative: Vital Signs Temp Pulse Resp BP Pulse Ox 09/27/20 13:00 98.0 F 96 18 89/55 L 95 09/27/20 12:00 97.6 F L 98 20 H 90/52 L 94 09/27/20 11:00 108 H 09/27/20 10:00 97.6 F L 99 20 H 93/55 L 94 Medical Necessity - Tobacco Use Smoking Status: Never smoker Assessment/Plan All Active Problems (Last Updated 09/12/20 @ 20:[address] Hector De Santiago ) Renal failure (Acute) Ureteral calculus (Acute) Pyelonephritis (Acute) Pneumonia due to COVID-19 virus (Acute) Omental mass (Acute) #Acute hypoxic respiratory failure due to COVID 19 pneumonia Still requiring increasing amounts of oxygen. 10 L of oxygen today. ID on board and pulmonology on board. CT of the chest on admission showed infiltrates in both lungs with an anterior chest wall mass Also noted to be fluid overloaded. Currently on Eliquis. on IV lasix # BELEM Resolved. Creatinine is 1.29. #History of lymphoma Did not complete treatment. Imaging done on admission showed large abdominal mass with omental thickening and nodularity as well as soft tissue densities along the pericolic gutters. Also has chest masses as per CAT scan. Oncology was consulted recommended that he follows up on outpatient basis. #UTI: Completed 5 days of Rocephin. He does have a history of ureteral stents due to malignancy causing obstruction. White cell count is up to 31.5 today. There is however no clear focus of infection. Monitor for now. Anemia: Hemoglobin is 9. Has been in between 8 and 9 since admission. Monitor. DVT prophylaxis: On Eliquis
[2020-09-27] MEDS: Tamsulosin HCl 0.4 MG Capsule PO (21:14)
[2020-09-27] MEDS: Acetaminophen 325 MG Tablet 650 MG PO (21:18)
[2020-09-28] VITALS (15 sets, daily range): BP systolic 102–117; BP diastolic 62–71; PULSE 74–98; RESP 20–36; TEMP 36.3–36.6; O2SAT 91–99
[2020-09-28 06:57] LABS: Absolute Lymphocyte Count 1.23 X10^3/uL (0.83-4.51); Absolute Neutrophil Count 27.9 X10^3/uL (2.0-7.7); Basophil# 0.14 X10^3/uL; Basophil% 0.4 % (0-1); Eosinophil# 0.02 X10^3/uL; Eosinophils% 0.1 % (0-5); Hemoglobin 8.8 g/dL (13.0-16.5); Lymphocyte # 1.23 X10^3/ul (4.0); Lymphocyte % 3.9 % (19-41); Mean Corp Hgb Conc 30.3 g/dL (32-36); Mean Corpuscular Hgb 25.1 pg (27.0-32.0); Mean Corpuscular Volume 82.6 fL (80-94); Mean Platelet Vol. 12.6 fl (6.2-12.0); Monocyte# 1.01 X10^3/uL; Monocyte% 3.2 % (0-10); NRBC Flagged by Analyzer 0 % (0-5); Neutrophil % 88.6 % (47-70); POSITIVE COUNT YES; POSITIVE DIFFERENTIAL YES; Platelet Count 486 K/mm3 (150-450); RBC Distribution Width CV 15.7 % (11.6-14.6); RBC Distribution Width SD 46.3 fl (35.1-43.9); Red Blood Count 3.51 M/mm3 (4.6-6.2)
[2020-09-28 07:01] LABS: Differential Indicated SCAN CRITERIA MET; White Blood Count 31.5 K/mm3 (4.4-11.0)
[2020-09-28 07:34] LABS: Anion Gap 10 (5-15); BUN 83 mg/dL (7-18); Calcium,Total 8.6 mg/dL (8.5-10.1); Chloride 99 mmol/L (98-107); Creatinine, Serum 1.36 mg/dL (0.70-1.30); EST Glomerular Filtration Rate 56 mL/min (>60); Est Glom Filt Rate - Afr Amer 67 mL/min (>60); Estimated Creatinine Clearance 51.69 ml/min; Glucose 92 mg/dL (74-106); Potassium 3.9 mmol/L (3.5-5.1); Sodium Level 135 mmol/L (136-145)
--- NOTE | 2020-09-28 07:46 | PN_ITS ---
Patient Problems: Active and Suspected Problems (Last Updated 09/12/20 @ 20:[address] Hector De Santiago, DO) Renal failure (Acute) Ureteral calculus (Acute) Pyelonephritis (Acute) Pneumonia due to COVID-19 virus (Acute) Omental mass (Acute) Subjective: Patient seen and examined today. He is now down to 8 L of oxygen and has no complaints. He has otherwise remained hemodynamically stable. White cell count still remains 31.5. Vitals/I&O's: Vital Signs Temp Pulse Resp BP Pulse Ox 97.5 F L 79 20 H 117/71 98 09/28/20 03:35 09/28/20 07:07 09/28/20 03:35 09/28/20 03:35 09/28/20 03:43 Oxygen Flow Rate (L/min) 8 Oxygen Delivery Method Nasal Cannula Weight: 156 lb 12.79 oz Body Mass Index (BMI) 23.8 Intake and Output for Last 24 Hours 09/26/20 09/27/20 09/28/20 23:59 23:59 23:59 Intake Total 1680 / 1680 250 / 250 Output Total 2175 / 2175 450 / 450 Balance -495 / -495 -200 / -200 General: Alert, Oriented x3, Cooperative, No apparent distress HEENT: Atraumatic, PERRLA, EOMI, Normocephalic Oral: Moist Mucosa Neck: Supple, No JVD, Negative Carotid Bruits Lungs: - - mildly decreased breath sounds bibasally, no wheezes or crackles. On 8L of oxygen. Cardiovascular: Regular rate, Regular Rhythm, Normal S1, Normal S2, No murmurs Abdomen: Bowel Sounds Present, Soft, Non Tender, - - firm, erythematous umbilical mass, nontender to touch- is chronically present. Extremities: No clubbing, No cyanosis, No edema, Capillary Refill Less than 3 Seconds Skin: No rashes, No breakdown Musculoskeletal: No Tenderness to Palpation of Joints or Extremities Lymphatic: No Cervical, Supraclavicular, or Inguinal Adenopathy Neurological: Cranial nerves II-XII grossly intact, Neuro grossly intact, Motor Exam 5/5 strength throughout Psych/Mental Status: Normal Affect, Appropriate, Alert and oriented to time, place, person, mood and affect Laboratory Results 09/27/20 08:26: WBC 31.5 H*, RBC 3.62 L, Hgb 9.0 L, Hct 29.1 L, MCV 80.4, MCH 24.9 L, MCHC 30.9 L, RDW Std Deviation 45.0 H, RDW Coeff of Ashok 15.4 H, Plt Count 440, MPV 12.0, Immature Gran % (Auto) 2.700 H, Neut % (Auto) 89.1 H, Lymph % (Auto) 5.1 L, Haines % (Auto) 2.8, Eos % (Auto) 0.0, Baso % (Auto) 0.3, Absolute Neuts (auto) 28.0 H, Absolute Lymphs (auto) 1.60, Nucleated RBC % 0, Differential Comment SCANNED, Diff Path Review [facility], Hypochromasia 2+ 09/27/20 08:26: Sodium 135 L, Potassium 4.1, Chloride 101, Carbon Dioxide 24.0, Anion Gap 10, BUN 84 H, Creatinine 1.29, Estim Creat Clear Calc 54.50, Est GFR (MDRD) Af Amer 72, Est GFR (MDRD) Non-Af 59 L, BUN/Creatinine Ratio 65.1 H, Glucose 86, Calcium 8.6 09/28/20 06:00: WBC 31.5 H*, RBC 3.51 L, Hgb 8.8 L, Hct 29.0 L, MCV 82.6, MCH 25.1 L, MCHC 30.3 L, RDW Std Deviation 46.3 H, RDW Coeff of Ashok 15.7 H, Plt Count 486 H, MPV 12.6 H, Immature Gran % (Auto) 3.800 H, Neut % (Auto) 88.6 H, Lymph % (Auto) 3.9 L, Haines % (Auto) 3.2, Eos % (Auto) 0.1, Baso % (Auto) 0.4, Absolute Neuts (auto) 27.9 H, Absolute Lymphs (auto) 1.23, Nucleated RBC % 0, Differential Comment COMMENT, Diff Path Review March [facility] 09/28/20 06:00: Sodium 135 L, Potassium 3.9, Chloride 99, Carbon Dioxide 26.0, Anion Gap 10, BUN 83 H, Creatinine 1.36 H, Estim Creat Clear Calc 51.69, Est GFR (MDRD) Af Amer 67, Est GFR (MDRD) Non-Af 56 L, BUN/Creatinine Ratio 61.0 H, Glucose 92, Calcium 8.6 Diagnostic Data Abdomen/Pelvis CT 09/12/20 16:20 IMPRESSION: Partially imaged right anterior chest wall/pleural based mass. Large abdominal mass with omental thickening and nodularity. Soft tissue densities along the paracolic gutters is noted. Bilateral renal cysts. Obstructive calculi within the distal left ureter and left UVJ. Free fluid in the pelvis. Retroperitoneal and inguinal adenopathy. Mild ascites. Mild wall thickening of the bladder. Electronically Signed: Lebron Ibarra DO at 18:51 EDT Tel [phone], Service support , Chest CT 09/14/20 13:30 IMPRESSION: Dense infiltrates in both lungs as described. Anterior chest wall mass as described. Soft tissue mass in the anterior aspect of the lower thorax at the right cardiophrenic junction. Electronically Signed: Ok Solis, at 15:51 EDT , Service support , ADDENDUM: 09/14/20 1559 Chest X-Ray 09/17/20 10:15 IMPRESSION: Progressive bilateral patchy infiltrates worse in the left lower lobe. Electronically Signed: Ok Solis, at 15:13 EDT , Service support , Current Medications Acetaminophen (Acetaminophen 325 Mg Tablet) 650 mg PO Q6H PRN PRN PRN Reason: Pain Score 1-10/Temp > 100.7 F Last Admin: 09/27/20 21:18 Dose: 650 mg Documented by: Albuterol Sulfate (Albuterol Sulfate Hfa 6.7 Gm Inhaler (200 Puffs)) 2 puff IH Q4H PRN PRN PRN Reason: COUGH Last Admin: 09/24/20 09:42 Dose: 2 puff Documented by: Apixaban (Apixaban 5 Mg Tablet) 5 mg PO BID [facility] Last Admin: 09/27/20 21:14 Dose: 5 mg Documented by: Calamine/Phenol (Menthol/Lanolin/Calamine/Znox 113 Gm Tube) 1 applic TOPICAL BID [facility]; Protocol Last Admin: 09/27/20 21:19 Dose: 1 applicatio Documented by: Dexamethasone (Dexamethasone 4 Mg Tablet) 6 mg PO DAILY [facility] Last Admin: 09/27/20 08:35 Dose: 6 mg Documented by: Heparin Sodium (Porcine) (Heparin Injection (Vial) 5,000 Unit/Ml Vial) 0 unit IV UD PRN; Protocol PRN Reason: dose adjustment Last Admin: 09/21/20 20:46 Dose: 1,000 unit Documented by: Ibuprofen (Ibuprofen 400 Mg Tablet) 400 mg PO Q4H PRN PRN PRN Reason: Pain Score 1-10/Temp > 100.7 F Miscellaneous Information (Inhaler, Assist Devices 1 Each Spacer) 1 each INHALATION PRN PRN PRN Reason: WITH ALBUTEROL MDI Last Admin: 09/14/20 21:58 Dose: 1 each Documented by: Ondansetron HCl (Ondansetron 4 Mg/2 Ml Vial) 4 mg IV Q8H PRN PRN PRN Reason: NAUSEA/VOMITING Last Admin: 09/19/20 08:36 Dose: 4 mg Documented by: Oxycodone HCl (Oxycodone 5 Mg Tablet) 5 mg PO Q4H PRN PRN PRN Reason: Pain Score 4-5 Last Admin: 09/14/20 09:56 Dose: 5 mg Documented by: Oxycodone HCl (Oxycodone 5 Mg Tablet) 10 mg PO Q4H PRN PRN PRN Reason: Pain Score 6-10 Sodium Chloride (0.9% Saline Lock 10 Ml Syringe) 10 - 40 ml IV UD PRN PRN Reason: SALINE FLUSH Last Admin: 09/27/20 18:13 Dose: 10 ml Documented by: Sodium Chloride (0.9% Saline Lock 10 Ml Syringe) 10 - 40 ml IV UD PRN PRN Reason: Midline Flush Last Admin: 09/27/20 17:03 Dose: 20 ml Documented by: Sodium Chloride (0.9 % Nacl (Sterile) Posiflush 10 Ml) 10 - 40 ml IV UD PRN PRN Reason: Port access or dressing change Tamsulosin HCl (Tamsulosin Hcl 0.4 Mg Capsule) 0.4 mg PO QHS [facility] Last Admin: 09/27/20 21:14 Dose: 0.4 mg Documented by: STROKE Vital Signs/Narrative: Vital Signs Pulse 09/28/20 07:07 79 09/28/20 04:06 80 Medical Necessity - Tobacco Use Smoking Status: Never smoker Assessment/Plan All Active Problems (Last Updated 09/12/20 @ 20:[address] Hector De Santiago, DO) Renal failure (Acute) Ureteral calculus (Acute) Pyelonephritis (Acute) Pneumonia due to COVID-19 virus (Acute) Omental mass (Acute) #Acute hypoxic respiratory failure due to COVID 19 pneumonia * oxygen requirements down to 8L of oxygen now * ID on board and pulmonology on board. * on IV decadron. * CT of the chest on admission showed infiltrates in both lungs with an anterior chest wall mass * Also noted to be fluid overloaded. Currently on Eliquis. on IV lasix * titrate oxygen to maintain sats>90% # BELEM * Resolved. #History of lymphoma * Did not complete treatment. Imaging done on admission showed large abdominal mass with omental thickening and nodularity as well as soft tissue densities along the pericolic gutters. Also has chest masses as per CAT scan. * Oncology was consulted recommended that he follows up on outpatient basis. * #Leucocytosis: * wbc still elevated at 31.5 today. * He does have chronically elevated white cell counts but this is much higher than previously. It is mainly neutrophilia. He has completed a 5-day course of IV Rocephin for UTI. * His oxygen requirements is also improving. * Is on high doses of steroids which would also be contributing as there is no clear evidence of infection. Will monitor. * #UTI: * Completed 5 days of Rocephin. * stable Anemia: Hemoglobin is 8.8 today. Has been in between 8 and 9 since admission. Monitor. DVT prophylaxis: On Eliquis Inpatient E&M: 84888 Subs Hosp L3
[2020-09-28] MEDS: dexAMETHasone 4 MG Tablet 6 MG PO (09:25)
[2020-09-28] MEDS: Menthol/Lanolin/Calamine/Znox 113 GM Tube 1 APPLIC TOPICAL ×2 (09:26→21:07)
[2020-09-28] MEDS: APIXABAN 5 MG TABLET PO ×2 (09:26→21:07)
--- NOTE | 2020-09-28 10:33 | CASEMGMT ---
Addendum entered by Sarah Huynh 09/28/20 13:18: SW received message from Andrzej at [facility] stating they can accommodate up to 10L oxygen. SW attempted to call pt, pt currently on 8L of Oxygen, pt didn't answer phone. TANISHA placed a call to pt's sister Liliana and informed Liliana that with PT/OT yesterday pt was assist of two, recommendation is SNF. TANISHA updated Liliana on SNF currently accepting COVID+ pt's. Liliana asked if pt could return home with HHC. TANISHA explained that pt could return home, but HHC wouldn't be out everyday and pt would likely need 24/7 care as pt is assist of 2 for therapy. Liliana states the family could hire someone to assist. TNAISHA explained that hiring private duty aides are also an option for pt as well. Liliana states that she will like to speak to family this afternoon and requests SW follow up with her tomorrow. Liliana also requests pt to get retested for COVID and would like a medical update from RN. TANISHA will update RN. Original Note: Social Work Note Pt may need SNF at discharge. Pt currently on 8 L of oxygen. TANISHA placed calls to COVID accepting SNF. [facility]: Message left for Andrzej in admissions. Andrzej states that he thinks the concentrators for oxygen only go up to 10 L, is checking to confirm. [facility]: Heather states concentrator only goes up to 10 L. Pt not able to wear CPAP or Bipap. [facility]: Message left for admissions [facility]: Message left for Rosemarie in admissions [facility]: TANISHA spoke with Leny in admissions. lori Patton states concentrator only goes up to 10L. Pt would need to be on 8 L consistently before being considered. [facility]: SW attempted to call, call didn't go through. SW waiting for call back from SNF facilities for oxygen requirements. Sarah Huynh MANAGER REVENUE, LOCK TENDER CHIEF OPERATOR
--- NOTE | 2020-09-28 14:36 | CASEMGMT ---
Social Work Note TANISHA received message from a Madyson Mercedesr requesting update. Madyson Angela #[phone]. TANISHA placed a call to Madyson. Madyson states she is pt's sister in law, to pt's brother, and they live in [place]. Madyson states she phones in daily to get update on pt and then was transferred to this worker. TANISHA informed Madyson that this worker had spoke with pt's sister Liliana regarding discharge plans for pt. Madyson states that she hasn't talked to Liliana yet today and she will call her for an update. Sarah Huynh CLINICAL SCIENCE LIAISON, ORE FEEDER
[2020-09-28 14:44] LABS: Pathologist Review Reviewed
[2020-09-28 14:48] LABS: Pathologist Review Reviewed
--- NOTE | 2020-09-28 15:02 | CASEMGMT ---
Social Work Note SW received message from Ted at [facility] stating their COVID unit is currently floor. RN CM updated physician on COVID retest request. Current SNF options for pt are as follows. [facility]: Concentrators go up to 10L oxygen [facility]: Concentrators go up to 10L oxygen, no Bipap or CPAP [facility]: Concentrators go up to 10L oxygen, would like to see pt on 8L consistently Pt's sister Liliana has been updated on pt's PT/OT and Liliana is to speak with pt's family regarding discharge plans for pt and requested that SW call her tomorrow. TANISHA will follow up with Liliana tomorrow to confirm discharge plans. Plan: WILLIAM Huynh PATCH SANDER, SCAFFOLDER
[2020-09-28 17:12] LABS: Probe Check PASS
[2020-09-28] MEDS: Tamsulosin HCl 0.4 MG Capsule PO (21:07)
[2020-09-29] VITALS (13 sets, daily range): BP systolic 100–105; BP diastolic 63–70; PULSE 81–106; RESP 17–20; TEMP 36.2–36.8; O2SAT 91–99
[2020-09-29] MEDS: Acetaminophen 325 MG Tablet 650 MG PO (03:07)
[2020-09-29 06:46] LABS: Absolute Lymphocyte Count 1.86 X10^3/uL (0.83-4.51); Absolute Neutrophil Count 31.2 X10^3/uL (2.0-7.7); Basophil# 0.15 X10^3/uL; Basophil% 0.4 % (0-1); Eosinophil# 0.04 X10^3/uL; Eosinophils% 0.1 % (0-5); Hematocrit 26.8 % (40-54); Hemoglobin 8.2 g/dL (13.0-16.5); Lymphocyte # 1.86 X10^3/ul (4.0); Lymphocyte % 5.2 % (19-41); Mean Corp Hgb Conc 30.6 g/dL (32-36); Mean Corpuscular Volume 81.7 fL (80-94); Mean Platelet Vol. 11.9 fl (6.2-12.0); Monocyte# 1.29 X10^3/uL; Monocyte% 3.6 % (0-10); NRBC Flagged by Analyzer 0 % (0-5); Neutrophil # 31.22 X10^3/uL (2.7-7.7); Neutrophil % 87.5 % (47-70); POSITIVE COUNT YES; POSITIVE DIFFERENTIAL YES; Platelet Count 487 K/mm3 (150-450); RBC Distribution Width CV 15.5 % (11.6-14.6); RBC Distribution Width SD 45.5 fl (35.1-43.9); Red Blood Count 3.28 M/mm3 (4.6-6.2)
[2020-09-29 06:49] LABS: Differential Indicated SCAN CRITERIA MET; White Blood Count 35.7 K/mm3 (4.4-11.0)
[2020-09-29 07:02] LABS: Differential Comment SCANNED
[2020-09-29 07:10] LABS: Anion Gap 10 (5-15); BUN 67 mg/dL (7-18); BUN/Creat Ratio 59.3 RATIO (10-20); Calcium,Total 8.7 mg/dL (8.5-10.1); Chloride 99 mmol/L (98-107); Creatinine, Serum 1.13 mg/dL (0.70-1.30); EST Glomerular Filtration Rate 69 mL/min (>60); Est Glom Filt Rate - Afr Amer 84 mL/min (>60); Estimated Creatinine Clearance 62.21 ml/min; Glucose 101 mg/dL (74-106); Sodium Level 132 mmol/L (136-145)
[2020-09-29] MEDS: Menthol/Lanolin/Calamine/Znox 113 GM Tube 1 APPLIC TOPICAL ×2 (08:39→21:49)
[2020-09-29] MEDS: APIXABAN 5 MG TABLET PO ×2 (08:40→21:49)
[2020-09-29] MEDS: dexAMETHasone 4 MG Tablet 6 MG PO (08:40)
--- NOTE | 2020-09-29 11:48 | CASEMGMT ---
Addendum entered by Sarah Huynh 09/29/20 14:06: TANISHA received call from Heather at [facility] stating they are able to accept pt. Original Note: Social Work Note TANISHA placed a call to pt's sister Liliana to confirm discharge plans. TANISHA updated Liliana that pt is still requiring oxygen at 6-8L and per PT/OT yesterday pt was assist of 1. Liliana states well I talked to family but we haven't really figured it out yet. TANISHA explained importance of getting a discharge plan set in place so when pt is medically ready for discharge a plan has been established. Liliana asked what pt's needs will be at discharge. TANISHA explained that pt will need therapy and have oxygen requirements that family would need to assist with. TANISHA explained benefits of going to SNF vs going home with HHC. Liliana asked about rating's for [facility]. TANISHA updated that [facility] is rated 3/5 and [facility] is 1/5. Liliana agreeable to referral to [facility] at this time. TANISHA explained that on day of discharge if pt's family want to take pt home then they can decide to do so but it is beneficial to at least get a referral sent to SNF in the event pt will need SNF at discharge. Liliana states understanding, again agreeable to a referral being sent to [facility]. Liliana states that she will continue to talk to her family regarding taking pt at home as well. TANISHA overheard OT tell RN that while pt was ambulating pt required 8 L of oxygen and then at rest pt required 6 L of oxygen. TANISHA placed a call to Heather at [facility] and provided referral. TANISHA faxed referral. Plan: TBD. SNF vs Home Sarah Huynh PHARMACOLOGY TEACHER, RESTAURANT INSPECTOR
[2020-09-29 12:12] LABS: Pathologist Review Reviewed
--- NOTE | 2020-09-29 13:57 | PN_ITS ---
Patient Problems: Active and Suspected Problems (Last Updated 09/12/20 @ 20:[address] Hector De Santiago, DO) Renal failure (Acute) Ureteral calculus (Acute) Pyelonephritis (Acute) Pneumonia due to COVID-19 virus (Acute) Omental mass (Acute) Subjective: The patient was seen and examined at the bedside this morning. Events from the last 24 hours have been reviewed. The patient is currently afebrile, hemodynamically stable and maintaining appropriate oxygen saturations on 6 L/min via nasal cannula. The patient remains clinically stable with improving oxygenation status. He is currently documented to be overall net +1.8 L for the hospital admission. Creatinine is stable. Repeat Covid test yesterday was still positive. Objective: The patient's most recent lab work, culture data and imaging studies have all been personally reviewed. Coronavirus PCR was positive on September 12. Urine culture was positive for E. coli. - Physical Exam Vitals/I&O's: Vital Signs Temp Pulse Resp BP Pulse Ox 97.8 F 91 18 100/63 94 09/29/20 12:06 09/29/20 12:06 09/29/20 12:06 09/29/20 12:06 09/29/20 12:06 Oxygen Flow Rate (L/min) 6 Oxygen Delivery Method Nasal Cannula Weight: 156 lb 12.79 oz Body Mass Index (BMI) 23.8 Intake and Output for Last 24 Hours 09/27/20 09/28/20 09/29/20 23:59 23:59 23:59 Intake Total 1680 / 1680 690 / 690 480 / 480 Output Total 2175 / 2175 2100 / 2100 950 / 950 Balance -495 / -495 -1410 / -1410 -470 / -470 General: Alert, Cooperative HEENT: Atraumatic, Normocephalic Oral: No Gingival or Mucosal Lesions/ Ulcerations Neck: Supple, No Nodes, Trachea Midline Lungs: Diminished Cardiovascular: Regular rate, Regular Rhythm Abdomen: Bowel Sounds Present, Soft, Non Tender Extremities: No clubbing, No cyanosis, No edema Skin: No breakdown Musculoskeletal: No Tenderness to Palpation of Joints or Extremities Neurological: Cranial nerves II-XII grossly intact, Neuro grossly intact Psych/Mental Status: Normal Affect Labs (Last 48 Hours) 11/02/20 11/03/20 11/03/20 08:26 06:00 06:00 WBC 31.5 H* RBC 3.51 L Hgb 8.8 L Hct 29.0 L MCV 82.6 MCH 25.1 L MCHC 30.3 L RDW Std Deviation 46.3 H RDW Coeff of Ashok 15.7 H Plt Count 486 H MPV 12.6 H Immature Gran % (Auto) 3.800 H Neut % (Auto) 88.6 H Lymph % (Auto) 3.9 L [place] % (Auto) 3.2 Eos % (Auto) 0.1 Baso % (Auto) 0.4 Absolute Neuts (auto) 27.9 H Absolute Lymphs (auto) 1.23 Nucleated RBC % 0 Differential Comment COMMENT Diff Path Review Reviewed Reviewed Sodium 135 L Potassium 3.9 Chloride 99 Carbon Dioxide 26.0 Anion Gap 10 BUN 83 H Creatinine 1.36 H Estim Creat Clear Calc 51.69 Est GFR (MDRD) Af Amer 67 Est GFR (MDRD) Non-Af 56 L BUN/Creatinine Ratio 61.0 H Glucose 92 Calcium 8.6 COVID-19 (DANAY) 09/28/20 09/29/20 09/29/20 15:40 06:22 06:22 WBC 35.7 H* RBC 3.28 L Hgb 8.2 L Hct 26.8 L MCV 81.7 MCH 25.0 L MCHC 30.6 L RDW Std Deviation 45.5 H RDW Coeff of Ashok 15.5 H Plt Count 487 H MPV 11.9 Immature Gran % (Auto) 3.200 H Neut % (Auto) 87.5 H Lymph % (Auto) 5.2 L [place] % (Auto) 3.6 Eos % (Auto) 0.1 Baso % (Auto) 0.4 Absolute Neuts (auto) 31.2 H Absolute Lymphs (auto) 1.86 Nucleated RBC % 0 Differential Comment SCANNED Diff Path Review Reviewed Sodium 132 L Potassium 4.0 Chloride 99 Carbon Dioxide 23.0 Anion Gap 10 BUN 67 H Creatinine 1.13 Estim Creat Clear Calc 62.21 Est GFR (MDRD) Af Amer 84 Est GFR (MDRD) Non-Af 69 BUN/Creatinine Ratio 59.3 H Glucose 101 Calcium 8.7 COVID-19 (DANAY) Positive Clinical Impression(s) from Imaging Studies Abdomen/Pelvis CT 09/12/20 16:20 IMPRESSION: Partially imaged right anterior chest wall/pleural based mass. Large abdominal mass with omental thickening and nodularity. Soft tissue densities along the paracolic gutters is noted. Bilateral renal cysts. Obstructive calculi within the distal left ureter and left UVJ. Free fluid in the pelvis. Retroperitoneal and inguinal adenopathy. Mild ascites. Mild wall thickening of the bladder. Electronically Signed: Lebron Ibarra DO at 18:51 EDT Tel [phone], Service support , Chest X-Ray 09/12/20 18:00 IMPRESSION: Bilateral interstitial densities with possible bilateral perihilar infiltrates. Pulmonary vascular prominence. Electronically Signed: Lebron Ibarra DO at 18:29 EDT Tel [phone], Service support , Chest CT 09/14/20 13:30 IMPRESSION: Dense infiltrates in both lungs as described. Anterior chest wall mass as described. Soft tissue mass in the anterior aspect of the lower thorax at the right cardiophrenic junction. Electronically Signed: Ok Solis, at 15:51 EDT , Service support , ADDENDUM: 09/14/20 1559 Chest X-Ray 09/17/20 10:15 IMPRESSION: Progressive bilateral patchy infiltrates worse in the left lower lobe. Electronically Signed: Ok Solis, at 15:13 EDT , Service support , Current Medications Acetaminophen (Acetaminophen 325 Mg Tablet) 650 mg PO Q6H PRN PRN PRN Reason: Pain Score 1-10/Temp > 100.7 F Last Admin: 09/29/20 03:07 Dose: 650 mg Documented by: Albuterol Sulfate (Albuterol Sulfate Hfa 6.7 Gm Inhaler (200 Puffs)) 2 puff IH Q4H PRN PRN PRN Reason: COUGH Last Admin: 09/24/20 09:42 Dose: 2 puff Documented by: Apixaban (Apixaban 5 Mg Tablet) 5 mg PO BID [facility] Last Admin: 09/29/20 08:40 Dose: 5 mg Documented by: Calamine/Phenol (Menthol/Lanolin/Calamine/Znox 113 Gm Tube) 1 applic TOPICAL BID [facility]; Protocol Last Admin: 09/29/20 08:39 Dose: 1 applicatio Documented by: Ibuprofen (Ibuprofen 400 Mg Tablet) 400 mg PO Q4H PRN PRN PRN Reason: Pain Score 1-10/Temp > 100.7 F Miscellaneous Information (Inhaler, Assist Devices 1 Each Spacer) 1 each INHALATION PRN PRN PRN Reason: WITH ALBUTEROL MDI Last Admin: 09/14/20 21:58 Dose: 1 each Documented by: Ondansetron HCl (Ondansetron 4 Mg/2 Ml Vial) 4 mg IV Q8H PRN PRN PRN Reason: NAUSEA/VOMITING Last Admin: 09/19/20 08:36 Dose: 4 mg Documented by: Oxycodone HCl (Oxycodone 5 Mg Tablet) 5 mg PO Q4H PRN PRN PRN Reason: Pain Score 4-5 Last Admin: 09/14/20 09:56 Dose: 5 mg Documented by: Oxycodone HCl (Oxycodone 5 Mg Tablet) 10 mg PO Q4H PRN PRN PRN Reason: Pain Score 6-10 Sodium Chloride (0.9% Saline Lock 10 Ml Syringe) 10 - 40 ml IV UD PRN PRN Reason: SALINE FLUSH Last Admin: 09/27/20 18:13 Dose: 10 ml Documented by: Sodium Chloride (0.9% Saline Lock 10 Ml Syringe) 10 - 40 ml IV UD PRN PRN Reason: Midline Flush Last Admin: 09/27/20 17:03 Dose: 20 ml Documented by: Sodium Chloride (0.9 % Nacl (Sterile) Posiflush 10 Ml) 10 - 40 ml IV UD PRN PRN Reason: Port access or dressing change Tamsulosin HCl (Tamsulosin Hcl 0.4 Mg Capsule) 0.4 mg PO QHS [facility] Last Admin: 09/28/20 21:07 Dose: 0.4 mg Documented by: Medical Necessity - Tobacco Use Smoking Status: Never smoker Assessment/Plan All Active Problems (Last Updated 09/12/20 @ 20:[address] Hector De Santiago, DO) Renal failure (Acute) Ureteral calculus (Acute) Pyelonephritis (Acute) Pneumonia due to COVID-19 virus (Acute) Omental mass (Acute) RECOMMENDATIONS: 1. Wean supplemental oxygen to maintain saturations at or above 90%. 2. Continue to attempt gentle diuresis as tolerated by hemodynamics and renal function. 3. Encourage incentive spirometer use and mobilize patient as tolerated. 4. The patient will require further outpatient work-up of the mass noted on CT chest along with the findings noted on CT abdomen/pelvis. 5. Would not recommend pursuing biopsy at this time as this is likely not the etiology of his acute hypoxic respiratory failure. 6. Poor long-term prognosis given probable underlying malignancy with COVID-19. IMPRESSIONS: 1. Acute hypoxemic respiratory failure secondary to Covid pneumonia Plan to continue current supportive measures including supplemental oxygen with a goal to maintain saturations at or above 90%. The patient has completed a 10- day treatment course of Decadron. Very guarded prognosis overall. Continue to encourage incentive spirometer use and mobilize patient as tolerated. Disposition planning is currently underway. Anticipate discharge supplemental oxygen requirement. 2. Acute kidney injury Improving. Likely multifactorial with prerenal and obstructive uropathy contributing. Continue to monitor urine output. No current indication for renal replacement therapy. 3. E. 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 The patient has completed his antibiotic treatment course per the discretion of infectious diseases. 4. History of non-Hodgkin's lymphoma Complicates care, management, recovery and prognosis. Oncology does not have any additional plans for further inpatient work-up. Clinical concern for recurrence of lymphoma leading to the anterior mediastinal mass. Patient would likely benefit from oncology input as an inpatient to help with prognosis and goals of therapy. Defer to hospitalist. This note was generated with [employer] dictation software. It may contain incorrect words, spelling, and punctuation that were not noted in checking the note before signing. Inpatient E&M: 41137 Subs Hosp L2
--- NOTE | 2020-09-29 16:58 | PCM.PN.ID ---
Patient Problems: Active and Suspected Problems (Last Updated 09/12/20 @ 20:[address] Hector De Santiago, DO) Renal failure (Acute) Ureteral calculus (Acute) Pyelonephritis (Acute) Pneumonia due to COVID-19 virus (Acute) Omental mass (Acute) Subjective: Feeling fine, breathing better, no fever, no sputum, no abd pain, no n/v/d. - Physical Exam Vitals/I&O's: Vital Signs Temp Pulse Resp BP Pulse Ox 97.8 F 91 18 100/63 94 09/29/20 12:06 09/29/20 12:06 09/29/20 12:06 09/29/20 12:06 09/29/20 12:06 Oxygen Flow Rate (L/min) 6 Oxygen Delivery Method Nasal Cannula Weight: 71.123 kg Body Mass Index (BMI) 23.8 Intake and Output for Last 24 Hours 09/27/20 09/28/20 09/29/20 23:59 23:59 23:59 Intake Total 1680 / 1680 690 / 690 480 / 480 Output Total 2175 / 2175 2100 / 2100 950 / 950 Balance -495 / -495 -1410 / -1410 -470 / -470 General: Alert, Cooperative, No apparent distress Lungs: Clear to auscultation, Diminished Cardiovascular: Regular rate, Regular Rhythm Abdomen: Soft, Non Tender, Distended Skin: No rashes Laboratory Results 09/28/20 15:40: COVID-19 (DANAY) Positive 09/29/20 06:22: WBC 35.7 H*, RBC 3.28 L, Hgb 8.2 L, Hct 26.8 L, MCV 81.7, MCH 25.0 L, MCHC 30.6 L, RDW Std Deviation 45.5 H, RDW Coeff of Ashok 15.5 H, Plt Count 487 H, MPV 11.9, Immature Gran % (Auto) 3.200 H, Neut % (Auto) 87.5 H, Lymph % (Auto) 5.2 L, [place] % (Auto) 3.6, Eos % (Auto) 0.1, Baso % (Auto) 0.4, Absolute Neuts (auto) 31.2 H, Absolute Lymphs (auto) 1.86, Nucleated RBC % 0, Differential Comment SCANNED, Diff Path Review Reviewed 09/29/20 06:22: Sodium 132 L, Potassium 4.0, Chloride 99, Carbon Dioxide 23.0, Anion Gap 10, BUN 67 H, Creatinine 1.13, Estim Creat Clear Calc 62.21, Est GFR (MDRD) Af Amer 84, Est GFR (MDRD) Non-Af 69, BUN/Creatinine Ratio 59.3 H, Glucose 101, Calcium 8.7 Current Medications Acetaminophen (Acetaminophen 325 Mg Tablet) 650 mg PO Q6H PRN PRN PRN Reason: Pain Score 1-10/Temp > 100.7 F Last Admin: 09/29/20 03:07 Dose: 650 mg Documented by: Albuterol Sulfate (Albuterol Sulfate Hfa 6.7 Gm Inhaler (200 Puffs)) 2 puff IH Q4H PRN PRN PRN Reason: COUGH Last Admin: 09/24/20 09:42 Dose: 2 puff Documented by: Apixaban (Apixaban 5 Mg Tablet) 5 mg PO BID [facility] Last Admin: 09/29/20 08:40 Dose: 5 mg Documented by: Calamine/Phenol (Menthol/Lanolin/Calamine/Znox 113 Gm Tube) 1 applic TOPICAL BID [facility]; Protocol Last Admin: 09/29/20 08:39 Dose: 1 applicatio Documented by: Ibuprofen (Ibuprofen 400 Mg Tablet) 400 mg PO Q4H PRN PRN PRN Reason: Pain Score 1-10/Temp > 100.7 F Miscellaneous Information (Inhaler, Assist Devices 1 Each Spacer) 1 each INHALATION PRN PRN PRN Reason: WITH ALBUTEROL MDI Last Admin: 09/14/20 21:58 Dose: 1 each Documented by: Ondansetron HCl (Ondansetron 4 Mg/2 Ml Vial) 4 mg IV Q8H PRN PRN PRN Reason: NAUSEA/VOMITING Last Admin: 09/19/20 08:36 Dose: 4 mg Documented by: Oxycodone HCl (Oxycodone 5 Mg Tablet) 5 mg PO Q4H PRN PRN PRN Reason: Pain Score 4-5 Last Admin: 09/14/20 09:56 Dose: 5 mg Documented by: Oxycodone HCl (Oxycodone 5 Mg Tablet) 10 mg PO Q4H PRN PRN PRN Reason: Pain Score 6-10 Sodium Chloride (0.9% Saline Lock 10 Ml Syringe) 10 - 40 ml IV UD PRN PRN Reason: SALINE FLUSH Last Admin: 09/27/20 18:13 Dose: 10 ml Documented by: Sodium Chloride (0.9% Saline Lock 10 Ml Syringe) 10 - 40 ml IV UD PRN PRN Reason: Midline Flush Last Admin: 09/27/20 17:03 Dose: 20 ml Documented by: Sodium Chloride (0.9 % Nacl (Sterile) Posiflush 10 Ml) 10 - 40 ml IV UD PRN PRN Reason: Port access or dressing change Tamsulosin HCl (Tamsulosin Hcl 0.4 Mg Capsule) 0.4 mg PO QHS [facility] Last Admin: 09/28/20 21:07 Dose: 0.4 mg Documented by: Medical Necessity - Tobacco Use Smoking Status: Never smoker Route of nutrition/ use of supplements: [] Nutritional Intake: [] IV Site: [] Peoples Catheter: [] - Assessment/Plan Antibiotics: [] Assessment/Plan: [] Active and Suspected Problems (Last Updated 09/12/20 @ 20:[address] Hector De Santiago, DO) Renal failure (Acute) Ureteral calculus (Acute) Pyelonephritis (Acute) Pneumonia due to COVID-19 virus (Acute) Omental mass (Acute) covid with hypoxic resp failure - Completed dex. O2 overall much improved over past few days. Wbc continues to rise but he is asymptomatic and feeling fine. Has ongoing issue with metastatic lymphoma as well. 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 Will follow, d/w Dr. Neri
--- NOTE | 2020-09-29 19:54 | PN_ITS ---
Patient Problems: Active and Suspected Problems (Last Updated 09/12/20 @ 20:[address] Hector De Santiago, DO) Renal failure (Acute) Ureteral calculus (Acute) Pyelonephritis (Acute) Pneumonia due to COVID-19 virus (Acute) Omental mass (Acute) Subjective: Patient seen and examined. He had no complaints and felt well. Review of systems otherwise negative. Labs and vitals reviewed. He has remained hemodynamically stable. Vitals/I&O's: Vital Signs Temp Pulse Resp BP Pulse Ox 97.3 F L 87 18 104/70 96 09/29/20 18:01 09/29/20 18:59 09/29/20 18:01 09/29/20 18:01 09/29/20 18:01 Oxygen Flow Rate (L/min) 6 Oxygen Delivery Method Nasal Cannula Weight: 156 lb 12.79 oz Body Mass Index (BMI) 23.8 Intake and Output for Last 24 Hours 09/27/20 09/28/20 09/29/20 23:59 23:59 23:59 Intake Total 1680 / 1680 690 / 690 960 / 960 Output Total 2175 / 2175 2100 / 2100 1450 / 1450 Balance -495 / -495 -1410 / -1410 -490 / -490 General: Alert, Oriented x3, Cooperative, No apparent distress HEENT: Atraumatic, PERRLA, EOMI, Normocephalic Oral: Moist Mucosa Neck: Supple, No JVD, Negative Carotid Bruits Lungs: - - mildly decreased breath sounds bibasally, no wheezes or crackles. On 6L of oxygen. Cardiovascular: Regular rate, Regular Rhythm, Normal S1, Normal S2, No murmurs Abdomen: Bowel Sounds Present, Soft, Non Tender, - - firm, erythematous umbilical mass, nontender to touch- is chronically present. Extremities: No clubbing, No cyanosis, No edema, Capillary Refill Less than 3 Seconds Skin: No rashes, No breakdown Musculoskeletal: No Tenderness to Palpation of Joints or Extremities Lymphatic: No Cervical, Supraclavicular, or Inguinal Adenopathy Neurological: Cranial nerves II-XII grossly intact, Neuro grossly intact, Motor Exam 5/5 strength throughout Psych/Mental Status: Normal Affect, Appropriate, Alert and oriented to time, place, person, mood and affect Laboratory Results 09/29/20 06:22: WBC 35.7 H*, RBC 3.28 L, Hgb 8.2 L, Hct 26.8 L, MCV 81.7, MCH 25.0 L, MCHC 30.6 L, RDW Std Deviation 45.5 H, RDW Coeff of Ashok 15.5 H, Plt Count 487 H, MPV 11.9, Immature Gran % (Auto) 3.200 H, Neut % (Auto) 87.5 H, Lymph % (Auto) 5.2 L, [place] % (Auto) 3.6, Eos % (Auto) 0.1, Baso % (Auto) 0.4, Absolute Neuts (auto) 31.2 H, Absolute Lymphs (auto) 1.86, Nucleated RBC % 0, Differential Comment SCANNED, Diff Path Review Reviewed 09/29/20 06:22: Sodium 132 L, Potassium 4.0, Chloride 99, Carbon Dioxide 23.0, Anion Gap 10, BUN 67 H, Creatinine 1.13, Estim Creat Clear Calc 62.21, Est GFR (MDRD) Af Amer 84, Est GFR (MDRD) Non-Af 69, BUN/Creatinine Ratio 59.3 H, Glucose 101, Calcium 8.7 Current Medications Acetaminophen (Acetaminophen 325 Mg Tablet) 650 mg PO Q6H PRN PRN PRN Reason: Pain Score 1-10/Temp > 100.7 F Last Admin: 09/29/20 03:07 Dose: 650 mg Documented by: Albuterol Sulfate (Albuterol Sulfate Hfa 6.7 Gm Inhaler (200 Puffs)) 2 puff IH Q4H PRN PRN PRN Reason: COUGH Last Admin: 09/24/20 09:42 Dose: 2 puff Documented by: Apixaban (Apixaban 5 Mg Tablet) 5 mg PO BID [facility] [place] Last Admin: 09/29/20 08:40 Dose: 5 mg Documented by: Calamine/Phenol (Menthol/Lanolin/Calamine/Znox 113 Gm Tube) 1 applic TOPICAL BID [facility] [place]; Protocol Last Admin: 09/29/20 08:39 Dose: 1 applicatio Documented by: Ibuprofen (Ibuprofen 400 Mg Tablet) 400 mg PO Q4H PRN PRN PRN Reason: Pain Score 1-10/Temp > 100.7 F Miscellaneous Information (Inhaler, Assist Devices 1 Each Spacer) 1 each INHALATION PRN PRN PRN Reason: WITH ALBUTEROL MDI Last Admin: 09/14/20 21:58 Dose: 1 each Documented by: Ondansetron HCl (Ondansetron 4 Mg/2 Ml Vial) 4 mg IV Q8H PRN PRN PRN Reason: NAUSEA/VOMITING Last Admin: 09/19/20 08:36 Dose: 4 mg Documented by: Oxycodone HCl (Oxycodone 5 Mg Tablet) 5 mg PO Q4H PRN PRN PRN Reason: Pain Score 4-5 Last Admin: 09/14/20 09:56 Dose: 5 mg Documented by: Oxycodone HCl (Oxycodone 5 Mg Tablet) 10 mg PO Q4H PRN PRN PRN Reason: Pain Score 6-10 Sodium Chloride (0.9% Saline Lock 10 Ml Syringe) 10 - 40 ml IV UD PRN PRN Reason: SALINE FLUSH Last Admin: 09/27/20 18:13 Dose: 10 ml Documented by: Sodium Chloride (0.9% Saline Lock 10 Ml Syringe) 10 - 40 ml IV UD PRN PRN Reason: Midline Flush Last Admin: 09/27/20 17:03 Dose: 20 ml Documented by: Sodium Chloride (0.9 % Nacl (Sterile) Posiflush 10 Ml) 10 - 40 ml IV UD PRN PRN Reason: Port access or dressing change Tamsulosin HCl (Tamsulosin Hcl 0.4 Mg Capsule) 0.4 mg PO QHS [facility] Last Admin: 09/28/20 21:07 Dose: 0.4 mg Documented by: STROKE Vital Signs/Narrative: Vital Signs Temp Pulse Resp BP Pulse Ox 09/29/20 18:59 87 09/29/20 18:01 97.3 F L 85 18 104/70 96 09/29/20 17:13 85 Medical Necessity - Tobacco Use Smoking Status: Never smoker Assessment/Plan All Active Problems (Last Updated 09/12/20 @ 20:[address] Hector De Santiago DO) Renal failure (Acute) Ureteral calculus (Acute) Pyelonephritis (Acute) Pneumonia due to COVID-19 virus (Acute) Omental mass (Acute) #Acute hypoxic respiratory failure due to COVID 19 pneumonia * oxygen requirements down to 6L of oxygen now * ID on board and pulmonology on board. * on IV decadron. * CT of the chest on admission showed infiltrates in both lungs with an anterior chest wall mass * Also noted to be fluid overloaded. Currently on Eliquis. on IV lasix * titrate oxygen to maintain sats>90% #History of lymphoma * Did not complete treatment. Imaging done on admission showed large abdominal mass with omental thickening and nodularity as well as soft tissue densities along the pericolic gutters. Also has chest masses as per CAT scan. * Oncology was consulted recommended that he follows up on outpatient basis. * #Leucocytosis: * wbc up to 35 today * He does have chronically elevated white cell counts but this is much higher than previously. It is mainly neutrophilia. He has completed a 5-day course of IV Rocephin for UTI. * His oxygen requirements is also improving. * Is on high doses of steroids which would also be contributing as there is no clear evidence of infection. * discussed with ID; recommend holding off on antibiotics for now as patient has no focus of infection now, and oxygen requirements are improving. Anemia: stable. Continue to monitor DVT prophylaxis: On Eliquis Disposition: for dc to SNF once precert obtained. I did speak to his sister Liliana by phone today ([phone]) and updated her about patient's condition. Family has picked a SNF, pending precert Inpatient E&M: 41613 Subs Hosp L2
[2020-09-29] MEDS: Tamsulosin HCl 0.4 MG Capsule PO (21:49)
[2020-09-30] VITALS (9 sets, daily range): BP systolic 108–121; BP diastolic 64–72; PULSE 79–114; RESP 20; TEMP 36.7–37.6; O2SAT 92–98
[2020-09-30 06:44] LABS: Absolute Lymphocyte Count 1.38 X10^3/uL (0.83-4.51); Absolute Neutrophil Count 30.7 X10^3/uL (2.0-7.7); Basophil# 0.12 X10^3/uL; Basophil% 0.4 % (0-1); Eosinophil# 0.04 X10^3/uL; Eosinophils% 0.1 % (0-5); Hematocrit 26.4 % (40-54); Hemoglobin 7.9 g/dL (13.0-16.5); Lymphocyte # 1.38 X10^3/ul (4.0); Mean Corp Hgb Conc 29.9 g/dL (32-36); Mean Corpuscular Hgb 24.8 pg (27.0-32.0); Mean Platelet Vol. 12.2 fl (6.2-12.0); Monocyte# 1.09 X10^3/uL; Monocyte% 3.2 % (0-10); NRBC Flagged by Analyzer 0 % (0-5); Neutrophil # 30.73 X10^3/uL (2.7-7.7); Neutrophil % 89.6 % (47-70); POSITIVE COUNT YES; POSITIVE DIFFERENTIAL YES; Platelet Count 485 K/mm3 (150-450); RBC Distribution Width CV 15.8 % (11.6-14.6); RBC Distribution Width SD 47.1 fl (35.1-43.9); Red Blood Count 3.18 M/mm3 (4.6-6.2)
[2020-09-30 06:45] LABS: Differential Indicated SCAN CRITERIA MET
[2020-09-30 06:46] LABS: White Blood Count 34.3 K/mm3 (4.4-11.0)
[2020-09-30 06:59] LABS: Differential Comment SCANNED
[2020-09-30 07:19] LABS: Anion Gap 9 (5-15); BUN 59 mg/dL (7-18); BUN/Creat Ratio 53.2 RATIO (10-20); Calcium,Total 8.8 mg/dL (8.5-10.1); Chloride 103 mmol/L (98-107); Creatinine, Serum 1.11 mg/dL (0.70-1.30); EST Glomerular Filtration Rate 70 mL/min (>60); Est Glom Filt Rate - Afr Amer 85 mL/min (>60); Estimated Creatinine Clearance 63.33 ml/min; Glucose 188 mg/dL (74-106); Potassium 3.7 mmol/L (3.5-5.1); Sodium Level 134 mmol/L (136-145)
[2020-09-30] MEDS: APIXABAN 5 MG TABLET PO (09:43)
[2020-09-30] MEDS: Menthol/Lanolin/Calamine/Znox 113 GM Tube 1 APPLIC TOPICAL (09:46)
[2020-09-30] MEDS: 0.9% Saline Lock 10 ML Syringe IV (09:46)
--- NOTE | 2020-09-30 10:08 | PN_ITS ---
Patient Problems: Active and Suspected Problems (Last Updated 09/12/20 @ 20:[address] Hector De Santiago, DO) Renal failure (Acute) Ureteral calculus (Acute) Pyelonephritis (Acute) Pneumonia due to COVID-19 virus (Acute) Omental mass (Acute) Subjective: The patient was seen and examined at the bedside this morning. Events from the last 24 hours have been reviewed. The patient is currently afebrile, hemodynamically stable and maintaining appropriate oxygen saturations on 6 L/min via nasal cannula. Objective: The patient's most recent lab work, culture data and imaging studies have all been personally reviewed. Coronavirus PCR was positive on September 12. Urine culture was positive for E. coli. - Physical Exam Vitals/I&O's: Vital Signs Temp Pulse Resp BP Pulse Ox 98.6 F 107 H 20 H 111/64 93 09/30/20 09:41 09/30/20 09:41 09/30/20 09:41 09/30/20 09:41 09/30/20 09:41 Oxygen Flow Rate (L/min) 6 Oxygen Delivery Method Nasal Cannula Weight: 156 lb 12.79 oz Body Mass Index (BMI) 23.8 Intake and Output for Last 24 Hours 09/28/20 09/29/20 09/30/20 23:59 23:59 23:59 Intake Total 690 / 690 1200 / 1200 240 / 240 Output Total 2100 / 2100 1950 / 1950 600 / 600 Balance -1410 / -1410 -750 / -750 -360 / -360 General: Alert, Cooperative, No apparent distress HEENT: Atraumatic, Normocephalic Oral: No Gingival or Mucosal Lesions/ Ulcerations Neck: Supple, No Nodes, Trachea Midline Lungs: No rhonchi, No wheeze, No rales, Diminished Cardiovascular: Regular rate, Regular Rhythm Abdomen: Bowel Sounds Present, Soft, Non Tender Extremities: No clubbing, No cyanosis, No edema Skin: No breakdown Musculoskeletal: No Tenderness to Palpation of Joints or Extremities Neurological: Neuro grossly intact Psych/Mental Status: Normal Affect Labs (Last 48 Hours) 09/27/20 09/28/20 09/28/20 08:26 06:00 15:40 WBC RBC Hgb Hct MCV MCH MCHC RDW Std Deviation RDW Coeff of Ashok Plt Count MPV Immature Gran % (Auto) Neut % (Auto) Lymph % (Auto) [place] % (Auto) Eos % (Auto) Baso % (Auto) Absolute Neuts (auto) Absolute Lymphs (auto) Nucleated RBC % Differential Comment Diff Path Review Reviewed Reviewed Sodium Potassium Chloride Carbon Dioxide Anion Gap BUN Creatinine Estim Creat Clear Calc Est GFR (MDRD) Af Amer Est GFR (MDRD) Non-Af BUN/Creatinine Ratio Glucose Calcium COVID-19 (DANAY) Positive 09/29/20 09/29/20 09/30/20 06:22 06:22 05:42 WBC 35.7 H* 34.3 H* RBC 3.28 L 3.18 L Hgb 8.2 L 7.9 L Hct 26.8 L 26.4 L MCV 81.7 83.0 MCH 25.0 L 24.8 L MCHC 30.6 L 29.9 L RDW Std Deviation 45.5 H 47.1 H RDW Coeff of Ashok 15.5 H 15.8 H Plt Count 487 H 485 H MPV 11.9 12.2 H Immature Gran % (Auto) 3.200 H 2.700 H Neut % (Auto) 87.5 H 89.6 H Lymph % (Auto) 5.2 L 4.0 L [place] % (Auto) 3.6 3.2 Eos % (Auto) 0.1 0.1 Baso % (Auto) 0.4 0.4 Absolute Neuts (auto) 31.2 H 30.7 H Absolute Lymphs (auto) 1.86 1.38 Nucleated RBC % 0 0 Differential Comment SCANNED SCANNED Diff Path Review Reviewed March Sodium 132 L Potassium 4.0 Chloride 99 Carbon Dioxide 23.0 Anion Gap 10 BUN 67 H Creatinine 1.13 Estim Creat Clear Calc 62.21 Est GFR (MDRD) Af Amer 84 Est GFR (MDRD) Non-Af 69 BUN/Creatinine Ratio 59.3 H Glucose 101 Calcium 8.7 COVID-19 (DANAY) 09/30/20 05:42 WBC RBC Hgb Hct MCV MCH MCHC RDW Std Deviation RDW Coeff of Ashok Plt Count MPV Immature Gran % (Auto) Neut % (Auto) Lymph % (Auto) [place] % (Auto) Eos % (Auto) Baso % (Auto) Absolute Neuts (auto) Absolute Lymphs (auto) Nucleated RBC % Differential Comment Diff Path Review Sodium 134 L Potassium 3.7 Chloride 103 Carbon Dioxide 22.0 Anion Gap 9 BUN 59 H Creatinine 1.11 Estim Creat Clear Calc 63.33 Est GFR (MDRD) Af Amer 85 Est GFR (MDRD) Non-Af 70 BUN/Creatinine Ratio 53.2 H Glucose 188 H Calcium 8.8 COVID-19 (DANAY) Clinical Impression(s) from Imaging Studies Abdomen/Pelvis CT 09/12/20 16:20 IMPRESSION: Partially imaged right anterior chest wall/pleural based mass. Large abdominal mass with omental thickening and nodularity. Soft tissue densities along the paracolic gutters is noted. Bilateral renal cysts. Obstructive calculi within the distal left ureter and left UVJ. Free fluid in the pelvis. Retroperitoneal and inguinal adenopathy. Mild ascites. Mild wall thickening of the bladder. Electronically Signed: Lebron Ibarra DO at 18:51 EDT Tel [phone], Service support , Chest X-Ray 09/12/20 18:00 IMPRESSION: Bilateral interstitial densities with possible bilateral perihilar infiltrates. Pulmonary vascular prominence. Electronically Signed: Lebron Ibarra DO at 18:29 EDT Tel [phone], Service support , Chest CT 09/14/20 13:30 IMPRESSION: Dense infiltrates in both lungs as described. Anterior chest wall mass as described. Soft tissue mass in the anterior aspect of the lower thorax at the right cardiophrenic junction. Electronically Signed: Ok Solis at 15:51 EDT , Service support , ADDENDUM: 09/14/20 1559 Chest X-Ray 09/17/20 10:15 IMPRESSION: Progressive bilateral patchy infiltrates worse in the left lower lobe. Electronically Signed: Ok Solis, at 15:13 EDT , Service support , Current Medications Acetaminophen (Acetaminophen 325 Mg Tablet) 650 mg PO Q6H PRN PRN PRN Reason: Pain Score 1-10/Temp > 100.7 F Last Admin: 09/29/20 03:07 Dose: 650 mg Documented by: Albuterol Sulfate (Albuterol Sulfate Hfa 6.7 Gm Inhaler (200 Puffs)) 2 puff IH Q4H PRN PRN PRN Reason: COUGH Last Admin: 09/24/20 09:42 Dose: 2 puff Documented by: Apixaban (Apixaban 5 Mg Tablet) 5 mg PO BID [facility] Last Admin: 09/30/20 09:43 Dose: 5 mg Documented by: Calamine/Phenol (Menthol/Lanolin/Calamine/Znox 113 Gm Tube) 1 applic TOPICAL BID [facility]; Protocol Last Admin: 09/30/20 09:46 Dose: 1 applicatio Documented by: Ibuprofen (Ibuprofen 400 Mg Tablet) 400 mg PO Q4H PRN PRN PRN Reason: Pain Score 1-10/Temp > 100.7 F Miscellaneous Information (Inhaler, Assist Devices 1 Each Spacer) 1 each INHALATION PRN PRN PRN Reason: WITH ALBUTEROL MDI Last Admin: 09/14/20 21:58 Dose: 1 each Documented by: Ondansetron HCl (Ondansetron 4 Mg/2 Ml Vial) 4 mg IV Q8H PRN PRN PRN Reason: NAUSEA/VOMITING Last Admin: 09/19/20 08:36 Dose: 4 mg Documented by: Oxycodone HCl (Oxycodone 5 Mg Tablet) 5 mg PO Q4H PRN PRN PRN Reason: Pain Score 4-5 Last Admin: 09/14/20 09:56 Dose: 5 mg Documented by: Oxycodone HCl (Oxycodone 5 Mg Tablet) 10 mg PO Q4H PRN PRN PRN Reason: Pain Score 6-10 Sodium Chloride (0.9% Saline Lock 10 Ml Syringe) 10 - 40 ml IV UD PRN PRN Reason: SALINE FLUSH Last Admin: 09/30/20 09:46 Dose: 10 ml Documented by: Sodium Chloride (0.9% Saline Lock 10 Ml Syringe) 10 - 40 ml IV UD PRN PRN Reason: Midline Flush Last Admin: 09/27/20 17:03 Dose: 20 ml Documented by: Sodium Chloride (0.9 % Nacl (Sterile) Posiflush 10 Ml) 10 - 40 ml IV UD PRN PRN Reason: Port access or dressing change Tamsulosin HCl (Tamsulosin Hcl 0.4 Mg Capsule) 0.4 mg PO QHS VITO Last Admin: 09/29/20 21:49 Dose: 0.4 mg Documented by: Medical Necessity - Tobacco Use Smoking Status: Never smoker Assessment/Plan All Active Problems (Last Updated 09/12/20 @ 20:[address] Hector De Santiago, DO) Renal failure (Acute) Ureteral calculus (Acute) Pyelonephritis (Acute) Pneumonia due to COVID-19 virus (Acute) Omental mass (Acute) RECOMMENDATIONS: 1. Wean supplemental oxygen to maintain saturations at or above 90%. 2. Continue to attempt gentle diuresis as tolerated by hemodynamics and renal function. 3. Encourage incentive spirometer use and mobilize patient as tolerated. 4. The patient will require further outpatient work-up of the mass noted on CT chest along with the findings noted on CT abdomen/pelvis. 5. Would not recommend pursuing biopsy at this time as this is likely not the etiology of his acute hypoxic respiratory failure. 6. Poor long-term prognosis given probable underlying malignancy with COVID-19. IMPRESSIONS: 1. Acute hypoxemic respiratory failure secondary to Covid pneumonia Plan to continue current supportive measures including supplemental oxygen with a goal to maintain saturations at or above 90%. The patient has completed a 10- day treatment course of Decadron. Very guarded prognosis overall. Continue to encourage incentive spirometer use and mobilize patient as tolerated. Disposition planning is currently underway. Anticipate discharge supplemental oxygen requirement. 2. Acute kidney injury Improving. Likely multifactorial with prerenal and obstructive uropathy contributing. Continue to monitor urine output. No current indication for renal replacement therapy. 3. E. 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 The patient has completed his antibiotic treatment course per the discretion of infectious diseases. 4. History of non-Hodgkin's lymphoma Complicates care, management, recovery and prognosis. Oncology does not have any additional plans for further inpatient work-up. Clinical concern for recurrence of lymphoma leading to the anterior mediastinal mass. Patient would likely benefit from oncology input as an inpatient to help with prognosis and goals of therapy. Defer to hospitalist. This note was generated with [employer] software. It may contain incorrect words, spelling, and punctuation that were not noted in checking the note before signing. Inpatient E&M: 57075 Subs Hosp L2
--- NOTE | 2020-09-30 11:30 | CASEMGMT ---
Addendum entered by Sarah Huynh 09/30/20 14:49: TANISHA completed convalescent 7000 in [facility]. Original in SNF folder and copy on pt's chart. TANISHA faxed completed discharge paperwork to [facility] including transfer to extended care facility, signed medication list. Pt was not prescribed any medications on discharge, physician confirms no medications at discharge. TANISHA discussed with charge nurse transportation for pt. Pt would be safer in cot transportation as pt is requiring 6-7 L of oxygen and pt gets tachy when pt gets up. TANISHA placed a call to physician's ambulance and arranged transportation via cot for 5:30pm. Transportation form completed and placed on SNF folder and copy on pt's chart. TANISHA placed a call to pt's sister Liliana and updated her on discharge and transportation time. TANISHA placed a call to Heather at [facility] and updated her on discharge and transportation time. Plan: [facility] skilled today with [facility] transporting pt via cot at 5:30pm LOUIS Christine Original Note: Social Work Note Pt is medically ready for discharge today. TANISHA placed a call to pt's sister Liliana to continue discussion of discharge plans. Liliana agreeable for pt to go to [facility] in [place]. TANISHA informed Liliana that pt will be discharged today. Liliana states she has spoken to pt about this and had just got off the phone with pt when this worker called. Liliana states pt was aware of plan for [facility] and was agreeable to plan. TANISAH attempted multiple times to call pt on phone, pt didn't answer. TANISHA tried to call pt on his cell phone and pt answered. TANISHA spoke with pt regarding discharge plans and pt going to [facility] in [place]. Pt confirms that Liliana spoke to pt about this and is agreeable to going to [facility]. TANISHA asked pt if Liliana is pt's HCPOA and pt states I guess so. TANISHA informed pt that he will be discharged to [place] and will be updated on transportation time. Pt states understanding. TANISHA updated physician. Plan: [facility] today Sarah SIMMONS, LOUIS
--- NOTE | 2020-09-30 11:59 | PCM.TXEXTCAR ---
- Diet 09/12/20 20:58 Diet: Regular - General Food consistency:: Regular Liquid Consistency:: Regular/Thin - Routine Orders/Code Status Enema Type: Fleetz Enema Frequency: Daily PRN Suppository Type: Dulcolax 10mg Suppository Frequency: Daily PRN O2 Liters per Minute: 6 O2 Frequency: Continuous Keep PO Greater than or Equal to (%): 90 Code Status: DNRCC-A - Therapies Weight Bearing: Weight bearing as tolerated Physical Therapy: Eval and Treat Occupational Therapy: Eval and Treat - Allergies/Procedures Done in Hospital Allergies/Adverse Reactions: Allergies No Known Allergies Allergy (Verified 09/12/20 15:57) - Type of Care/Length of Stay Estimated LOS: Convalescent Care Less Than 30 days Type of Care Needed: Skilled Rehab Potential: Fair Prognosis: Fair - Additional Orders/Day of Discharge Day of Discharge: 09/30/20 - Dietary and Speech Recommendations Dietitian Recommendations/Changes: Obtain new wt-daily wts ordered. Rec continue Regular diet to help pt maximize po intake. Will continue Ensure Clear for increased nutrition if consumed - Follow Up Care Primary Care Physician: Care Physician,No Primary [Primary Care Provider] - Please Follow Up With: Janusz Mendez DO When: 1-2 weeks; Please Follow Up With: Ajay Menchaca MD When: 1-2 weeks.
[2020-09-30 13:03] LABS: Pathologist Review Reviewed
--- NOTE | 2020-09-30 14:26 | PCM.DC.SUM ---
Discharge Date and Diagnosis - Problem List Patient Problems: Active and Suspected Problems (Last Updated 09/12/20 @ 20:[address] Hector De Santiago DO) Renal failure (Acute) Ureteral calculus (Acute) Pyelonephritis (Acute) Pneumonia due to COVID-19 virus (Acute) Omental mass (Acute) Date of Admission: 09/12/20 Date of Discharge: 09/30/20 - Primary Discharge Diagnosis Acute Problems: Active Problems (Last Updated 09/12/20 @ 20:[address] Hector De Santiago DO) Renal failure (Acute) Ureteral calculus (Acute) Pyelonephritis (Acute) Pneumonia due to COVID-19 virus (Acute) Omental mass (Acute) COVID 19 infection acute hypoxic respiratory failure - Secondary Discharge Diagnosis Chronic Problems: Chronic Problems (Last Updated 09/12/20 @ 20:[address] Hector De Santiago DO) History of non-Hodgkin's lymphoma (Chronic) Hospital Course and Treatment Imaging Results: Diagnostic Data Abdomen/Pelvis CT 09/12/20 16:20 IMPRESSION: Partially imaged right anterior chest wall/pleural based mass. Large abdominal mass with omental thickening and nodularity. Soft tissue densities along the paracolic gutters is noted. Bilateral renal cysts. Obstructive calculi within the distal left ureter and left UVJ. Free fluid in the pelvis. Retroperitoneal and inguinal adenopathy. Mild ascites. Mild wall thickening of the bladder. Electronically Signed: Lebron Ibarra DO at 18:51 EDT Tel [phone], Service support , Chest CT 09/14/20 13:30 IMPRESSION: Dense infiltrates in both lungs as described. Anterior chest wall mass as described. Soft tissue mass in the anterior aspect of the lower thorax at the right cardiophrenic junction. Electronically Signed: Ok Solis, at 15:51 EDT , Service support , ADDENDUM: 09/14/20 1552 Chest X-Ray 09/17/20 10:15 IMPRESSION: Progressive bilateral patchy infiltrates worse in the left lower lobe. Electronically Signed: Ok Solis, at 15:13 EDT , Service support , pulmonology- Dr Ross infectious disease- Dr Escoto Operations: None Procedures: None Summary of Care Provided: The patient is a 65 year old M with a past medical history as outlined which includes non-Hodgkin's lymphoma was admitted through the ED on 09/13/2020 with several Willard complaints including constipation, abdominal discomfort, painful urination and shortness of breath. Patient was initially saturating at 94% on room air. Labs done showed elevated white cell count of 19,000 with normocytic anemia. Sodium was 132 with bicarb of 14 and creatinine of 3.16. Urine was also positive for nitrites and leukocyte esterase. Covid test done was positive. He was started on IV ceftriaxone and admitted to the Covid floor for management. Patient did have a history of non-Hodgkin's lymphoma diagnosed several years ago for which she had been lost to follow-up and did not complete treatment. Oncology was therefore consulted and recommended follow-up on outpatient basis once acute illness was over. Knee function gradually improved with administration of fluids. CTA of the chest done on account of elevated D-dimer showed dense infiltrates in both lungs with anterior chest wall mass and soft tissue mass in the anterior aspect of the lower thorax of the right cardiophrenic junction. Patient's oxygen requirement gradually increased with him requiring a peak of 10 L of oxygen by nasal cannula. Urine cultures were positive for E. coli. He completed a course of IV ceftriaxone for UTI. ID did not think patient would benefit from convalescent plasma or remdesivir. Patient continued on IV Decadron and completed a 10-day course of Decadron. Of note, patient's white cell count shantal to a peak of 35. There was no clear evidence of infection and patient felt well and his oxygen requirements were actually coming down. Patient still required oxygen and on day of discharge, he was requiring up to 6 L of oxygen. Extensive discussions were had with family by medical team and family was finally agreeable to sending patient to [facility]. Patient remained stable and was discharged to the [facility] on 09/30/2020. He was discharged with prescription for 6 L of oxygen. He is to follow-up with his primary care doctor and oncology. Patient seen and examined prior to discharge. He had no complaints and said he was happy was going to the [facility] because he could not take care of himself at home. Review of symptoms otherwise negative. Labs and vitals reviewed. Home medication reviewed and reconciled. O/E: Vital Signs Temp Pulse Resp BP Pulse Ox 99.5 F H 114 H 20 H 109/66 98 09/30/20 13:40 09/30/20 13:40 09/30/20 13:40 09/30/20 13:40 09/30/20 13:40 [] General: Alert, Oriented x3, Cooperative, No apparent distress HEENT: Atraumatic, PERRLA, EOMI, Normocephalic Oral: Moist Mucosa Neck: Supple, No JVD, Negative Carotid Bruits Lungs: - - mildly decreased breath sounds bibasally, no wheezes or crackles. On 6L of oxygen. Cardiovascular: Regular rate, Regular Rhythm, Normal S1, Normal S2, No murmurs Abdomen: Bowel Sounds Present, Soft, Non Tender, - - firm, erythematous umbilical mass, nontender to touch- is chronically present. Extremities: No clubbing, No cyanosis, No edema, Capillary Refill Less than 3 Seconds Skin: No rashes, No breakdown Musculoskeletal: No Tenderness to Palpation of Joints or Extremities Lymphatic: No Cervical, Supraclavicular, or Inguinal Adenopathy Neurological: Cranial nerves II-XII grossly intact, Neuro grossly intact, Motor Exam 5/5 strength throughout Psych/Mental Status: Normal Affect, Appropriate, Alert and oriented to time, place, person, mood and affect Plan is for discharge to SNF today. Repeat COVID test was still positive. Patient Problems: Active and Suspected Problems (Last Updated 09/12/20 @ 20:[address] Hector De Santiago, DO) Renal failure (Acute) Ureteral calculus (Acute) Pyelonephritis (Acute) Pneumonia due to COVID-19 virus (Acute) Omental mass (Acute) - Physical Exam Vitals/I&O's: Vital Signs Temp Pulse Resp BP Pulse Ox 99.5 F H 114 H 20 H 109/66 98 09/30/20 13:40 09/30/20 13:40 09/30/20 13:40 09/30/20 13:40 09/30/20 13:40 Oxygen Flow Rate (L/min) 7 Oxygen Delivery Method Nasal Cannula Weight: 156 lb 12.79 oz Body Mass Index (BMI) 23.8 Intake and Output for Last 24 Hours 09/28/20 09/29/20 09/30/20 23:59 23:59 23:59 Intake Total 690 / 690 1200 / 1200 240 / 240 Output Total 2099 / 2099 1950 / 1950 600 / 600 Balance -1410 / -1410 -750 / -750 -360 / -360 Laboratory Results 09/30/20 05:42: WBC 34.3 H*, RBC 3.18 L, Hgb 7.9 L, Hct 26.4 L, MCV 83.0, MCH 24.8 L, MCHC 29.9 L, RDW Std Deviation 47.1 H, RDW Coeff of Ashok 15.8 H, Plt Count 485 H, MPV 12.2 H, Immature Gran % (Auto) 2.700 H, Neut % (Auto) 89.6 H, Lymph % (Auto) 4.0 L, [place] % (Auto) 3.2, Eos % (Auto) 0.1, Baso % (Auto) 0.4, Absolute Neuts (auto) 30.7 H, Absolute Lymphs (auto) 1.38, Nucleated RBC % 0, Differential Comment SCANNED, Diff Path Review Reviewed 09/30/20 05:42: Sodium 134 L, Potassium 3.7, Chloride 103, Carbon Dioxide 22.0, Anion Gap 9, BUN 59 H, Creatinine 1.11, Estim Creat Clear Calc 63.33, Est GFR (MDRD) Af Amer 85, Est GFR (MDRD) Non-Af 70, BUN/Creatinine Ratio 53.2 H, Glucose 188 H, Calcium 8.8 Diagnostic Data Abdomen/Pelvis CT 09/12/20 16:20 IMPRESSION: Partially imaged right anterior chest wall/pleural based mass. Large abdominal mass with omental thickening and nodularity. Soft tissue densities along the paracolic gutters is noted. Bilateral renal cysts. Obstructive calculi within the distal left ureter and left UVJ. Free fluid in the pelvis. Retroperitoneal and inguinal adenopathy. Mild ascites. Mild wall thickening of the bladder. Electronically Signed: Lebron Ibarra DO at 18:51 EDT Tel [phone], Service support , Chest CT 09/14/20 13:30 IMPRESSION: Dense infiltrates in both lungs as described. Anterior chest wall mass as described. Soft tissue mass in the anterior aspect of the lower thorax at the right cardiophrenic junction. Electronically Signed: Ok Will, at 15:51 EDT , Service support , ADDENDUM: 09/14/20 1559 Chest X-Ray 09/17/20 10:15 IMPRESSION: Progressive bilateral patchy infiltrates worse in the left lower lobe. Electronically Signed: Ok Will, at 15:13 EDT , Service support , Current Medications Acetaminophen (Acetaminophen 325 Mg Tablet) 650 mg PO Q6H PRN PRN PRN Reason: Pain Score 1-10/Temp > 100.7 F Last Admin: 09/29/20 03:07 Dose: 650 mg Documented by: Albuterol Sulfate (Albuterol Sulfate Hfa 6.7 Gm Inhaler (200 Puffs)) 2 puff IH Q4H PRN PRN PRN Reason: COUGH Last Admin: 09/24/20 09:42 Dose: 2 puff Documented by: Apixaban (Apixaban 5 Mg Tablet) 5 mg PO BID [facility] Last Admin: 09/30/20 09:43 Dose: 5 mg Documented by: Calamine/Phenol (Menthol/Lanolin/Calamine/Znox 113 Gm Tube) 1 applic TOPICAL BID [facility]; Protocol Last Admin: 09/30/20 09:46 Dose: 1 applicatio Documented by: Ibuprofen (Ibuprofen 400 Mg Tablet) 400 mg PO Q4H PRN PRN PRN Reason: Pain Score 1-10/Temp > 100.7 F Miscellaneous Information (Inhaler, Assist Devices 1 Each Spacer) 1 each INHALATION PRN PRN PRN Reason: WITH ALBUTEROL MDI Last Admin: 09/14/20 21:58 Dose: 1 each Documented by: Ondansetron HCl (Ondansetron 4 Mg/2 Ml Vial) 4 mg IV Q8H PRN PRN PRN Reason: NAUSEA/VOMITING Last Admin: 09/19/20 08:36 Dose: 4 mg Documented by: Oxycodone HCl (Oxycodone 5 Mg Tablet) 5 mg PO Q4H PRN PRN PRN Reason: Pain Score 4-5 Last Admin: 09/14/20 09:56 Dose: 5 mg Documented by: Oxycodone HCl (Oxycodone 5 Mg Tablet) 10 mg PO Q4H PRN PRN PRN Reason: Pain Score 6-10 Sodium Chloride (0.9% Saline Lock 10 Ml Syringe) 10 - 40 ml IV UD PRN PRN Reason: SALINE FLUSH Last Admin: 09/30/20 09:46 Dose: 10 ml Documented by: Sodium Chloride (0.9% Saline Lock 10 Ml Syringe) 10 - 40 ml IV UD PRN PRN Reason: Midline Flush Last Admin: 09/27/20 17:03 Dose: 20 ml Documented by: Sodium Chloride (0.9 % Nacl (Sterile) Posiflush 10 Ml) 10 - 40 ml IV UD PRN PRN Reason: Port access or dressing change Tamsulosin HCl (Tamsulosin Hcl 0.4 Mg Capsule) 0.4 mg PO QHS VITO Last Admin: 09/29/20 21:49 Dose: 0.4 mg Documented by: Discharge Diet: Low fat/ Low Cholesterol Discharge Activity: Return to Normal Activity Weight Bearing Status: Weight bearing as tolerated Home Medications: Medications to take at Discharge NK 09/12/20 Primary Care Physician: Care Physician,No Primary [Primary Care Provider] - Please Follow Up With: Janusz Mendez DO When: 1-2 weeks; Please Follow Up With: Ajay Menchaca MD When: 1-2 weeks. Disposition: Long Term facility Minutes spent on discharge:: 50 Patient Condition:: Poor Medical Necessity - Tobacco Use Smoking Status: Never smoker Meaningful Use Info Meaningful Use Diagnoses (Choose all that apply): None applicable Inpatient E&M: 84277 Disch Hosp
--- NOTE | 2020-09-30 15:15 | NURSING ---
called and spoke with nurse, Jeanmarie at [facility].
== END 2020-09-30 16:45 | disposition skilled nursing facility (03) | DRG 177 ==
LOC: ED 19:29 → ICU 19:59 → MS2 20:50
PROVIDERS: Family Medicine; Hospitalist; Internal Medicine; Internal Medicine Critical Care Medicine; Internal Medicine Infectious Disease; Emergency Provider Emergency Medicine; Visit Provider Student in an Organized Health Care Education/Training Program
DX: U07.1 COVID-19 (principal); J12.89 Other viral pneumonia; J96.01 Acute respiratory failure with hypoxia; N20.1 Calculus of ureter; N10 Acute pyelonephritis; N17.9 Acute kidney failure, unspecified; C85.90 Non-Hodgkin lymphoma, unspecified, unspecified site; R22.2 Localized swelling, mass and lump, trunk; K59.00 Constipation, unspecified; R19.7 Diarrhea, unspecified; B96.20 Unspecified Escherichia coli [E. coli] as the cause of diseases classified elsewhere; D64.9 Anemia, unspecified; N13.9 Obstructive and reflux uropathy, unspecified; Z66 Do not resuscitate; E87.70 Fluid overload, unspecified
CPT/HCPCS: 36415; 71045; 71250; 74176; 80048; 80053; 81001; 83605; 83615; 83735; 84484; 85025; 85027; 85379; 85610; 85730; 86900; 86901; 87040; 87086; 87088; 87186; 87635; 93005; 94002; 94003; 97110; 97116; 97162; 97166; 97530; 97535; 99285; 99406; J7030; J7040; A4216; J1940; J2405; U0002; U0003